=== PATIENT | male | born 1955 | race Caucasian/White ===

== ENCOUNTER 2023-08-20 17:43 | Emergency (ER) | payer MEDICARE, SELFPAY ==
[2023-08-20 17:50] VITALS: BP 121/70; PULSE 105; RESP 18; TEMP 36.6; O2SAT 98
--- NOTE | 2023-08-20 17:57 | CTR_ITS ---
PROCEDURE INFORMATION: Exam: CT Head Without Contrast Exam date and time: 08/20/2023 6:07 PM Age: 68 years old Clinical indication: Weakness, extremity; Bilateral; Additional info: Weakness, ataxia TECHNIQUE: Imaging protocol: Computed tomography of the head without contrast. Radiation optimization: All CT scans at this facility use at least one of these dose optimization techniques: automated exposure control; mA and/or kV adjustment per patient size (includes targeted exams where dose is matched to clinical indication); or iterative reconstruction. COMPARISON: CT head wo con* [id number] 08/22/2017 9:38 PM RADIATION DOSE METRICS: Total DLP (mGy-cm): 1108 FINDINGS: Brain: Sequela of moderate-severe chronic microvascular ischemic changes with periventricular and deep white matter hypoattenuation. Fair-white differentiation is otherwise maintained. No evidence of intra-axial or extra-axial hemorrhage. No mass effect or midline shift. Basilar cisterns are patent. Cerebral ventricles: No hydrocephalus. Paranasal sinuses: The visualized paranasal sinuses are well aerated. Mastoid air cells: The visualized mastoids and middle ears are clear. Bones: Unremarkable. No acute fracture. Soft tissues: Right forehead scalp contusion. CT/CT head wo con* [id number] IMPRESSION: 1. No acute intracranial abnormality. 2. Chronic microvascular ischemic changes. If there is clinical concern for acute ischemia beyond the window for neuro intervention, consider correlation with MRI.
[2023-08-20 18:32] VITALS: BP 156/67; PULSE 93; O2SAT 97
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
[2023-08-20 19:06] LABS: Basophils % 0.4 %; Eosinophils # 0.2 10^3/uL (0.0-0.8); Eosinophils % 1.8 %; Hematocrit 44.1 % (37-53); Lymphocytes # 1.8 10^3/uL (0.8-4.8); Lymphocytes % 17.5 %; Mean Corpuscular HGB Conc 33.1 g/dL (30-55); Mean Corpuscular Hemoglobin 30.5 pg (27-33); Mean Corpuscular Volume 92.3 fl (82-101); Monocytes # 0.6 10^3/uL (0.2-0.9); Monocytes % 6.3 %; Neutrophils # 7.35 10^3/uL (1.8-7.7); Neutrophils % 73.3 %; Nucleated Red Blood Cells % 0 %; Platelet Count 219 10^3/cmm (157-399); Red Blood Count 4.78 10^6/uL (3.85-5.65); Red Cell Distribution Width 12.8 % (12.1-15.1); White Blood Count 10.02 10^3/uL (3.29-11.43)
[2023-08-20 19:11] LABS: Add Urine Microscopic? YES; Bilirubin Urine Neg (Negative); Blood Urine 2+ (Negative); Glucose Urine UA Trace (Normal); Ketones Urine Negative (Negative); Leukocyte Esterase Urine Negative (Negative); Nitrate Urine Negative (Negative); Protein Urine Trace (Negative); Specific Gravity, Urine 1.025 (1.005-1.030); Urine Appearance Clear (CLEAR); Urine Color Yellow (Yellow); Urobilinogen Urine Norm (Negative); pH Urine 5 (5-7)
[2023-08-20 19:19] LABS: Add Urine Culture? No; Bacteria Urine TRACE /hpf; Mucus Urine 2+ /hpf; RBC Urine 0-4 /hpf (0-2); Squamous Epithelial Cell Urine 0-4 /hpf (0-5); WBC Urine 0-4 /hpf (0-5)
[2023-08-20 19:24] LABS: Alanine Aminotransferase 109 U/L (0-41); Albumin Level 3.5 g/dL (3.5-5.2); Alkaline Phosphatase 74 U/L (40-130); Anion Gap 13.9 (5-19); Aspartate Amino Transferase 148 U/L (0-40); Blood Urea Nitrogen 20 mg/dL (8-23); Calcium 8.7 mg/dL (8.5-10.5); Carbon Dioxide 27 mmol/L (22-29); Chloride 106 mmol/L (98-107); Globulin 2.9 g/dL (1.3-4.6); Glomerular Filtration Rate 59.9 mL/min (90-130); Glucose 235 mg/dL (65-115); Osmolality Calculated 306 mOsm/kg (285-295); Potassium 3.9 mmol/L (3.5-5.1); Sodium 143 mmol/L (136-145); Thyroid Stimulating Hormone 3.09 uIU/mL (0.27-4.20); Total Bilirubin 0.5 mg/dL (0.15-1.2); Total Protein 6.4 g/dL (6.6-8.7)
[2023-08-20 19:25] LABS: Creatine Phosphokinase 1824 U/L (39-308)
--- NOTE | 2023-08-20 19:36 | CTR_ITS ---
PROCEDURE INFORMATION: Exam: CT Abdomen And Pelvis With Contrast Exam date and time: 08/20/2023 7:55 PM Age: 68 years old Clinical indication: Abnormal findings; Abnormal lab test; Elevated liver enzymes and other: Ruchi ck; Additional info: Elevated lfts and ck, hematuria, weakness, frequent falls TECHNIQUE: Imaging protocol: Computed tomography of the abdomen and pelvis with contrast. Radiation optimization: All CT scans at this facility use at least one of these dose optimization techniques: automated exposure control; mA and/or kV adjustment per patient size (includes targeted exams where dose is matched to clinical indication); or iterative reconstruction. Contrast material: OMNI 350; Contrast volume: 80 ml; Contrast route: INTRAVENOUS (IV); COMPARISON: CT chest abdpel w/*[id number] 08/22/2017 10:50 PM RADIATION DOSE METRICS: Total DLP (mGy-cm): 507 FINDINGS: Lungs: Emphysematous changes with multiple blebs along the left mediastinal border. Diaphragm: No evidence of diaphragmatic defect. Liver: No focal hepatic lesion. Gallbladder and bile ducts: Unremarkable. No intra-hepatic or extra-hepatic biliary dilatation. Pancreas: Unremarkable. Spleen: Unremarkable. Adrenal glands: Unremarkable. Kidneys and ureters: No renal parenchymal abnormality. No hydronephrosis or ureteral stone. Stomach and bowel: Colonic diverticulosis without evidence of acute diverticulitis. There is a single mildly inflamed sigmoid diverticulum, possibly reflecting subacute or chronic ongoing diverticulitis (image 26 of series 6). No bowel obstruction. Appendix: Normal appendix. Intraperitoneal space: No evidence of free air or fluid collection. 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 No aneurysmal dilatation. The celiac trunk is grossly patent. 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 No evidence of IVC thrombus. The portal vein, SMV and splenic veins are grossly patent. Lymph nodes: No adenopathy. Urinary bladder: Grossly unremarkable. Reproductive: Enlarged prostate measuring 4.7 cm. Consider correlation with serum laboratory findings and outpatient urologic evaluation. Bones/joints: No evidence of acute fracture or aggressive osseous lesion. Moderate multilevel spondylosis of the lumbar spine with facet arthrosis and osteophytosis. 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 Moderate-severe L3-L4 central stenosis. Soft tissues: No evidence of fluid collection or hematoma in the superficial soft tissues. CT/CT abdomen pelvis w con* [id number] IMPRESSION: 1. No hydronephrosis or ureteral stone. 2. 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 There is risk for subsequent development of acute bowel ischemia if/when the SMA completely occludes. Vascular evaluation is recommended. The findings were verbally communicated by telephone with Dr. Daniels at 8:20 PM CDT on 08/20/2023.
[2023-08-20] MEDS: sodium chloride 0.9% 1,000 ML 999 ML IV (19:52)
[2023-08-20] MEDS: iohexol 350 mg/mL 500 mL Btl (per mL) IV (20:01)
[2023-08-20 20:48] VITALS: BP 132/71; PULSE 71; RESP 16; O2SAT 93
[2023-08-20 21:24] VITALS: BP 151/91; PULSE 80; RESP 16; O2SAT 95
--- NOTE | 2023-08-20 21:32 | PC.NURSE ---
bilat dorsalis pedis pulses able to be doppled easily
[2023-08-20 21:35] LABS: Lactic Sepsis W/Reflex 2.8 mmol/L (0.5-2.2)
[2023-08-20 22:51] LABS: Reflex Lactate Order REFLEX LACTIC ORDERD
[2023-08-20 23:09] VITALS: BP 151/84; PULSE 78; RESP 16; O2SAT 96
[2023-08-20 23:58] LABS: Lactic Acid level (Lactate) 0.9 mmol/L (0.5-2.2)
[2023-08-21 00:18] VITALS: BP 151/84; PULSE 78; RESP 16; TEMP 36.6; O2SAT 96
== END 2023-08-21 00:19 | disposition short-term general hospital (02) ==
PROVIDERS: Family Medicine; Emergency Provider Emergency Medicine; PCP Nurse Practitioner Family
DX: R53.1 Weakness (principal); K55.069 Acute infarction of intestine, part and extent unspecified; R79.89 Other specified abnormal findings of blood chemistry
CPT/HCPCS: 36415; 70450; 74177; 80053; 81001; 82550; 83605; 83735; 84443; 85025; 96360; 96361; 99285; J7030; Q9967

== ENCOUNTER 2024-04-10 09:40 | Observation (INO) | payer MEDICARE, SELFPAY ==
[2024-04-10 09:56] VITALS: BP 137/93; PULSE 94; RESP 20; TEMP 37.1; O2SAT 92; BMI 20.9
--- NOTE | 2024-04-10 10:11 | XRR_ITS ---
PROCEDURE INFORMATION: Exam: XR Chest Exam date and time: 04/10/2024 10:14 AM Age: 69 years old Clinical indication: Other: Weakness TECHNIQUE: Imaging protocol: Radiologic exam of the chest. Views: 1 view. COMPARISON: 1. CT chest abdpel w/*[id number] 08/22/2017 10:50 PM 2. CR XR chest 1V [id number] 08/22/2017 10:17 PM FINDINGS: Lungs: Mild bilateral lower lung linear atelectasis versus scarring. No consolidation. Pleural spaces: Unremarkable. No pleural effusion. No pneumothorax. Heart/Mediastinum: Unremarkable. No cardiomegaly. Bones/joints: Degenerative changes along the spine and shoulders. Chronic posttraumatic deformity at the left distal clavicle. XR/XR chest 1V portable [id number] IMPRESSION: No acute findings.
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
--- NOTE | 2024-04-10 10:19 | ED_ITS ---
HPI - Weakness 2 General: Chief complaint: Weakness Stated complaint: no pain, can't walk Time Seen by Provider: 04/10/24 09:49 Source: patient Mode of arrival: ambulatory Limitations: no limitations History of Present Illness: 69-year-old male states that he is had p rogressive weakness been going on for months for almost a year actually. He states that he has bilateral lower extremity weakness he was seen here back in August for the same states that she is gradually worsens. States this morning is having a difficult time walking with his walker and felt even weaker than normal he denies any bowel or bladder incontinence had some slight slurred speech but he states that his baseline no new focal deficits. Associated symptoms: Denies chest pain, chills, fever(s), headache(s), nausea or vomiting Review of Systems 2 Const: Denies: fever(s), chills, body aches or change in appetite ENMT: Denies: throat pain or dental pain Card: Denies: chest pain Resp: Denies: dyspnea GI: Denies: abdominal pain, nausea, vomiting or diarrhea Musc: Reports: muscle weakness; Denies: neck pain or back pain Skin/Breast: Denies: rash Neuro: Denies: headache(s) Physical Exam 2 Const: COMMON NORMALS: no acute distress, patient oriented x3 and healthy appearing HENMT: COMMON NORMALS: normocephalic and atraumatic HEAD & SCALP: n ormocephalic and atraumatic Eye: COMMON NORMALS: Equal, round and reactive pupils present and EOMs intact bilaterally PUPIL: Yes Equal, round and reactive pupils present Neck/C-Spine: COMMON NORMALS: full ROM and supple Chest: COMMONS NORMALS: normal inspection of the chest and normal palpation of entire chest wall Resp: COMMON NORMALS: normal respiratory effort, No retractions, No use of accessory muscles and clear to auscultation bilaterally AUSCULTATION: clear to auscultation bilaterally Cardio: COMMON NORMALS: regular rate, regular rhythm and No murmurs present (Cardio) RATE: regular rate RHYTHM: regular rhythm GI: COMMON NORMALS: Normal to inspection, nondistended, normoactive bowel sounds present, Soft to palpation, non-tender and no masses PALPATION: Yes Soft to palpation Extremity: COMMON NORMALS: normal to inspection and full ROM Neuro: COMMON NORMALS: patient oriented x3, moves all extremities and no focal motor deficits Psych: COMMON NORMALS: mental status grossly normal, Normal thought process present and cooperative THOUGHT PROCESS: Normal thought process present Skin: COMMON NORMALS: no rashes or lesions noted and no wounds GENERAL SKIN EXAM: no rashes or lesions noted Course 2 Vital Signs: Vital signs: Vital Signs Temperature 98.8 F 04/10/24 09:56 Pulse Rate 82 04/10/24 10:46 Respiratory Rate 20 H 04/10/24 09:56 Blood Pressure 137/93 04/10/24 10:46 Pulse Oximetry 95 04/10/24 10:46 Oxygen Delivery Me thod Room Air 04/10/24 09:56 MDM - Weakness Medical Decision Making Patient presents here with generalized weakness has been going on for months it is worsening he had some slurred speech here as well he states it has been going on for months as well head CT showed no acute abnormality he is not able to ambulate here at this time so will admit for his weakness as he is not able to ambulate or care for himself. Medical Records I reviewed the patient's medical records. Lab Data I reviewed the patient's lab results. 04/10/24 10:42 04/10/24 10:42 Radiology Impressions Chest X-Ray 04/10/24 10:11 IMPRESSION: No acute findings. Head CT 04/10/24 10:11 IMPRESSION: No acute intracranial findings. Laboratory Results WBC 10.07 10^3/uL (3.29-11.43) 04/10/24 10:42 RBC 5.61 10^6/uL (3.85-5.65) 04/10/24 10:42 Hgb 16.10 g/dL (11.27-16.99) 04/10/24 10:42 Hct 50.3 % (37-53) 04/10/24 10:42 MCV 89.7 fl (82-101) 04/10/24 10:42 MCH 28.7 pg (27-33) 04/10/24 10:42 MCHC 32.0 g/dL (30-55) 04/10/24 10:42 RDW 13.5 % (12.1-15.1) 04/10/24 10:42 Plt Count 156 10^3/cmm (157-399) L 04/10/24 10:42 MPV 10.6 fL (7.4-10.4) H 04/10/24 10:42 Neut % (Auto) 80.6 % 04/10/24 10:42 Lymph % (Auto) 9.9 % 04/10/24 10:42 [place] % (Auto) 8.1 % 04/10/24 10:42 Eos % (Auto) 0.6 % 04/10/24 10:42 Baso % (Auto) 0.4 % 04/10/24 10:42 Neut # (Auto) 8.11 10^3/uL (1.8-7.7) H 04/10/24 10:42 Lymph # (Auto) 1.0 10^3/uL (0.8-4.8) 04/10/24 10:42 [place] # (Auto) 0.8 10^3/uL (0.2-0.9) 04/10/24 10:42 Eos # (Auto) 0.1 10^3/uL (0.0-0.8) 04/10/24 10:42 Baso # (Auto) 0.0 10^3/uL (0.0-0.1) 04/10/24 10:42 Nucleated RBC % (auto) 0 % 04/10/24 10:42 Nucleated RBCs # 0.0 /100WBC 04/10/24 10:42 PT 13.50 SECONDS (12.1-14.9) 04/10/24 10:42 INR 1.00 (0.8-1.2) 04/10/24 10:42 Sodium 142 mmol/L (136-145) 04/10/24 10:42 Potassium 4.5 mmol/L (3.5-5.1) 04/10/24 10:42 Chloride 103 mmol/L (98-107) 04/10/24 10:42 Carbon Dioxide 26 mmol/L (22-29) 04/10/24 10:42 Anion Gap 17.5 (5-19) 04/10/24 10:42 BUN 15 mg/dL (8-23) 04/10/24 10:42 Creatinine 1.2 mg/dL (0.7-1.2) 04/10/24 10:42 GFR Calculation Not Reportable 04/10/24 10:42 Glucose 74 mg/dL (65-115) 04/10/24 10:42 POC Glucose 77 mg/dL (70-110) 04/10/24 10:38 Calculated Osmolality 293 mOsm/kg (285-295) 04/10/24 10:42 Calcium 9.5 mg/dL (8.5-10.5) 04/10/24 10:42 Total Bilirubin 0.4 mg/dL (0.15-1.2) 04/10/24 10:42 AST 22 U/L (0-40) 04/10/24 10:42 ALT 17 U/L (0-41) 04/10/24 10:42 Alkaline Phosphatase 96 U/L (40-130) 04/10/24 10:42 Total Protein 7.2 g/dL (6.6-8.7) 04/10/24 10:42 Albumin 4.2 g/dL (3.5-5.2) 04/10/24 10:42 Globulin 3.0 g/dL (1.3-4.6) 04/10/24 10:42 Urine Color Yellow (Yellow) 04/10/24 10:58 Urine Appearance Clear (CLEAR) 04/10/24 10:58 Urine pH 6.0 (5-7) 04/10/24 10:58 Ur Specific [place] 1.020 (1.005-1.030) 04/10/24 10:58 Urine Protein Negative (Negative) 04/10/24 10:58 Urine Glucose (UA) Negative (Normal) 04/10/24 10:58 Urine Ketones Negative (Negative) 04/10/24 10:58 Urine Blood Negative (Negative) 04/10/24 10:58 Urine Nitrate Negative (Negative) 04/10/24 10:58 Urine Bilirubin Negative (Negative) 04/10/24 10:58 Urine Urobilinogen 1.0 mg/dL (Negative) 04/10/24 10:58 Ur Leukocyte Esterase Negative (Negative) 04/10/24 10:58 Urine RBC 0-2 /hpf (0-2) 04/10/24 10:58 Urine WBC 0-5 /hpf (0-5) 04/10/24 10:58 Ur Squamous Epith Cells 0-5 /hpf (0-5) 04/10/24 10:58 Amorphous Sediment Not Reportable 04/10/24 10:58 Urine Bacteria None seen /hpf (NONE) 04/10/24 10:58 Hyaline Casts 0.40 /lpf 04/10/24 10:58 All radiology interpretation(s) finalized by discharge EKG Data EKG 1: I personally reviewed and interpreted this EKG as follows: EKG interpretation date: 04/10/24 EKG interpretation time: 10:40 Interpretation: nsr hr [address] elevation qrs [id number] Discharge Plan Discharge Patient Disposition: Admitted As Inpatient Clinical Impression: Generalized weakness Condition: Stable Prescriptions: No Action sertraline 100 mg Tablet 100 mg PO DAILY aripiprazole 5 mg Tablet 5 mg PO DAILY Referrals: Lisseth Pink FNP [Primary Care Provider] - Coding Level of Care Code ED Body Shop Manager for Chg Fwd Related Data Home Medications Medication Instructions Recorded Confirmed aripiprazole 5 mg tablet 5 mg PO DAILY 04/10/24 04/10/24 sertraline 100 mg tablet 100 mg PO DAILY 04/10/24 04/10/24 Allergies Allergy/AdvReac Type Severity Reaction Status Date / Time No Known Allergies Allergy Verified 04/10/24 10:12
--- NOTE | 2024-04-10 10:40 | ECG_ITS ---
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 Measurements Intervals [place] Rate: 82 P: 61 ND: 178 QRS: 35 QRSD: 94 T: 60 QT: 381 QTc: 446 Interpretive Statements SINUS RHYTHM Compared to ECG 08/24/2017 11:18:36 No significant changes Electronically Signed On 04-11-2024 20:08:19 MOLD UNLOADER by Reginaldo Solis M.D. [email or web address]
[2024-04-10 10:45] LABS: Glucose Point of Care 77 mg/dL (70-110)
[2024-04-10 10:46] VITALS: BP 137/93; PULSE 82; O2SAT 95
[2024-04-10 11:00] LABS: Basophils % 0.4 %; Eosinophils # 0.1 10^3/uL (0.0-0.8); Eosinophils % 0.6 %; Hematocrit 50.3 % (37-53); Lymphocytes % 9.9 %; Mean Corpuscular Hemoglobin 28.7 pg (27-33); Mean Corpuscular Volume 89.7 fl (82-101); Mean Platelet Volume 10.6 fL (7.4-10.4); Monocytes # 0.8 10^3/uL (0.2-0.9); Monocytes % 8.1 %; Neutrophils # 8.11 10^3/uL (1.8-7.7); Neutrophils % 80.6 %; Nucleated Red Blood Cells % 0 %; Platelet Count 156 10^3/cmm (157-399); Red Blood Count 5.61 10^6/uL (3.85-5.65); Red Cell Distribution Width 13.5 % (12.1-15.1); White Blood Count 10.07 10^3/uL (3.29-11.43)
[2024-04-10 11:10] LABS: Bilirubin Urine Negative (Negative); Blood Urine Negative (Negative); Glucose Urine UA Negative (Normal); Ketones Urine Negative (Negative); Leukocyte Esterase Urine Negative (Negative); Nitrate Urine Negative (Negative); Protein Urine Negative (Negative); Urine Appearance Clear (CLEAR); Urine Color Yellow (Yellow)
[2024-04-10 11:12] LABS: Add Urine Microscopic? YES; Bacteria Urine None Seen /hpf; RBC Urine 0-2 /hpf (0-2); Squamous Epithelial Cell Urine 0-5 /hpf (0-5); WBC Urine 0-5 /hpf (0-5)
[2024-04-10 11:16] LABS: Alanine Aminotransferase 17 U/L (0-41); Albumin Level 4.2 g/dL (3.5-5.2); Alkaline Phosphatase 96 U/L (40-130); Anion Gap 17.5 (5-19); Aspartate Amino Transferase 22 U/L (0-40); Blood Urea Nitrogen 15 mg/dL (8-23); Calcium 9.5 mg/dL (8.5-10.5); Carbon Dioxide 26 mmol/L (22-29); Chloride 103 mmol/L (98-107); Creatinine Clr Calc Pharmacy 59.6425; Glucose 74 mg/dL (65-115); Osmolality Calculated 293 mOsm/kg (285-295); Potassium 4.5 mmol/L (3.5-5.1); Sodium 142 mmol/L (136-145); Total Bilirubin 0.4 mg/dL (0.15-1.2); Total Protein 7.2 g/dL (6.6-8.7)
--- NOTE | 2024-04-10 11:38 | PC.NURSE ---
attempted to assist pt with ambulation using walker, pt was able to stand up by himself and take one step. pt states unable to take second step, states physically cannot make myself . ED physician notified.
[2024-04-10 13:15] VITALS: BP 124/88; PULSE 77; RESP 17; O2SAT 95
[2024-04-10 15:02] VITALS: BP 117/76; PULSE 74; O2SAT 93
--- NOTE | 2024-04-10 16:34 | PM.HP ---
Providers/Chief Complaint Admitting Physician: Clarissa Bearden MD Primary Care Provider: SUSAN Olvera Chief Complaint: no pain, can't walk History of Present Illness Nirav Rosenberg is a 69 year old male With a history of traumatic brain injury, recently spent some months in a rehab facility for PT, discharged 2 months ago, he is currently living with his sister who I am unable to reach at the number provided [phone] Patient is presenting to the hospital with increasing lower extremity weakness, and recurrent falls at home. He attempted to ambulate with his walker today as he usually does however fell 3 times. He does have some bruising present over his right knee. He is able to move all extremities while laying in bed, however states he feels very weak whenever he attempts to get out of bed. He denies any known history of hypertension diabetes mellitus. He keeps repeating that he used to be on a medication that really helped with his nerves but cannot tell me the exact name. He denies any current pain. Review of Systems General: Reports: 10 or more systems reviewed and unremarkable except in HPI and below Const: Denies: fever(s), chills or body aches Eyes: Denies: change in vision, blurry vision or photophobia ENMT: Reports: hoarseness; Denies: throat pain, enlarged tonsils, odynophagia or nasal congestion Card: Denies: chest pain, palpitations, irregular heart rhythm, edema, swelling of feet/ankles, lightheadedness, pre-syncope, dyspnea on exertion or orthopnea Resp: Denies: dyspnea, productive cough, non-productive cough, wheezing, stridor, pain on inspiration, change in phlegm color, hemoptysis or chest congestion GI: Denies: abdominal pain, nausea, vomiting, hematemesis, coffee ground emesis, dysphagia, heartburn, diarrhea, constipation, GI cramping, change in stool character, hematochezia or melena : Denies: flank pain, dysuria, urinary frequency, urinary urgency, urinary hesitancy or hematuria Musc: Denies: neck pain, back pain, extremity pain, joint swelling, joint warmth or deformity Neuro: Denies: headache(s), numbness in extremities, weakness in extremities, sensory changes, difficulty walking, frequent falls, dizziness, vertigo, behavioral changes, Slurred speech present or seizure-like activity Psych: Denies: anxiety, depression, suicidal ideation or homicidal ideation Endo: Denies: polyuria, polydipsia, tired all the time, cold intolerance or hot flashes Paramjit/Lymph: Denies: easy bruising or easy bleeding Medications/Allergies Home Medications Medication Instructions Recorded Confirmed Last Taken Type aripiprazole 5 mg tablet 5 mg PO DAILY 04/10/24 04/10/24 Unknown History sertraline 100 mg tablet 100 mg PO DAILY 04/10/24 04/10/24 Unknown History Allergies Allergy/AdvReac Type Severity Reaction Status Date / Time No Known Allergies Allergy Verified 04/10/24 10:12 Vitals/I&O/Wt Last Vital Signs Temp 98.8 F 04/10/24 09:56 Pulse 74 04/10/24 15:02 Resp 17 04/10/24 13:15 BP 117/76 04/10/24 15:02 Pulse Ox 93 04/10/24 15:02 O2 Del Method Room Air 04/10/24 15:01 Weight last 48 hrs Weight 70.307 kg Physical Exam Narrative: General: No acute distress, speaks slowly, which she states is normal for him 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 HEENT: PERRLA, pupils bilaterally equal and reactive, pallors not present Chest: Normal vesicular breath sounds, no added sounds, equal good air entry bilaterally CVS: S1-S2 regular, no murmurs, no tachycardia, no gallops, no rubs Abdomen: Soft, nontender, no organomegaly, bowel sounds present Neuro: No focal deficits, he is able to move extremities while laying in bed. States that his weakness still he agrees any attempts to get out. Extremities: mild bruising over his right knee. Data 04/11/24 04:20 04/11/24 04:20 A&P Assessment and plan (1) Generalized weakness: Patient presenting today with increasing generalized weakness. States he has been falling more often than usual. Complains of some discomfort over his back and neuropathic pain of his legs Will obtain CT of the lumbar spine to assess for any spinal root compression which may require urgent intervention. Check CK, TSH, HbA1c to evaluate for other organic causes of generalized weakness. PT OT assessment Check orthostatics. Check COVID and flu PCR. 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 Patient states he did not end up having any kind of interventions at that time. He was discharged to rehab, where he was discharged approximately 2 months ago. Plan DVT prophylaxis SCDs Full code Attestations Medical Necessity Statement*: Less than 2 midnight stay is currently anticipated Coding Level of Care Code Acute Code for Chg Fwd Diagnoses Generalized weakness R53.1 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
--- NOTE | 2024-04-10 16:42 | CTR_ITS ---
PROCEDURE INFORMATION: Exam: CT Abdomen And Pelvis With Contrast Exam date and time: 04/10/2024 6:06 PM Age: 69 years old Clinical indication: Other: Sma stenosis/thrombosis; Patient HX: Sma stenosis with thrombosis; Additional info: F/up sma thrombosis, h/o high-grade stenosis of the proximal sma secondary to TECHNIQUE: Imaging protocol: Computed tomography of the abdomen and pelvis with contrast. Radiation optimization: All CT scans at this facility use at least one of these dose optimization techniques: automated exposure control; mA and/or kV adjustment per patient size (includes targeted exams where dose is matched to clinical indication); or iterative reconstruction. Contrast material: OMNI 350; Contrast volume: 100 ml; Contrast route: INTRAVENOUS (IV); COMPARISON: CT abdomen pelvis w con* [id number] 08/20/2023 7:55 PM RADIATION DOSE METRICS: Total DLP (mGy-cm): 516.16 FINDINGS: Lungs: Minimal dependent atelectasis is seen in the lung bases. Lung bases otherwise appear clear. Emphysematous changes in the lung bases with bullae along the border of the heart and lingula without significant change. Granulomatous calcification in the inferior aspect of the right middle lobe. Liver: Normal appearance of the liver. Gallbladder and biliary ducts: Normal appearance of the gallbladder. No radiopaque cholelithiasis. Pancreas: Normal appearance of the pancreas. No ductal dilation. Spleen: Normal appearance of the spleen. Adrenal glands: Normal appearance of both adrenal glands. Kidneys and ureters: Normal appearance of both kidneys. No evidence of nephrolithiasis or hydronephrosis. No renal mass or cyst is seen. Normal appearance of both ureters without hydroureter or ureteral stone. Stomach and bowel: Normal appearance of the stomach. Normal appearance of the small bowel without luminal dilation suggested. There is moderate diverticular disease of the colon. No evidence of diverticulitis. Minimal fluid throughout the large bowel without evidence of obstruction. Appendix: No evidence of appendicitis. Intraperitoneal space: Unremarkable. No free air. No significant fluid collection. Vasculature: There is chronic occlusion of the lower abdominal aorta at the level of the superior mesenteric artery and renal arteries as seen on prior. There is high-grade stenosis of the proximal SMA without significant change from prior comparison. There is high-grade stenosis at the proximal renal arteries bilaterally without significant change from prior. There is reconstitution in the external iliac arteries bilaterally. The origin of the inferior mesenteric artery is occluded with distal reconstitution as on prior. Lymph nodes: Unremarkable. No enlarged lymph nodes. Urinary bladder: Normal appearance of the urinary bladder. No intravesicular stone. Reproductive: Mild prostate enlargement measuring approximately 0.8 cm. Bones/joints: Mild to moderate scattered degenerative changes of the visualized spine. No aggressive osseous lesion or fracture is seen. Soft tissues: Bilateral fatty inguinal hernias. CT/CT abdomen pelvis w con* [id number] IMPRESSION: 1. 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 The high-grade proximal stenosis of the superior mesenteric artery and bilateral renal arteries appears grossly unchanged. 2. Minimal fluid within the large bowel without evidence of obstruction. Correlate clinically for diarrheal disease. Distal colonic diverticular disease without evidence of diverticulitis. 3.Other incidental and/or chronic findings as detailed above.
--- NOTE | 2024-04-10 16:42 | CTR_ITS ---
PROCEDURE INFORMATION: Exam: CT Lumbar Spine Without Contrast Exam date and time: 04/10/2024 6:06 PM Age: 69 years old Clinical indication: Patient HX: Recurrent falls with bilateral lower ext weakness. ; Additional info: Recurrent falls, le weakness, assess for nerve compression, le weakness TECHNIQUE: Imaging protocol: Computed tomography of the lumbar spine without contrast. Radiation optimization: All CT scans at this facility use at least one of these dose optimization techniques: automated exposure control; mA and/or kV adjustment per patient size (includes targeted exams where dose is matched to clinical indication); or iterative reconstruction. COMPARISON: CT lumbar spine wo con* [id number] 08/22/2017 10:46 PM RADIATION DOSE METRICS: Total DLP (mGy-cm): 516.16 FINDINGS: Bones/joints: Mild moderate scattered lumbar spondylosis with endplate osteophytes throughout. Moderate disc space narrowing at L5-S1. Normal lumbar alignment without listhesis. No pars defect is seen. Lumbar vertebral bodies maintain normal height without compression deformity. There is no evidence of increased density within the spinal canal to suggest hemorrhage. No CT apparent significant posterior disc herniation or spinal canal stenosis although this is not well evaluated by CT. There is question of neural foraminal narrowing on the right at L4-L5 and L5-S1 although not well confirmed on CT. Consider MRI if clinically warranted. Vasculature: Please see dedicated CT of the abdomen and pelvis from same time for abdominal and aortic findings. Soft tissues: The visualized superficial soft tissues have a normal appearance. CT/CT lumbar spine recon [id number] IMPRESSION: 1. No evidence of a lumbar fracture or malalignment. [id number] scattered spondylosis. No CT apparent central canal stenosis or significant disc herniation although this is not well evaluated by CT. There is question of right-sided neural foraminal narrowing at L4 and L5. Recommend MRI for further evaluation if clinical symptoms warrant. 2. Please see dedicated CT of the abdomen and pelvis from same time for evaluation of the aortic findings.
[2024-04-10 16:50] VITALS: BP 129/82; PULSE 71; RESP 15; TEMP 36.7; O2SAT 93
[2024-04-10 17:15] LABS: Troponin T (5th) Once 15 ng/L (0-15)
[2024-04-10 17:25] LABS: Creatine Phosphokinase 63 U/L (39-308); Magnesium 2.1 mg/dL (1.7-2.3); Thyroid Stimulating Hormone 2.63 uIU/mL (0.27-4.20)
[2024-04-10] MEDS: iohexol 350 mg/mL 500 mL Btl (per mL) IV (18:07)
[2024-04-10 19:33] LABS: Estmated Average Glucose 117; Hemoglobin A1C 5.7 % (4.0-6.0)
[2024-04-10 20:00] VITALS: BP 110/75; PULSE 75; RESP 17; TEMP 36.6; O2SAT 90
[2024-04-11] VITALS (7 sets, daily range): BP systolic 95–147; BP diastolic 61–90; PULSE 64–93; RESP 16–19; TEMP 36.3–37.2; O2SAT 90–93
[2024-04-11 05:42] LABS: Basophils # 0.1 10^3/uL (0.0-0.1); Basophils % 0.6 %; Eosinophils # 0.2 10^3/uL (0.0-0.8); Eosinophils % 2.8 %; Hematocrit 45.9 % (37-53); Lymphocytes # 2.1 10^3/uL (0.8-4.8); Lymphocytes % 24.7 %; Mean Corpuscular HGB Conc 33.1 g/dL (30-55); Mean Corpuscular Hemoglobin 29.6 pg (27-33); Mean Corpuscular Volume 89.5 fl (82-101); Mean Platelet Volume 11.3 fL (7.4-10.4); Monocytes # 0.6 10^3/uL (0.2-0.9); Monocytes % 7.6 %; Neutrophils # 5.33 10^3/uL (1.8-7.7); Neutrophils % 64.1 %; Nucleated Red Blood Cells % 0 %; Platelet Count 145 10^3/cmm (157-399); Red Blood Count 5.13 10^6/uL (3.85-5.65); Red Cell Distribution Width 13.6 % (12.1-15.1); White Blood Count 8.31 10^3/uL (3.29-11.43)
[2024-04-11 06:06] LABS: Alanine Aminotransferase 15 U/L (0-41); Albumin Level 3.8 g/dL (3.5-5.2); Alkaline Phosphatase 88 U/L (40-130); Anion Gap 15.9 (5-19); Aspartate Amino Transferase 21 U/L (0-40); Blood Urea Nitrogen 15 mg/dL (8-23); Calcium 9.1 mg/dL (8.5-10.5); Carbon Dioxide 24 mmol/L (22-29); Chloride 104 mmol/L (98-107); Creatinine Clr Calc Pharmacy 66.8349; Globulin 2.7 g/dL (1.3-4.6); Glucose 84 mg/dL (65-115); Osmolality Calculated 290 mOsm/kg (285-295); Potassium 3.9 mmol/L (3.5-5.1); Sodium 140 mmol/L (136-145); Total Bilirubin 0.6 mg/dL (0.15-1.2); Total Protein 6.5 g/dL (6.6-8.7)
[2024-04-11] MEDS: pantoprazole DR 40 mg Tablet PO (08:35)
--- NOTE | 2024-04-11 15:10 | USR_ITS ---
PROCEDURE INFORMATION: Exam: US Duplex Lower Extremity Veins, Bilateral Exam date and time: 04/11/2024 5:47 PM Age: 69 years old Clinical indication: Screening exam; Assess for dvt TECHNIQUE: Imaging protocol: Real-time duplex ultrasound of the bilateral extremities with 2-D quevedo scale, color Doppler flow and spectral waveform analysis including responses to compression and other maneuvers (when performed) with image documentation. Complete exam focused on the lower extremity veins. COMPARISON: CT abdomen pelvis w con* [id number] 04/10/2024 6:06 PM FINDINGS: Right deep veins: Unremarkable. The common femoral, femoral, proximal profunda femoral and popliteal veins are patent without thrombus. Normal Doppler waveforms. Normal compressibility and/or augmentation response. Left deep veins: Unremarkable. The common femoral, femoral, proximal profunda femoral and popliteal veins are patent without thrombus. Normal Doppler waveforms. Normal compressibility and/or augmentation response. Superficial veins: Greater saphenous veins at the saphenofemoral junctions are patent bilaterally without thrombus. Soft tissues: Unremarkable. US/CV venous duplex [facility] [id number] IMPRESSION: No evidence of deep vein thrombosis.
--- NOTE | 2024-04-11 15:36 | P.PN_ITS ---
Subjective 2 Subjective: Additional history was available from patient's daughter Alena Rosenberg today. She states that prior to August 2023, patient used to live with her however since being discharged from rehab 2 months ago he came to live with his sister. He has been residing with his sister who I am currently unable to reach at the provided number. Alena reports that patient has a history of suicide attempt in the past and he has spent some time at a psych inpatient facility in the past. No recent suicidal ideation. Patient currently denies any suicidal thoughts to me. He only request today is that will resume his pregabalin that he thinks helped with his peripheral neuropathy in the past. Medications: Reviewed: Yes Vitals/I&O/Wt Last Vital Signs Temp 98.1 F 04/11/24 12:17 Pulse 76 04/11/24 12:17 Resp 17 04/11/24 12:17 BP 109/71 04/11/24 12:17 Pulse Ox 93 04/11/24 12:17 O2 Del Method Room Air 04/11/24 12:17 04/11/24 04/11/24 04/11/24 06:59 14:59 22:59 Intake Total 960 / 960 Output Total 600 / 1150 1050 / 1050 Balance -600 / -1030 -90 / -90 Weight last 48 hrs Weight 75.387 kg Weight 70.307 kg Physical Exam 2 Narrative: General: No acute distress, speaks slowly, which she states is normal for him since his TBI in 2015. HEENT: PERRLA, pupils bilaterally equal and reactive, pallors not present Chest: Normal vesicular breath sounds, no added sounds, equal good air entry bilaterally CVS: S1-S2 regular, no murmurs, no tachycardia, no gallops, no rubs Abdomen: Soft, nontender, no organomegaly, bowel sounds present Neuro: No focal deficits, he is able to move extremities while laying in bed. States that his weakness still he agrees any attempts to get out. Extremities: mild bruising over his right knee. Data 04/11/24 04:20 04/11/24 04:20 A&P Assessment and plan (1) Generalized weakness: Patient presenting today with increasing generalized weakness. States he has been falling more often than usual. Complains of some discomfort over his back and neuropathic pain of his legs Will obtain CT of the lumbar spine to assess for any spinal root compression which may require urgent intervention. Check CK, TSH, HbA1c to evaluate for other organic causes of generalized weakness. PT OT assessment Check orthostatics. Check COVID and flu PCR. 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 Patient states he did not end up having any kind of interventions at that time. He was discharged to rehab, where he was discharged approximately 2 months ago. Plan DVT prophylaxis SCDs Full code April 11, 2024. Lumbar spine CT was negative for any lumbar fracture or malalignment. There was mild to moderate scattered spondylosis. No apparent central canal stenosis or significant disc herniation. Possible right-sided neuroforaminal narrowing at L4 and L5. Likely referred for outpatient evaluation. 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 High-grade proximal stenosis of the superior mesenteric artery appearing to be unchanged compared to August 2023. No signs of ischemic bowel. Minimal fluid within the large bowel without evidence of obstruction. No reported diarrhea. No signs of diverticulitis.CT head without acute intracranial findings chest x-ray without acute findings. Right lower extremity appears to be slightly more swollen compared to the left today. Will obtain lower extremity Doppler to assess for possible DVT. Patient requests resuming pregabalin for neuropathic pain. Awaiting PT OT assessment which is not available over the weekend for appropriate discharge planning. CK, TSH, Hba1c all WNL Attestations 2 Medical Necessity Statement*: Awaiting PT assessment Coding Level of Care Code Acute Code for Chg Fwd Straight Forward/Low MDM includes number and complexity of problems actively addressed during encounter, amount and/or complexity of data reviewed/ordered and described risk of complication, morbidity or mortality of management as documented Diagnoses Generalized weakness R53.1 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
[2024-04-11 19:01] LABS: Covid PCR NEGATIVE (Negative); Influenza A NEGATIVE (Negative); Influenza B NEGATIVE (Negative); Respiratory Syncytial Virus Ce NEGATIVE (Negative)
[2024-04-11] MEDS: pregabalin 25 mg Capsule PO (19:15)
[2024-04-12] VITALS (7 sets, daily range): BP systolic 94–122; BP diastolic 53–79; PULSE 63–95; RESP 16–18; TEMP 36.4–37.9; O2SAT 90–92
[2024-04-12] MEDS: ARIPiprazole 10 mg Tablet 5 MG PO (09:30)
[2024-04-12] MEDS: pregabalin 25 mg Capsule PO ×2 (09:30→17:51)
[2024-04-12] MEDS: sertraline 100 mg Tablet PO (09:30)
[2024-04-12] MEDS: pantoprazole DR 40 mg Tablet PO (09:31)
--- NOTE | 2024-04-12 10:34 | PC.CHAP ---
Pastoral Care Encounter/Spiritual Assessment Type of Contact [] Declined complementary health therapists visit [] Patient/Family/Request visit [] Outpatient visit [] Follow-up visit [] Physician referral [] Code/Alert [x] Routine visit [] Staff referral [] Actively dying [] Patient sleeping [] Family support [] [] Out of room [] Palliative care [] [] Receiving care in room [] Pre-surgical visit [] Trauma [] Long length of stay [] ICU visit [] Other: Relational/Emotional Strength [] Patient feels connected with others/family/visitors/staff [] Distress [] Loneliness/isolation [] Abandonment Spirituality of Patient [x] Person of Kathy [] Attends Jew of their Kathy [x] Believes in Prayer [] Reads Bible or Jehovah'S Witness materials [] There are Spiritual issues to be addressed Front Attendant Interventions [x] Prayer [x] Active listening [] Non-anxious presence [] Spiritual/emotional support [] Crisis/trauma care [] Spiritual counseling [] Bereavement support [] Provided bereavement packet [] Provided Bible/devotional materials [] Provided toy/stuffed animal, coloring book to patient or family member [] Provided Communion [] Anointing/[place] [] Salvation [x] Completed spiritual assessment [] Other: Impact on Illness or Injury [] Angry [] Fearful [] Anxious [] Often cries [] Exhaustion [] Unable to work [] Unable to attend sikh [] Unable to walk/stand [] Unable to read [] Unable to drive [] Unable to eat/drink [] Unable to sleep [] Unable to be with family [] Patient intubated [] Other: Summary Time spent with patient 5 min
--- NOTE | 2024-04-12 10:55 | MR_ITS ---
WS: [id number] MRI LUMBAR SPINE NONCONTRAST HISTORY: foraminal narrowing on CT COMPARISON: CT 04/10/2024 TECHNIQUE: Sagittal and axial multisequence imaging is submitted. Curvature and scoliosis thoracic and lumbar spines. Straightening of the normal lumbar lordosis. Mild anterior wedging of T7. Disc spaces are narrowed and desiccated. Large anterior bridging osteophytes from L3-L5. No marrow ed sree or fracture. Conus terminates normally at L1-2 disc level. L1-L2: Annular disc bulging with osteophytic ridging. Shallow RIGHT paracentral disc protrusion. Mild central with RIGHT subarticular recess encroachment upon the traversing RIGHT L2 nerve root. Mild bi lateral foraminal stenosis. L2-L3: Diffuse annular disc bulging with mild osteophytic ridging, ligamentum flavum and facet arthri tis. Very mild central, bilateral subarticular recess and foraminal stenosis. Slightly greater stenos is RIGHT foramen. L3-L4: Diffuse annular disc bulging with osteophytic ridging, marked ligamentum flavum and facet arth ritis. Very mild subarticular recess encroachment and foraminal narrowing. L4-L5: Slight retrolisthesis of L4. Annular disc bulging with osteophytic ridging. Severe facet joint arthritis, RIGHT greater than LEFT. Fluid in the LEFT facet joint. RIGHT foraminal disc protrusion e ffacing fat and extending laterally. Moderate to severe RIGHT foraminal stenosis due to a combination of disc, osteophyte and facet disease. Mild LEFT foraminal stenosis. L5-S1: Osteophytic ridging with annular disc bulging. LEFT paracentral disc protrusion. Disc protrusi on contacts the S1 nerve roots, LEFT greater than RIGHT. Mild foraminal narrowing. Mild bilateral renal atrophy. MR/MR lumbar spine wo con* [id number] IMPRESSION: 1. No acute lumbar spine fracture. No marrow edema. 2. L4-5: Moderate to severe RIGHT foraminal stenosis due to combination of dis c disease with protrusion, osteophyte and facet disease. Mild LEFT foraminal st enosis. 3. L3-4: Mild bilateral subarticular recess encroachment and mild foraminal na rrowing. 4. L2-3: Mild central with bilateral subarticular recess and foraminal stenosi s, RIGHT greater than LEFT. 5. L1-2: Shallow RIGHT paracentral disc protrusion. Mild central with bilatera l subarticular recess encroachment upon the traversing RIGHT L2 nerve root. Mil d bilateral foraminal stenosis. 6. L5-S1: LEFT paracentral disc protrusion. Disc protrusion and bulging with m ild contact on the S1 nerve roots, LEFT greater than RIGHT. Mild foraminal narr owing.
--- NOTE | 2024-04-12 16:40 | P.PN_ITS ---
Subjective 2 Subjective: seen today laying in bed appearing comfortable awaiting MRI today Vitals/I&O/Wt Last Vital Signs Temp 97.6 F 04/12/24 15:43 Pulse 63 04/12/24 15:43 Resp 16 04/12/24 15:43 BP 122/79 04/12/24 15:43 Pulse Ox 92 04/12/24 15:43 O2 Del Method Room Air 04/12/24 15:43 04/12/24 04/12/24 04/12/24 06:59 14:59 22:59 Intake Total 350 / 3610 480 / 480 Output Total 200 / 2200 400 / 400 200 / 600 Balance 150 / 1410 80 / 80 -200 / -120 Weight last 48 hrs Weight 77.746 kg Weight 75.387 kg Physical Exam 2 Narrative: General: No acute distress, speaks slowly, which she states is normal for him 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 HEENT: PERRLA, pupils bilaterally equal and reactive, pallors not present Chest: Normal vesicular breath sounds, no added sounds, equal good air entry bilaterally CVS: S1-S2 regular, no murmurs, no tachycardia, no gallops, no rubs Abdomen: Soft, nontender, no organomegaly, bowel sounds present Neuro: No focal deficits, he is able to move extremities while laying in bed. Extremities: mild bruising over his right knee. Data 04/11/24 04:20 04/11/24 04:20 A&P Assessment and plan (1) Generalized weakness: Patient presenting today with increasing generalized weakness. States he has been falling more often than usual. Complains of some discomfort over his back and neuropathic pain of his legs Will obtain CT of the lumbar spine to assess for any spinal root compression which may require urgent intervention. Check CK, TSH, HbA1c to evaluate for other organic causes of generalized weakness. PT OT assessment Check orthostatics. Check COVID and flu PCR. 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 Patient states he did not end up having any kind of interventions at that time. He was discharged to rehab, where he was discharged approximately 2 months ago. Plan DVT prophylaxis SCDs Full code April 11, 2024. Lumbar spine CT was negative for any lumbar fracture or malalignment. There was mild to moderate scattered spondylosis. No apparent central canal stenosis or significant disc herniation. Possible right-sided neuroforaminal narrowing at L4 and L5. Likely referred for outpatient evaluation. 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 High-grade proximal stenosis of the superior mesenteric artery appearing to be unchanged compared to August 2023. No signs of ischemic bowel. Minimal fluid within the large bowel without evidence of obstruction. No reported diarrhea. No signs of diverticulitis.CT head without acute intracranial findings chest x-ray without acute findings. Right lower extremity appears to be slightly more swollen compared to the left today. Will obtain lower extremity Doppler to assess for possible DVT. Patient requests resuming pregabalin for neuropathic pain. Awaiting PT OT assessment which is not available over the weekend for appropriate discharge planning. 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
[2024-04-13 04:00] VITALS: BP 123/64; PULSE 58; RESP 17; TEMP 36.7; O2SAT 97
[2024-04-13 05:56] LABS: Basophils % 0.4 %; Eosinophils # 0.3 10^3/uL (0.0-0.8); Eosinophils % 2.7 %; Hematocrit 48.8 % (37-53); Lymphocytes # 2.1 10^3/uL (0.8-4.8); Lymphocytes % 19.7 %; Mean Corpuscular HGB Conc 32.2 g/dL (30-55); Mean Corpuscular Hemoglobin 29.5 pg (27-33); Mean Corpuscular Volume 91.6 fl (82-101); Mean Platelet Volume 10.2 fL (7.4-10.4); Monocytes # 0.8 10^3/uL (0.2-0.9); Monocytes % 7.3 %; Neutrophils % 69.4 %; Nucleated Red Blood Cells % 0 %; Platelet Count 143 10^3/cmm (157-399); Red Blood Count 5.33 10^6/uL (3.85-5.65); Red Cell Distribution Width 13.5 % (12.1-15.1); White Blood Count 10.51 10^3/uL (3.29-11.43)
[2024-04-13 06:18] LABS: Alanine Aminotransferase 15 U/L (0-41); Albumin Level 3.9 g/dL (3.5-5.2); Alkaline Phosphatase 89 U/L (40-130); Aspartate Amino Transferase 21 U/L (0-40); Blood Urea Nitrogen 24 mg/dL (8-23); Calcium 9.2 mg/dL (8.5-10.5); Carbon Dioxide 25 mmol/L (22-29); Chloride 103 mmol/L (98-107); Creatinine Clr Calc Pharmacy 62.0332; Globulin 2.5 g/dL (1.3-4.6); Glucose 89 mg/dL (65-115); Osmolality Calculated 296 mOsm/kg (285-295); Phosphorus 2.9 mg/dL (2.5-4.5); Sodium 141 mmol/L (136-145); Total Bilirubin 0.5 mg/dL (0.15-1.2); Total Protein 6.4 g/dL (6.6-8.7)
[2024-04-13 06:22] LABS: Anion Gap 17.7 (5-19); Potassium 4.7 mmol/L (3.5-5.1)
[2024-04-13 08:00] VITALS: BP 118/72; PULSE 68; RESP 15; TEMP 36.8; O2SAT 90
[2024-04-13] MEDS: sertraline 100 mg Tablet PO (08:43)
[2024-04-13] MEDS: pregabalin 25 mg Capsule PO ×2 (08:43→17:25)
[2024-04-13] MEDS: ARIPiprazole 10 mg Tablet 5 MG PO (08:43)
[2024-04-13] MEDS: pantoprazole DR 40 mg Tablet PO (08:43)
--- NOTE | 2024-04-13 11:32 | P.DS_ITS ---
Discharge Providers Date of Admission: 04/10/24 12:40 Date of Discharge: April 13, 2024 Attending Provider at Admission: Clarissa Bearden MD Attending Provider at Discharge: Nat Torres MD Primary Care Provider: SUSAN Olvera Diagnoses at Discharge Discharge Diagnosis (1) Generalized weakness: Status: Acute (2) Occlusion of superior mesenteric artery: Status: Acute Reason for Visit Reason for Visit: no pain, can't walk Discharge Data Studies Completed and Pending Completed Studies During Hospitalization Category Date Time Status CT abdomen pelvis w con* [id number] Routine Cat Scan 04/10/24 16:[address] head wo con* [id number] Stat Cat Scan 04/10/24 10:11 Completed XR chest 1V portable [id number] Stat Exams 04/10/24 10:11 Completed MR lumbar spine wo con* [id number] Routine MRI 04/12/24 10:55 [place] [id number] Routine Ultrasound 04/11/24 15:10 Completed Radiology Impressions Chest X-Ray 04/10/24 10:11 IMPRESSION: No acute findings. Head CT 04/10/24 10:11 IMPRESSION: No acute intracranial findings. Abdomen/Pelvis CT 04/10/24 16:42 IMPRESSION: 1. 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 The high-grade proximal stenosis of the superior mesenteric artery and bilateral renal arteries appears grossly unchanged. 2. Minimal fluid within the large bowel without evidence of obstruction. Correlate clinically for diarrheal disease. Distal colonic diverticular disease without evidence of diverticulitis. 3.Other incidental and/or chronic findings as detailed above. Lumbar Spine CT 04/10/24 16:42 IMPRESSION: 1. No evidence of a lumbar fracture or malalignment. [id number] scattered spondylosis. No CT apparent central canal stenosis or significant disc herniation although this is not well evaluated by CT. There is question of right-sided neural foraminal narrowing at L4 and L5. Recommend MRI for further evaluation if clinical symptoms warrant. 2. Please see dedicated CT of the abdomen and pelvis from same time for evaluation of the aortic findings. Venous Duplex 04/11/24 15:10 IMPRESSION: No evidence of deep vein thrombosis. Lumbar Spine MRI 04/12/24 10:55 IMPRESSION: 1. No acute lumbar spine fracture. No marrow edema. 2. L4-5: Moderate to severe RIGHT foraminal stenosis due to combination of disc disease with protrusion, osteophyte and facet disease. Mild LEFT foraminal stenosis. 3. L3-4: Mild bilateral subarticular recess encroachment and mild foraminal narrowing. 4. L2-3: Mild central with bilateral subarticular recess and foraminal stenosis, RIGHT greater than LEFT. 5. L1-2: Shallow RIGHT paracentral disc protrusion. Mild central with bilateral subarticular recess encroachment upon the traversing RIGHT L2 nerve root. Mild bilateral foraminal stenosis. 6. L5-S1: LEFT paracentral disc protrusion. Disc protrusion and bulging with mild contact on the S1 nerve roots, LEFT greater than RIGHT. Mild foraminal narrowing. Laboratory Results WBC 10.51 10^3/uL (3.29-11.43) 04/13/24 05:43 RBC 5.33 10^6/uL (3.85-5.65) 04/13/24 05:43 Hgb 15.70 g/dL (11.27-16.99) 04/13/24 05:43 Hct 48.8 % (37-53) 04/13/24 05:43 MCV 91.6 fl (82-101) 04/13/24 05:43 MCH 29.5 pg (27-33) 04/13/24 05:43 MCHC 32.2 g/dL (30-55) 04/13/24 05:43 RDW 13.5 % (12.1-15.1) 04/13/24 05:43 Plt Count 143 10^3/cmm (157-399) L 04/13/24 05:43 MPV 10.2 fL (7.4-10.4) 04/13/24 05:43 Neut % (Auto) 69.4 % 04/13/24 05:43 Lymph % (Auto) 19.7 % 04/13/24 05:43 [place] % (Auto) 7.3 % 04/13/24 05:43 Eos % (Auto) 2.7 % 04/13/24 05:43 Baso % (Auto) 0.4 % 04/13/24 05:43 Neut # (Auto) 7.30 10^3/uL (1.8-7.7) 04/13/24 05:43 Lymph # (Auto) 2.1 10^3/uL (0.8-4.8) 04/13/24 05:43 [place] # (Auto) 0.8 10^3/uL (0.2-0.9) 04/13/24 05:43 Eos # (Auto) 0.3 10^3/uL (0.0-0.8) 04/13/24 05:43 Baso # (Auto) 0.0 10^3/uL (0.0-0.1) 04/13/24 05:43 Nucleated RBC % (auto) 0 % 04/13/24 05:43 Nucleated RBCs # 0.0 /100WBC 04/13/24 05:43 PT 13.50 SECONDS (12.1-14.9) 04/10/24 10:42 INR 1.00 (0.8-1.2) 04/10/24 10:42 Sodium 141 mmol/L (136-145) 04/13/24 05:43 Potassium 4.7 mmol/L (3.5-5.1) 04/13/24 05:43 Chloride 103 mmol/L (98-107) 04/13/24 05:43 Carbon Dioxide 25 mmol/L (22-29) 04/13/24 05:43 Anion Gap 17.7 (5-19) 04/13/24 05:43 BUN 24 mg/dL (8-23) H 04/13/24 05:43 Creatinine 1.2 mg/dL (0.7-1.2) 04/13/24 05:43 GFR Calculation Not Reportable 04/13/24 05:43 Glucose 89 mg/dL (65-115) 04/13/24 05:43 POC Glucose 77 mg/dL (70-110) 04/10/24 10:38 Estimat Average Glucose 117 04/10/24 10:42 Hemoglobin A1c 5.7 % (4.0-6.0) 04/10/24 10:42 Calculated Osmolality 296 mOsm/kg (285-295) H 04/13/24 05:43 Calcium 9.2 mg/dL (8.5-10.5) 04/13/24 05:43 Phosphorus 2.9 mg/dL (2.5-4.5) 04/13/24 05:43 Magnesium 2.0 mg/dL (1.7-2.3) 04/13/24 05:43 Total Bilirubin 0.5 mg/dL (0.15-1.2) 04/13/24 05:43 AST 21 U/L (0-40) 04/13/24 05:43 ALT 15 U/L (0-41) 04/13/24 05:43 Alkaline Phosphatase 89 U/L (40-130) 04/13/24 05:43 Creatine Kinase 63 U/L (39-308) 04/10/24 10:42 Troponin T 5th Gen ng/L 15 ng/L (0-15) 04/10/24 10:42 Total Protein 6.4 g/dL (6.6-8.7) L 04/13/24 05:43 Albumin 3.9 g/dL (3.5-5.2) 04/13/24 05:43 Globulin 2.5 g/dL (1.3-4.6) 04/13/24 05:43 TSH 2.63 uIU/mL (0.27-4.20) 04/10/24 10:42 Urine Color Yellow (Yellow) 04/10/24 10:58 Urine Appearance Clear (CLEAR) 04/10/24 10:58 Urine pH 6.0 (5-7) 04/10/24 10:58 Ur Specific [place] 1.020 (1.005-1.030) 04/10/24 10:58 Urine Protein Negative (Negative) 04/10/24 10:58 Urine Glucose (UA) Negative (Normal) 04/10/24 10:58 Urine Ketones Negative (Negative) 04/10/24 10:58 Urine Blood Negative (Negative) 04/10/24 10:58 Urine Nitrate Negative (Negative) 04/10/24 10:58 Urine Bilirubin Negative (Negative) 04/10/24 10:58 Urine Urobilinogen 1.0 mg/dL (Negative) 04/10/24 10:58 Ur Leukocyte Esterase Negative (Negative) 04/10/24 10:58 Urine RBC 0-2 /hpf (0-2) 04/10/24 10:58 Urine WBC 0-5 /hpf (0-5) 04/10/24 10:58 Ur Squamous Epith Cells 0-5 /hpf (0-5) 04/10/24 10:58 Amorphous Sediment Not Reportable 04/10/24 10:58 Urine Bacteria None seen /hpf (NONE) 04/10/24 10:58 Hyaline Casts 0.40 /lpf 04/10/24 10:58 Coronavirus (PCR) Negative (Negative) 04/11/24 17:44 Influenza A (PCR) Negative (Negative) 04/11/24 17:44 Influenza Type B (PCR) Negative (Negative) 04/11/24 17:44 RSV (PCR) Negative (Negative) 04/11/24 17:44 Vitals Last Vital Signs Temp 98.3 F 04/13/24 08:00 Pulse 68 04/13/24 08:00 Resp 15 04/13/24 08:00 BP 118/72 04/13/24 08:00 Pulse Ox 90 04/13/24 08:00 O2 Del Method Nasal Cannula 04/13/24 08:00 Discharge Plan Discharge Patient Disposition: Home Condition: Stable Prescriptions: New pregabalin 25 mg Capsule 25 mg PO BID Qty: 60 0RF dexamethasone 6 mg tablet 6 mg PO DAILY 5 Days Qty: 5 0RF Continued sertraline 100 mg Tablet 100 mg PO DAILY aripiprazole 5 mg Tablet 5 mg PO DAILY Discharge Orders: Discharge Order (Routine); Ordered 04/13/24 Ordered By: Nat Torres Referrals: Greg Webb DO [Physician] - 4-7 days Lisseth Pink FNP [Primary Care Provider] - 4-7 days Discharge Diet: Regular Discharge Activity: Use walker/crutches as instructed and As per PT/OT instructions Patient Instructions: Opioid Safety Coding Level of Care Code Acute Code for Chg Fwd Diagnoses Generalized weakness R53.1 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
--- NOTE | 2024-04-13 11:57 | P.PN_ITS ---
Vitals/I&O/Wt Last Vital Signs Temp 98.3 F 04/13/24 08:00 Pulse 68 04/13/24 08:00 Resp 15 04/13/24 08:00 BP 118/72 04/13/24 08:00 Pulse Ox 90 04/13/24 08:00 O2 Del Method Nasal Cannula 04/13/24 08:00 04/12/24 04/13/24 04/13/24 22:59 06:59 14:59 Intake Total 480 / 960 120 / 1080 300 / 300 Output Total 675 / 1075 500 / 1575 700 / 700 Balance -195 / -115 -380 / -495 -400 / -400 Weight last 48 hrs Weight 77.791 kg Weight 77.746 kg Physical Exam 2 Narrative: General: No acute distress, speaks slowly, which she states is normal for him 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 HEENT: PERRLA, pupils bilaterally equal and reactive, pallors not present Chest: Normal vesicular breath sounds, no added sounds, equal good air entry bilaterally CVS: S1-S2 regular, no murmurs, no tachycardia, no gallops, no rubs Abdomen: Soft, nontender, no organomegaly, bowel sounds present Neuro: No focal deficits, he is able to move extremities while laying in bed. Extremities: mild bruising over his right knee. Data 04/13/24 05:43 04/13/24 05:43 A&P Assessment and plan (1) Generalized weakness: Patient presenting today with increasing generalized weakness. States he has been falling more often than usual. Complains of some discomfort over his back and neuropathic pain of his legs Will obtain CT of the lumbar spine to assess for any spinal root compression which may require urgent intervention. Check CK, TSH, HbA1c to evaluate for other organic causes of generalized weakness. PT OT assessment Check orthostatics. Check COVID and flu PCR. 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 Patient states he did not end up having any kind of interventions at that time. He was discharged to rehab, where he was discharged approximately 2 months ago. Plan DVT prophylaxis SCDs Full code April 11, 2024. Lumbar spine CT was negative for any lumbar fracture or malalignment. There was mild to moderate scattered spondylosis. No apparent central canal stenosis or significant disc herniation. Possible right-sided neuroforaminal narrowing at L4 and L5. Likely referred for outpatient evaluation. 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 High-grade proximal stenosis of the superior mesenteric artery appearing to be unchanged compared to August 2023. No signs of ischemic bowel. Minimal fluid within the large bowel without evidence of obstruction. No reported diarrhea. No signs of diverticulitis.CT head without acute intracranial findings chest x-ray without acute findings. Right lower extremity appears to be slightly more swollen compared to the left today. Will obtain lower extremity Doppler to assess for possible DVT. Patient requests resuming pregabalin for neuropathic pain. Awaiting PT OT assessment which is not available over the weekend for appropriate discharge planning. CK, TSH, Hba1c all WNL 04/12/2024 - Lumbar spine CT reviewed - Check MRI lumbar spine today - PT/OT assesment - Further mgmt decisions to be made after reviewing above results - Dopplers neg for DVT 04/13/2024 -Lumbar spine CT reviewed, MRI lumbar spine reviewed. 1. No acute lumbar spine fracture. No marrow edema. 2. L4-5: Moderate to severe RIGHT foraminal stenosis due to combination of disc disease with protrusion, osteophyte and facet disease. Mild LEFT foraminal stenosis. 3. L3-4: Mild bilateral subarticular recess encroachment and mild foraminal narrowing. 4. L2-3: Mild central with bilateral subarticular recess and foraminal stenosis, RIGHT greater than LEFT. 5. L1-2: Shallow RIGHT paracentral disc protrusion. Mild central with bilateral subarticular recess encroachment upon the traversing RIGHT L2 nerve root. Mild bilateral foraminal stenosis. 6. L5-S1: LEFT paracentral disc protrusion. Disc protrusion and bulging with mild contact on the S1 nerve roots, LEFT greater than RIGHT. Mild foraminal narrowing. ? Patient was seen by physical therapy SNF versus home was recommended. However patient sister at home cannot provide care as she will be physically out of town in the near future. At this point we will be looking for placement at a long term facility. ? Start dexamethasone 6 mg daily. ? Follow-up with Dr. Webb as an outpatient for evaluation of paracentral disc protrusion with mild contact and S1 nerve roots. ? Initially plan to discharge patient home however after discussion with patient's sister case management will be looking at long term facility referrals. Attestations 2 Medical Necessity Statement*: Awaiting placement to long term facility. 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
[2024-04-13 12:00] VITALS: BP 123/74; PULSE 71; RESP 15; TEMP 36.6; O2SAT 96
[2024-04-13 16:00] VITALS: BP 111/70; PULSE 62; RESP 15; TEMP 36.6; O2SAT 92
--- NOTE | 2024-04-13 18:41 | PC.NURSE ---
Patient sister name is Nancy and she is the one who needs to be the bridge repair crew person. Her phone number is
[2024-04-13 20:00] VITALS: BP 109/56; PULSE 61; RESP 16; TEMP 36.4; O2SAT 90
[2024-04-14] VITALS: BP 124/79; PULSE 60; RESP 15; TEMP 36.6; O2SAT 92
[2024-04-14 04:00] VITALS: BP 106/63; PULSE 56; RESP 16; TEMP 36.4; O2SAT 90
[2024-04-14 08:00] VITALS: BP 115/70; PULSE 60; RESP 15; TEMP 36; O2SAT 90
[2024-04-14] MEDS: pantoprazole DR 40 mg Tablet PO (09:25)
[2024-04-14] MEDS: ARIPiprazole 10 mg Tablet 5 MG PO (09:26)
[2024-04-14] MEDS: sertraline 100 mg Tablet PO (09:26)
[2024-04-14] MEDS: pregabalin 25 mg Capsule PO ×2 (09:27→17:30)
--- NOTE | 2024-04-14 09:43 | PM.PN ---
Subjective Subjective: seen today laying in bed appearing comfortable Awaiting placement in long term. 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 HEENT: PERRLA, pupils bilaterally equal and reactive, pallors not present Chest: Normal vesicular breath sounds, no added sounds, equal good air entry bilaterally CVS: S1-S2 regular, no murmurs, no tachycardia, no gallops, no rubs Abdomen: Soft, nontender, no organomegaly, bowel sounds present Neuro: No focal deficits, he is able to move extremities while laying in bed. Extremities: mild bruising over his right knee. Data 04/13/24 05:43 04/13/24 05:43 A&P Assessment and plan (1) Generalized weakness: Patient presenting today with increasing generalized weakness. States he has been falling more often than usual. Complains of some discomfort over his back and neuropathic pain of his legs Will obtain CT of the lumbar spine to assess for any spinal root compression which may require urgent intervention. Check CK, TSH, HbA1c to evaluate for other organic causes of generalized weakness. PT OT assessment Check orthostatics. Check COVID and flu PCR. 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 Patient states he did not end up having any kind of interventions at that time. He was discharged to rehab, where he was discharged approximately 2 months ago. Plan DVT prophylaxis SCDs Full code April 11, 2024. Lumbar spine CT was negative for any lumbar fracture or malalignment. There was mild to moderate scattered spondylosis. No apparent central canal stenosis or significant disc herniation. Possible right-sided neuroforaminal narrowing at L4 and L5. Likely referred for outpatient evaluation. 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 High-grade proximal stenosis of the superior mesenteric artery appearing to be unchanged compared to August 2023. No signs of ischemic bowel. Minimal fluid within the large bowel without evidence of obstruction. No reported diarrhea. No signs of diverticulitis.CT head without acute intracranial findings chest x-ray without acute findings. Right lower extremity appears to be slightly more swollen compared to the left today. Will obtain lower extremity Doppler to assess for possible DVT. Patient requests resuming pregabalin for neuropathic pain. Awaiting PT OT assessment which is not available over the weekend for appropriate discharge planning. CK, TSH, Hba1c all WNL 04/12/2024 - Lumbar spine CT reviewed - Check MRI lumbar spine today - PT/OT assesment - Further mgmt decisions to be made after reviewing above results - Dopplers neg for DVT 04/13/2024 -Lumbar spine CT reviewed, MRI lumbar spine reviewed. 1. No acute lumbar spine fracture. No marrow edema. 2. L4-5: Moderate to severe RIGHT foraminal stenosis due to combination of disc disease with protrusion, osteophyte and facet disease. Mild LEFT foraminal stenosis. 3. L3-4: Mild bilateral subarticular recess encroachment and mild foraminal narrowing. 4. L2-3: Mild central with bilateral subarticular recess and foraminal stenosis, RIGHT greater than LEFT. 5. L1-2: Shallow RIGHT paracentral disc protrusion. Mild central with bilateral subarticular recess encroachment upon the traversing RIGHT L2 nerve root. Mild bilateral foraminal stenosis. 6. L5-S1: LEFT paracentral disc protrusion. Disc protrusion and bulging with mild contact on the S1 nerve roots, LEFT greater than RIGHT. Mild foraminal narrowing. ? Patient was seen by physical therapy SNF versus home was recommended. However patient sister at home cannot provide care as she will be physically out of town in the near future. At this point we will be looking for placement at a retirement facility. ? Start dexamethasone 6 mg daily. ? Follow-up with Dr. Webb as an outpatient for evaluation of paracentral disc protrusion with mild contact and S1 nerve roots. ? Initially plan to discharge patient home however after discussion with patient's sister case management will be looking at retirement facility referrals. 04/14/2024 -Awaiting placement in long term. ? Follow-up with Dr. Webb at discharge. 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
[2024-04-14 12:00] VITALS: BP 126/68; PULSE 60; RESP 17; TEMP 36.6; O2SAT 94
[2024-04-14] MEDS: dexamethasone 10 mg/mL INJ 6 MG PO (13:30)
[2024-04-14 16:00] VITALS: BP 116/70; PULSE 52; RESP 17; TEMP 36.5; O2SAT 91
[2024-04-14 20:00] VITALS: BP 103/66; PULSE 76; RESP 18; TEMP 36.9; O2SAT 92
[2024-04-15] VITALS: BP 104/65; PULSE 59; RESP 15; TEMP 36.4; O2SAT 92
[2024-04-15 04:00] VITALS: BP 118/76; PULSE 58; RESP 16; TEMP 36.6; O2SAT 94
[2024-04-15 08:11] VITALS: BP 123/77; PULSE 57; RESP 16; TEMP 36.3; O2SAT 94
[2024-04-15] MEDS: ARIPiprazole 10 mg Tablet 5 MG PO (08:11)
[2024-04-15] MEDS: sertraline 100 mg Tablet PO (08:11)
[2024-04-15] MEDS: pantoprazole DR 40 mg Tablet PO (08:11)
[2024-04-15] MEDS: pregabalin 25 mg Capsule PO ×2 (08:12→17:00)
[2024-04-15 11:35] VITALS: BP 102/62; PULSE 66; RESP 16; TEMP 36.4; O2SAT 95
[2024-04-15] MEDS: dexamethasone 10 mg/mL INJ 6 MG PO (12:17)
--- NOTE | 2024-04-15 14:20 | PM.PN ---
Subjective Subjective: seen today laying in bed appearing comfortable Awaiting placement in longterm. 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 HEENT: PERRLA, pupils bilaterally equal and reactive, pallors not present Chest: Normal vesicular breath sounds, no added sounds, equal good air entry bilaterally CVS: S1-S2 regular, no murmurs, no tachycardia, no gallops, no rubs Abdomen: Soft, nontender, no organomegaly, bowel sounds present Neuro: No focal deficits, he is able to move extremities while laying in bed. Extremities: mild bruising over his right knee. Data 04/13/24 05:43 04/13/24 05:43 A&P Assessment and plan (1) Generalized weakness: Patient presenting today with increasing generalized weakness. States he has been falling more often than usual. Complains of some discomfort over his back and neuropathic pain of his legs Will obtain CT of the lumbar spine to assess for any spinal root compression which may require urgent intervention. Check CK, TSH, HbA1c to evaluate for other organic causes of generalized weakness. PT OT assessment Check orthostatics. Check COVID and flu PCR. 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 Patient states he did not end up having any kind of interventions at that time. He was discharged to rehab, where he was discharged approximately 2 months ago. Plan DVT prophylaxis SCDs Full code April 11, 2024. Lumbar spine CT was negative for any lumbar fracture or malalignment. There was mild to moderate scattered spondylosis. No apparent central canal stenosis or significant disc herniation. Possible right-sided neuroforaminal narrowing at L4 and L5. Likely referred for outpatient evaluation. 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 High-grade proximal stenosis of the superior mesenteric artery appearing to be unchanged compared to August 2023. No signs of ischemic bowel. Minimal fluid within the large bowel without evidence of obstruction. No reported diarrhea. No signs of diverticulitis.CT head without acute intracranial findings chest x-ray without acute findings. Right lower extremity appears to be slightly more swollen compared to the left today. Will obtain lower extremity Doppler to assess for possible DVT. Patient requests resuming pregabalin for neuropathic pain. Awaiting PT OT assessment which is not available over the weekend for appropriate discharge planning. CK, TSH, Hba1c all WNL 04/12/2024 - Lumbar spine CT reviewed - Check MRI lumbar spine today - PT/OT assesment - Further mgmt decisions to be made after reviewing above results - Dopplers neg for DVT 04/13/2024 -Lumbar spine CT reviewed, MRI lumbar spine reviewed. 1. No acute lumbar spine fracture. No marrow edema. 2. L4-5: Moderate to severe RIGHT foraminal stenosis due to combination of disc disease with protrusion, osteophyte and facet disease. Mild LEFT foraminal stenosis. 3. L3-4: Mild bilateral subarticular recess encroachment and mild foraminal narrowing. 4. L2-3: Mild central with bilateral subarticular recess and foraminal stenosis, RIGHT greater than LEFT. 5. L1-2: Shallow RIGHT paracentral disc protrusion. Mild central with bilateral subarticular recess encroachment upon the traversing RIGHT L2 nerve root. Mild bilateral foraminal stenosis. 6. L5-S1: LEFT paracentral disc protrusion. Disc protrusion and bulging with mild contact on the S1 nerve roots, LEFT greater than RIGHT. Mild foraminal narrowing. ? Patient was seen by physical therapy SNF versus home was recommended. However patient sister at home cannot provide care as she will be physically out of town in the near future. At this point we will be looking for placement at a detention facility. ? Start dexamethasone 6 mg daily. ? Follow-up with Dr. Webb as an outpatient for evaluation of paracentral disc protrusion with mild contact and S1 nerve roots. ? Initially plan to discharge patient home however after discussion with patient's sister case management will be looking at detention facility referrals. 04/15/2024 -Awaiting placement in longterm. ? Follow-up with Dr. Webb at discharge. 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
[2024-04-15 15:51] VITALS: BP 97/62; PULSE 65; RESP 18; TEMP 36.3; O2SAT 91
--- NOTE | 2024-04-15 18:20 | XRR_ITS ---
PROCEDURE INFORMATION: Exam: XR Chest Exam date and time: 04/15/2024 10:16 PM Age: 69 years old Clinical indication: Cough; Additional info: New cough TECHNIQUE: Imaging protocol: Radiologic exam of the chest. Views: 1 view. COMPARISON: CR (CHEST, ) 04/10/2024 10:14 AM FINDINGS: Lungs: Right infrahilar infiltrates. No lobar consolidation. Pleural spaces: Unremarkable. No pleural effusion. No pneumothorax. Heart/Mediastinum: Unremarkable. No cardiomegaly. Bones/joints: Unremarkable. XR/XR chest 1V portable [id number] IMPRESSION: As above.
[2024-04-15 19:18] LABS: Covid PCR NEGATIVE (Negative); Influenza A NEGATIVE (Negative); Influenza B NEGATIVE (Negative); Respiratory Syncytial Virus Ce NEGATIVE (Negative)
[2024-04-15 20:00] VITALS: BP 113/74; PULSE 65; RESP 15; TEMP 36.7; O2SAT 94
[2024-04-16] VITALS: BP 100/61; PULSE 57; RESP 16; TEMP 36.7; O2SAT 95
[2024-04-16 04:00] VITALS: BP 100/51; PULSE 59; RESP 15; TEMP 36.6; O2SAT 95
[2024-04-16 08:11] VITALS: BP 130/77; PULSE 63; RESP 16; TEMP 36.7; O2SAT 96
[2024-04-16] MEDS: ARIPiprazole 10 mg Tablet 5 MG PO (08:11)
[2024-04-16] MEDS: sertraline 100 mg Tablet PO (08:11)
[2024-04-16] MEDS: pantoprazole DR 40 mg Tablet PO (08:11)
[2024-04-16 11:48] VITALS: BP 144/74; PULSE 60; RESP 17; TEMP 36.8; O2SAT 94
--- NOTE | 2024-04-16 13:51 | PM.DCS ---
Discharge Providers Date of Admission: 04/10/24 12:40 Date of Discharge: April 16, 2024 Attending Provider at Admission: Clarissa Bearden MD Attending Provider at Discharge: Nat Torres MD Primary Care Provider: SUSAN Olvera Diagnoses at Discharge Discharge Diagnosis (1) Generalized weakness: Status: Resolved (2) Occlusion of superior mesenteric artery: Status: Acute Reason for Visit Reason for Visit: no pain, can't walk Hospital Course Hospital Course Patient presented to the hospital for generalized weakness and CT lumbar spine was obtained which was negative for lumbar fracture or misalignment. MRI lumbar spine was also ordered which did not show acute lumbar spine fracture. It did show a left paracentral disc protrusion. Patient was placed on steroids and discharged to nursing facility with outpatient follow-up with orthopedics.At time of discharge he was able to ambulate with physical therapy. Physical Exam Narrative: General: No acute distress, speaks slowly, which she states is normal for him 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 HEENT: PERRLA, pupils bilaterally equal and reactive, pallors not present Chest: Normal vesicular breath sounds, no added sounds, equal good air entry bilaterally CVS: S1-S2 regular, no murmurs, no tachycardia, no gallops, no rubs Abdomen: Soft, nontender, no organomegaly, bowel sounds present Neuro: No focal deficits, he is able to move extremities while laying in bed. Extremities: mild bruising over his right knee. Discharge Data Studies Completed and Pending Completed Studies During Hospitalization Category Date Time Status CT abdomen pelvis w con* [id number] Routine Cat Scan 04/10/24 16:[address] head wo con* [id number] Stat Cat Scan 04/10/24 10:11 Completed XR chest 1V portable [id number] Routine Exams 04/15/24 18:20 Completed XR chest 1V portable [id number] Stat Exams 04/10/24 10:11 Completed MR lumbar spine wo con* [id number] Routine MRI 04/12/24 10:55 [place] [id number] Routine Ultrasound 04/11/24 15:10 Completed Radiology Impressions Head CT 04/10/24 10:11 IMPRESSION: No acute intracranial findings. Abdomen/Pelvis CT 04/10/24 16:42 IMPRESSION: 1. 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 The high-grade proximal stenosis of the superior mesenteric artery and bilateral renal arteries appears grossly unchanged. 2. Minimal fluid within the large bowel without evidence of obstruction. Correlate clinically for diarrheal disease. Distal colonic diverticular disease without evidence of diverticulitis. 3.Other incidental and/or chronic findings as detailed above. Lumbar Spine CT 04/10/24 16:42 IMPRESSION: 1. No evidence of a lumbar fracture or malalignment. [id number] scattered spondylosis. No CT apparent central canal stenosis or significant disc herniation although this is not well evaluated by CT. There is question of right-sided neural foraminal narrowing at L4 and L5. Recommend MRI for further evaluation if clinical symptoms warrant. 2. Please see dedicated CT of the abdomen and pelvis from same time for evaluation of the aortic findings. Venous Duplex 04/11/24 15:10 IMPRESSION: No evidence of deep vein thrombosis. Lumbar Spine MRI 04/12/24 10:55 IMPRESSION: 1. No acute lumbar spine fracture. No marrow edema. 2. L4-5: Moderate to severe RIGHT foraminal stenosis due to combination of disc disease with protrusion, osteophyte and facet disease. Mild LEFT foraminal stenosis. 3. L3-4: Mild bilateral subarticular recess encroachment and mild foraminal narrowing. 4. L2-3: Mild central with bilateral subarticular recess and foraminal stenosis, RIGHT greater than LEFT. 5. L1-2: Shallow RIGHT paracentral disc protrusion. Mild central with bilateral subarticular recess encroachment upon the traversing RIGHT L2 nerve root. Mild bilateral foraminal stenosis. 6. L5-S1: LEFT paracentral disc protrusion. Disc protrusion and bulging with mild contact on the S1 nerve roots, LEFT greater than RIGHT. Mild foraminal narrowing. Chest X-Ray 04/15/24 18:20 IMPRESSION: As above. Laboratory Results WBC 10.51 10^3/uL (3.29-11.43) 04/13/24 05:43 RBC 5.33 10^6/uL (3.85-5.65) 04/13/24 05:43 Hgb 15.70 g/dL (11.27-16.99) 04/13/24 05:43 Hct 48.8 % (37-53) 04/13/24 05:43 MCV 91.6 fl (82-101) 04/13/24 05:43 MCH 29.5 pg (27-33) 04/13/24 05:43 MCHC 32.2 g/dL (30-55) 04/13/24 05:43 RDW 13.5 % (12.1-15.1) 04/13/24 05:43 Plt Count 143 10^3/cmm (157-399) L 04/13/24 05:43 MPV 10.2 fL (7.4-10.4) 04/13/24 05:43 Neut % (Auto) 69.4 % 04/13/24 05:43 Lymph % (Auto) 19.7 % 04/13/24 05:43 [place] % (Auto) 7.3 % 04/13/24 05:43 Eos % (Auto) 2.7 % 04/13/24 05:43 Baso % (Auto) 0.4 % 04/13/24 05:43 Neut # (Auto) 7.30 10^3/uL (1.8-7.7) 04/13/24 05:43 Lymph # (Auto) 2.1 10^3/uL (0.8-4.8) 04/13/24 05:43 [place] # (Auto) 0.8 10^3/uL (0.2-0.9) 04/13/24 05:43 Eos # (Auto) 0.3 10^3/uL (0.0-0.8) 04/13/24 05:43 Baso # (Auto) 0.0 10^3/uL (0.0-0.1) 04/13/24 05:43 Nucleated RBC % (auto) 0 % 04/13/24 05:43 Nucleated RBCs # 0.0 /100WBC 04/13/24 05:43 PT 13.50 SECONDS (12.1-14.9) 04/10/24 10:42 INR 1.00 (0.8-1.2) 04/10/24 10:42 Sodium 141 mmol/L (136-145) 04/13/24 05:43 Potassium 4.7 mmol/L (3.5-5.1) 04/13/24 05:43 Chloride 103 mmol/L (98-107) 04/13/24 05:43 Carbon Dioxide 25 mmol/L (22-29) 04/13/24 05:43 Anion Gap 17.7 (5-19) 04/13/24 05:43 BUN 24 mg/dL (8-23) H 04/13/24 05:43 Creatinine 1.2 mg/dL (0.7-1.2) 04/13/24 05:43 GFR Calculation Not Reportable 04/13/24 05:43 Glucose 89 mg/dL (65-115) 04/13/24 05:43 POC Glucose 77 mg/dL (70-110) 04/10/24 10:38 Estimat Average Glucose 117 04/10/24 10:42 Hemoglobin A1c 5.7 % (4.0-6.0) 04/10/24 10:42 Calculated Osmolality 296 mOsm/kg (285-295) H 04/13/24 05:43 Calcium 9.2 mg/dL (8.5-10.5) 04/13/24 05:43 Phosphorus 2.9 mg/dL (2.5-4.5) 04/13/24 05:43 Magnesium 2.0 mg/dL (1.7-2.3) 04/13/24 05:43 Total Bilirubin 0.5 mg/dL (0.15-1.2) 04/13/24 05:43 AST 21 U/L (0-40) 04/13/24 05:43 ALT 15 U/L (0-41) 04/13/24 05:43 Alkaline Phosphatase 89 U/L (40-130) 04/13/24 05:43 Creatine Kinase 63 U/L (39-308) 04/10/24 10:42 Troponin T 5th Gen ng/L 15 ng/L (0-15) 04/10/24 10:42 Total Protein 6.4 g/dL (6.6-8.7) L 04/13/24 05:43 Albumin 3.9 g/dL (3.5-5.2) 04/13/24 05:43 Globulin 2.5 g/dL (1.3-4.6) 04/13/24 05:43 TSH 2.63 uIU/mL (0.27-4.20) 04/10/24 10:42 Urine Color Yellow (Yellow) 04/10/24 10:58 Urine Appearance Clear (CLEAR) 04/10/24 10:58 Urine pH 6.0 (5-7) 04/10/24 10:58 Ur Specific [place] 1.020 (1.005-1.030) 04/10/24 10:58 Urine Protein Negative (Negative) 04/10/24 10:58 Urine Glucose (UA) Negative (Normal) 04/10/24 10:58 Urine Ketones Negative (Negative) 04/10/24 10:58 Urine Blood Negative (Negative) 04/10/24 10:58 Urine Nitrate Negative (Negative) 04/10/24 10:58 Urine Bilirubin Negative (Negative) 04/10/24 10:58 Urine Urobilinogen 1.0 mg/dL (Negative) 04/10/24 10:58 Ur Leukocyte Esterase Negative (Negative) 04/10/24 10:58 Urine RBC 0-2 /hpf (0-2) 04/10/24 10:58 Urine WBC 0-5 /hpf (0-5) 04/10/24 10:58 Ur Squamous Epith Cells 0-5 /hpf (0-5) 04/10/24 10:58 Amorphous Sediment Not Reportable 04/10/24 10:58 Urine Bacteria None seen /hpf (NONE) 04/10/24 10:58 Hyaline Casts 0.40 /lpf 04/10/24 10:58 Coronavirus (PCR) Negative (Negative) 04/15/24 18:27 Influenza A (PCR) Negative (Negative) 04/15/24 18:27 Influenza Type B (PCR) Negative (Negative) 04/15/24 18:27 RSV (PCR) Negative (Negative) 04/15/24 18:27 Vitals Last Vital Signs Temp 98.3 F 04/16/24 11:48 Pulse 60 04/16/24 11:48 Resp 17 04/16/24 11:48 BP 144/74 04/16/24 11:48 Pulse Ox 94 04/16/24 11:48 O2 Del Method Room Air 04/16/24 11:48 Discharge Plan Discharge Patient Disposition: Xfer SNF Condition: Stable Prescriptions: New pregabalin 25 mg capsule 25 mg PO DAILY Qty: 30 0RF Continued sertraline 100 mg Tablet 100 mg PO DAILY aripiprazole 5 mg Tablet 5 mg PO DAILY Discharge Orders: Discharge Order (Routine); Ordered 04/16/24 Ordered By: Nat Torres [facility]errals: [facility] [Outside] Greg Webb DO [Physician] - 04/20/24 10:45 am () Lisseth Pink FNP [Primary Care Provider] - 04/19/24 10:00 am Discharge Diet: Regular Discharge Activity: Use walker/crutches as instructed and As per PT/OT instructions Patient Instructions: Dexamethasone (By mouth), Pregabalin (By mouth), Opioid Safety Discharge Attestations Time Spent in Discharge Care*: less than 30 min Quality Metrics Clinical Quality Measures [ No reported AMI, CVA or VTE this stay] Coding Level of Care Code Acute Code for Chg Fwd Diagnoses Generalized weakness R53.1 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
[2024-04-16] MEDS: dexamethasone 10 mg/mL INJ 6 MG PO (14:06)
--- NOTE | 2024-04-16 14:13 | PC.NURSE ---
This nurse attempted to call report 4 times to [facility] and no one will answer. Message left.
[2024-04-16 14:15] VITALS: BP 144/74; PULSE 60; RESP 17; TEMP 36.8; O2SAT 94
--- NOTE | 2024-04-16 14:51 | PC.NURSE ---
[facility] called back, this nurse gave report
== END 2024-04-16 14:17 | disposition skilled nursing facility (03) ==
LOC: ER 13:02 → MEDSURG 13:24
PROVIDERS: Admitting Provider Student in an Organized Health Care Education/Training Program; Emergency Provider Emergency Medicine; PCP Nurse Practitioner Family; Visit Provider Internal Medicine
DX: K55.069 Acute infarction of intestine, part and extent unspecified (principal); R53.1 Weakness; Z75.1 Person awaiting admission to adequate facility elsewhere; Z91.81 History of falling; Z86.73 Personal history of transient ischemic attack (TIA), and cerebral infarction without residual deficits
CPT/HCPCS: 36415; 36416; 70450; 71045; 72148; 74177; 80053; 81001; 82550; 82962; 83036; 83735; 84100; 84443; 84484; 85025; 85610; 87637; 92523; 92610; 93005; 93970; 97116; 97161; 99231; 99285; G0378; J1100

== ENCOUNTER → 2024-05-18 14:24 | Outpatient (BNVA) | payer MEDICARE, SELFPAY | PROVIDERS: PCP Nurse Practitioner Family; Referring Provider Internal Medicine; Visit Provider Orthopaedic Surgery | DX: M54.50 Low back pain, unspecified (principal); R53.1 Weakness; M54.9 Dorsalgia, unspecified | CPT/HCPCS: 72110; 99204 ==

== ENCOUNTER → 2024-06-22 10:51 | Outpatient (BNVA) | payer MEDICARE, SELFPAY | PROVIDERS: PCP Nurse Practitioner Family; Referring Provider Nurse Practitioner Family; Visit Provider Psychiatry & Neurology Neurology | DX: R29.6 Repeated falls (principal); K55.069 Acute infarction of intestine, part and extent unspecified; R27.0 Ataxia, unspecified; M48.00 Spinal stenosis, site unspecified; E55.9 Vitamin D deficiency, unspecified; E53.8 Deficiency of other specified B group vitamins; R55 Syncope and collapse; S06.9XAA Unspecified intracranial injury with loss of consciousness status unknown, initial encounter; R29.818 Other symptoms and signs involving the nervous system; G25.9 Extrapyramidal and movement disorder, unspecified; M54.2 Cervicalgia; X58.XXXA Exposure to other specified factors, initial encounter | CPT/HCPCS: 99203 ==

== ENCOUNTER 2024-06-30 09:42 | Outpatient (CLI) | payer MEDICARE, MEDICAID, SELFPAY ==
--- NOTE | 2024-06-30 10:15 | MR_ITS ---
WS: [id number] MRI HEAD WITH CONTRAST TECHNIQUE: Sagittal T1, T2 axial, T2 axial FLAIR, axial susceptibility weighted imaging, axial diffusion weighted images, and coronal T2 images were obtained. Pre and post-T1 axial and post T1 coronal images. ADC and FSPGR images. CLINICAL INFORMATION: R53.1 - Weakness COMPARISON: CT 04/10/2024 FINDINGS: No evidence of restricted diffusion to suggest acute ischemia. Moderate small vessel changes. Advanced parenchymal volume loss worse in the parasagittal frontal parietal lobes at the vertex. Chronic hemosiderin in the parasagittal frontal and parietal lobes at the vertex compatible with prior TBI/trauma. Mild vessel changes in the gloria. Wallerian degeneration LEFT midbrain. Small vessel changes in the gloria. Moderate symmetric atrophy temporal lobes and hippocampal formations. No abnormal gadolinium enhancement. Normal dural venous sinuses. MR/MR head wo/w con [id number] IMPRESSION: 1. No evidence of restricted diffusion to suggest acute ischemia. 2. Moderate small vessel changes with advanced parenchymal volume loss. Small vessel changes in the gloria. 3. Chronic hemosiderin in the bilateral frontal parietal lobes at the vertex. A few punctate foci of hemosiderin in the LEFT lateral frontal lobe. Recommend correlation with prior trauma. This is compatible with prior trauma/TBI 4. Moderate symmetric atrophy temporal lobes hippocampal formations. 5. Cerebral supratentorial parenchymal volume loss worse in the parasagittal f rontal lobes presumably due to prior TBI with underlying encephalomalacia and g liosis. Wallerian degeneration LEFT midbrain. Moderate to advanced atrophy invo lving the vermis and cerebellum
--- NOTE | 2024-06-30 11:00 | MR_ITS ---
WS: [id number] MR CERVICAL SPINE WO/W DATE OF EXAMINATION: COMPARISON: None. HISTORY: M48.00 - Spinal stenosis, site unspecified TECHNIQUE: Sagittal T1, T2 and T2 inversion recovery; axial T2, T2 gradient and fiesta. Post gadolinium imaging with fat saturation technique. FINDINGS:Straightening of the normal cervical lordosis. No high grade central canal narrowing. Cord signal is normal. C2-3: Moderate facet arthropathy. Mild RIGHT foraminal narrowing. C3-4: Disc osteophyte complex with mild central canal stenosis. Moderate bilateral bony foraminal narrowing. Moderate facet arthropathy. C4-5: Disc osteophyte complex with endplate ridging. Mild bilateral bony foraminal narrowing. Moderate facet arthropathy. C5-6: LEFT paracentral disc osteophyte protrusion. Slight indentation of the cervical cord. Mild central canal stenosis. Severe bilateral bony foraminal narrowing LEFT greater than RIGHT. Moderate facet arthropathy and uncovertebral joint hypertrophy C6-7: Disc osteophyte complex with severe LEFT foraminal narrowing. Mild RIGHT foraminal narrowing. Moderate facet arthropathy uncovertebral joint hypertrophy C7-T1: Mild LEFT greater than RIGHT bony foraminal narrowing. Spinal canal is patent. MR/MR cervical spine wo/w [id number] IMPRESSION: 1. Straightening of the normal cervical lordosis. No high-grade central canal narrowing. Cord signal is normal. 2. No abnormal gadolinium enhanced . no significant cord atrophy. 3. Mild central canal stenosis with LEFT paracentral disc osteophyte protrusio n C5-C6. 4. Multilevel moderate to severe bony foraminal narrowing worse at bilateral C 3-4, bilateral C5-6, and LEFT C6-7.
[2024-06-30] MEDS: gadobenate dimeglumine 20 mL vial 16 ML IV (11:49)
== END 2024-06-30 09:43 | disposition home or self-care (01) ==
PROVIDERS: PCP Nurse Practitioner Family; Visit Provider Psychiatry & Neurology Neurology
DX: M48.02 Spinal stenosis, cervical region (principal); M48.03 Spinal stenosis, cervicothoracic region; R53.1 Weakness; R29.6 Repeated falls; K55.069 Acute infarction of intestine, part and extent unspecified; S09.90XA Unspecified injury of head, initial encounter; X58.XXXA Exposure to other specified factors, initial encounter; R27.0 Ataxia, unspecified; R93.0 Abnormal findings on diagnostic imaging of skull and head, not elsewhere classified; G31.89 Other specified degenerative diseases of nervous system; G58.9 Mononeuropathy, unspecified; M47.892 Other spondylosis, cervical region; M25.78 Osteophyte, vertebrae; M50.223 Other cervical disc displacement at C6-C7 level; R93.7 Abnormal findings on diagnostic imaging of other parts of musculoskeletal system
CPT/HCPCS: 70553; 72156

== ENCOUNTER 2024-07-07 08:11 | Outpatient (CLI) | payer MEDICARE, MEDICAID, SELFPAY ==
--- NOTE | 2024-07-07 09:15 | MR_ITS ---
WS: [id number] MRA CAROTID ARTERIES HISTORY: R53.1 - Weakness COMPARISON: None available. TECHNIQUE: MRA is performed with intravenous gadolinium. MIP and source images are reviewed. Right: Common carotid artery is normal caliber. Focal narrowing in the proximal RIGHT ICA with stenosis estimated at 50%. External carotid artery is patent. Left: Normal common carotid artery arises from the arch. High-grade stenosis at the proximal LEFT ICA greater than 50%. Stenosis estimated between 50 and 69%. No complete occlusion. ECA is patent. Subclavian Arteries: Artifact of the proximal subclavian arteries. No stenosis identified. Vertebral Arteries: Dominant RIGHT vertebral artery. Small caliber LEFT vertebral artery but it does appear to be patent. MR/MR angio neck w con* [id number] IMPRESSION: 1. Proximal LEFT ICA stenosis estimated between 50 and 69%. Recommend follow-u p CT angiogram carotid arteries. 2. Proximal RIGHT ICA stenosis estimated at 50%. 3. Diffuse small caliber LEFT vertebral artery but it does appear to be patent . 4. Dominant RIGHT vertebral artery.
--- NOTE | 2024-07-07 10:00 | MR_ITS ---
WS: [id number] MRA ANGIOGRAPHY [place] OF [place] HISTORY: R53.1 - Weakness COMPARISON: None available. TECHNIQUE: 3-D MR angiography is performed of the [place] of [place]. All images are reviewed including source images. Distal vertebral and basilar arteries are intact with no significant stenosis or plaque. Posterior cerebral arteries are normal course and caliber. Posterior communicating arteries are both patent. Intracranial portion of the internal carotid arteries are normal course. Smaller caliber RIGHT intracranial carotid artery but it is patent. No significant atherosclerosis, stenosis or aneurysm identified. Middle and anterior cerebral arteries are both patent with no significant disease. Very small caliber, hypoplastic RIGHT A1 segment but it is patent. Small previously described susceptibility artifacts LEFT frontal temporal lobes. Mild ventriculomegaly. MR/MR angio head wo con [id number] IMPRESSION: 1. No intracranial artery aneurysm. 2. Hypoplastic RIGHT A1 segment but it is patent. 3. Mild narrowing of the RIGHT intracranial carotid artery but it is patent. N o high-grade stenosis.
[2024-07-07] MEDS: gadobenate dimeglumine 20 mL vial IV (10:56)
== END 2024-07-07 08:12 | disposition home or self-care (01) ==
LOC: RAD 08:11
PROVIDERS: PCP Nurse Practitioner Family; Visit Provider Psychiatry & Neurology Neurology
DX: R53.1 Weakness (principal); R29.6 Repeated falls; K55.069 Acute infarction of intestine, part and extent unspecified; R55 Syncope and collapse; I65.23 Occlusion and stenosis of bilateral carotid arteries; R93.0 Abnormal findings on diagnostic imaging of skull and head, not elsewhere classified
CPT/HCPCS: 70544; 70548

== ENCOUNTER → 2024-08-24 12:47 | Outpatient (BNVA) | payer MEDICARE, MEDICAID, SELFPAY | PROVIDERS: PCP Nurse Practitioner Family; Referring Provider Psychiatry & Neurology Neurology; Visit Provider Psychiatry & Neurology Neurology | DX: R56.9 Unspecified convulsions (principal) | CPT/HCPCS: 95813 ==

== ENCOUNTER 2024-09-20 14:15 | Outpatient (CLI) | payer MEDICARE, MEDICAID, SELFPAY | END 2024-09-20 14:16 | disposition home or self-care (01) | LOC: LAB 09-21 08:02 | PROVIDERS: PCP Nurse Practitioner Family; Visit Provider Internal Medicine Cardiovascular Disease | DX: I38 Endocarditis, valve unspecified (principal); I74.09 Other arterial embolism and thrombosis of abdominal aorta; G25.9 Extrapyramidal and movement disorder, unspecified; K55.069 Acute infarction of intestine, part and extent unspecified; I65.23 Occlusion and stenosis of bilateral carotid arteries; R03.0 Elevated blood-pressure reading, without diagnosis of hypertension; Z09 Encounter for follow-up examination after completed treatment for conditions other than malignant neoplasm; Z87.820 Personal history of traumatic brain injury; Z87.891 Personal history of nicotine dependence; E78.5 Hyperlipidemia, unspecified; I65.29 Occlusion and stenosis of unspecified carotid artery; Q25.1 Coarctation of aorta | CPT/HCPCS: 36415; 80061; 80076; 99205 ==

== ENCOUNTER 2024-10-05 08:54 | Outpatient (CLI) | payer MEDICARE, MEDICAID, SELFPAY ==
--- NOTE | 2024-10-05 | ECG_ITS ---
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 Interpretive Statements LEXISCAN SESTAMIBI STRESS TEST Procedure: At the baseline, the blood pressure was 162/64 mmHg with a heart rate of 54 bpm. The electrocardiogram showed sinus bradycardia, normal axis with normal ST and T's. The Lexiscan was infused over a period of 20 seconds. A total of 0.4 mg of Lexiscan was infused. The stress phase was continued for a total of 5 minutes. Heart rate was at the end of stress phase was 89 bpm and a blood pressure of 118/69 mmHg. The EKG at the peak infusion revealed normal sinus rhythm with no significant ST-T wave changes. Sestamibi was injected 20 seconds after the Lexiscan infusion. Blood pressure at the end of recovery phase was 106 /62 mmHg with a heart rate of 89 bpm. Conclusion: 1. Normal EKG response to Lexiscan infusion 2. No Lexiscan induced chest pain or cardiac arrhythmia. 3. Normal blood pressure and heart rate response. 4. Sestamibi/sestamibi perfusion scan pending; see separate report. Electronically Signed On 10-23-2024 13:39:15 CDT by Reginaldo Solis M.D. [email or web address]
[2024-10-05 08:57] VITALS: BMI 22.8
--- NOTE | 2024-10-05 08:58 | NMCV_ITS ---
NM caridad perf SPECT r/s* [id number] Nirav Rosenberg Age: 69 Gender: M : 1955 Exam Date: 10/05/2024 09:43 Ordering Phys: Gonzalez Beth MD ([email or web address]) Technologist: CHINO Key Exam Location: [facility] Indications: cp STRESS TEST [facility] IMAGE PROTOCOL Rest/Stress 1 Lexiscan Day Radiopharmaceutical Dose (mCi) Administration Site Administered by Rest: Tc-99m 10.7 IV CHINO Key Sestamibi Stress:Tc-99m 32.5 IV CHINO Yo Sestamibi Rest: 05-Oct-2024 60 Discovery 630 Stress: 05-Oct-2024 30 Discovery 630 0.4mg Lexiscan. Images obtained in supine and prone position. SPECT RESULTS Technical Quality: Good Raw Data Analysis: Normal Image Corrections: No attenuation or motion correction applied Summed Stress Score: 4 Summed Rest Score: 5 Summed Difference Score: 1 PERFUSION FINDINGS Moderate-sized area of mostly fixed reduced radiotracer uptake in inferior and inferolateral rivas that resolves on prone imaging. This is secondary to attenuation artifact. No significant ischemia seen FUNCTIONAL RESULTS (calculated via Gated SPECT) Stress Image LV EF (%): 79 Stress EDV (mL):70 TID: 0.81 Stress ESV (mL):15 FUNCTIONAL FINDINGS: There is normal left ventricular systolic function. IMPRESSIONS 1. Moderate sized area of attenuation artifact seen in inferior and inferolateral rivas. No significant ischemia. 2. LV systolic function is normal. Reginaldo Solis MD (Electronically Signed) Final Date: 09 October 2024 11:59 S
[2024-10-05] MEDS: regadenoson 0.4 Mg/5 ml Syringe IVP (10:14)
[2024-10-05 10:27] VITALS: BP 108/79; PULSE 74
== END 2024-10-05 08:55 | disposition home or self-care (01) ==
LOC: CDL 08:56
PROVIDERS: PCP Nurse Practitioner Family; Visit Provider Internal Medicine Cardiovascular Disease
DX: R07.9 Chest pain, unspecified (principal); R93.1 Abnormal findings on diagnostic imaging of heart and coronary circulation
CPT/HCPCS: 36415; 78452; 93017; 96374; A9500; J2785

== ENCOUNTER 2024-10-28 14:07 | Outpatient (CLI) | payer MEDICARE, MEDICAID, SELFPAY ==
--- NOTE | 2024-10-28 14:15 | USCV_ITS ---
Nirav Rosenberg Age: 69 Gender: M : 1955 Exam Date: 10/28/2024 14:27 Ordering Phys: Gonzalez Beth MD ([email or web address]) Technologist: [place] [facility] [place]: abdominal ao occlusion cva BP: 125 / 70 HR: Rhythm: Sinus Technical Quality: Adequate MEASUREMENTS (Male / Female) Normal Values 2D ECHO LV Diastolic Diameter PLAX 3.3 cm 4.2 - 5.9 / 3.9 - 5.3 cm IVS Diastolic Thickness 1.2 cm 0.6 - 1.0 / 0.6 - 0.9 cm IVS Systolic Thickness 1.5 cm LVPW Diastolic Thickness 1.4 cm 0.6 - 1.0 / 0.6 - 0.9 cm LVPW Systolic Thickness 1.8 cm LVOT Diameter 2.7 cm LV Ejection Fraction 2D Teich 65.9 % LV Ejection Fraction MOD 4C 59.4 % LV Ejection Fraction MOD 2C 62.3 % LV Ejection Fraction 2C AL 62.6 % LA Diameter 4.4 cm RA Systolic Volume 4C AL 35.2 ml RA Systolic Volume 4C MOD 34.0 ml Aorta at Sinotubular Diameter 3.6 cm IVC Diameter 1.2 cm M-MODE LA Ao Ratio MM 1.1 AV Cusp Separation MM 2.8 cm DOPPLER MV Area PHT 2.8 cm squared Mitral E to A Ratio 0.9 FINDINGS Left Ventricle Normal left ventricular size and systolic function, EF 62%. No regional wall motion abnormalities. Right Ventricle The right ventricle is normal in size and function. Right Atrium The right atrium is normal in size. Left Atrium The left atrium is normal in size. Mitral Valve No gross abnormalities noted Aortic Valve No gross abnormalities noted Tricuspid Valve No gross abnormalities noted Pulmonic Valve No gross abnormalities noted Pericardium Normal pericardium without effusion. Aorta Normal aortic annulus size. IVC Normal inferior vena cava. CONCLUSIONS Normal left ventricular size and systolic function, EF 62%. No regional wall motion abnormalities. Normal cardiac chamber sizes. No gross morphologic abnormalities of the valves No significant pericardial effusion Compared to the previous study from 08/23/2017, there may not be significant change Dr Gonzalez Beth MD FAC (Electronically Signed) Final Date: 31 October 2024 19:53 S
== END 2024-10-28 14:08 | disposition home or self-care (01) ==
LOC: RAD 14:07
PROVIDERS: PCP Nurse Practitioner Family; Visit Provider Internal Medicine Cardiovascular Disease
DX: I38 Endocarditis, valve unspecified (principal)
CPT/HCPCS: 93306

== ENCOUNTER 2024-11-02 13:01 | Outpatient (CLI) | payer MEDICARE, MEDICAID, SELFPAY ==
[2024-11-02 14:11] LABS: Magnesium 2.1 mg/dL (1.7-2.3); Thyroid Stimulating Hormone 2.94 uIU/mL (0.27-4.20); Vitamin B12 718 pg/mL (232-1245)
[2024-11-02 14:42] LABS: Free T4 Free Thyroxine 0.93 ng/dL (0.82-1.77)
[2024-11-02 15:26] LABS: HIV 1 & 2 Antigen Non-Reactive (Non-Reactiv)
[2024-11-02 15:27] LABS: Hepatitis B Surface Antigen Non-Reactive (Nonreactive)
== END 2024-11-02 13:02 | disposition home or self-care (01) ==
PROVIDERS: PCP Nurse Practitioner Family; Visit Provider Psychiatry & Neurology Neurology
DX: R53.1 Weakness (principal); R29.6 Repeated falls; K55.069 Acute infarction of intestine, part and extent unspecified; E53.8 Deficiency of other specified B group vitamins; E55.9 Vitamin D deficiency, unspecified; S06.9XAA Unspecified intracranial injury with loss of consciousness status unknown, initial encounter; R41.3 Other amnesia; R55 Syncope and collapse; R41.89 Other symptoms and signs involving cognitive functions and awareness; R29.818 Other symptoms and signs involving the nervous system; G25.9 Extrapyramidal and movement disorder, unspecified; G20.C Parkinsonism, unspecified; X58.XXXA Exposure to other specified factors, initial encounter
CPT/HCPCS: 36415; 82085; 82306; 82550; 82607; 82746; 83735; 83921; 84439; 84443; 84481; 86803; 87340; 87806; 99212

== ENCOUNTER → 2024-12-02 09:18 | Outpatient (BNVA) | payer MEDICARE, MEDICAID, SELFPAY | PROVIDERS: PCP Nurse Practitioner Family; Referring Provider Nurse Practitioner Family; Visit Provider Nurse Practitioner | DX: R41.3 Other amnesia (principal); R41.89 Other symptoms and signs involving cognitive functions and awareness; E55.9 Vitamin D deficiency, unspecified; R48.2 Apraxia | CPT/HCPCS: 82306; 99213 ==

== ENCOUNTER 2024-12-17 14:25 | Outpatient (CLI) | payer MEDICARE, MEDICAID, SELFPAY ==
--- NOTE | 2024-12-17 14:30 | CT_ITS ---
WS: [id number] CT HEAD TECHNIQUE: Noncontrast CT of the head obtained from the skullbase to the vertex. CLINICAL INFORMATION: R41.3 - Other amnesia COMPARISON: CT 2023 and MRI 2024 DLP: 1082.[address] scans at [facility] use at least one of these dose optimization techniques: automated exposure control; mA and/or kV adjustment per patient size (includes targeted exams where dose is matched to clinical indication); or iterative reconstruction. FINDINGS: No evidence of intracranial hemorrhage or mass effect. Ventricular system and basal cisterns are patent. Moderate small vessel changes with advanced parenchymal volume loss. No extra-axial fluid collections. No evidence of mass or mass effect. Wallerian degeneration LEFT midbrain. Moderate atrophy of the corpus callosum. 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 Paranasal sinuses and mastoid air cells are well aerated. .Normal visualized soft tissues. CT/CT head wo con* [id number] IMPRESSION: 1. No evidence of intracranial hemorrhage or mass effect. 2. Moderate small vessel changes with advanced parenchymal volume loss. 3. Vascular calcification. 4. No significant interval changes.
== END 2024-12-17 14:26 | disposition home or self-care (01) ==
LOC: RAD 14:26
PROVIDERS: PCP Nurse Practitioner Family; Visit Provider Nurse Practitioner
DX: G31.9 Degenerative disease of nervous system, unspecified (principal); I67.82 Cerebral ischemia; G31.89 Other specified degenerative diseases of nervous system; G93.89 Other specified disorders of brain
CPT/HCPCS: 70450

== ENCOUNTER 2025-03-20 07:05 | Emergency (ER) | payer MEDICARE, MEDICAID, SELFPAY ==
[2025-03-20 07:06] VITALS: BP 122/71; PULSE 103; RESP 14; TEMP 37.3; O2SAT 91; BMI 23.3
--- OUTSIDE RECORDS SUMMARY | 2025-03-20 07:08 | XMS_ITS | Encounter Summary ---
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 Name Role Phone Unavailable Primary Care Provider Unavailabl e Encounter Details Date Type Department Care Team (Late st Contact Info) Description 12/20/2005 Inpatient Historical HIS IN BED Junior Poe MD NO ADDRESS ON FILE Cortex Contus-Coma (CMS/HCC) (Primary Dx) Social History Tobacco Use Types Packs/Day Years Used Date Smoking Tobacco: Never Assessed Sex and Gender Information Value Date Recorded Sex Assigned at Not on file Legal Sex Male 4:48 AM [employer] Gender Identity Not on file Sexual Orientation Not on file documented as of this encounter Plan of Treatment Not on file documented as of this encounter Procedures Procedure Name Priority Date/Time Associated Diagnosis Comments POC GLUCOSE Routine 01/10/2006 5:55 PM CDT POC GLUCOSE Routine 01/10/2006 11:38 AM CDT POC GLUCOSE Routine 01/10/2006 8:17 AM CDT POC GLUCOSE Routine 01/09/2006 9:28 PM CDT POC GLUCOSE Routine 01/09/2006 5:22 PM CDT POC GLUCOSE Routine 01/09/2006 11:11 AM CDT CBC WITH DIFFERENTIAL Routine 01/09/2006 5:40 AM CDT BASIC METABOLIC PANEL Routine 01/09/2006 5:40 AM CDT POC GLUCOSE Routine 01/09/2006 5:35 AM CDT POC GLUCOSE Routine 01/08/2006 7:59 PM CDT POC GLUCOSE Routine 01/08/2006 5:41 PM CDT POC GLUCOSE Routine 01/08/2006 11:03 AM CDT POC GLUCOSE Routine 01/08/2006 5:32 AM CDT POC GLUCOSE Routine 01/07/2006 8:15 PM CDT POC GLUCOSE Routine 01/07/2006 4:08 PM CDT POC GLUCOSE Routine 01/07/2006 10:43 AM CDT POC BLOOD GAS, LYTES AND H+H Routine 01/07/2006 4:49 AM CDT POC GLUCOSE Routine 01/07/2006 4:41 AM CDT POC GLUCOSE Routine 01/06/2006 8:51 PM CDT POC GLUCOSE Routine 01/06/2006 4:05 PM CDT POC GLUCOSE Routine 01/06/2006 11:23 AM CDT POC BLOOD GAS, LYTES AND H+H Routine 01/06/2006 5:10 AM CDT POC GLUCOSE Routine 01/06/2006 5:08 AM CDT CBC WITH DIFFERENTIAL Routine 01/06/2006 4:00 AM CDT BASIC METABOLIC PANEL Routine 01/06/2006 4:00 AM CDT POC GLUCOSE Routine 01/05/2006 8:20 PM CDT POC BLOOD GAS, LYTES AND H+H Routine 01/05/2006 8:11 PM CDT POC GLUCOSE Routine 01/05/2006 5:46 PM CDT POC GLUCOSE Routine 01/05/2006 12:04 PM CDT POC BLOOD GAS, LYTES AND H+H Routine 01/05/2006 6:20 AM CDT POC GLUCOSE Routine 01/05/2006 5:30 AM CDT CBC WITH DIFFERENTIAL Routine 01/05/2006 5:18 AM CDT POC GLUCOSE Routine 01/04/2006 8:54 PM CDT POC GLUCOSE Routine 01/04/2006 4:19 PM CDT POC GLUCOSE Routine 01/04/2006 11:59 AM CDT POC GLUCOSE Routine 01/04/2006 5:00 AM CDT CBC WITH DIFFERENTIAL Routine 01/04/2006 4:21 AM CDT BASIC METABOLIC PANEL Routine 01/04/2006 4:21 AM CDT POC GLUCOSE Routine 01/03/2006 9:27 PM CDT POC GLUCOSE Routine 01/03/2006 5:12 PM CDT POC GLUCOSE Routine 01/03/2006 11:37 AM CDT POC BLOOD GAS, LYTES AND H+H Routine 01/03/2006 5:47 AM CDT POC GLUCOSE Routine 01/03/2006 5:33 AM CDT CBC WITH DIFFERENTIAL Routine 01/03/2006 4:14 AM CDT PHOSPHORUS Routine 01/03/2006 4:14 AM CDT MAGNESIUM LEVEL Routine 01/03/2006 4:14 AM CDT COMPREHENSIVE METABOLIC PANEL Routine 01/03/2006 4:14 AM CDT VANCOMYCIN LEVEL PEAK Routine 01/03/2006 2:09 AM CDT VANCOMYCIN LEVEL TROUGH Routine 01/02/2006 11:14 PM CDT POC GLUCOSE Routine 01/02/2006 8:27 PM CDT POC GLUCOSE Routine 01/02/2006 4:38 PM CDT POC GLUCOSE Routine 01/02/2006 11:46 AM CDT POC GLUCOSE Routine 01/02/2006 5:40 AM CDT CBC WITH DIFFERENTIAL Routine 01/02/2006 4:23 AM CDT BASIC METABOLIC PANEL Routine 01/02/2006 4:23 AM CDT POC GLUCOSE Routine 01/01/2006 9:24 PM CDT POC GLUCOSE Routine 01/01/2006 4:53 PM CDT VANCOMYCIN LEVEL PEAK Routine 01/01/2006 2:38 PM CDT VANCOMYCIN LEVEL TROUGH Routine 01/01/2006 11:51 AM CDT POC GLUCOSE Routine 01/01/2006 11:37 AM CDT POC GLUCOSE Routine 01/01/2006 5:41 AM CDT POC BLOOD GAS AND GLUCOSE Routine 01/01/2006 4:59 AM CDT CBC WITH DIFFERENTIAL Routine 01/01/2006 4:44 AM CDT BASIC METABOLIC PANEL Routine 01/01/2006 4:44 AM CDT POC BLOOD GAS AND GLUCOSE Routine 01/01/2006 2:51 AM CDT POC GLUCOSE Routine 12/31/2005 8:33 PM CDT POC GLUCOSE Routine 12/31/2005 4:56 PM CDT POC BLOOD GAS, LYTES AND H+H Routine 12/31/2005 4:54 PM CDT POC GLUCOSE Routine 12/31/2005 11:58 AM CDT POC GLUCOSE Routine 12/31/2005 5:28 AM CDT POC BLOOD GAS AND GLUCOSE Routine 12/31/2005 5:20 AM CDT PHOSPHORUS Routine 12/31/2005 4:38 AM CDT MAGNESIUM LEVEL Routine 12/31/2005 4:38 AM CDT BASIC METABOLIC PANEL Routine 12/31/2005 4:38 AM CDT CBC WITH DIFFERENTIAL Routine 12/31/2005 4:37 AM CDT POC GLUCOSE Routine 12/30/2005 8:15 PM CDT POC GLUCOSE Routine 12/30/2005 4:38 PM CDT C. DIFFICILE DETECTION Routine 6 3:31 PM CDT POC GLUCOSE Routine 12/30/2005 12:24 PM CDT POC GLUCOSE Routine 12/30/2005 4:38 AM CDT POC BLOOD GAS, LYTES AND H+H Routine 12/30/2005 4:32 AM CDT DIFFERENTIAL, MANUAL Routine 12/30/2005 4:13 AM CDT CBC WITH DIFFERENTIAL Routine 12/30/2005 4:13 AM CDT PHOSPHORUS Routine 12/30/2005 4:13 AM CDT MAGNESIUM LEVEL Routine 12/30/2005 4:13 AM CDT BASIC METABOLIC PANEL Routine 12/30/2005 4:13 AM CDT POC GLUCOSE Routine 12/29/2005 9:24 PM CDT POC GLUCOSE Routine 12/29/2005 5:34 PM CDT POC GLUCOSE Routine 12/29/2005 11:43 AM CDT POC BLOOD GAS, LYTES AND H+H Routine 12/29/2005 5:32 AM CDT POC GLUCOSE Routine 12/29/2005 5:27 AM CDT POC GLUCOSE Routine 12/28/2005 9:42 PM CDT POC GLUCOSE Routine 12/28/2005 4:40 PM CDT POC GLUCOSE Routine 12/28/2005 11:36 AM CDT POC BLOOD GAS, LYTES AND H+H Routine 12/28/2005 5:23 AM CDT POC GLUCOSE Routine 12/28/2005 5:20 AM CDT CBC WITH DIFFERENTIAL Routine 12/28/2005 4:36 AM CDT COMPREHENSIVE METABOLIC PANEL Routine 12/28/2005 4:36 AM CDT POC GLUCOSE Routine 12/27/2005 8:46 PM CDT POC GLUCOSE Routine 12/27/2005 4:40 PM CDT POC GLUCOSE Routine 12/27/2005 11:25 AM CDT POC BLOOD GAS, LYTES AND H+H Routine 12/27/2005 5:39 AM CDT CBC WITH DIFFERENTIAL Routine 12/27/2005 4:41 AM CDT COMPREHENSIVE METABOLIC PANEL Routine 12/27/2005 4:41 AM CDT POC GLUCOSE Routine 12/27/2005 4:35 AM CDT POC GLUCOSE Routine 12/26/2005 9:44 PM CDT POC GLUCOSE Routine 12/26/2005 5:37 PM CDT DIFFERENTIAL, MANUAL Routine 12/26/2005 3:27 PM CDT CBC WITH DIFFERENTIAL Routine 12/26/2005 3:27 PM CDT POC GLUCOSE Routine 12/26/2005 12:32 PM CDT DIFFERENTIAL, MANUAL Routine 12/26/2005 7:46 AM CDT CBC WITH DIFFERENTIAL Routine 12/26/2005 7:46 AM CDT POC BLOOD GAS, LYTES AND H+H Routine 12/26/2005 5:55 AM CDT POC GLUCOSE Routine 12/26/2005 5:15 AM CDT PHOSPHORUS Routine 12/26/2005 4:04 AM CDT MAGNESIUM LEVEL Routine 12/26/2005 4:04 AM CDT BASIC METABOLIC PANEL Routine 12/26/2005 4:04 AM CDT HEMOGLOBIN AND HEMATOCRIT Routine 12/26/2005 12:06 AM CDT POC GLUCOSE Routine 12/25/2005 9:23 PM CDT POC GLUCOSE Routine 12/25/2005 6:07 PM CDT POC GLUCOSE Routine 12/25/2005 11:49 AM CDT POC BLOOD GAS, LYTES AND H+H Routine 12/25/2005 10:05 AM CDT POC BLOOD GAS, LYTES AND H+H Routine 12/25/2005 5:17 AM CDT POC GLUCOSE Routine 12/25/2005 5:14 AM CDT CBC WITH DIFFERENTIAL Routine 12/25/2005 4:02 AM CDT PHOSPHORUS Routine 12/25/2005 4:02 AM CDT BASIC METABOLIC PANEL Routine 12/25/2005 4:02 AM CDT POC GLUCOSE Routine 12/24/2005 11:04 PM CDT POC GLUCOSE Routine 12/24/2005 5:50 PM CDT POC GLUCOSE Routine 12/24/2005 12:50 PM CDT POC BLOOD GAS, LYTES AND H+H Routine 12/24/2005 5:35 AM CDT CBC WITH DIFFERENTIAL Routine 12/24/2005 4:35 AM CDT PHOSPHORUS Routine 12/24/2005 4:35 AM CDT MAGNESIUM LEVEL Routine 12/24/2005 4:35 AM CDT BASIC METABOLIC PANEL Routine 12/24/2005 4:35 AM CDT POC BLOOD GAS, LYTES AND H+H Routine 12/23/2005 11:26 PM CDT POC BLOOD GAS, LYTES AND H+H Routine 12/23/2005 5:56 AM CDT DIFFERENTIAL, MANUAL Routine 12/23/2005 4:40 AM CDT CBC WITH DIFFERENTIAL Routine 12/23/2005 4:40 AM CDT BASIC METABOLIC PANEL Routine 12/23/2005 4:40 AM CDT HEMOGLOBIN AND HEMATOCRIT Routine 12/22/2005 7:05 PM CDT POC BLOOD GAS, LYTES AND H+H Routine 12/22/2005 6:57 PM CDT CBC WITH DIFFERENTIAL Routine 12/22/2005 12:00 PM CDT POC BLOOD GAS, LYTES AND H+H Routine 12/22/2005 5:04 AM CDT CBC WITH DIFFERENTIAL Routine 12/22/2005 4:25 AM CDT PHOSPHORUS Routine 12/22/2005 4:25 AM CDT MAGNESIUM LEVEL Routine 12/22/2005 4:25 AM CDT BASIC METABOLIC PANEL Routine 12/22/2005 4:25 AM CDT CBC WITH DIFFERENTIAL Routine 12/21/2005 10:57 PM CDT POC BLOOD GAS, LYTES AND H+H Routine 12/21/2005 5:51 PM CDT CBC WITH DIFFERENTIAL Routine 12/21/2005 5:45 PM CDT HEMOGLOBIN AND HEMATOCRIT Routine 12/21/2005 11:25 AM CDT POC BLOOD GAS, LYTES AND H+H Routine 12/21/2005 5:08 AM CDT PT AND APTT Routine 12/21/2005 4:11 AM CDT CBC WITH DIFFERENTIAL Routine 12/21/2005 4:11 AM CDT BASIC METABOLIC PANEL Routine 12/21/2005 4:11 AM CDT HEMOGLOBIN AND HEMATOCRIT Routine 12/20/2005 11:03 PM CDT DRUG SCREEN, URINE Routine 12/20/2005 9: 41 PM CDT POC BLOOD GAS, LYTES AND H+H Routine 12/20/2005 5:33 PM CDT CBC WITH DIFFERENTIAL Routine 12/20/2005 5:32 PM CDT PROTIME-INR Routine 12/20/2005 5:32 PM CDT ETHANOL LEVEL Routine 12/20/2005 5:32 PM CDT BASIC METABOLIC PANEL Routine 12/20/2005 5:32 PM CDT documented in this encounter Results * (ABNORMAL) POC GLUCOSE (01/10/2006 5:55 PM CDT) GLUCOSE POC 135(H) 60 - 100 mg/dL INTERFACE SYSTEM COMMENT POC Follow Protocol INTERFACE SYSTEM 01/10/2006 5:55 PM CDT us Junior Poe MD POINT OF CARE TESTING Final Result Performing Organization Address [facility] de Phone Number INTERFACE SYSTEM Refer to clinic/hospital department * POC GLUCOSE (01/10/2006 11:38 AM CDT) GLUCOSE POC 100 60 - 100 mg/dL INTERFACE SYSTEM 01/10/2006 11:3 8 AM CDT us Junior Poe MD POINT OF CARE TESTING Final Result Performing Organization Address City/[facility]/ZIP Co de Phone Number INTERFACE SYSTEM Refer to clinic/hospital department * (ABNORMAL) POC GLUCOSE (01/10/2006 8:17 AM CDT) GLUCOSE POC 130(H) 60 - 100 mg/dL INTERFACE SYSTEM 01/10/2006 8:17 AM CDT Result Maikol Poe MD POINT OF CARE TESTING Final Result Performing Organization Address [facility] Co de Phone Number INTERFACE SYSTEM Refer to clinic/hospital department * (ABNORMAL) POC GLUCOSE (01/09/2006 9:28 PM CDT) GLUCOSE POC 126(H) 60 - 100 mg/dL INTERFACE SYSTEM 01/09/2006 9:28 PM CDT Result Maikol Poe MD POINT OF CARE TESTING Final Result Performing Organization Address [facility] Phone Number INTERFACE SYSTEM Refer to clinic/hospital department * (ABNORMAL) POC GLUCOSE (01/09/2006 5:22 PM CDT) GLUCOSE POC 154(H) 60 - 100 mg/dL INTERFACE SYSTEM 01/09/2006 5:22 PM CDT Result Maikol Poe MD POINT OF CARE TESTING Final Result Performing Organization Address [facility] Phone Number INTERFACE SYSTEM Refer to clinic/hospital department * (ABNORMAL) POC GLUCOSE (01/09/2006 11:11 AM CDT) GLUCOSE POC 138(H) 60 - 100 mg/dL INTERFACE SYSTEM 01/09/2006 11:1 1 AM CDT Result Maikol Poe MD POINT OF CARE TESTING Final Result Performing Organization Address [facility] Co de Phone Number INTERFACE SYSTEM Refer to clinic/hospital department * (ABNORMAL) BASIC METABOLIC PANEL (01/09/2006 5:40 AM CDT) GLUCOSE 109 70 - 110 mg/dL INTERFACE SYSTEM BUN 15 9 - 20 mg/dL INTERFACE SYSTEM CREATININE 0.6(L) 0.7 - 1.5 mg/dL INTERFACE SYSTEM SODIUM 137 136 - 145 mEq/L INTERFACE SYSTEM POTASSIUM 4.4 3.5 - 5.0 mEq/L INTERFACE SYSTEM CHLORIDE 99 95 - 110 mEq/L INTERFACE SYSTEM CO2 25 22 - 32 mmol/l INTERFACE SYSTEM ANION GAP 17 9 - 20 mEq/L INTERFACE SYSTEM OSMOLALITY, CALCULATED 284 275 - 295 mOsm/Kg INTERFACE SYSTEM CALCIUM 9.3 8.4 - 10.5 mg/dL INTERFACE SYSTEM 01/09/2006 5:40 AM CDT us Junior Poe MD CHEMISTRY ORDERABLES Final Result INTERFACE SYSTEM Refer to clinic/hospital department * (ABNORMAL) CBC WITH DIFFERENTIAL (01/09/2006 5:40 AM CDT) WBC 10.4 4.8 - 10.8 K/ul INTERFACE SYSTEM RBC 4.20(L) 4.60 - 6.20 Mil/ul INTERFACE SYSTEM HEMOGLOBIN 12.7(L) 14.0 - 18.0 g/dL INTERFACE SYSTEM HEMATOCRIT 38.0(L) 41.0 - 53.0 % INTERFACE SYSTEM MCV 90.5 84.0 - 103.0 Fl INTERFACE SYSTEM MCH 30.2 27.0 - 34.0 pg INTERFACE SYSTEM MCHC 33.4 30.0 - 35.0 g/dL INTERFACE SYSTEM RDW 13.4 11.0 - 14.5 % INTERFACE SYSTEM PLATELETS 430 140 - 440 K/ul INTERFACE SYSTEM MPV 10.3 8.9 - 12.8 Fl INTERFACE SYSTEM NEUTROPHILS 65.7 42.2 - 75.2 % INTERFACE SYSTEM LYMPHOCYTES 19.3(L) 24.0 - 44.0 % INTERFACE SYSTEM MONOCYTES 10.0 2.0 - 10.0 % INTERFACE SYSTEM EOSINOPHILS 4.1 0.0 - 7.0 % INTERFACE SYSTEM BASOPHILS 0.9 0.0 - 1.0 % INTERFACE SYSTEM NEUTROPHIL ABSOLUTE 6.9 2.0 - 8.0 K/uL INTERFACE SYSTEM LYMPHOCYTE ABSOLUTE 2.0 1.2 - 4.0 K/ul INTERFACE SYSTEM MONOCYTE ABSOLUTE 1.0(H) 0.1 - 0.6 K/ul INTERFACE SYSTEM EOSINOPHIL ABSOLUTE 0.4 0.0 - 0.7 K/ul INTERFACE SYSTEM BASOPHILS ABSOLUTE 0.1 0.0 - 0.2 K/ul INTERFACE SYSTEM 01/09/2006 5:40 AM CDT Junior Poe MD HEMATOLOGY ORDERABLES Final Result Performing Organization Address [facility] Phone Number INTERFACE SYSTEM Refer to clinic/hospital department * POC GLUCOSE (01/09/2006 5:35 AM CDT) GLUCOSE POC 98 60 - 100 mg/dL INTERFACE SYSTEM 01/09/2006 5:35 AM CDT Chadd Yanes Jr., MD POINT OF CARE TESTING F inal Result Performing Organization Address [facility] Phone Number INTERFACE SYSTEM Refer to clinic/hospital department * (ABNORMAL) POC GLUCOSE (01/08/2006 7:59 PM CDT) GLUCOSE POC 131(H) 60 - 100 mg/dL INTERFACE SYSTEM 01/08/2006 7:59 PM CDT Chadd Yanes Jr., MD POINT OF CARE TESTING F inal Result Performing Organization Address [facility] Phone Number INTERFACE SYSTEM Refer to clinic/hospital department * (ABNORMAL) POC GLUCOSE (01/08/2006 5:41 PM CDT) GLUCOSE POC 136(H) 60 - 100 mg/dL INTERFACE SYSTEM 01/08/2006 5:41 PM CDT Chadd Yanes Jr., MD POINT OF CARE TESTING F inal Result Performing Organization Address [facility] Phone Number INTERFACE SYSTEM Refer to clinic/hospital department * (ABNORMAL) POC GLUCOSE (01/08/2006 11:03 AM CDT) GLUCOSE POC 145(H) 60 - 100 mg/dL INTERFACE SYSTEM 01/08/2006 11:0 3 AM CDT us Chadd Yanes Jr., MD POINT OF CARE TESTING F inal Result Performing Organization Address [facility] de Phone Number INTERFACE SYSTEM Refer to clinic/hospital department * (ABNORMAL) POC GLUCOSE (01/08/2006 5:32 AM CDT) GLUCOSE POC 131(H) 60 - 100 mg/dL INTERFACE SYSTEM 01/08/2006 5:32 AM CDT Chadd Yanes Jr., MD POINT OF CARE TESTING F inal Result Performing Organization Address [facility] Phone Number INTERFACE SYSTEM Refer to clinic/hospital department * (ABNORMAL) POC GLUCOSE (01/07/2006 8:15 PM CDT) GLUCOSE POC 138(H) 60 - 100 mg/dL INTERFACE SYSTEM 01/07/2006 8:15 PM CDT Chadd Yanes Jr., MD POINT OF CARE TESTING F inal Result Performing Organization Address [facility] Phone Number INTERFACE SYSTEM Refer to clinic/hospital department * (ABNORMAL) POC GLUCOSE (01/07/2006 4:08 PM CDT) GLUCOSE POC 145(H) 60 - 100 mg/dL INTERFACE SYSTEM 01/07/2006 4:08 PM CDT Chadd Yanes Jr., MD POINT OF CARE TESTING F inal Result Performing Organization Address [facility] Phone Number INTERFACE SYSTEM Refer to clinic/hospital department * (ABNORMAL) POC GLUCOSE (01/07/2006 10:43 AM CDT) GLUCOSE POC 102(H) 60 - 100 mg/dL INTERFACE SYSTEM 01/07/2006 10:4 3 AM CDT us Chadd Yanes Jr., MD POINT OF CARE TESTING F inal Result Performing Organization Address [facility] de Phone Number INTERFACE SYSTEM Refer to clinic/hospital department * (ABNORMAL) POC ISTAT EG 7+ (01/07/2006 4:49 AM CDT) SPECIMEN TYPE Arterial INTERF MORGAN SYSTEM Comment: PEEP: 05 Pressure Support: 04 Pulse OX: 97 Hemoglobin calculated from Hematocrit result FIO2 40 INTERFACE SYSTEM PH 7.50(H) 7.35 - 7.45 Unit INTERFACE SYSTEM PH TEMP CORRECT 7.50(H) 7.35 - 7.45 Unit INTERFACE SYSTEM PCO2 POC 35 35 - 45 mmHg INTERFACE SYSTEM PCO2 TEMP CORRECT 35 35 - 45 mmHg INTERFACE SYSTEM PO2 61(L) 80 - 105 mmHg INTERFACE SYSTEM PO2 TEMP CORRECT 61(L) 80 - 105 mmHg INTERFACE SYSTEM HCO3 (CALC) POC 27.3(H) 22.0 - 26.0 mmol/l INTERFACE SYSTEM BASE EXCESS 4(H) -2 - 3 mmol/l INTERFACE SYSTEM HEMOGLOBIN POC 12.9 3 g/dL 13.5 - 18.0 g/dL INTERFACE SYSTEM HEMATOCRIT ABG 38 38 - 51 % INTER FACE SYSTEM O2 SATURATION 93(L) 95 - 98 % INTERF MORGAN SYSTEM TCO2 (CALC) POC 28(H) 23 - 27 mmol/l INTERFACE SYSTEM SODIUM 137(L) 138 - 146 mEq/L INTERFACE SYSTEM POTASSIUM 4.1 3.5 - 4.9 mEq/L INTERFACE SYSTEM CALCIUM IONIZED 1.21 1.12 - 1.32 mmol/l INTERFACE SYSTEM 01/07/2006 4:49 AM CDT Junior Poe MD POINT OF CARE TESTING COM F inal Result INTERFACE SYSTEM Refer to clinic/hospital department * (ABNORMAL) POC GLUCOSE (01/07/2006 4:41 AM CDT) GLUCOSE POC 152(H) 60 - 100 mg/dL INTERFACE SYSTEM 01/07/2006 4:41 AM CDT us Chadd Yanes Jr., MD POINT OF CARE TESTING F inal Result INTERFACE SYSTEM Refer to clinic/hospital department * (ABNORMAL) POC GLUCOSE (01/06/2006 8:51 PM CDT) GLUCOSE POC 130(H) 60 - 100 mg/dL INTERFACE SYSTEM 01/06/2006 8:51 PM CDT us Chadd Yanes Jr., MD POINT OF CARE TESTING F inal Result Performing Organization Address [facility] Phone Number INTERFACE SYSTEM Refer to clinic/hospital department * (ABNORMAL) POC GLUCOSE (01/06/2006 4:05 PM CDT) GLUCOSE POC 152(H) 60 - 100 mg/dL INTERFACE SYSTEM 01/06/2006 4:05 PM CDT us Chadd Yanes Jr., MD POINT OF CARE TESTING F inal Result Performing Organization Address [facility] Phone Number INTERFACE SYSTEM Refer to clinic/hospital department * (ABNORMAL) POC GLUCOSE (01/06/2006 11:23 AM CDT) GLUCOSE POC 134(H) 60 - 100 mg/dL INTERFACE SYSTEM 01/06/2006 11:2 3 AM CDT us Chadd Yanes Jr., MD POINT OF CARE TESTING F inal Result Performing Organization Address [facility] Phone Number INTERFACE SYSTEM Refer to clinic/hospital department * (ABNORMAL) POC ISTAT EG 7+ (01/06/2006 5:10 AM CDT) SPECIMEN TYPE Arterial INTERF MORGAN SYSTEM Comment: PEEP: 05 Pressure Support: 04 Pulse OX: 97 Hemoglobin calculated from Hematocrit result FIO2 50 INTERFACE SYSTEM TEMPERATURE 100.1 DegC INTERFAC E SYSTEM PH 7.53(H) 7.35 - 7.45 Unit INTERFACE SYSTEM PH TEMP CORRECT 7.51(H) 7.35 - 7.45 Unit INTERFACE SYSTEM PCO2 POC 35 35 - 45 mmHg INTERFACE SYSTEM PCO2 TEMP CORRECT 37 35 - 45 mmHg INTERFACE SYSTEM PO2 67(L) 80 - 105 mmHg INTERFACE SYSTEM PO2 TEMP CORRECT 71(L) 80 - 105 mmHg INTERFACE SYSTEM HCO3 (CALC) POC 29.1(H) 22.0 - 26.0 mmol/l INTERFACE SYSTEM BASE EXCESS 6(H) -2 - 3 mmol/l INTERFACE SYSTEM HEMOGLOBIN POC 12.6 3 g/dL 13.5 - 18.0 g/dL INTERFACE SYSTEM HEMATOCRIT ABG 37(L) 38 - 51 % INTER FACE SYSTEM O2 SATURATION 95 95 - 98 % INTERF MORGAN SYSTEM TCO2 (CALC) POC 30(H) 23 - 27 mmol/l INTERFACE SYSTEM SODIUM 136(L) 138 - 146 mEq/L INTERFACE SYSTEM POTASSIUM 3.8 3.5 - 4.9 mEq/L INTERFACE SYSTEM CALCIUM IONIZED 1.17 1.12 - 1.32 mmol/l INTERFACE SYSTEM 01/06/2006 5:10 AM CDT Junior Poe MD POINT OF CARE TESTING COM F inal Result Performing Organization Address [facility] Co de Phone Number INTERFACE SYSTEM Refer to clinic/hospital department * (ABNORMAL) POC GLUCOSE (01/06/2006 5:08 AM CDT) GLUCOSE POC 176(H) 60 - 100 mg/dL INTERFACE SYSTEM 01/06/2006 5:08 AM CDT Junior Poe MD POINT OF CARE TESTING Final Result Performing Organization Address [facility] Co de Phone Number INTERFACE SYSTEM Refer to clinic/hospital department * (ABNORMAL) BASIC METABOLIC PANEL (01/06/2006 4:00 AM CDT) GLUCOSE 141(H) 70 - 110 mg/dL INTERFACE SYSTEM BUN 16 9 - 20 mg/dL INTERFACE SYSTEM CREATININE 0.6(L) 0.7 - 1.5 mg/dL INTERFACE SYSTEM SODIUM 136 136 - 145 mEq/L INTERFACE SYSTEM POTASSIUM 4.0 3.5 - 5.0 mEq/L INTERFACE SYSTEM CHLORIDE 101 95 - 110 mEq/L INTERFACE SYSTEM CO2 23 22 - 32 mmol/l INTERFACE SYSTEM ANION GAP 16 9 - 20 mEq/L INTERFACE SYSTEM OSMOLALITY, CALCULATED 284 275 - 295 mOsm/Kg INTERFACE SYSTEM CALCIUM 8.9 8.4 - 10.5 mg/dL INTERFACE SYSTEM 01/06/2006 4:00 AM CDT us Junior Poe MD CHEMISTRY ORDERABLES Final Result INTERFACE SYSTEM Refer to clinic/hospital department * (ABNORMAL) CBC WITH DIFFERENTIAL (01/06/2006 4:00 AM CDT) WBC 15.7(H) 4.8 - 10.8 K/ul INTERFACE SYSTEM RBC 3.95(L) 4.60 - 6.20 Mil/ul INTERFACE SYSTEM HEMOGLOBIN 12.0(L) 14.0 - 18.0 g/dL INTERFACE SYSTEM HEMATOCRIT 36.3(L) 41.0 - 53.0 % INTERFACE SYSTEM MCV 91.9 84.0 - 103.0 Fl INTERFACE SYSTEM MCH 30.4 27.0 - 34.0 pg INTERFACE SYSTEM MCHC 33.1 30.0 - 35.0 g/dL INTERFACE SYSTEM RDW 13.5 11.0 - 14.5 % INTERFACE SYSTEM PLATELETS 518(H) 140 - 440 K/ul INTERFACE SYSTEM MPV 10.1 8.9 - 12.8 Fl INTERFACE SYSTEM NEUTROPHILS 80.2(H) 42.2 - 75.2 % INTERFACE SYSTEM LYMPHOCYTES 10.1(L) 24.0 - 44.0 % INTERFACE SYSTEM MONOCYTES 7.9 2.0 - 10.0 % INTERFA CE SYSTEM EOSINOPHILS 1.5 0.0 - 7.0 % INTERF MORGAN SYSTEM BASOPHILS 0.3 0.0 - 1.0 % INTERFAC E SYSTEM NEUTROPHIL ABSOLUTE 12.6(H) 2.0 - 8.0 K/uL INTERFACE SYSTEM LYMPHOCYTE ABSOLUTE 1.6 1.2 - 4.0 K/ul INTERFACE SYSTEM MONOCYTE ABSOLUTE 1.2(H) 0.1 - 0.6 K/ul INTERFACE SYSTEM EOSINOPHIL ABSOLUTE 0.2 0.0 - 0.7 K/ul INTERFACE SYSTEM BASOPHILS ABSOLUTE 0.1 0.0 - 0.2 K/ul INTERFACE SYSTEM PERIPHERAL BLOOD SMEAR REVIEW Automated Diff Automated Diff INTERFACE SYSTEM 01/06/2006 4:00 AM CDT us Junior Poe MD HEMATOLOGY ORDERABLES Final Result INTERFACE SYSTEM Refer to clinic/hospital department * (ABNORMAL) POC GLUCOSE (01/05/2006 8:20 PM CDT) GLUCOSE POC 152(H) 60 - 100 mg/dL INTERFACE SYSTEM 01/05/2006 8:20 PM CDT Junior Poe MD POINT OF CARE TESTING Final Result Performing Organization Address [facility] Co de Phone Number INTERFACE SYSTEM Refer to clinic/hospital department * (ABNORMAL) POC ISTAT EG 7+ (01/05/2006 8:11 PM CDT) SPECIMEN TYPE Arterial INTERF MORGAN SYSTEM Comment: PEEP: 05 Pressure Support: 04 Pulse OX: 99 Hemoglobin calculated from Hematocrit result FIO2 70 INTERFACE SYSTEM TEMPERATURE 99.9 DegC INTERFAC E SYSTEM PH 7.47(H) 7.35 - 7.45 Unit INTERFACE SYSTEM PH TEMP CORRECT 7.46(H) 7.35 - 7.45 Unit INTERFACE SYSTEM PCO2 POC 38 35 - 45 mmHg INTERFACE SYSTEM PCO2 TEMP CORRECT 39 35 - 45 mmHg INTERFACE SYSTEM PO2 77(L) 80 - 105 mmHg INTERFACE SYSTEM PO2 TEMP CORRECT 81 80 - 105 mmHg INTERFACE SYSTEM HCO3 (CALC) POC 27.5(H) 22.0 - 26.0 mmol/l INTERFACE SYSTEM BASE EXCESS 4(H) -2 - 3 mmol/l INTERFACE SYSTEM HEMOGLOBIN POC 12.9 3 g/dL 13.5 - 18.0 g/dL INTERFACE SYSTEM HEMATOCRIT ABG 38 38 - 51 % INTER FACE SYSTEM O2 SATURATION 96 95 - 98 % INTERF [place]ORGAN SYSTEM TCO2 (CALC) POC 29(H) 23 - 27 mmol/l INTERFACE SYSTEM SODIUM 136(L) 138 - 146 mEq/L INTERFACE SYSTEM POTASSIUM 4.1 3.5 - 4.9 mEq/L INTERFACE SYSTEM CALCIUM IONIZED 1.16 1.12 - 1.32 mmol/l INTERFACE SYSTEM 01/05/2006 8:11 PM CDT us Junior Poe MD POINT OF CARE TESTING COM F inal Result Performing Organization Address City/[facility]/ZIP Co de Phone Number INTERFACE SYSTEM Refer to clinic/hospital department * (ABNORMAL) POC GLUCOSE (01/05/2006 5:46 PM CDT) GLUCOSE POC 117(H) 60 - 100 mg/dL INTERFACE SYSTEM 01/05/2006 5:46 PM CDT us Junior Poe MD POINT OF CARE TESTING Final Result INTERFACE SYSTEM Refer to clinic/hospital department * (ABNORMAL) POC GLUCOSE (01/05/2006 12:04 PM CDT) GLUCOSE POC 124(H) 60 - 100 mg/dL INTERFACE SYSTEM 01/05/2006 12:0 4 PM CDT us Junior Poe MD POINT OF CARE TESTING Final Result Performing Organization Address [facility] [place] Co de Phone Number INTERFACE SYSTEM Refer to clinic/hospital department * (ABNORMAL) POC ISTAT EG 7+ (01/05/2006 6:20 AM CDT) SPECIMEN TYPE Arterial INTERF [facility]ORGAN SYSTEM Comment: PEEP: 05 Pressure Support: 04 Pulse OX: 98 Hemoglobin calculated from Hematocrit result FIO2 45 INTERFACE SYSTEM PH 7.47(H) 7.35 - 7.45 Unit INTERFACE SYSTEM PH TEMP CORRECT 7.47(H) 7.35 - 7.45 Unit INTERFACE SYSTEM PCO2 POC 40 35 - 45 mmHg INTERFACE SYSTEM PCO2 TEMP CORRECT 40 35 - 45 mmHg INTERFACE SYSTEM PO2 72(L) 80 - 105 mmHg INTERFACE SYSTEM PO2 TEMP CORRECT 72(L) 80 - 105 mmHg INTERFACE SYSTEM HCO3 (CALC) POC 29.1(H) 22.0 - 26.0 mmol/l INTERFACE SYSTEM BASE EXCESS 5(H) -2 - 3 mmol/l INTERFACE SYSTEM HEMOGLOBIN POC 11.2 3 g/dL 13.5 - 18.0 g/dL INTERFACE SYSTEM HEMATOCRIT ABG 33(L) 38 - 51 % INTER FACE SYSTEM O2 SATURATION 95 95 - 98 % INTERF MORGAN SYSTEM TCO2 (CALC) POC 30(H) 23 - 27 mmol/l INTERFACE SYSTEM SODIUM 136(L) 138 - 146 mEq/L INTERFACE SYSTEM POTASSIUM 3.6 3.5 - 4.9 mEq/L INTERFACE SYSTEM CALCIUM IONIZED 1.19 1.12 - 1.32 mmol/l INTERFACE SYSTEM 01/05/2006 6:20 AM CDT us Junior Poe MD POINT OF CARE TESTING COM F inal Result Performing Organization Address City/[facility] de Phone Number INTERFACE SYSTEM Refer to clinic/hospital department * (ABNORMAL) POC GLUCOSE (01/05/2006 5:30 AM CDT) GLUCOSE POC 149(H) 60 - 100 mg/dL INTERFACE SYSTEM 01/05/2006 5:30 AM CDT Junior Poe MD POINT OF CARE TESTING Final Result Performing Organization Address [facility] Phone Number INTERFACE SYSTEM Refer to clinic/hospital department * (ABNORMAL) CBC WITH DIFFERENTIAL (01/05/2006 5:18 AM CDT) WBC 16.5(H) 4.8 - 10.8 K/ul INTERFACE SYSTEM RBC 3.73(L) 4.60 - 6.20 Mil/ul INTERFACE SYSTEM HEMOGLOBIN 11.2(L) 14.0 - 18.0 g/dL INTERFACE SYSTEM HEMATOCRIT 34.7(L) 41.0 - 53.0 % INTERFACE SYSTEM MCV 93.0 84.0 - 103.0 Fl INTERFACE SYSTEM MCH 30.0 27.0 - 34.0 pg INTERFACE SYSTEM MCHC 32.3 30.0 - 35.0 g/dL INTERFACE SYSTEM RDW 13.8 11.0 - 14.5 % INTERFACE SYSTEM PLATELETS 523(H) 140 - 440 K/ul INTERFACE SYSTEM MPV 10.2 8.9 - 12.8 Fl INTERFACE SYSTEM NEUTROPHILS 76.1(H) 42.2 - 75.2 % INTERFACE SYSTEM LYMPHOCYTES 12.5(L) 24.0 - 44.0 % INTERFACE SYSTEM MONOCYTES 9.7 2.0 - 10.0 % INTERFA CE SYSTEM EOSINOPHILS 1.2 0.0 - 7.0 % INTERF MORGAN SYSTEM BASOPHILS 0.5 0.0 - 1.0 % INTERFAC E SYSTEM NEUTROPHIL ABSOLUTE 12.6(H) 2.0 - 8.0 K/uL INTERFACE SYSTEM LYMPHOCYTE ABSOLUTE 2.1 1.2 - 4.0 K/ul INTERFACE SYSTEM MONOCYTE ABSOLUTE 1.6(H) 0.1 - 0.6 K/ul INTERFACE SYSTEM EOSINOPHIL ABSOLUTE 0.2 0.0 - 0.7 K/ul INTERFACE SYSTEM BASOPHILS ABSOLUTE 0.1 0.0 - 0.2 K/ul INTERFACE SYSTEM PERIPHERAL BLOOD SMEAR REVIEW Automated Diff Automated Diff INTERFACE SYSTEM 01/05/2006 5:18 AM CDT Result Maikol Poe MD HEMATOLOGY ORDERABLES Final Result Performing Organization Address [facility] Phone Number INTERFACE SYSTEM Refer to clinic/hospital department * (ABNORMAL) POC GLUCOSE (01/04/2006 8:54 PM CDT) GLUCOSE POC 149(H) 60 - 100 mg/dL INTERFACE SYSTEM 01/04/2006 8:54 PM CDT Result Maikol Poe MD POINT OF CARE TESTING Final Result Performing Organization Address [facility] Phone Number INTERFACE SYSTEM Refer to clinic/hospital department * (ABNORMAL) POC GLUCOSE (01/04/2006 4:19 PM CDT) GLUCOSE POC 137(H) 60 - 100 mg/dL INTERFACE SYSTEM 01/04/2006 4:19 PM CDT Result Maikol Poe MD POINT OF CARE TESTING Final Result Performing Organization Address [facility] Phone Number INTERFACE SYSTEM Refer to clinic/hospital department * (ABNORMAL) POC GLUCOSE (01/04/2006 11:59 AM CDT) GLUCOSE POC 178(H) 60 - 100 mg/dL INTERFACE SYSTEM 01/04/2006 11:5 9 AM CDT Result Maikol Poe MD POINT OF CARE TESTING Final Result Performing Organization Address [facility] Phone Number INTERFACE SYSTEM Refer to clinic/hospital department * POC GLUCOSE (01/04/2006 5:00 AM CDT) Pathologist [facility] GLUCOSE POC 96 60 - 100 mg/dL INTERFACE SYSTEM 01/04/2006 5:00 AM CDT us Junior Poe MD POINT OF CARE TESTING Final Result Performing Organization Address [facility] Phone Number INTERFACE SYSTEM Refer to clinic/hospital department * (ABNORMAL) BASIC METABOLIC PANEL (01/04/2006 4:21 AM CDT) Pathologist [facility] GLUCOSE 128(H) 70 - 110 mg/dL INTERFACE SYSTEM BUN 14 9 - 20 mg/dL INTERFACE SYSTEM CREATININE 0.7 0.7 - 1.5 mg/dL INTERFACE SYSTEM SODIUM 137 136 - 145 mEq/L INTERFACE SYSTEM POTASSIUM 3.8 3.5 - 5.0 mEq/L INTERFACE SYSTEM CHLORIDE 101 95 - 110 mEq/L INTERFACE SYSTEM CO2 29 22 - 32 mmol/l INTERFACE SYSTEM ANION GAP 11 9 - 20 mEq/L INTERFACE SYSTEM OSMOLALITY, CALCULATED 284 275 - 295 mOsm/Kg INTERFACE SYSTEM CALCIUM 8.9 8.4 - 10.5 mg/dL INTERFACE SYSTEM 01/04/2006 4:21 AM CDT us Junior Poe MD CHEMISTRY ORDERABLES Final Result Performing Organization Address [facility] Phone Number INTERFACE SYSTEM Refer to clinic/hospital department * (ABNORMAL) CBC WITH DIFFERENTIAL (01/04/2006 4:21 AM CDT) Pathologist [facility] WBC 17.4(H) 4.8 - 10.8 K/ul INTERFACE SYSTEM RBC 3.77(L) 4.60 - 6.20 Mil/ul INTERFACE SYSTEM HEMOGLOBIN 11.2(L) 14.0 - 18.0 g/dL INTERFACE SYSTEM HEMATOCRIT 35.0(L) 41.0 - 53.0 % INTERFACE SYSTEM MCV 92.8 84.0 - 103.0 Fl INTERFACE SYSTEM MCH 29.7 27.0 - 34.0 pg INTERFACE SYSTEM MCHC 32.0 30.0 - 35.0 g/dL INTERFACE SYSTEM RDW 13.6 11.0 - 14.5 % INTERFACE SYSTEM PLATELETS 545(H) 140 - 440 K/ul INTERFACE SYSTEM MPV 10.3 8.9 - 12.8 Fl INTERFACE SYSTEM NEUTROPHILS 83.3(H) 42.2 - 75.2 % INTERFACE SYSTEM LYMPHOCYTES 9.8(L) 24.0 - 44.0 % INTERFACE SYSTEM MONOCYTES 6.0 2.0 - 10.0 % INTERFA CE SYSTEM EOSINOPHILS 0.7 0.0 - 7.0 % INTERF MORGAN SYSTEM BASOPHILS 0.2 0.0 - 1.0 % INTERFAC E SYSTEM NEUTROPHIL ABSOLUTE 14.5(H) 2.0 - 8.0 K/uL INTERFACE SYSTEM LYMPHOCYTE ABSOLUTE 1.7 1.2 - 4.0 K/ul INTERFACE SYSTEM MONOCYTE ABSOLUTE 1.1(H) 0.1 - 0.6 K/ul INTERFACE SYSTEM EOSINOPHIL ABSOLUTE 0.1 0.0 - 0.7 K/ul INTERFACE SYSTEM BASOPHILS ABSOLUTE 0.0 0.0 - 0.2 K/ul INTERFACE SYSTEM PERIPHERAL BLOOD SMEAR REVIEW Automated Diff Automated Diff INTERFACE SYSTEM 01/04/2006 4:21 AM CDT us Junior Poe MD HEMATOLOGY ORDERABLES Final Result Performing Organization Address [facility] de Phone Number INTERFACE SYSTEM Refer to clinic/hospital department * (ABNORMAL) POC GLUCOSE (01/03/2006 9:27 PM CDT) GLUCOSE POC 148(H) 60 - 100 mg/dL INTERFACE SYSTEM 01/03/2006 9:27 PM CDT us Junior Poe MD POINT OF CARE TESTING Final Result Performing Organization Address [facility] de Phone Number INTERFACE SYSTEM Refer to clinic/hospital department * (ABNORMAL) POC GLUCOSE (01/03/2006 5:12 PM CDT) GLUCOSE POC 124(H) 60 - 100 mg/dL INTERFACE SYSTEM 01/03/2006 5:12 PM CDT Result Maikol Poe MD POINT OF CARE TESTING Final Result Performing Organization Address [facility] de Phone Number INTERFACE SYSTEM Refer to clinic/hospital department * (ABNORMAL) POC GLUCOSE (01/03/2006 11:37 AM CDT) GLUCOSE POC 103(H) 60 - 100 mg/dL INTERFACE SYSTEM 01/03/2006 11:3 7 AM CDT us Junior Poe MD POINT OF CARE TESTING Final Result INTERFACE SYSTEM Refer to clinic/hospital department * (ABNORMAL) POC ISTAT EG 7+ (01/03/2006 5:47 AM CDT) SPECIMEN TYPE Arterial INTERF MORGAN SYSTEM Comment: PEEP: 08 Pressure Support: 08 Pulse OX: 100 Hemoglobin calculated from Hematocrit result FIO2 50 INTERFACE SYSTEM PH 7.48(H) 7.35 - 7.45 Unit INTERFACE SYSTEM PH TEMP CORRECT 7.48(H) 7.35 - 7.45 Unit INTERFACE SYSTEM PCO2 POC 37 35 - 45 mmHg INTERFACE SYSTEM PCO2 TEMP CORRECT 37 35 - 45 mmHg INTERFACE SYSTEM PO2 87 80 - 105 mmHg INTERFACE SYSTEM PO2 TEMP CORRECT 87 80 - 105 mmHg INTERFACE SYSTEM HCO3 (CALC) POC 26.9(H) 22.0 - 26.0 mmol/l INTERFACE SYSTEM BASE EXCESS 3 -2 - 3 mmol/l INTERFACE SYSTEM HEMOGLOBIN POC 10.2 3 g/dL 13.5 - 18.0 g/dL INTERFACE SYSTEM HEMATOCRIT ABG 30(L) 38 - 51 % INTER FACE SYSTEM O2 SATURATION 97 95 - 98 % INTERF MORGAN SYSTEM TCO2 (CALC) POC 28(H) 23 - 27 mmol/l INTERFACE SYSTEM SODIUM 136(L) 138 - 146 mEq/L INTERFACE SYSTEM POTASSIUM 3.9 3.5 - 4.9 mEq/L INTERFACE SYSTEM CALCIUM IONIZED 1.15 1.12 - 1.32 mmol/l INTERFACE SYSTEM 01/03/2006 5:47 AM CDT us Junior Poe MD POINT OF CARE TESTING COM F inal Result INTERFACE SYSTEM Refer to clinic/hospital department * (ABNORMAL) POC GLUCOSE (01/03/2006 5:33 AM CDT) GLUCOSE POC 125(H) 60 - 100 mg/dL INTERFACE SYSTEM 01/03/2006 5:33 AM CDT us Junior Poe MD POINT OF CARE TESTING Final Result Performing Organization Address [facility] Phone Number INTERFACE SYSTEM Refer to clinic/hospital department * PHOSPHORUS (01/03/2006 4:14 AM CDT) Pathologist [facility] PHOSPHORUS 3.0 2.5 - 4.6 mg/dL INTERFACE SYSTEM 01/03/2006 4:14 AM CDT us Junior Poe MD CHEMISTRY ORDERABLES Final Result Performing Organization Address [facility] Phone Number INTERFACE SYSTEM Refer to clinic/hospital department * MAGNESIUM LEVEL (01/03/2006 4:14 AM CDT) Pathologist [facility] MAGNESIUM 2.3 1.7 - 2.4 mg/dL INTERFACE SYSTEM Comment: As of 05 the [facility] has changed testing methods. The new reference range is 1.7-2.4 The old referance range was 1.6-2.3 01/03/2006 4:14 AM CDT us Junior Poe MD CHEMISTRY ORDERABLES Final Result Performing Organization Address [facility] Phone Number INTERFACE SYSTEM Refer to clinic/hospital department * (ABNORMAL) COMPREHENSIVE METABOLIC PANEL (01/03/2006 4:14 AM CDT) GLUCOSE 118(H) 70 - 110 mg/dL INTERFACE SYSTEM BUN 18 9 - 20 mg/dL INTERFACE SYSTEM CREATININE 0.6(L) 0.7 - 1.5 mg/dL INTERFACE SYSTEM SODIUM 137 136 - 145 mEq/L INTERFACE SYSTEM POTASSIUM 4.0 3.5 - 5.0 mEq/L INTERFACE SYSTEM CHLORIDE 104 95 - 110 mEq/L INTERFACE SYSTEM CO2 26 22 - 32 mmol/l INTERFACE SYSTEM ANION GAP 11 9 - 20 mEq/L INTERFACE SYSTEM OSMOLALITY, CALCULATED 285 275 - 295 mOsm/Kg INTERFACE SYSTEM CALCIUM 8.6 8.4 - 10.5 mg/dL INTERFACE SYSTEM TOTAL PROTEIN 6.8 6.3 - 8.2 g/dL INTERFACE SYSTEM ALBUMIN 3.3(L) 3.5 - 5.0 g/dL INTERFACE SYSTEM GLOBULIN (CALC) 3.5 2.4 - 3.9 g/dL INTERFACE SYSTEM ALBUMIN/GLOBULIN RATIO 0.9(L) 1.0 - 2.3 INTERFACE SYSTEM ALKALINE PHOSPHATASE 195(H) 25 - 100 U/L INTERFACE SYSTEM Comment: As of 05 the [facility] has changed testing methods. The new reference range is 25-100 The old referance range was 38-126 AST 115(H) 8 - 33 U/L INTERFACE SYSTEM Comment: As of 05 the [facility] has changed testing methods. The new reference range is 8-33 The old referance range was Males 17-59 Females 14-36 ALT 101(H) 4 - 36 IU/L INTERFACE SYSTEM Comment: As of [address] [facility] has changed testing methods. The new reference range is 4-36 The old referance range was Males 21-72 Females 9-52 BILIRUBIN TOTAL 0.9 0.3 - 1.2 mg/dL INTERFACE SYSTEM Comment: As of [address] [facility] has changed testing methods. The new reference range is 0.3-1.2 The old referance range was 0.2-1.4 01/03/2006 4:14 AM CDT Junior Poe MD CHEMISTRY ORDERABLES Final Result INTERFACE SYSTEM Refer to clinic/hospital department * (ABNORMAL) CBC WITH DIFFERENTIAL (01/03/2006 4:14 AM CDT) WBC 13.8(H) 4.8 - 10.8 K/ul INTERFACE SYSTEM RBC 3.37(L) 4.60 - 6.20 Mil/ul INTERFACE SYSTEM HEMOGLOBIN 10.1(L) 14.0 - 18.0 g/dL INTERFACE SYSTEM HEMATOCRIT 31.6(L) 41.0 - 53.0 % INTERFACE SYSTEM MCV 93.8 84.0 - 103.0 Fl INTERFACE SYSTEM MCH 30.0 27.0 - 34.0 pg INTERFACE SYSTEM MCHC 32.0 30.0 - 35.0 g/dL INTERFACE SYSTEM RDW 14.2 11.0 - 14.5 % INTERFACE SYSTEM PLATELETS 487(H) 140 - 440 K/ul INTERFACE SYSTEM MPV 10.4 8.9 - 12.8 Fl INTERFACE SYSTEM NEUTROPHILS 77.2(H) 42.2 - 75.2 % INTERFACE SYSTEM LYMPHOCYTES 11.9(L) 24.0 - 44.0 % INTERFACE SYSTEM MONOCYTES 9.4 2.0 - 10.0 % INTERFA CE SYSTEM EOSINOPHILS 1.2 0.0 - 7.0 % INTERF MORGAN SYSTEM BASOPHILS 0.3 0.0 - 1.0 % INTERFAC E SYSTEM NEUTROPHIL ABSOLUTE 10.7(H) 2.0 - 8.0 K/uL INTERFACE SYSTEM LYMPHOCYTE ABSOLUTE 1.6 1.2 - 4.0 K/ul INTERFACE SYSTEM MONOCYTE ABSOLUTE 1.3(H) 0.1 - 0.6 K/ul INTERFACE SYSTEM EOSINOPHIL ABSOLUTE 0.2 0.0 - 0.7 K/ul INTERFACE SYSTEM BASOPHILS ABSOLUTE 0.0 0.0 - 0.2 K/ul INTERFACE SYSTEM PERIPHERAL BLOOD SMEAR REVIEW Automated Diff Automated Diff INTERFACE SYSTEM 01/03/2006 4:14 AM CDT Junior Poe MD HEMATOLOGY ORDERABLES Final Result Performing Organization Address [facility] de Phone Number INTERFACE SYSTEM Refer to clinic/hospital department * VANCOMYCIN LEVEL PEAK (01/03/2006 2:09 AM CDT) VANCOMYCIN, PEAK 27.8 25.0 - 40.0 mcg/mL INTERFACE SYSTEM 01/03/2006 2:09 AM CDT Junior Poe MD CHEMISTRY ORDERABLES Final Result Performing Organization Address [facility] Phone Number INTERFACE SYSTEM Refer to clinic/hospital department * VANCOMYCIN LEVEL TROUGH (01/02/2006 11:14 PM CDT) VANCOMYCIN, TROUGH 9.2 5.0 - 15.0 mcg/mL INTERFACE SYSTEM 01/02/2006 11:1 4 PM CDT Result Maikol Poe MD CHEMISTRY ORDERABLES Final Result Performing Organization Address [facility] Phone Number INTERFACE SYSTEM Refer to clinic/hospital department * (ABNORMAL) POC GLUCOSE (01/02/2006 8:27 PM CDT) GLUCOSE POC 141(H) 60 - 100 mg/dL INTERFACE SYSTEM 01/02/2006 8:27 PM CDT Result Maikol Poe MD POINT OF CARE TESTING Final Result Performing Organization Address [facility] Phone Number INTERFACE SYSTEM Refer to clinic/hospital department * (ABNORMAL) POC GLUCOSE (01/02/2006 4:38 PM CDT) GLUCOSE POC 126(H) 60 - 100 mg/dL INTERFACE SYSTEM 01/02/2006 4:38 PM CDT Result Maikol Poe MD POINT OF CARE TESTING Final Result Performing Organization Address [facility] Phone Number INTERFACE SYSTEM Refer to clinic/hospital department * (ABNORMAL) POC GLUCOSE (01/02/2006 11:46 AM CDT) GLUCOSE POC 134(H) 60 - 100 mg/dL INTERFACE SYSTEM 01/02/2006 11:4 6 AM CDT us Junior Poe MD POINT OF CARE TESTING Final Result Performing Organization Address [facility] Phone Number INTERFACE SYSTEM Refer to clinic/hospital department * (ABNORMAL) POC GLUCOSE (01/02/2006 5:40 AM CDT) GLUCOSE POC 149(H) 60 - 100 mg/dL INTERFACE SYSTEM 01/02/2006 5:40 AM CDT Result Maikol Poe MD POINT OF CARE TESTING Final Result INTERFACE SYSTEM Refer to clinic/hospital department * (ABNORMAL) CBC WITH DIFFERENTIAL (01/02/2006 4:23 AM CDT) Pathologist [facility] WBC 19.4(H) 4.8 - 10.8 K/ul INTERFACE SYSTEM RBC 3.61(L) 4.60 - 6.20 Mil/ul INTERFACE SYSTEM HEMOGLOBIN 11.2(L) 14.0 - 18.0 g/dL INTERFACE SYSTEM HEMATOCRIT 33.6(L) 41.0 - 53.0 % INTERFACE SYSTEM MCV 93.1 84.0 - 103.0 Fl INTERFACE SYSTEM MCH 31.0 27.0 - 34.0 pg INTERFACE SYSTEM MCHC 33.3 30.0 - 35.0 g/dL INTERFACE SYSTEM RDW 14.3 11.0 - 14.5 % INTERFACE SYSTEM PLATELETS 464(H) 140 - 440 K/ul INTERFACE SYSTEM MPV 10.6 8.9 - 12.8 Fl INTERFACE SYSTEM NEUTROPHILS 78.7(H) 42.2 - 75.2 % INTERFACE SYSTEM LYMPHOCYTES 9.7(L) 24.0 - 44.0 % INTERFACE SYSTEM MONOCYTES 10.5(H) 2.0 - 10.0 % INTERFA CE SYSTEM EOSINOPHILS 0.7 0.0 - 7.0 % INTERF MORGAN SYSTEM BASOPHILS 0.4 0.0 - 1.0 % INTERFAC E SYSTEM NEUTROPHIL ABSOLUTE 15.3(H) 2.0 - 8.0 K/uL INTERFACE SYSTEM LYMPHOCYTE ABSOLUTE 1.9 1.2 - 4.0 K/ul INTERFACE SYSTEM MONOCYTE ABSOLUTE 2.0(H) 0.1 - 0.6 K/ul INTERFACE SYSTEM EOSINOPHIL ABSOLUTE 0.1 0.0 - 0.7 K/ul INTERFACE SYSTEM BASOPHILS ABSOLUTE 0.1 0.0 - 0.2 K/ul INTERFACE SYSTEM PERIPHERAL BLOOD SMEAR REVIEW Automated Diff Automated Diff INTERFACE SYSTEM 01/02/2006 4:23 AM CDT us Junior Poe MD HEMATOLOGY ORDERABLES Final Result INTERFACE SYSTEM Refer to clinic/hospital department * (ABNORMAL) BASIC METABOLIC PANEL (01/02/2006 4:23 AM CDT) GLUCOSE 133(H) 70 - 110 mg/dL INTERFACE SYSTEM BUN 22(H) 9 - 20 mg/dL INTERFACE SYSTEM CREATININE 0.6(L) 0.7 - 1.5 mg/dL INTERFACE SYSTEM SODIUM 143 136 - 145 mEq/L INTERFACE SYSTEM POTASSIUM 4.3 3.5 - 5.0 mEq/L INTERFACE SYSTEM CHLORIDE 107 95 - 110 mEq/L INTERFACE SYSTEM CO2 26 22 - 32 mmol/l INTERFACE SYSTEM ANION GAP 14 9 - 20 mEq/L INTERFACE SYSTEM OSMOLALITY, CALCULATED 299(H) 275 - 295 mOsm/Kg INTERFACE SYSTEM CALCIUM 9.0 8.4 - 10.5 mg/dL INTERFACE SYSTEM 01/02/2006 4:23 AM CDT us Junior Poe MD CHEMISTRY ORDERABLES Final Result Performing Organization Address [facility] Phone Number INTERFACE SYSTEM Refer to clinic/hospital department * (ABNORMAL) POC GLUCOSE (01/01/2006 9:24 PM CDT) GLUCOSE POC 154(H) 60 - 100 mg/dL INTERFACE SYSTEM 01/01/2006 9:24 PM CDT us Junior Poe MD POINT OF CARE TESTING Final Result Performing Organization Address [facility] Phone Number INTERFACE SYSTEM Refer to clinic/hospital department * (ABNORMAL) POC GLUCOSE (01/01/2006 4:53 PM CDT) GLUCOSE POC 145(H) 60 - 100 mg/dL INTERFACE SYSTEM 01/01/2006 4:53 PM CDT us Junior Poe MD POINT OF CARE TESTING Final Result Performing Organization Address [facility] Phone Number INTERFACE SYSTEM Refer to clinic/hospital department * VANCOMYCIN LEVEL PEAK (01/01/2006 2:38 PM CDT) VANCOMYCIN, PEAK 26.8 25.0 - 40.0 mcg/mL INTERFACE SYSTEM 01/01/2006 2:38 PM CDT Rico Curiel DO CHEMISTRY ORDERABLES Final Res ult Performing Organization Address [facility] Phone Number INTERFACE SYSTEM Refer to clinic/hospital department * VANCOMYCIN LEVEL TROUGH (01/01/2006 11:51 AM CDT) VANCOMYCIN, TROUGH 10.1 5.0 - 15.0 mcg/mL INTERFACE SYSTEM 01/01/2006 11:5 1 AM CDT Rico Curiel DO CHEMISTRY ORDERABLES Final Res ult Performing Organization Address [facility] Phone Number INTERFACE SYSTEM Refer to clinic/hospital department * (ABNORMAL) POC GLUCOSE (01/01/2006 11:37 AM CDT) GLUCOSE POC 140(H) 60 - 100 mg/dL INTERFACE SYSTEM 01/01/2006 11:3 7 AM CDT Junior Poe MD POINT OF CARE TESTING Final Result Performing Organization Address [facility] Phone Number INTERFACE SYSTEM Refer to clinic/hospital department * (ABNORMAL) POC GLUCOSE (01/01/2006 5:41 AM CDT) GLUCOSE POC 159(H) 60 - 100 mg/dL INTERFACE SYSTEM COMMENT POC Follow Protocol INTERFACE SYSTEM 01/01/2006 5:41 AM CDT Junior Poe MD POINT OF CARE TESTING Final Result Performing Organization Address [facility] Phone Number INTERFACE SYSTEM Refer to clinic/hospital department * (ABNORMAL) POC ISTAT 8 (01/01/2006 4:59 AM CDT) SPECIMEN TYPE Arterial INTERF MORGAN SYSTEM Comment: PEEP: 05 Pressure Support: 05 Pulse OX: 99 Hemoglobin calculated from Hematocrit result FIO2 60 INTERFACE SYSTEM PH 7.45 7.35 - 7.45 Unit INTERFACE SYSTEM PH TEMP CORRECT 7.45 7.35 - 7.45 Unit INTERFACE SYSTEM PCO2 POC 32(L) 35 - 45 mmHg INTERFACE SYSTEM PCO2 TEMP CORRECT 32(L) 35 - 45 mmHg INTERFACE SYSTEM PO2 82 80 - 105 mmHg INTERFACE SYSTEM PO2 TEMP CORRECT 82 80 - 105 mmHg INTERFACE SYSTEM HCO3 (CALC) POC 22.0 22.0 - 26.0 mmol/l INTERFACE SYSTEM BASE EXCESS -2 -2 - 3 mmol/l INTERFACE SYSTEM HEMOGLOBIN POC 11.9 3 g/dL 13.5 - 18.0 g/dL INTERFACE SYSTEM HEMATOCRIT ABG 35(L) 38 - 51 % INTER FACE SYSTEM O2 SATURATION 97 95 - 98 % INTERF MORGAN SYSTEM TCO2 (CALC) POC 23 23 - 27 mmol/l INTERFACE SYSTEM SODIUM 136(L) 138 - 146 mEq/L INTERFACE SYSTEM POTASSIUM 4.3 3.5 - 4.9 mEq/L INTERFACE SYSTEM CALCIUM IONIZED 1.23 1.12 - 1.32 mmol/l INTERFACE SYSTEM GLUCOSE 168(H) 70 - 105 mg/dL INTERFACE SYSTEM 01/01/2006 4:59 AM CDT Junior Poe MD ABG ORDERABLES Final Resul t Performing Organization Address [facility] de Phone Number INTERFACE SYSTEM Refer to clinic/hospital department * (ABNORMAL) BASIC METABOLIC PANEL (01/01/2006 4:44 AM CDT) GLUCOSE 138(H) 70 - 110 mg/dL INTERFACE SYSTEM BUN 26(H) 9 - 20 mg/dL INTERFACE SYSTEM CREATININE 0.8 0.7 - 1.5 mg/dL INTERFACE SYSTEM SODIUM 136 136 - 145 mEq/L INTERFACE SYSTEM POTASSIUM 4.3 3.5 - 5.0 mEq/L INTERFACE SYSTEM CHLORIDE 105 95 - 110 mEq/L INTERFACE SYSTEM CO2 24 22 - 32 mmol/l INTERFACE SYSTEM ANION GAP 11 9 - 20 mEq/L INTERFACE SYSTEM OSMOLALITY, CALCULATED 288 275 - 295 mOsm/Kg INTERFACE SYSTEM CALCIUM 9.1 8.4 - 10.5 mg/dL INTERFACE SYSTEM 01/01/2006 4:44 AM CDT Junior Poe MD CHEMISTRY ORDERABLES Final Result Performing Organization Address [facility] Co de Phone Number INTERFACE SYSTEM Refer to clinic/hospital department * (ABNORMAL) CBC WITH DIFFERENTIAL (01/01/2006 4:44 AM CDT) WBC 19.9(H) 4.8 - 10.8 K/ul INTERFACE SYSTEM RBC 3.84(L) 4.60 - 6.20 Mil/ul INTERFACE SYSTEM HEMOGLOBIN 12.5(L) 14.0 - 18.0 g/dL INTERFACE SYSTEM HEMATOCRIT 37.2(L) 41.0 - 53.0 % INTERFACE SYSTEM MCV 96.9 84.0 - 103.0 Fl INTERFACE SYSTEM MCH 32.6 27.0 - 34.0 pg INTERFACE SYSTEM MCHC 33.6 30.0 - 35.0 g/dL INTERFACE SYSTEM RDW 14.7(H) 11.0 - 14.5 % INTERFACE SYSTEM PLATELETS 381 140 - 440 K/ul INTERFACE SYSTEM MPV 11.2 8.9 - 12.8 Fl INTERFACE SYSTEM NEUTROPHILS 82.7(H) 42.2 - 75.2 % INTERFACE SYSTEM LYMPHOCYTES 7.4(L) 24.0 - 44.0 % INTERFACE SYSTEM MONOCYTES 8.9 2.0 - 10.0 % INTERFA CE SYSTEM EOSINOPHILS 0.6 0.0 - 7.0 % INTERF MORGAN SYSTEM BASOPHILS 0.4 0.0 - 1.0 % INTERFAC E SYSTEM NEUTROPHIL ABSOLUTE 16.5(H) 2.0 - 8.0 K/uL INTERFACE SYSTEM LYMPHOCYTE ABSOLUTE 1.5 1.2 - 4.0 K/ul INTERFACE SYSTEM MONOCYTE ABSOLUTE 1.8(H) 0.1 - 0.6 K/ul INTERFACE SYSTEM EOSINOPHIL ABSOLUTE 0.1 0.0 - 0.7 K/ul INTERFACE SYSTEM BASOPHILS ABSOLUTE 0.1 0.0 - 0.2 K/ul INTERFACE SYSTEM PERIPHERAL BLOOD SMEAR REVIEW Smear Reviewed Automated Diff INTERFACE SYSTEM 01/01/2006 4:44 AM CDT us Junior Poe MD HEMATOLOGY ORDERABLES Final Result INTERFACE SYSTEM Refer to clinic/hospital department * (ABNORMAL) POC ISTAT 8 (01/01/2006 2:51 AM CDT) SPECIMEN TYPE Arterial INTERF MORGAN SYSTEM Comment: Pulse OX: 96 Hemoglobin calculated from Hematocrit result FIO2 40 INTERFACE SYSTEM PH 7.45 7.35 - 7.45 Unit INTERFACE SYSTEM PH TEMP CORRECT 7.45 7.35 - 7.45 Unit INTERFACE SYSTEM PCO2 POC 32(L) 35 - 45 mmHg INTERFACE SYSTEM PCO2 TEMP CORRECT 32(L) 35 - 45 mmHg INTERFACE SYSTEM PO2 59(L) 80 - 105 mmHg INTERFACE SYSTEM PO2 TEMP CORRECT 59(L) 80 - 105 mmHg INTERFACE SYSTEM HCO3 (CALC) POC 21.9(L) 22.0 - 26.0 mmol/l INTERFACE SYSTEM BASE EXCESS -2 -2 - 3 mmol/l INTERFACE SYSTEM HEMOGLOBIN POC 11.9 3 g/dL 13.5 - 18.0 g/dL INTERFACE SYSTEM HEMATOCRIT ABG 35(L) 38 - 51 % INTER FACE SYSTEM O2 SATURATION 92(L) 95 - 98 % INTERF MORGAN SYSTEM TCO2 (CALC) POC 23 23 - 27 mmol/l INTERFACE SYSTEM SODIUM 136(L) 138 - 146 mEq/L INTERFACE SYSTEM POTASSIUM 4.3 3.5 - 4.9 mEq/L INTERFACE SYSTEM CALCIUM IONIZED 1.25 1.12 - 1.32 mmol/l INTERFACE SYSTEM GLUCOSE 155(H) 70 - 105 mg/dL INTERFACE SYSTEM 01/01/2006 2:51 AM CDT Junior Poe MD ABG ORDERABLES Final Resul t Performing Organization Address City/[facility] de Phone Number INTERFACE SYSTEM Refer to clinic/hospital department * (ABNORMAL) POC GLUCOSE (12/31/2005 8:33 PM CDT) GLUCOSE POC 124(H) 60 - 100 mg/dL INTERFACE SYSTEM COMMENT POC Follow Protocol INTERFACE SYSTEM 12/31/2005 8:33 PM CDT us Junior Poe MD POINT OF CARE TESTING Final Result INTERFACE SYSTEM Refer to clinic/hospital department * (ABNORMAL) POC GLUCOSE (12/31/2005 4:56 PM CDT) GLUCOSE POC 145(H) 60 - 100 mg/dL INTERFACE SYSTEM 12/31/2005 4:56 PM CDT us Junior Poe MD POINT OF CARE TESTING Final Result INTERFACE SYSTEM Refer to clinic/hospital department * (ABNORMAL) POC ISTAT EG 7+ (12/31/2005 4:54 PM CDT) SPECIMEN TYPE Arterial INTERF MORGAN SYSTEM Comment: PEEP: 05 Pulse OX: 97 Hemoglobin calculated from Hematocrit result FIO2 40 INTERFACE SYSTEM PH 7.43 7.35 - 7.45 Unit INTERFACE SYSTEM PH TEMP CORRECT 7.43 7.35 - 7.45 Unit INTERFACE SYSTEM PCO2 POC 30(L) 35 - 45 mmHg INTERFACE SYSTEM PCO2 TEMP CORRECT 30(L) 35 - 45 mmHg INTERFACE SYSTEM PO2 75(L) 80 - 105 mmHg INTERFACE SYSTEM PO2 TEMP CORRECT 75(L) 80 - 105 mmHg INTERFACE SYSTEM HCO3 (CALC) POC 19.8(L) 22.0 - 26.0 mmol/l INTERFACE SYSTEM BASE EXCESS -5(L) -2 - 3 mmol/l INTERFACE SYSTEM HEMOGLOBIN POC 11.6 3 g/dL 13.5 - 18.0 g/dL INTERFACE SYSTEM HEMATOCRIT ABG 34(L) 38 - 51 % INTER FACE SYSTEM O2 SATURATION 96 95 - 98 % INTERF MORGAN SYSTEM TCO2 (CALC) POC 21(L) 23 - 27 mmol/l INTERFACE SYSTEM SODIUM 135(L) 138 - 146 mEq/L INTERFACE SYSTEM POTASSIUM 4.0 3.5 - 4.9 mEq/L INTERFACE SYSTEM CALCIUM IONIZED 1.25 1.12 - 1.32 mmol/l INTERFACE SYSTEM 12/31/2005 4:54 PM CDT Junior Poe MD POINT OF CARE TESTING COM F inal Result INTERFACE SYSTEM Refer to clinic/hospital department * (ABNORMAL) POC GLUCOSE (12/31/2005 11:58 AM CDT) GLUCOSE POC 162(H) 60 - 100 mg/dL INTERFACE SYSTEM 12/31/2005 11:5 8 AM CDT us Junior Poe MD POINT OF CARE TESTING Final Result Performing Organization Address City/State/[facility] Phone Number INTERFACE SYSTEM Refer to clinic/hospital department * (ABNORMAL) POC GLUCOSE (12/31/2005 5:28 AM CDT) GLUCOSE POC 149(H) 60 - 100 mg/dL INTERFACE SYSTEM 12/31/2005 5:28 AM CDT Junior Poe MD POINT OF CARE TESTING Final Result Performing Organization Address [facility] Phone Number INTERFACE SYSTEM Refer to clinic/hospital department * (ABNORMAL) POC ISTAT 8 (12/31/2005 5:20 AM CDT) SPECIMEN TYPE Arterial INTERF MORGAN SYSTEM Comment: Tidal volume: 700 PEEP: 06 Rate: 12 Pulse OX: 95 Hemoglobin calculated from Hematocrit result FIO2 35 INTERFACE SYSTEM PH 7.44 7.35 - 7.45 Unit INTERFACE SYSTEM PH TEMP CORRECT 7.44 7.35 - 7.45 Unit INTERFACE SYSTEM PCO2 POC 27(L) 35 - 45 mmHg INTERFACE SYSTEM PCO2 TEMP CORRECT 27(L) 35 - 45 mmHg INTERFACE SYSTEM PO2 56(L) 80 - 105 mmHg INTERFACE SYSTEM PO2 TEMP CORRECT 56(L) 80 - 105 mmHg INTERFACE SYSTEM HCO3 (CALC) POC 18.0(L) 22.0 - 26.0 mmol/l INTERFACE SYSTEM BASE EXCESS -6(L) -2 - 3 mmol/l INTERFACE SYSTEM HEMOGLOBIN POC 11.9 3 g/dL 13.5 - 18.0 g/dL INTERFACE SYSTEM HEMATOCRIT ABG 35(L) 38 - 51 % INTER FACE SYSTEM O2 SATURATION 91(L) 95 - 98 % INTERF MORGAN SYSTEM TCO2 (CALC) POC 19(L) 23 - 27 mmol/l INTERFACE SYSTEM SODIUM 134(L) 138 - 146 mEq/L INTERFACE SYSTEM POTASSIUM 4.1 3.5 - 4.9 mEq/L INTERFACE SYSTEM CALCIUM IONIZED 1.24 1.12 - 1.32 mmol/l INTERFACE SYSTEM GLUCOSE 155(H) 70 - 105 mg/dL INTERFACE SYSTEM 12/31/2005 5:20 AM CDT Junior Poe MD ABG ORDERABLES Final Resul t Performing Organization Address [facility] Phone Number INTERFACE SYSTEM Refer to clinic/hospital department * PHOSPHORUS (12/31/2005 4:38 AM CDT) PHOSPHORUS 2.9 2.5 - 4.6 mg/dL INTERFACE SYSTEM 12/31/2005 4:38 AM CDT Junior Poe MD CHEMISTRY ORDERABLES Final Result Performing Organization Address [facility] de Phone Number INTERFACE SYSTEM Refer to clinic/hospital department * MAGNESIUM LEVEL (12/31/2005 4:38 AM CDT) MAGNESIUM 2.4 1.7 - 2.4 mg/dL INTERFACE SYSTEM Comment: As of 05 the [facility] has changed testing methods. The new reference range is 1.7-2.4 The old referance range was 1.6-2.3 12/31/2005 4:38 AM CDT Junior Poe MD CHEMISTRY ORDERABLES Final Result Performing Organization Address [facility] Phone Number INTERFACE SYSTEM Refer to clinic/hospital department * (ABNORMAL) BASIC METABOLIC PANEL (12/31/2005 4:38 AM CDT) GLUCOSE 125(H) 70 - 110 mg/dL INTERFACE SYSTEM BUN 27(H) 9 - 20 mg/dL INTERFACE SYSTEM CREATININE 0.7 0.7 - 1.5 mg/dL INTERFACE SYSTEM SODIUM 137 136 - 145 mEq/L INTERFACE SYSTEM POTASSIUM 4.6 3.5 - 5.0 mEq/L INTERFACE SYSTEM CHLORIDE 106 95 - 110 mEq/L INTERFACE SYSTEM CO2 21(L) 22 - 32 mmol/l INTERFACE SYSTEM ANION GAP 15 9 - 20 mEq/L INTERFACE SYSTEM OSMOLALITY, CALCULATED 290 275 - 295 mOsm/Kg INTERFACE SYSTEM CALCIUM 9.0 8.4 - 10.5 mg/dL INTERFACE SYSTEM 12/31/2005 4:38 AM CDT us Junior Poe MD CHEMISTRY ORDERABLES Final Result Performing Organization Address [facility] Co de Phone Number INTERFACE SYSTEM Refer to clinic/hospital department * (ABNORMAL) CBC WITH DIFFERENTIAL (12/31/2005 4:37 AM CDT) WBC 25.5(H) 4.8 - 10.8 K/ul INTERFACE SYSTEM RBC 3.39(L) 4.60 - 6.20 Mil/ul INTERFACE SYSTEM HEMOGLOBIN 11.8(L) 14.0 - 18.0 g/dL INTERFACE SYSTEM HEMATOCRIT 32.6(L) 41.0 - 53.0 % INTERFACE SYSTEM MCV 96.2 84.0 - 103.0 Fl INTERFACE SYSTEM MCH 34.8(H) 27.0 - 34.0 pg INTERFACE SYSTEM MCHC 36.2(H) 30.0 - 35.0 g/dL INTERFACE SYSTEM RDW 15.3(H) 11.0 - 14.5 % INTERFACE SYSTEM PLATELETS 373 140 - 440 K/ul INTERFACE SYSTEM MPV 10.4 8.9 - 12.8 Fl INTERFACE SYSTEM PERIPHERAL BLOOD SMEAR REVIEW Smear Reviewed Automated Diff INTERFACE SYSTEM NEUTROPHILS 86.4(H) 42.2 - 75.2 % INTERFACE SYSTEM LYMPHOCYTES 5.6(L) 24.0 - 44.0 % INTERFACE SYSTEM MONOCYTES 7.0 2.0 - 10.0 % INTERFA CE SYSTEM EOSINOPHILS 0.7 0.0 - 7.0 % INTERF MORGAN SYSTEM BASOPHILS 0.3 0.0 - 1.0 % INTERFAC E SYSTEM NEUTROPHIL ABSOLUTE 22.0(H) 2.0 - 8.0 K/uL INTERFACE SYSTEM LYMPHOCYTE ABSOLUTE 1.4 1.2 - 4.0 K/ul INTERFACE SYSTEM MONOCYTE ABSOLUTE 1.8(H) 0.1 - 0.6 K/ul INTERFACE SYSTEM EOSINOPHIL ABSOLUTE 0.2 0.0 - 0.7 K/ul INTERFACE SYSTEM BASOPHILS ABSOLUTE 0.1 0.0 - 0.2 K/ul INTERFACE SYSTEM 12/31/2005 4:37 AM CDT us Junior Poe MD HEMATOLOGY ORDERABLES Final Result Performing Organization Address City/[facility] Co de Phone Number INTERFACE SYSTEM Refer to clinic/hospital department * (ABNORMAL) POC GLUCOSE (12/30/2005 8:15 PM CDT) GLUCOSE POC 140(H) 60 - 100 mg/dL INTERFACE SYSTEM COMMENT POC Follow Protocol INTERFACE SYSTEM 12/30/2005 8:15 PM CDT us Junior Peo MD POINT OF CARE TESTING Final Result Performing Organization Address City/[facility] Co de Phone Number INTERFACE SYSTEM Refer to clinic/hospital department * (ABNORMAL) POC GLUCOSE (12/30/2005 4:38 PM CDT) GLUCOSE POC 137(H) 60 - 100 mg/dL INTERFACE SYSTEM 12/30/2005 4:38 PM CDT us Junior Poe MD POINT OF CARE TESTING Final Result Performing Organization Address [facility] Co de Phone Number INTERFACE SYSTEM Refer to clinic/hospital department * CLOSTRIDIUM DIFFICILE TOXIN (12/30/2005 3:31 PM CDT) C DIFFICILE TOXIN Negative Negative INTERFACE SYSTEM 12/30/2005 3:31 PM CDT us Junior Poe MD MICROBIOLOGY - GENERAL [facility] Final Result Performing Organization Address [facility] Phone Number INTERFACE SYSTEM Refer to clinic/hospital department * (ABNORMAL) POC GLUCOSE (12/30/2005 12:24 PM CDT) GLUCOSE POC 143(H) 60 - 100 mg/dL INTERFACE SYSTEM 12/30/2005 12:2 4 PM CDT us Junior Poe MD POINT OF CARE TESTING Final Result Performing Organization Address City/[facility] Co de Phone Number INTERFACE SYSTEM Refer to clinic/hospital department * (ABNORMAL) POC GLUCOSE (12/30/2005 4:38 AM CDT) GLUCOSE POC 143(H) 60 - 100 mg/dL INTERFACE SYSTEM 12/30/2005 4:38 AM CDT Junior Poe MD POINT OF CARE TESTING Final Result INTERFACE SYSTEM Refer to clinic/hospital department * (ABNORMAL) POC ISTAT EG 7+ (12/30/2005 4:32 AM CDT) SPECIMEN TYPE Arterial INTERF MORGAN SYSTEM Comment: PEEP: 06 Pressure Support: 05 Pulse OX: 98 Hemoglobin calculated from Hematocrit result FIO2 40 INTERFACE SYSTEM PH 7.37 7.35 - 7.45 Unit INTERFACE SYSTEM PH TEMP CORRECT 7.37 7.35 - 7.45 Unit INTERFACE SYSTEM PCO2 POC 32(L) 35 - 45 mmHg INTERFACE SYSTEM PCO2 TEMP CORRECT 32(L) 35 - 45 mmHg INTERFACE SYSTEM PO2 77(L) 80 - 105 mmHg INTERFACE SYSTEM PO2 TEMP CORRECT 77(L) 80 - 105 mmHg INTERFACE SYSTEM HCO3 (CALC) POC 18.4(L) 22.0 - 26.0 mmol/l INTERFACE SYSTEM BASE EXCESS -7(L) -2 - 3 mmol/l INTERFACE SYSTEM HEMOGLOBIN POC 11.2 3 g/dL 13.5 - 18.0 g/dL INTERFACE SYSTEM HEMATOCRIT ABG 33(L) 38 - 51 % INTER FACE SYSTEM O2 SATURATION 95 95 - 98 % INTERF MORGAN SYSTEM TCO2 (CALC) POC 19(L) 23 - 27 mmol/l INTERFACE SYSTEM SODIUM 138 138 - 146 mEq/L INTERFACE SYSTEM POTASSIUM 4.4 3.5 - 4.9 mEq/L INTERFACE SYSTEM CALCIUM IONIZED 1.29 1.12 - 1.32 mmol/l INTERFACE SYSTEM 12/30/2005 4:32 AM CDT Junior Poe MD POINT OF CARE TESTING COM F inal Result INTERFACE SYSTEM Refer to clinic/hospital department * (ABNORMAL) DIFFERENTIAL, MANUAL (12/30/2005 4:13 AM CDT) NEUTROPHILS, SEG 87(H) 36 - 66 % INT ERFACE SYSTEM LYMPHOCYTES 7(L) 24 - 44 % INTERFAC E SYSTEM MONOCYTE 6 4 - 10 % INTERFACE SYSTEM PLATELET EST. Normal Normal INTERF MORGAN SYSTEM RBC MORPHOLOGY Abnormal(A ) Normal INTERFACE SYSTEM ANISOCYTOSIS 1+(A) None Seen INTERFA CE SYSTEM POIKILOCYTES 1+(A) None Seen INTERFA CE SYSTEM POLYCHROMASIA Present(A) None Seen INTER FACE SYSTEM 12/30/2005 4:13 AM CDT us Junior Poe MD HEMATOLOGY ORDERABLES COM F inal Result Performing Organization Address [facility] Phone Number INTERFACE SYSTEM Refer to clinic/hospital department * PHOSPHORUS (12/30/2005 4:13 AM CDT) PHOSPHORUS 3.9 2.5 - 4.6 mg/dL INTERFACE SYSTEM 12/30/2005 4:13 AM CDT us Junior Poe MD CHEMISTRY ORDERABLES Final Result Performing Organization Address [facility] Phone Number INTERFACE SYSTEM Refer to clinic/hospital department * MAGNESIUM LEVEL (12/30/2005 4:13 AM CDT) MAGNESIUM 1.8 1.7 - 2.4 mg/dL INTERFACE SYSTEM Comment: As of 05 the [facility] has changed testing methods. The new reference range is 1.7-2.4 The old referance range was 1.6-2.3 12/30/2005 4:13 AM CDT us Junior Poe MD CHEMISTRY ORDERABLES Final Result Performing Organization Address [facility] Phone Number INTERFACE SYSTEM Refer to clinic/hospital department * (ABNORMAL) BASIC METABOLIC PANEL (12/30/2005 4:13 AM CDT) GLUCOSE 131(H) 70 - 110 mg/dL INTERFACE SYSTEM BUN 20 9 - 20 mg/dL INTERFACE SYSTEM CREATININE 0.7 0.7 - 1.5 mg/dL INTERFACE SYSTEM SODIUM 134(L) 136 - 145 mEq/L INTERFACE SYSTEM POTASSIUM 4.2 3.5 - 5.0 mEq/L INTERFACE SYSTEM CHLORIDE 109 95 - 110 mEq/L INTERFACE SYSTEM CO2 21(L) 22 - 32 mmol/l INTERFACE SYSTEM ANION GAP 8(L) 9 - 20 mEq/L INTERFACE SYSTEM OSMOLALITY, CALCULATED 281 275 - 295 mOsm/Kg INTERFACE SYSTEM CALCIUM 9.4 8.4 - 10.5 mg/dL INTERFACE SYSTEM 12/30/2005 4:13 AM CDT us Junior Poe MD CHEMISTRY ORDERABLES Final Result Performing Organization Address City/[facility] Phone Number INTERFACE SYSTEM Refer to clinic/hospital department * (ABNORMAL) CBC WITH DIFFERENTIAL (12/30/2005 4:13 AM CDT) WBC 30.7(H) 4.8 - 10.8 K/ul INTERFACE SYSTEM RBC 3.14(L) 4.60 - 6.20 Mil/ul INTERFACE SYSTEM HEMOGLOBIN 10.6(L) 14.0 - 18.0 g/dL INTERFACE SYSTEM HEMATOCRIT 30.1(L) 41.0 - 53.0 % INTERFACE SYSTEM MCV 95.9 84.0 - 103.0 Fl INTERFACE SYSTEM MCH 33.8 27.0 - 34.0 pg INTERFACE SYSTEM MCHC 35.2(H) 30.0 - 35.0 g/dL INTERFACE SYSTEM RDW 15.6(H) 11.0 - 14.5 % INTERFACE SYSTEM PLATELETS 314 140 - 440 K/ul INTERFACE SYSTEM MPV 10.9 8.9 - 12.8 Fl INTERFACE SYSTEM 12/30/2005 4:13 AM CDT us Junior Poe MD HEMATOLOGY ORDERABLES Final Result Performing Organization Address City/[facility] Phone Number INTERFACE SYSTEM Refer to clinic/hospital department * (ABNORMAL) POC GLUCOSE (12/29/2005 9:24 PM CDT) GLUCOSE POC 143(H) 60 - 100 mg/dL INTERFACE SYSTEM 12/29/2005 9:24 PM CDT us Junior Poe MD POINT OF CARE TESTING Final Result Performing Organization Address City/[facility] Phone Number INTERFACE SYSTEM Refer to clinic/hospital department * (ABNORMAL) POC GLUCOSE (12/29/2005 5:34 PM CDT) GLUCOSE POC 141(H) 60 - 100 mg/dL INTERFACE SYSTEM 12/29/2005 5:34 PM CDT Junior Poe MD POINT OF CARE TESTING Final Result INTERFACE SYSTEM Refer to clinic/hospital department * (ABNORMAL) POC GLUCOSE (12/29/2005 11:43 AM CDT) GLUCOSE POC 153(H) 60 - 100 mg/dL INTERFACE SYSTEM 12/29/2005 11:4 3 AM CDT Junior Poe MD POINT OF CARE TESTING Final Result Performing Organization Address City/[facility] Co de Phone Number INTERFACE SYSTEM Refer to clinic/hospital department * (ABNORMAL) POC ISTAT EG 7+ (12/29/2005 5:32 AM CDT) SPECIMEN TYPE Arterial INTERF MORGAN SYSTEM Comment: PEEP: 06 Pressure Support: 05 Pulse OX: 96 Hemoglobin calculated from Hematocrit result FIO2 40 INTERFACE SYSTEM PH 7.53(H) 7.35 - 7.45 Unit INTERFACE SYSTEM PH TEMP CORRECT 7.53(H) 7.35 - 7.45 Unit INTERFACE SYSTEM PCO2 POC 33(L) 35 - 45 mmHg INTERFACE SYSTEM PCO2 TEMP CORRECT 33(L) 35 - 45 mmHg INTERFACE SYSTEM PO2 67(L) 80 - 105 mmHg INTERFACE SYSTEM PO2 TEMP CORRECT 67(L) 80 - 105 mmHg INTERFACE SYSTEM HCO3 (CALC) POC 27.6(H) 22.0 - 26.0 mmol/l INTERFACE SYSTEM BASE EXCESS 5(H) -2 - 3 mmol/l INTERFACE SYSTEM HEMOGLOBIN POC 9.5 3 g/dL 13.5 - 18.0 g/dL INTERFACE SYSTEM HEMATOCRIT ABG 28(L) 38 - 51 % INTER FACE SYSTEM O2 SATURATION 95 95 - 98 % INTERF MORGAN SYSTEM TCO2 (CALC) POC 29(H) 23 - 27 mmol/l INTERFACE SYSTEM SODIUM 140 138 - 146 mEq/L INTERFACE SYSTEM POTASSIUM 3.3(L) 3.5 - 4.9 mEq/L INTERFACE SYSTEM CALCIUM IONIZED 1.22 1.12 - 1.32 mmol/l INTERFACE SYSTEM 12/29/2005 5:32 AM CDT Result Maikol Poe MD POINT OF CARE TESTING COM F inal Result Performing Organization Address [facility] Phone Number INTERFACE SYSTEM Refer to clinic/hospital department * (ABNORMAL) POC GLUCOSE (12/29/2005 5:27 AM CDT) GLUCOSE POC 146(H) 60 - 100 mg/dL INTERFACE SYSTEM 12/29/2005 5:27 AM CDT Result Maikol Poe MD POINT OF CARE TESTING Final Result Performing Organization Address [facility] Phone Number INTERFACE SYSTEM Refer to clinic/hospital department * (ABNORMAL) POC GLUCOSE (12/28/2005 9:42 PM CDT) GLUCOSE POC 168(H) 60 - 100 mg/dL INTERFACE SYSTEM 12/28/2005 9:42 PM CDT Result Maikol Poe MD POINT OF CARE TESTING Final Result Performing Organization Address [facility] Phone Number INTERFACE SYSTEM Refer to clinic/hospital department * (ABNORMAL) POC GLUCOSE (12/28/2005 4:40 PM CDT) GLUCOSE POC 155(H) 60 - 100 mg/dL INTERFACE SYSTEM 12/28/2005 4:40 PM CDT Result Maikol Poe MD POINT OF CARE TESTING Final Result Performing Organization Address [facility] Phone Number INTERFACE SYSTEM Refer to clinic/hospital department * (ABNORMAL) POC GLUCOSE (12/28/2005 11:36 AM CDT) GLUCOSE POC 151(H) 60 - 100 mg/dL INTERFACE SYSTEM 12/28/2005 11:3 6 AM CDT Junior Poe MD POINT OF CARE TESTING Final Result INTERFACE SYSTEM Refer to clinic/hospital department * (ABNORMAL) POC ISTAT EG 7+ (12/28/2005 5:23 AM CDT) SPECIMEN TYPE Arterial INTERF MORGAN SYSTEM Comment: PEEP: 06 Pressure Support: 05 Pulse OX: 100 Hemoglobin calculated from Hematocrit result FIO2 40 INTERFACE SYSTEM PH 7.57(H) 7.35 - 7.45 Unit INTERFACE SYSTEM PH TEMP CORRECT 7.57(H) 7.35 - 7.45 Unit INTERFACE SYSTEM PCO2 POC 30(L) 35 - 45 mmHg INTERFACE SYSTEM PCO2 TEMP CORRECT 30(L) 35 - 45 mmHg INTERFACE SYSTEM PO2 73(L) 80 - 105 mmHg INTERFACE SYSTEM PO2 TEMP CORRECT 73(L) 80 - 105 mmHg INTERFACE SYSTEM HCO3 (CALC) POC 27.1(H) 22.0 - 26.0 mmol/l INTERFACE SYSTEM BASE EXCESS 5(H) -2 - 3 mmol/l INTERFACE SYSTEM HEMOGLOBIN POC 9.2 3 g/dL 13.5 - 18.0 g/dL INTERFACE SYSTEM HEMATOCRIT ABG 27(L) 38 - 51 % INTER FACE SYSTEM O2 SATURATION 97 95 - 98 % INTERF MORGAN SYSTEM TCO2 (CALC) POC 28(H) 23 - 27 mmol/l INTERFACE SYSTEM SODIUM 140 138 - 146 mEq/L INTERFACE SYSTEM POTASSIUM 3.3(L) 3.5 - 4.9 mEq/L INTERFACE SYSTEM CALCIUM IONIZED 1.25 1.12 - 1.32 mmol/l INTERFACE SYSTEM 12/28/2005 5:23 AM CDT Junior Poe MD POINT OF CARE TESTING COM F inal Result INTERFACE SYSTEM Refer to clinic/hospital department * (ABNORMAL) POC GLUCOSE (12/28/2005 5:20 AM CDT) GLUCOSE POC 158(H) 60 - 100 mg/dL INTERFACE SYSTEM COMMENT POC Follow Protocol INTERFACE SYSTEM 12/28/2005 5:20 AM CDT us Junior Poe MD POINT OF CARE TESTING Final Result INTERFACE SYSTEM Refer to clinic/hospital department * (ABNORMAL) COMPREHENSIVE METABOLIC PANEL (12/28/2005 4:36 AM CDT) GLUCOSE 149(H) 70 - 110 mg/dL INTERFACE SYSTEM BUN 14 9 - 20 mg/dL INTERFACE SYSTEM CREATININE 0.7 0.7 - 1.5 mg/dL INTERFACE SYSTEM SODIUM 145 136 - 145 mEq/L INTERFACE SYSTEM POTASSIUM 3.5 3.5 - 5.0 mEq/L INTERFACE SYSTEM CHLORIDE 107 95 - 110 mEq/L INTERFACE SYSTEM CO2 26 22 - 32 mmol/l INTERFACE SYSTEM ANION GAP 16 9 - 20 mEq/L INTERFACE SYSTEM OSMOLALITY, CALCULATED 299(H) 275 - 295 mOsm/Kg INTERFACE SYSTEM CALCIUM 9.4 8.4 - 10.5 mg/dL INTERFACE SYSTEM TOTAL PROTEIN 6.1(L) 6.3 - 8.2 g/dL INTERFACE SYSTEM ALBUMIN 3.3(L) 3.5 - 5.0 g/dL INTERFACE SYSTEM GLOBULIN (CALC) 2.8 2.4 - 3.9 g/dL INTERFACE SYSTEM ALBUMIN/GLOBULIN RATIO 1.2 1.0 - 2.3 INTERFACE SYSTEM ALKALINE PHOSPHATASE 130(H) 25 - 100 U/L INTERFACE SYSTEM Comment: As of 05 the [facility] has changed testing methods. The new reference range is 25-100 The old referance range was 38-126 AST 93(H) 8 - 33 U/L INTERFACE SYSTEM Comment: As of 05 the [facility] has changed testing methods. The new reference range is 8-33 The old referance range was Males 17-59 Females 14-36 ALT 69(H) 4 - 36 IU/L INTERFACE SYSTEM Comment: As of 05 the [facility] has changed testing methods. The new reference range is 4-36 The old referance range was Males 21-72 Females 9-52 BILIRUBIN TOTAL 1.2 0.3 - 1.2 mg/dL INTERFACE SYSTEM Comment: As of 05 the [facility] has changed testing methods. The new reference range is 0.3-1.2 The old referance range was 0.2-1.4 12/28/2005 4:36 AM CDT us Junior Poe MD CHEMISTRY ORDERABLES Final Result INTERFACE SYSTEM Refer to clinic/hospital department * (ABNORMAL) CBC WITH DIFFERENTIAL (12/28/2005 4:36 AM CDT) WBC 13.7(H) 4.8 - 10.8 K/ul INTERFACE SYSTEM RBC 3.14(L) 4.60 - 6.20 Mil/ul INTERFACE SYSTEM HEMOGLOBIN 9.7(L) 14.0 - 18.0 g/dL INTERFACE SYSTEM HEMATOCRIT 29.0(L) 41.0 - 53.0 % INTERFACE SYSTEM MCV 92.4 84.0 - 103.0 Fl INTERFACE SYSTEM MCH 30.9 27.0 - 34.0 pg INTERFACE SYSTEM MCHC 33.4 30.0 - 35.0 g/dL INTERFACE SYSTEM RDW 15.5(H) 11.0 - 14.5 % INTERFACE SYSTEM PLATELETS 184 140 - 440 K/ul INTERFACE SYSTEM MPV 10.3 8.9 - 12.8 Fl INTERFACE SYSTEM NEUTROPHILS 81.0(H) 42.2 - 75.2 % INTERFACE SYSTEM LYMPHOCYTES 8.7(L) 24.0 - 44.0 % INTERFACE SYSTEM MONOCYTES 9.7 2.0 - 10.0 % INTERFA CE SYSTEM EOSINOPHILS 0.3 0.0 - 7.0 % INTERF MORGAN SYSTEM BASOPHILS 0.3 0.0 - 1.0 % INTERFAC E SYSTEM NEUTROPHIL ABSOLUTE 11.1(H) 2.0 - 8.0 K/uL INTERFACE SYSTEM LYMPHOCYTE ABSOLUTE 1.2 1.2 - 4.0 K/ul INTERFACE SYSTEM MONOCYTE ABSOLUTE 1.3(H) 0.1 - 0.6 K/ul INTERFACE SYSTEM EOSINOPHIL ABSOLUTE 0.0 0.0 - 0.7 K/ul INTERFACE SYSTEM BASOPHILS ABSOLUTE 0.0 0.0 - 0.2 K/ul INTERFACE SYSTEM PERIPHERAL BLOOD SMEAR REVIEW Smear Reviewed Automated Diff INTERFACE SYSTEM Comment: 1+ aniso 1+ poik Few large platelets 1+ polychromasia 12/28/2005 4:36 AM CDT Junior Poe MD HEMATOLOGY ORDERABLES Final Result Performing Organization Address City/[facility] de Phone Number INTERFACE SYSTEM Refer to clinic/hospital department * (ABNORMAL) POC GLUCOSE (12/27/2005 8:46 PM CDT) GLUCOSE POC 165(H) 60 - 100 mg/dL INTERFACE SYSTEM COMMENT POC Follow Protocol INTERFACE SYSTEM 12/27/2005 8:46 PM CDT Junior Poe MD POINT OF CARE TESTING Final Result Performing Organization Address [facility] de Phone Number INTERFACE SYSTEM Refer to clinic/hospital department * (ABNORMAL) POC GLUCOSE (12/27/2005 4:40 PM CDT) GLUCOSE POC 160(H) 60 - 100 mg/dL INTERFACE SYSTEM 12/27/2005 4:40 PM CDT Junior oPe MD POINT OF CARE TESTING Final Result Performing Organization Address [facility] Phone Number INTERFACE SYSTEM Refer to clinic/hospital department * (ABNORMAL) POC GLUCOSE (12/27/2005 11:25 AM CDT) GLUCOSE POC 148(H) 60 - 100 mg/dL INTERFACE SYSTEM 12/27/2005 11:2 5 AM CDT Junior Poe MD POINT OF CARE TESTING Final Result Performing Organization Address [facility] de Phone Number INTERFACE SYSTEM Refer to clinic/hospital department * (ABNORMAL) POC ISTAT EG 7+ (12/27/2005 5:39 AM CDT) SPECIMEN TYPE Arterial INTERF MORGAN SYSTEM Comment: PEEP: 06 Pressure Support: 05 Pulse OX: 100 Hemoglobin calculated from Hematocrit result FIO2 50 INTERFACE SYSTEM PH 7.52(H) 7.35 - 7.45 Unit INTERFACE SYSTEM PH TEMP CORRECT 7.52(H) 7.35 - 7.45 Unit INTERFACE SYSTEM PCO2 POC 30(L) 35 - 45 mmHg INTERFACE SYSTEM PCO2 TEMP CORRECT 30(L) 35 - 45 mmHg INTERFACE SYSTEM PO2 86 80 - 105 mmHg INTERFACE SYSTEM PO2 TEMP CORRECT 86 80 - 105 mmHg INTERFACE SYSTEM HCO3 (CALC) POC 24.3 22.0 - 26.0 mmol/l INTERFACE SYSTEM BASE EXCESS 1 -2 - 3 mmol/l INTERFACE SYSTEM HEMOGLOBIN POC 7.8 3 g/dL 13.5 - 18.0 g/dL INTERFACE SYSTEM HEMATOCRIT ABG 23(L) 38 - 51 % INTER FACE SYSTEM O2 SATURATION 98 95 - 98 % INTERF MORGAN SYSTEM TCO2 (CALC) POC 25 23 - 27 mmol/l INTERFACE SYSTEM SODIUM 136(L) 138 - 146 mEq/L INTERFACE SYSTEM POTASSIUM 3.5 3.5 - 4.9 mEq/L INTERFACE SYSTEM CALCIUM IONIZED 1.23 1.12 - 1.32 mmol/l INTERFACE SYSTEM 12/27/2005 5:39 AM CDT us Junior Poe MD POINT OF CARE TESTING COM F inal Result INTERFACE SYSTEM Refer to clinic/hospital department * (ABNORMAL) COMPREHENSIVE METABOLIC PANEL (12/27/2005 4:41 AM CDT) GLUCOSE 152(H) 70 - 110 mg/dL INTERFACE SYSTEM BUN 16 9 - 20 mg/dL INTERFACE SYSTEM CREATININE 0.7 0.7 - 1.5 mg/dL INTERFACE SYSTEM SODIUM 140 136 - 145 mEq/L INTERFACE SYSTEM POTASSIUM 3.6 3.5 - 5.0 mEq/L INTERFACE SYSTEM CHLORIDE 105 95 - 110 mEq/L INTERFACE SYSTEM CO2 25 22 - 32 mmol/l INTERFACE SYSTEM ANION GAP 14 9 - 20 mEq/L INTERFACE SYSTEM OSMOLALITY, CALCULATED 291 275 - 295 mOsm/Kg INTERFACE SYSTEM CALCIUM 8.6 8.4 - 10.5 mg/dL INTERFACE SYSTEM TOTAL PROTEIN 5.6(L) 6.3 - 8.2 g/dL INTERFACE SYSTEM ALBUMIN 3.1(L) 3.5 - 5.0 g/dL INTERFACE SYSTEM GLOBULIN (CALC) 2.5 2.4 - 3.9 g/dL INTERFACE SYSTEM ALBUMIN/GLOBULIN RATIO 1.2 1.0 - 2.3 INTERFACE SYSTEM ALKALINE PHOSPHATASE 103(H) 25 - 100 U/L INTERFACE SYSTEM Comment: As of 05 the [facility] has changed testing methods. The new reference range is 25-100 The old referance range was 38-126 AST 69(H) 8 - 33 U/L INTERFACE SYSTEM Comment: As of 05 the [facility] has changed testing methods. The new reference range is 8-33 The old referance range was Males 17-59 Females 14-36 ALT 44(H) 4 - 36 IU/L INTERFACE SYSTEM Comment: As of [address] [facility] has changed testing methods. The new reference range is 4-36 The old referance range was Males 21-72 Females 9-52 BILIRUBIN TOTAL 1.2 0.3 - 1.2 mg/dL INTERFACE SYSTEM Comment: As of [address] [facility] has changed testing methods. The new reference range is 0.3-1.2 The old referance range was 0.2-1.4 12/27/2005 4:41 AM CDT Junior Poe MD CHEMISTRY ORDERABLES Final Result INTERFACE SYSTEM Refer to clinic/hospital department * (ABNORMAL) CBC WITH DIFFERENTIAL (12/27/2005 4:41 AM CDT) WBC 13.5(H) 4.8 - 10.8 K/ul INTERFACE SYSTEM RBC 3.02(L) 4.60 - 6.20 Mil/ul INTERFACE SYSTEM HEMOGLOBIN 9.2(L) 14.0 - 18.0 g/dL INTERFACE SYSTEM HEMATOCRIT 27.4(L) 41.0 - 53.0 % INTERFACE SYSTEM MCV 90.7 84.0 - 103.0 Fl INTERFACE SYSTEM MCH 30.5 27.0 - 34.0 pg INTERFACE SYSTEM MCHC 33.6 30.0 - 35.0 g/dL INTERFACE SYSTEM RDW 15.2(H) 11.0 - 14.5 % INTERFACE SYSTEM PLATELETS 148 140 - 440 K/ul INTERFACE SYSTEM MPV 10.4 8.9 - 12.8 Fl INTERFACE SYSTEM NEUTROPHILS 78.0(H) 42.2 - 75.2 % INTERFACE SYSTEM LYMPHOCYTES 9.7(L) 24.0 - 44.0 % INTERFACE SYSTEM MONOCYTES 11.9(H) 2.0 - 10.0 % INTERFA CE SYSTEM EOSINOPHILS 0.2 0.0 - 7.0 % INTERF MORGAN SYSTEM BASOPHILS 0.2 0.0 - 1.0 % INTERFAC E SYSTEM NEUTROPHIL ABSOLUTE 10.5(H) 2.0 - 8.0 K/uL INTERFACE SYSTEM LYMPHOCYTE ABSOLUTE 1.3 1.2 - 4.0 K/ul INTERFACE SYSTEM MONOCYTE ABSOLUTE 1.6(H) 0.1 - 0.6 K/ul INTERFACE SYSTEM EOSINOPHIL ABSOLUTE 0.0 0.0 - 0.7 K/ul INTERFACE SYSTEM BASOPHILS ABSOLUTE 0.0 0.0 - 0.2 K/ul INTERFACE SYSTEM PERIPHERAL BLOOD SMEAR REVIEW Smear Reviewed Automated Diff INTERFACE SYSTEM 12/27/2005 4:41 AM CDT us Junior Poe MD HEMATOLOGY ORDERABLES Final Result Performing Organization Address City/[facility] [place] Co de Phone Number INTERFACE SYSTEM Refer to clinic/hospital department * (ABNORMAL) POC GLUCOSE (12/27/2005 4:35 AM CDT) GLUCOSE POC 165(H) 60 - 100 mg/dL INTERFACE SYSTEM 12/27/2005 4:35 AM CDT us Junior Poe MD POINT OF CARE TESTING Final Result Performing Organization Address City/[facility] [place] Co de Phone Number INTERFACE SYSTEM Refer to clinic/hospital department * (ABNORMAL) POC GLUCOSE (12/26/2005 9:44 PM CDT) GLUCOSE POC 148(H) 60 - 100 mg/dL INTERFACE SYSTEM COMMENT POC Follow Protocol INTERFACE SYSTEM 12/26/2005 9:44 PM CDT Result Maikol Poe MD POINT OF CARE TESTING Final Result Performing Organization Address City/State/[facility] [place] Co de Phone Number INTERFACE SYSTEM Refer to clinic/hospital department * (ABNORMAL) POC GLUCOSE (12/26/2005 5:37 PM CDT) GLUCOSE POC 144(H) 60 - 100 mg/dL INTERFACE SYSTEM 12/26/2005 5:37 PM CDT Junior Poe MD POINT OF CARE TESTING Final Result Performing Organization Address [facility] Phone Number INTERFACE SYSTEM Refer to clinic/hospital department * (ABNORMAL) DIFFERENTIAL, MANUAL (12/26/2005 3:27 PM CDT) NEUTROPHILS, SEG 70(H) 36 - 66 % INT ERFACE SYSTEM BANDS 8(H) 0 - 6 % INTERFACE SYSTEM LYMPHOCYTES 8(L) 24 - 44 % INTERFAC E SYSTEM MONOCYTE 13(H) 4 - 10 % INTERFACE SYSTEM METAMYELOCYTE 1 0 - 1 % INTERF MORGAN SYSTEM PLATELET EST. Decreased (A) Normal INTERFACE SYSTEM RBC MORPHOLOGY Abnormal( A) Normal INTERFACE SYSTEM ANISOCYTOSIS 1+(A) None Seen INTERFA CE SYSTEM POIKILOCYTES 1+(A) None Seen INTERFA CE SYSTEM POLYCHROMASIA 1+(A) None Seen INTERF MORGAN SYSTEM TOXIC GRANULATION Present(A ) None Seen INTERFACE SYSTEM DOHLE BODIES Present(A ) None Seen INTERFACE SYSTEM 12/26/2005 3:27 PM CDT Junior Poe MD HEMATOLOGY ORDERABLES COM F inal Result Performing Organization Address [facility] Phone Number INTERFACE SYSTEM Refer to clinic/hospital department * (ABNORMAL) CBC WITH DIFFERENTIAL (12/26/2005 3:27 PM CDT) WBC 12.6(H) 4.8 - 10.8 K/ul INTERFACE SYSTEM RBC 2.92(L) 4.60 - 6.20 Mil/ul INTERFACE SYSTEM HEMOGLOBIN 9.0(L) 14.0 - 18.0 g/dL INTERFACE SYSTEM HEMATOCRIT 26.4(L) 41.0 - 53.0 % INTERFACE SYSTEM MCV 90.4 84.0 - 103.0 Fl INTERFACE SYSTEM MCH 30.8 27.0 - 34.0 pg INTERFACE SYSTEM MCHC 34.1 30.0 - 35.0 g/dL INTERFACE SYSTEM RDW 14.8(H) 11.0 - 14.5 % INTERFACE SYSTEM PLATELETS 135(L) 140 - 440 K/ul INTERFACE SYSTEM MPV 10.3 8.9 - 12.8 Fl INTERFACE SYSTEM NEUTROPHILS 75.5(H) 42.2 - 75.2 % INTERFACE SYSTEM LYMPHOCYTES 8.9(L) 24.0 - 44.0 % INTERFACE SYSTEM MONOCYTES 15.3(H) 2.0 - 10.0 % INTERFACE SYSTEM EOSINOPHILS 0.1 0.0 - 7.0 % INTERFACE SYSTEM BASOPHILS 0.2 0.0 - 1.0 % INTERFACE SYSTEM NEUTROPHIL ABSOLUTE 9.5(H) 2.0 - 8.0 K/uL INTERFACE SYSTEM LYMPHOCYTE ABSOLUTE 1.1(L) 1.2 - 4.0 K/ul INTERFACE SYSTEM MONOCYTE ABSOLUTE 1.9(H) 0.1 - 0.6 K/ul INTERFACE SYSTEM EOSINOPHIL ABSOLUTE 0.0 0.0 - 0.7 K/ul INTERFACE SYSTEM BASOPHILS ABSOLUTE 0.0 0.0 - 0.2 K/ul INTERFACE SYSTEM 12/26/2005 3:27 PM CDT Junior Poe MD HEMATOLOGY ORDERABLES Final Result Performing Organization Address City/[facility] de Phone Number INTERFACE SYSTEM Refer to clinic/hospital department * (ABNORMAL) POC GLUCOSE (12/26/2005 12:32 PM CDT) Pathologist [facility] GLUCOSE POC 141(H) 60 - 100 mg/dL INTERFACE SYSTEM 12/26/2005 12:3 2 PM CDT us Junior Poe MD POINT OF CARE TESTING Final Result Performing Organization Address [facility] de Phone Number INTERFACE SYSTEM Refer to clinic/hospital department * (ABNORMAL) DIFFERENTIAL, MANUAL (12/26/2005 7:46 AM CDT) NEUTROPHILS, SEG 56 36 - 66 % INT ERFACE SYSTEM BANDS 26(H) 0 - 6 % INTERFACE SYSTEM LYMPHOCYTES 5(L) 24 - 44 % INTERFAC E SYSTEM MONOCYTE 11(H) 4 - 10 % INTERFACE SYSTEM METAMYELOCYTE 2(H) 0 - 1 % INTERF MORGAN SYSTEM PLATELET EST. Decreased (A) Normal INTERFACE SYSTEM RBC MORPHOLOGY Abnormal( A) Normal INTERFACE SYSTEM POIKILOCYTES 1+(A) None Seen INTERFA CE SYSTEM POLYCHROMASIA 1+(A) None Seen INTERF MORGAN SYSTEM TOXIC GRANULATION Present(A ) None Seen INTERFACE SYSTEM 12/26/2005 7:46 AM CDT Junior Poe MD HEMATOLOGY ORDERABLES COM F inal Result Performing Organization Address [facility] Phone Number INTERFACE SYSTEM Refer to clinic/hospital department * (ABNORMAL) CBC WITH DIFFERENTIAL (12/26/2005 7:46 AM CDT) WBC 15.1(H) 4.8 - 10.8 K/ul INTERFACE SYSTEM Comment: WBC Corrected for Nucleated RBC'S RBC 3.05(L) 4.60 - 6.20 Mil/ul INTERFACE SYSTEM HEMOGLOBIN 9.4(L) 14.0 - 18.0 g/dL INTERFACE SYSTEM HEMATOCRIT 28.1(L) 41.0 - 53.0 % INTERFACE SYSTEM MCV 92.1 84.0 - 103.0 Fl INTERFACE SYSTEM MCH 30.8 27.0 - 34.0 pg INTERFACE SYSTEM MCHC 33.5 30.0 - 35.0 g/dL INTERFACE SYSTEM RDW 14.2 11.0 - 14.5 % INTERFACE SYSTEM PLATELETS 137(L) 140 - 440 K/ul INTERFACE SYSTEM MPV 11.2 8.9 - 12.8 Fl INTERFACE SYSTEM NRBC 1 <=1 INTERFACE SYSTEM 12/26/2005 7:46 AM CDT Junior Poe MD HEMATOLOGY ORDERABLES Edite d Performing Organization Address [facility] Phone Number INTERFACE SYSTEM Refer to clinic/hospital department * (ABNORMAL) POC ISTAT EG 7+ (12/26/2005 5:55 AM CDT) SPECIMEN TYPE Arterial INTERF MORGAN SYSTEM Comment: PEEP: 06 Pulse OX: 92 Hemoglobin calculated from Hematocrit result FIO2 40 INTERFACE SYSTEM PH 7.52(H) 7.35 - 7.45 Unit INTERFACE SYSTEM PH TEMP CORRECT 7.52(H) 7.35 - 7.45 Unit INTERFACE SYSTEM PCO2 POC 31(L) 35 - 45 mmHg INTERFACE SYSTEM PCO2 TEMP CORRECT 31(L) 35 - 45 mmHg INTERFACE SYSTEM PO2 57(L) 80 - 105 mmHg INTERFACE SYSTEM PO2 TEMP CORRECT 57(L) 80 - 105 mmHg INTERFACE SYSTEM HCO3 (CALC) POC 25.6 22.0 - 26.0 mmol/l INTERFACE SYSTEM BASE EXCESS 3 -2 - 3 mmol/l INTERFACE SYSTEM HEMOGLOBIN POC 7.1 3 g/dL 13.5 - 18.0 g/dL INTERFACE SYSTEM HEMATOCRIT ABG 21(L) 38 - 51 % INTER FACE SYSTEM O2 SATURATION 92(L) 95 - 98 % INTERF MORGAN SYSTEM TCO2 (CALC) POC 26 23 - 27 mmol/l INTERFACE SYSTEM SODIUM 137(L) 138 - 146 mEq/L INTERFACE SYSTEM POTASSIUM 4.2 3.5 - 4.9 mEq/L INTERFACE SYSTEM CALCIUM IONIZED 1.15 1.12 - 1.32 mmol/l INTERFACE SYSTEM 12/26/2005 5:55 AM CDT us Junior Poe MD POINT OF CARE TESTING COM F inal Result Performing Organization Address City/[facility] de Phone Number INTERFACE SYSTEM Refer to clinic/hospital department * (ABNORMAL) POC GLUCOSE (12/26/2005 5:15 AM CDT) GLUCOSE POC 140(H) 60 - 100 mg/dL INTERFACE SYSTEM 12/26/2005 5:15 AM CDT us Junior Poe MD POINT OF CARE TESTING Final Result Performing Organization Address City/[facility] de Phone Number INTERFACE SYSTEM Refer to clinic/hospital department * PHOSPHORUS (12/26/2005 4:04 AM CDT) PHOSPHORUS 2.8 2.5 - 4.6 mg/dL INTERFACE SYSTEM 12/26/2005 4:04 AM CDT us Junior Poe MD CHEMISTRY ORDERABLES Final Result Performing Organization Address [facility] de Phone Number INTERFACE SYSTEM Refer to clinic/hospital department * MAGNESIUM LEVEL (12/26/2005 4:04 AM CDT) MAGNESIUM 1.9 1.7 - 2.4 mg/dL INTERFACE SYSTEM Comment: As of 05 the [facility] has changed testing methods. The new reference range is 1.7-2.4 The old referance range was 1.6-2.3 12/26/2005 4:04 AM CDT us Junior Poe MD CHEMISTRY ORDERABLES Final Result Performing Organization Address [facility] Phone Number INTERFACE SYSTEM Refer to clinic/hospital department * (ABNORMAL) BASIC METABOLIC PANEL (12/26/2005 4:04 AM CDT) GLUCOSE 115(H) 70 - 110 mg/dL INTERFACE SYSTEM BUN 25(H) 9 - 20 mg/dL INTERFACE SYSTEM CREATININE 0.8 0.7 - 1.5 mg/dL INTERFACE SYSTEM SODIUM 138 136 - 145 mEq/L INTERFACE SYSTEM POTASSIUM 4.4 3.5 - 5.0 mEq/L INTERFACE SYSTEM CHLORIDE 105 95 - 110 mEq/L INTERFACE SYSTEM CO2 25 22 - 32 mmol/l INTERFACE SYSTEM ANION GAP 12 9 - 20 mEq/L INTERFACE SYSTEM OSMOLALITY, CALCULATED 290 275 - 295 mOsm/Kg INTERFACE SYSTEM CALCIUM 8.2(L) 8.4 - 10.5 mg/dL INTERFACE SYSTEM 12/26/2005 4:04 AM CDT us Junior Poe MD CHEMISTRY ORDERABLES Final Result Performing Organization Address [facility] Phone Number INTERFACE SYSTEM Refer to clinic/hospital department * (ABNORMAL) HEMOGLOBIN AND HEMATOCRIT (12/26/2005 12:06 AM CDT) HEMOGLOBIN 5.4(L) 14.0 - 18.0 g/dL INTERFACE SYSTEM Comment:RESULTS CALLED TO RY AN 12/26/2005 00:21 HEMATOCRIT 15.8(L) 41.0 - 53.0 % INTERFACE SYSTEM 12/26/2005 12:0 6 AM CDT Result Maikol Poe MD HEMATOLOGY ORDERABLES Final Result Performing Organization Address [facility] Phone Number INTERFACE SYSTEM Refer to clinic/hospital department * (ABNORMAL) POC GLUCOSE (12/25/2005 9:23 PM CDT) GLUCOSE POC 152(H) 60 - 100 mg/dL INTERFACE SYSTEM 12/25/2005 9:23 PM CDT us Junior Poe MD POINT OF CARE TESTING Final Result Performing Organization Address [facility] Phone Number INTERFACE SYSTEM Refer to clinic/hospital department * (ABNORMAL) POC GLUCOSE (12/25/2005 6:07 PM CDT) GLUCOSE POC 119(H) 60 - 100 mg/dL INTERFACE SYSTEM 12/25/2005 6:07 PM CDT us Junior Poe MD POINT OF CARE TESTING Final Result Performing Organization Address [facility] Phone Number INTERFACE SYSTEM Refer to clinic/hospital department * (ABNORMAL) POC GLUCOSE (12/25/2005 11:49 AM CDT) GLUCOSE POC 214(H) 60 - 100 mg/dL INTERFACE SYSTEM 12/25/2005 11:4 9 AM CDT us Junior Poe MD POINT OF CARE TESTING Final Result Performing Organization Address [facility] Phone Number INTERFACE SYSTEM Refer to clinic/hospital department * (ABNORMAL) POC ISTAT EG 7+ (12/25/2005 10:05 AM CDT) SPECIMEN TYPE Arterial INTERF MORGAN SYSTEM Comment: PEEP: 06 Hemoglobin calculated from Hematocrit result FIO2 40 INTERFACE SYSTEM TEMPERATURE 101.4 DegC INTERFAC E SYSTEM PH 7.43 7.35 - 7.45 Unit INTERFACE SYSTEM PH TEMP CORRECT 7.41 7.35 - 7.45 Unit INTERFACE SYSTEM PCO2 POC 30(L) 35 - 45 mmHg INTERFACE SYSTEM PCO2 TEMP CORRECT 32(L) 35 - 45 mmHg INTERFACE SYSTEM PO2 67(L) 80 - 105 mmHg INTERFACE SYSTEM PO2 TEMP CORRECT 74(L) 80 - 105 mmHg INTERFACE SYSTEM HCO3 (CALC) POC 19.8(L) 22.0 - 26.0 mmol/l INTERFACE SYSTEM BASE EXCESS -5(L) -2 - 3 mmol/l INTERFACE SYSTEM HEMOGLOBIN POC 6.5 3 g/dL 13.5 - 18.0 g/dL INTERFACE SYSTEM HEMATOCRIT ABG 19(L) 38 - 51 % INTER FACE SYSTEM O2 SATURATION 94(L) 95 - 98 % INTERF MORGAN SYSTEM TCO2 (CALC) POC 21(L) 23 - 27 mmol/l INTERFACE SYSTEM SODIUM 130(L) 138 - 146 mEq/L INTERFACE SYSTEM POTASSIUM 4.6 3.5 - 4.9 mEq/L INTERFACE SYSTEM CALCIUM IONIZED 1.22 1.12 - 1.32 mmol/l INTERFACE SYSTEM 12/25/2005 10:0 5 AM CDT us Junior Poe MD POINT OF CARE TESTING COM F inal Result INTERFACE SYSTEM Refer to clinic/hospital department * (ABNORMAL) POC ISTAT EG 7+ (12/25/2005 5:17 AM CDT) SPECIMEN TYPE Arterial INTERF MORGAN SYSTEM Comment: PEEP: 06 Pulse OX: 97 Hemoglobin calculated from Hematocrit result FIO2 30 INTERFACE SYSTEM PH 7.51(H) 7.35 - 7.45 Unit INTERFACE SYSTEM PH TEMP CORRECT 7.51(H) 7.35 - 7.45 Unit INTERFACE SYSTEM PCO2 POC 33(L) 35 - 45 mmHg INTERFACE SYSTEM PCO2 TEMP CORRECT 33(L) 35 - 45 mmHg INTERFACE SYSTEM PO2 62(L) 80 - 105 mmHg INTERFACE SYSTEM PO2 TEMP CORRECT 62(L) 80 - 105 mmHg INTERFACE SYSTEM HCO3 (CALC) POC 26.7(H) 22.0 - 26.0 mmol/l INTERFACE SYSTEM BASE EXCESS 4(H) -2 - 3 mmol/l INTERFACE SYSTEM HEMOGLOBIN POC 8.5 3 g/dL 13.5 - 18.0 g/dL INTERFACE SYSTEM HEMATOCRIT ABG 25(L) 38 - 51 % INTER FACE SYSTEM O2 SATURATION 94(L) 95 - 98 % INTERF MORGAN SYSTEM TCO2 (CALC) POC 28(H) 23 - 27 mmol/l INTERFACE SYSTEM SODIUM 134(L) 138 - 146 mEq/L INTERFACE SYSTEM POTASSIUM 3.9 3.5 - 4.9 mEq/L INTERFACE SYSTEM CALCIUM IONIZED 1.23 1.12 - 1.32 mmol/l INTERFACE SYSTEM 12/25/2005 5:17 AM CDT us Junior Poe MD POINT OF CARE TESTING COM F inal Result Performing Organization Address [facility] Phone Number INTERFACE SYSTEM Refer to clinic/hospital department * (ABNORMAL) POC GLUCOSE (12/25/2005 5:14 AM CDT) GLUCOSE POC 174(H) 60 - 100 mg/dL INTERFACE SYSTEM 12/25/2005 5:14 AM CDT Junior Poe MD POINT OF CARE TESTING Final Result Performing Organization Address [facility] Phone Number INTERFACE SYSTEM Refer to clinic/hospital department * PHOSPHORUS (12/25/2005 4:02 AM CDT) PHOSPHORUS 3.0 2.5 - 4.6 mg/dL INTERFACE SYSTEM 12/25/2005 4:02 AM CDT us Junior Poe MD CHEMISTRY ORDERABLES Final Result Performing Organization Address [facility] Phone Number INTERFACE SYSTEM Refer to clinic/hospital department * (ABNORMAL) BASIC METABOLIC PANEL (12/25/2005 4:02 AM CDT) GLUCOSE 130(H) 70 - 110 mg/dL INTERFACE SYSTEM BUN 12 9 - 20 mg/dL INTERFACE SYSTEM CREATININE 0.7 0.7 - 1.5 mg/dL INTERFACE SYSTEM SODIUM 138 136 - 145 mEq/L INTERFACE SYSTEM POTASSIUM 3.9 3.5 - 5.0 mEq/L INTERFACE SYSTEM CHLORIDE 105 95 - 110 mEq/L INTERFACE SYSTEM CO2 26 22 - 32 mmol/l INTERFACE SYSTEM ANION GAP 11 9 - 20 mEq/L INTERFACE SYSTEM OSMOLALITY, CALCULATED 285 275 - 295 mOsm/Kg INTERFACE SYSTEM CALCIUM 9.0 8.4 - 10.5 mg/dL INTERFACE SYSTEM 12/25/2005 4:02 AM CDT us Junior Poe MD CHEMISTRY ORDERABLES Final Result INTERFACE SYSTEM Refer to clinic/hospital department * (ABNORMAL) CBC WITH DIFFERENTIAL (12/25/2005 4:02 AM CDT) WBC 10.1 4.8 - 10.8 K/ul INTERFACE SYSTEM RBC 3.11(L) 4.60 - 6.20 Mil/ul INTERFACE SYSTEM HEMOGLOBIN 9.9(L) 14.0 - 18.0 g/dL INTERFACE SYSTEM HEMATOCRIT 30.0(L) 41.0 - 53.0 % INTERFACE SYSTEM MCV 96.5 84.0 - 103.0 Fl INTERFACE SYSTEM MCH 31.8 27.0 - 34.0 pg INTERFACE SYSTEM MCHC 33.0 30.0 - 35.0 g/dL INTERFACE SYSTEM RDW 13.5 11.0 - 14.5 % INTERFACE SYSTEM PLATELETS 79(L) 140 - 440 K/ul INTERFACE SYSTEM MPV 11.0 8.9 - 12.8 Fl INTERFACE SYSTEM NEUTROPHILS 78.1(H) 42.2 - 75.2 % INTERFACE SYSTEM LYMPHOCYTES 10.3(L) 24.0 - 44.0 % INTERFACE SYSTEM MONOCYTES 11.0(H) 2.0 - 10.0 % INTERFA CE SYSTEM EOSINOPHILS 0.5 0.0 - 7.0 % INTERF MORGAN SYSTEM BASOPHILS 0.1 0.0 - 1.0 % INTERFAC E SYSTEM NEUTROPHIL ABSOLUTE 7.9 2.0 - 8.0 K/uL INTERFACE SYSTEM LYMPHOCYTE ABSOLUTE 1.0(L) 1.2 - 4.0 K/ul INTERFACE SYSTEM MONOCYTE ABSOLUTE 1.1(H) 0.1 - 0.6 K/ul INTERFACE SYSTEM EOSINOPHIL ABSOLUTE 0.1 0.0 - 0.7 K/ul INTERFACE SYSTEM BASOPHILS ABSOLUTE 0.0 0.0 - 0.2 K/ul INTERFACE SYSTEM PERIPHERAL BLOOD SMEAR REVIEW Automated Diff Automated Diff INTERFACE SYSTEM 12/25/2005 4:02 AM CDT us Junior Poe MD HEMATOLOGY ORDERABLES Final Result INTERFACE SYSTEM Refer to clinic/hospital department * (ABNORMAL) POC GLUCOSE (12/24/2005 11:04 PM CDT) GLUCOSE POC 112(H) 60 - 100 mg/dL INTERFACE SYSTEM 12/24/2005 11:0 4 PM CDT us Junior Poe MD POINT OF CARE TESTING Final Result Performing Organization Address [facility] Phone Number INTERFACE SYSTEM Refer to clinic/hospital department * (ABNORMAL) POC GLUCOSE (12/24/2005 5:50 PM CDT) GLUCOSE POC 161(H) 60 - 100 mg/dL INTERFACE SYSTEM 12/24/2005 5:50 PM CDT us Junior Poe MD POINT OF CARE TESTING Final Result Performing Organization Address [facility] Phone Number INTERFACE SYSTEM Refer to clinic/hospital department * (ABNORMAL) POC GLUCOSE (12/24/2005 12:50 PM CDT) GLUCOSE POC 139(H) 60 - 100 mg/dL INTERFACE SYSTEM 12/24/2005 12:5 0 PM CDT us Junior Poe MD POINT OF CARE TESTING Final Result Performing Organization Address [facility] Phone Number INTERFACE SYSTEM Refer to clinic/hospital department * (ABNORMAL) POC ISTAT EG 7+ (12/24/2005 5:35 AM CDT) SPECIMEN TYPE Arterial INTERF MORGAN SYSTEM Comment: PEEP: 06 Pulse OX: 100 Hemoglobin calculated from Hematocrit result FIO2 30 INTERFACE SYSTEM PH 7.49(H) 7.35 - 7.45 Unit INTERFACE SYSTEM PH TEMP CORRECT 7.49(H) 7.35 - 7.45 Unit INTERFACE SYSTEM PCO2 POC 35 35 - 45 mmHg INTERFACE SYSTEM PCO2 TEMP CORRECT 35 35 - 45 mmHg INTERFACE SYSTEM PO2 70(L) 80 - 105 mmHg INTERFACE SYSTEM PO2 TEMP CORRECT 70(L) 80 - 105 mmHg INTERFACE SYSTEM HCO3 (CALC) POC 26.9(H) 22.0 - 26.0 mmol/l INTERFACE SYSTEM BASE EXCESS 4(H) -2 - 3 mmol/l INTERFACE SYSTEM HEMOGLOBIN POC 7.5 3 g/dL 13.5 - 18.0 g/dL INTERFACE SYSTEM HEMATOCRIT ABG 22(L) 38 - 51 % INTER FACE SYSTEM O2 SATURATION 95 95 - 98 % INTERF MORGAN SYSTEM TCO2 (CALC) POC 28(H) 23 - 27 mmol/l INTERFACE SYSTEM SODIUM 140 138 - 146 mEq/L INTERFACE SYSTEM POTASSIUM 3.4(L) 3.5 - 4.9 mEq/L INTERFACE SYSTEM CALCIUM IONIZED 1.23 1.12 - 1.32 mmol/l INTERFACE SYSTEM 12/24/2005 5:35 AM CDT us Junior Poe MD POINT OF CARE TESTING COM F inal Result INTERFACE SYSTEM Refer to clinic/hospital department * (ABNORMAL) CBC WITH DIFFERENTIAL (12/24/2005 4:35 AM CDT) WBC 8.4 4.8 - 10.8 K/ul INTERFACE SYSTEM RBC 2.74(L) 4.60 - 6.20 Mil/ul INTERFACE SYSTEM HEMOGLOBIN 8.8(L) 14.0 - 18.0 g/dL INTERFACE SYSTEM HEMATOCRIT 26.4(L) 41.0 - 53.0 % INTERFACE SYSTEM MCV 96.4 84.0 - 103.0 Fl INTERFACE SYSTEM MCH 32.1 27.0 - 34.0 pg INTERFACE SYSTEM MCHC 33.3 30.0 - 35.0 g/dL INTERFACE SYSTEM RDW 13.7 11.0 - 14.5 % INTERFACE SYSTEM PLATELETS 70(L) 140 - 440 K/ul INTERFACE SYSTEM MPV 11.5 8.9 - 12.8 Fl INTERFACE SYSTEM NEUTROPHILS 82.4(H) 42.2 - 75.2 % INTERFACE SYSTEM LYMPHOCYTES 9.5(L) 24.0 - 44.0 % INTERFACE SYSTEM MONOCYTES 7.4 2.0 - 10.0 % INTERFA CE SYSTEM EOSINOPHILS 0.6 0.0 - 7.0 % INTERF MORGAN SYSTEM BASOPHILS 0.1 0.0 - 1.0 % INTERFAC E SYSTEM NEUTROPHIL ABSOLUTE 6.9 2.0 - 8.0 K/uL INTERFACE SYSTEM LYMPHOCYTE ABSOLUTE 0.8(L) 1.2 - 4.0 K/ul INTERFACE SYSTEM MONOCYTE ABSOLUTE 0.6 0.1 - 0.6 K/ul INTERFACE SYSTEM EOSINOPHIL ABSOLUTE 0.1 0.0 - 0.7 K/ul INTERFACE SYSTEM BASOPHILS ABSOLUTE 0.0 0.0 - 0.2 K/ul INTERFACE SYSTEM PERIPHERAL BLOOD SMEAR REVIEW Automated Diff Automated Diff INTERFACE SYSTEM 12/24/2005 4:35 AM CDT Junior Poe MD HEMATOLOGY ORDERABLES Final Result Performing Organization Address [facility] Phone Number INTERFACE SYSTEM Refer to clinic/hospital department * (ABNORMAL) PHOSPHORUS (12/24/2005 4:35 AM CDT) PHOSPHORUS 1.3(L) 2.5 - 4.6 mg/dL INTERFACE SYSTEM 12/24/2005 4:35 AM CDT Junior Poe MD CHEMISTRY ORDERABLES Final Result Performing Organization Address [facility] Phone Number INTERFACE SYSTEM Refer to clinic/hospital department * MAGNESIUM LEVEL (12/24/2005 4:35 AM CDT) MAGNESIUM 1.9 1.7 - 2.4 mg/dL INTERFACE SYSTEM Comment: As of 05 the [facility] has changed testing methods. The new reference range is 1.7-2.4 The old referance range was 1.6-2.3 12/24/2005 4:35 AM CDT Junior Poe MD CHEMISTRY ORDERABLES Final Result Performing Organization Address [facility] Phone Number INTERFACE SYSTEM Refer to clinic/hospital department * (ABNORMAL) BASIC METABOLIC PANEL (12/24/2005 4:35 AM CDT) GLUCOSE 171(H) 70 - 110 mg/dL INTERFACE SYSTEM BUN 11 9 - 20 mg/dL INTERFACE SYSTEM CREATININE 0.7 0.7 - 1.5 mg/dL INTERFACE SYSTEM SODIUM 143 136 - 145 mEq/L INTERFACE SYSTEM POTASSIUM 3.4(L) 3.5 - 5.0 mEq/L INTERFACE SYSTEM CHLORIDE 110 95 - 110 mEq/L INTERFACE SYSTEM CO2 27 22 - 32 mmol/l INTERFACE SYSTEM ANION GAP 9 9 - 20 mEq/L INTERFACE SYSTEM OSMOLALITY, CALCULATED 296(H) 275 - 295 mOsm/Kg INTERFACE SYSTEM CALCIUM 9.1 8.4 - 10.5 mg/dL INTERFACE SYSTEM 12/24/2005 4:35 AM CDT Junior Poe MD CHEMISTRY ORDERABLES Final Result Performing Organization Address City/State/[facility] [place] Co de Phone Number INTERFACE SYSTEM Refer to clinic/hospital department * (ABNORMAL) POC ISTAT EG 7+ (12/23/2005 11:26 PM CDT) SPECIMEN TYPE Arterial INTERF MORGAN SYSTEM Comment: PEEP: 06 Pulse OX: 100 Hemoglobin calculated from Hematocrit result FIO2 3 INTERFACE SYSTEM TEMPERATURE 99.4 DegC INTERFAC E SYSTEM PH 7.45 7.35 - 7.45 Unit INTERFACE SYSTEM PH TEMP CORRECT 7.44 7.35 - 7.45 Unit INTERFACE SYSTEM PCO2 POC 38 35 - 45 mmHg INTERFACE SYSTEM PCO2 TEMP CORRECT 38 35 - 45 mmHg INTERFACE SYSTEM PO2 70(L) 80 - 105 mmHg INTERFACE SYSTEM PO2 TEMP CORRECT 72(L) 80 - 105 mmHg INTERFACE SYSTEM HCO3 (CALC) POC 25.9 22.0 - 26.0 mmol/l INTERFACE SYSTEM BASE EXCESS 2 -2 - 3 mmol/l INTERFACE SYSTEM HEMOGLOBIN POC 7.5 3 g/dL 13.5 - 18.0 g/dL INTERFACE SYSTEM HEMATOCRIT ABG 22(L) 38 - 51 % INTER FACE SYSTEM O2 SATURATION 95 95 - 98 % INTERF MORGAN SYSTEM TCO2 (CALC) POC 27 23 - 27 mmol/l INTERFACE SYSTEM SODIUM 140 138 - 146 mEq/L INTERFACE SYSTEM POTASSIUM 3.4(L) 3.5 - 4.9 mEq/L INTERFACE SYSTEM CALCIUM IONIZED 1.27 1.12 - 1.32 mmol/l INTERFACE SYSTEM 12/23/2005 11:2 6 PM CDT us Junior Poe MD POINT OF CARE TESTING COM F inal Result Performing Organization Address City/State/[facility] de Phone Number INTERFACE SYSTEM Refer to clinic/hospital department * (ABNORMAL) POC ISTAT EG 7+ (12/23/2005 5:56 AM CDT) SPECIMEN TYPE Arterial INTERF MORGAN SYSTEM Comment: PEEP: 08 Pulse OX: 100 Hemoglobin calculated from Hematocrit result FIO2 60 INTERFACE SYSTEM PH 7.53(H) 7.35 - 7.45 Unit INTERFACE SYSTEM PH TEMP CORRECT 7.53(H) 7.35 - 7.45 Unit INTERFACE SYSTEM PCO2 POC 31(L) 35 - 45 mmHg INTERFACE SYSTEM PCO2 TEMP CORRECT 31(L) 35 - 45 mmHg INTERFACE SYSTEM PO2 110(H) 80 - 105 mmHg INTERFACE SYSTEM PO2 TEMP CORRECT 110(H) 80 - 105 mmHg INTERFACE SYSTEM HCO3 (CALC) POC 26.1(H) 22.0 - 26.0 mmol/l INTERFACE SYSTEM BASE EXCESS 3 -2 - 3 mmol/l INTERFACE SYSTEM HEMOGLOBIN POC 8.5 3 g/dL 13.5 - 18.0 g/dL INTERFACE SYSTEM HEMATOCRIT ABG 25(L) 38 - 51 % INTER FACE SYSTEM O2 SATURATION 99(H) 95 - 98 % INTERF MORGAN SYSTEM TCO2 (CALC) POC 27 23 - 27 mmol/l INTERFACE SYSTEM SODIUM 141 138 - 146 mEq/L INTERFACE SYSTEM POTASSIUM 3.8 3.5 - 4.9 mEq/L INTERFACE SYSTEM CALCIUM IONIZED 1.30 1.12 - 1.32 mmol/l INTERFACE SYSTEM 12/23/2005 5:56 AM CDT Junior Poe MD POINT OF CARE TESTING COM F inal Result Performing Organization Address City/[facility] Co de Phone Number INTERFACE SYSTEM Refer to clinic/hospital department * (ABNORMAL) DIFFERENTIAL, MANUAL (12/23/2005 4:40 AM CDT) NEUTROPHILS, SEG 64 36 - 66 % INTERFACE SYSTEM BANDS 27(H) 0 - 6 % INTERFACE SYSTEM LYMPHOCYTES 5(L) 24 - 44 % INTERFAC E SYSTEM MONOCYTE 3(L) 4 - 10 % INTERFACE SYSTEM EOSINOPHILS 1 0 - 3 % INTERFAC E SYSTEM PLATELET EST. Decreased( A) Normal INTERFACE SYSTEM RBC MORPHOLOGY Normal Normal INTER FACE SYSTEM 12/23/2005 4:40 AM CDT Junior Poe MD HEMATOLOGY ORDERABLES COM F inal Result Performing Organization Address City/[facility] [place] Co de Phone Number INTERFACE SYSTEM Refer to clinic/hospital department * (ABNORMAL) BASIC METABOLIC PANEL (12/23/2005 4:40 AM CDT) GLUCOSE 145(H) 70 - 110 mg/dL INTERFACE SYSTEM BUN 10 9 - 20 mg/dL INTERFACE SYSTEM CREATININE 0.7 0.7 - 1.5 mg/dL INTERFACE SYSTEM SODIUM 144 136 - 145 mEq/L INTERFACE SYSTEM POTASSIUM 3.6 3.5 - 5.0 mEq/L INTERFACE SYSTEM CHLORIDE 110 95 - 110 mEq/L INTERFACE SYSTEM CO2 27 22 - 32 mmol/l INTERFACE SYSTEM ANION GAP 11 9 - 20 mEq/L INTERFACE SYSTEM OSMOLALITY, CALCULATED 296(H) 275 - 295 mOsm/Kg INTERFACE SYSTEM CALCIUM 8.9 8.4 - 10.5 mg/dL INTERFACE SYSTEM 12/23/2005 4:40 AM CDT Junior Poe MD CHEMISTRY ORDERABLES Final Result Performing Organization Address [facility] de Phone Number INTERFACE SYSTEM Refer to clinic/hospital department * (ABNORMAL) CBC WITH DIFFERENTIAL (12/23/2005 4:40 AM CDT) WBC 7.2 4.8 - 10.8 K/ul INTERFACE SYSTEM RBC 2.66(L) 4.60 - 6.20 Mil/ul INTERFACE SYSTEM HEMOGLOBIN 8.6(L) 14.0 - 18.0 g/dL INTERFACE SYSTEM HEMATOCRIT 25.7(L) 41.0 - 53.0 % INTERFACE SYSTEM MCV 96.6 84.0 - 103.0 Fl INTERFACE SYSTEM MCH 32.3 27.0 - 34.0 pg INTERFACE SYSTEM MCHC 33.5 30.0 - 35.0 g/dL INTERFACE SYSTEM RDW 13.6 11.0 - 14.5 % INTERFACE SYSTEM PLATELETS 65(L) 140 - 440 K/ul INTERFACE SYSTEM MPV 10.9 8.9 - 12.8 Fl INTERFACE SYSTEM 12/23/2005 4:40 AM CDT us Junior Poe MD HEMATOLOGY ORDERABLES Final Result INTERFACE SYSTEM Refer to clinic/hospital department * (ABNORMAL) HEMOGLOBIN AND HEMATOCRIT (12/22/2005 7:05 PM CDT) HEMOGLOBIN 8.8(L) 14.0 - 18.0 g/dL INTERFACE SYSTEM HEMATOCRIT 26.4(L) 41.0 - 53.0 % INTERFACE SYSTEM 12/22/2005 7:05 PM CDT Junior Poe MD HEMATOLOGY ORDERABLES Final Result Performing Organization Address City/[facility] [place] Co de Phone Number INTERFACE SYSTEM Refer to clinic/hospital department * (ABNORMAL) POC ISTAT EG 7+ (12/22/2005 6:57 PM CDT) SPECIMEN TYPE Arterial INTERF MORGAN SYSTEM Comment: PEEP: 05 Pulse OX: 95 Hemoglobin calculated from Hematocrit result FIO2 40 INTERFACE SYSTEM TEMPERATURE 101.9 DegC INTERFAC E SYSTEM PH 7.47(H) 7.35 - 7.45 Unit INTERFACE SYSTEM PH TEMP CORRECT 7.44 7.35 - 7.45 Unit INTERFACE SYSTEM PCO2 POC 34(L) 35 - 45 mmHg INTERFACE SYSTEM PCO2 TEMP CORRECT 36 35 - 45 mmHg INTERFACE SYSTEM PO2 52(L) 80 - 105 mmHg INTERFACE SYSTEM PO2 TEMP CORRECT 59(L) 80 - 105 mmHg INTERFACE SYSTEM HCO3 (CALC) POC 24.1 22.0 - 26.0 mmol/l INTERFACE SYSTEM BASE EXCESS 0 -2 - 3 mmol/l INTERFACE SYSTEM HEMOGLOBIN POC 7.8 3 g/dL 13.5 - 18.0 g/dL INTERFACE SYSTEM HEMATOCRIT ABG 23(L) 38 - 51 % INTER FACE SYSTEM O2 SATURATION 89(L) 95 - 98 % INTERF MORGAN SYSTEM TCO2 (CALC) POC 25 23 - 27 mmol/l INTERFACE SYSTEM SODIUM 139 138 - 146 mEq/L INTERFACE SYSTEM POTASSIUM 3.7 3.5 - 4.9 mEq/L INTERFACE SYSTEM CALCIUM IONIZED 1.25 1.12 - 1.32 mmol/l INTERFACE SYSTEM 12/22/2005 6:57 PM CDT Junior Poe MD POINT OF CARE TESTING COM F inal Result INTERFACE SYSTEM Refer to clinic/hospital department * (ABNORMAL) CBC WITH DIFFERENTIAL (12/22/2005 12:00 PM CDT) WBC 8.2 4.8 - 10.8 K/ul INTERFACE SYSTEM RBC 2.97(L) 4.60 - 6.20 Mil/ul INTERFACE SYSTEM HEMOGLOBIN 9.5(L) 14.0 - 18.0 g/dL INTERFACE SYSTEM HEMATOCRIT 28.3(L) 41.0 - 53.0 % INTERFACE SYSTEM MCV 95.3 84.0 - 103.0 Fl INTERFACE SYSTEM MCH 32.0 27.0 - 34.0 pg INTERFACE SYSTEM MCHC 33.6 30.0 - 35.0 g/dL INTERFACE SYSTEM RDW 13.7 11.0 - 14.5 % INTERFACE SYSTEM PLATELETS 55(L) 140 - 440 K/ul INTERFACE SYSTEM MPV 10.5 8.9 - 12.8 Fl INTERFACE SYSTEM NEUTROPHILS 80.3(H) 42.2 - 75.2 % INTERFACE SYSTEM LYMPHOCYTES 14.8(L) 24.0 - 44.0 % INTERFACE SYSTEM MONOCYTES 4.7 2.0 - 10.0 % INTERFA CE SYSTEM EOSINOPHILS 0.1 0.0 - 7.0 % INTERF MORGAN SYSTEM BASOPHILS 0.1 0.0 - 1.0 % INTERFAC E SYSTEM NEUTROPHIL ABSOLUTE 6.6 2.0 - 8.0 K/uL INTERFACE SYSTEM LYMPHOCYTE ABSOLUTE 1.2 1.2 - 4.0 K/ul INTERFACE SYSTEM MONOCYTE ABSOLUTE 0.4 0.1 - 0.6 K/ul INTERFACE SYSTEM EOSINOPHIL ABSOLUTE 0.0 0.0 - 0.7 K/ul INTERFACE SYSTEM BASOPHILS ABSOLUTE 0.0 0.0 - 0.2 K/ul INTERFACE SYSTEM PERIPHERAL BLOOD SMEAR REVIEW Automated Diff Automated Diff INTERFACE SYSTEM 12/22/2005 12:0 0 PM CDT Junior Poe MD HEMATOLOGY ORDERABLES Final Result INTERFACE SYSTEM Refer to clinic/hospital department * (ABNORMAL) POC ISTAT EG 7+ (12/22/2005 5:04 AM CDT) SPECIMEN TYPE Arterial INTERF MORGAN SYSTEM Comment: PEEP: 05 Pulse OX: 96 Hemoglobin calculated from Hematocrit result FIO2 40 INTERFACE SYSTEM TEMPERATURE 100.0 DegC INTERFAC E SYSTEM PH 7.45 7.35 - 7.45 Unit INTERFACE SYSTEM PH TEMP CORRECT 7.44 7.35 - 7.45 Unit INTERFACE SYSTEM PCO2 POC 38 35 - 45 mmHg INTERFACE SYSTEM PCO2 TEMP CORRECT 39 35 - 45 mmHg INTERFACE SYSTEM PO2 62(L) 80 - 105 mmHg INTERFACE SYSTEM PO2 TEMP CORRECT 65(L) 80 - 105 mmHg INTERFACE SYSTEM HCO3 (CALC) POC 26.5(H) 22.0 - 26.0 mmol/l INTERFACE SYSTEM BASE EXCESS 3 -2 - 3 mmol/l INTERFACE SYSTEM HEMOGLOBIN POC 8.8 3 g/dL 13.5 - 18.0 g/dL INTERFACE SYSTEM HEMATOCRIT ABG 26(L) 38 - 51 % INTER FACE SYSTEM O2 SATURATION 92(L) 95 - 98 % INTERF MORGAN SYSTEM TCO2 (CALC) POC 28(H) 23 - 27 mmol/l INTERFACE SYSTEM SODIUM 140 138 - 146 mEq/L INTERFACE SYSTEM POTASSIUM 3.8 3.5 - 4.9 mEq/L INTERFACE SYSTEM CALCIUM IONIZED 1.16 1.12 - 1.32 mmol/l INTERFACE SYSTEM 12/22/2005 5:04 AM CDT us Junior Poe MD POINT OF CARE TESTING COM F inal Result Performing Organization Address City/[facility] de Phone Number INTERFACE SYSTEM Refer to clinic/hospital department * (ABNORMAL) PHOSPHORUS (12/22/2005 4:25 AM CDT) PHOSPHORUS 1.3(L) 2.5 - 4.6 mg/dL INTERFACE SYSTEM 12/22/2005 4:25 AM CDT us Junior Poe MD CHEMISTRY ORDERABLES Final Result Performing Organization Address City/[facility] [place] Co de Phone Number INTERFACE SYSTEM Refer to clinic/hospital department * MAGNESIUM LEVEL (12/22/2005 4:25 AM CDT) MAGNESIUM 1.9 1.7 - 2.4 mg/dL INTERFACE SYSTEM Comment: As of 05 the [facility] has changed testing methods. The new reference range is 1.7-2.4 The old referance range was 1.6-2.3 12/22/2005 4:25 AM CDT Junior Poe MD CHEMISTRY ORDERABLES Final Result Performing Organization Address [facility] Phone Number INTERFACE SYSTEM Refer to clinic/hospital department * (ABNORMAL) BASIC METABOLIC PANEL (12/22/2005 4:25 AM CDT) GLUCOSE 164(H) 70 - 110 mg/dL INTERFACE SYSTEM BUN 15 9 - 20 mg/dL INTERFACE SYSTEM CREATININE 0.9 0.7 - 1.5 mg/dL INTERFACE SYSTEM SODIUM 140 136 - 145 mEq/L INTERFACE SYSTEM POTASSIUM 3.8 3.5 - 5.0 mEq/L INTERFACE SYSTEM CHLORIDE 109 95 - 110 mEq/L INTERFACE SYSTEM CO2 26 22 - 32 mmol/l INTERFACE SYSTEM ANION GAP 9 9 - 20 mEq/L INTERFACE SYSTEM OSMOLALITY, CALCULATED 292 275 - 295 mOsm/Kg INTERFACE SYSTEM CALCIUM 8.4 8.4 - 10.5 mg/dL INTERFACE SYSTEM 12/22/2005 4:25 AM CDT Junior Poe MD CHEMISTRY ORDERABLES Final Result Performing Organization Address [facility] Phone Number INTERFACE SYSTEM Refer to clinic/hospital department * (ABNORMAL) CBC WITH DIFFERENTIAL (12/22/2005 4:25 AM CDT) WBC 8.6 4.8 - 10.8 K/ul INTERFACE SYSTEM RBC 2.87(L) 4.60 - 6.20 Mil/ul INTERFACE SYSTEM HEMOGLOBIN 9.4(L) 14.0 - 18.0 g/dL INTERFACE SYSTEM HEMATOCRIT 28.1(L) 41.0 - 53.0 % INTERFACE SYSTEM MCV 97.9 84.0 - 103.0 Fl INTERFACE SYSTEM MCH 32.8 27.0 - 34.0 pg INTERFACE SYSTEM MCHC 33.5 30.0 - 35.0 g/dL INTERFACE SYSTEM RDW 13.7 11.0 - 14.5 % INTERFACE SYSTEM PLATELETS 59(L) 140 - 440 K/ul INTERFACE SYSTEM MPV 10.9 8.9 - 12.8 Fl INTERFACE SYSTEM NEUTROPHILS 83.5(H) 42.2 - 75.2 % INTERFACE SYSTEM LYMPHOCYTES 12.3(L) 24.0 - 44.0 % INTERFACE SYSTEM MONOCYTES 4.1 2.0 - 10.0 % INTERFA CE SYSTEM BASOPHILS 0.1 0.0 - 1.0 % INTERFAC E SYSTEM NEUTROPHIL ABSOLUTE 7.2 2.0 - 8.0 K/uL INTERFACE SYSTEM LYMPHOCYTE ABSOLUTE 1.1(L) 1.2 - 4.0 K/ul INTERFACE SYSTEM MONOCYTE ABSOLUTE 0.4 0.1 - 0.6 K/ul INTERFACE SYSTEM BASOPHILS ABSOLUTE 0.0 0.0 - 0.2 K/ul INTERFACE SYSTEM PERIPHERAL BLOOD SMEAR REVIEW Smear Reviewed Automated Diff INTERFACE SYSTEM 12/22/2005 4:25 AM CDT us Junior Poe MD HEMATOLOGY ORDERABLES Final Result INTERFACE SYSTEM Refer to clinic/hospital department * (ABNORMAL) CBC WITH DIFFERENTIAL (12/21/2005 10:57 PM CDT) WBC 9.2 4.8 - 10.8 K/ul INTERFACE SYSTEM RBC 2.91(L) 4.60 - 6.20 Mil/ul INTERFACE SYSTEM HEMOGLOBIN 9.6(L) 14.0 - 18.0 g/dL INTERFACE SYSTEM HEMATOCRIT 27.7(L) 41.0 - 53.0 % INTERFACE SYSTEM MCV 95.2 84.0 - 103.0 Fl INTERFACE SYSTEM MCH 33.0 27.0 - 34.0 pg INTERFACE SYSTEM MCHC 34.7 30.0 - 35.0 g/dL INTERFACE SYSTEM RDW 13.9 11.0 - 14.5 % INTERFACE SYSTEM PLATELETS 68(L) 140 - 440 K/ul INTERFACE SYSTEM MPV 10.9 8.9 - 12.8 Fl INTERFACE SYSTEM NEUTROPHILS 80.0(H) 42.2 - 75.2 % INTERFACE SYSTEM LYMPHOCYTES 13.3(L) 24.0 - 44.0 % INTERFACE SYSTEM MONOCYTES 6.6 2.0 - 10.0 % INTERFA CE SYSTEM BASOPHILS 0.1 0.0 - 1.0 % INTERFAC E SYSTEM NEUTROPHIL ABSOLUTE 7.4 2.0 - 8.0 K/uL INTERFACE SYSTEM LYMPHOCYTE ABSOLUTE 1.2 1.2 - 4.0 K/ul INTERFACE SYSTEM MONOCYTE ABSOLUTE 0.6 0.1 - 0.6 K/ul INTERFACE SYSTEM BASOPHILS ABSOLUTE 0.0 0.0 - 0.2 K/ul INTERFACE SYSTEM PERIPHERAL BLOOD SMEAR REVIEW Smear Reviewed Automated Diff INTERFACE SYSTEM 12/21/2005 10:5 7 PM CDT us Junior Poe MD HEMATOLOGY ORDERABLES Final Result INTERFACE SYSTEM Refer to clinic/hospital department * (ABNORMAL) POC ISTAT EG 7+ (12/21/2005 5:51 PM CDT) SPECIMEN TYPE Arterial INTERF MORGAN SYSTEM Comment: PEEP: 05 Pressure Support: 06 Pulse OX: 96 Hemoglobin calculated from Hematocrit result FIO2 30 INTERFACE SYSTEM TEMPERATURE 101.7 DegC INTERFAC E SYSTEM PH 7.48(H) 7.35 - 7.45 Unit INTERFACE SYSTEM PH TEMP CORRECT 7.46(H) 7.35 - 7.45 Unit INTERFACE SYSTEM PCO2 POC 35 35 - 45 mmHg INTERFACE SYSTEM PCO2 TEMP CORRECT 38 35 - 45 mmHg INTERFACE SYSTEM PO2 77(L) 80 - 105 mmHg INTERFACE SYSTEM PO2 TEMP CORRECT 86 80 - 105 mmHg INTERFACE SYSTEM HCO3 (CALC) POC 26.4(H) 22.0 - 26.0 mmol/l INTERFACE SYSTEM BASE EXCESS 3 -2 - 3 mmol/l INTERFACE SYSTEM HEMOGLOBIN POC 9.5 3 g/dL 13.5 - 18.0 g/dL INTERFACE SYSTEM HEMATOCRIT ABG 28(L) 38 - 51 % INTER FACE SYSTEM O2 SATURATION 96 95 - 98 % INTERF MORGAN SYSTEM TCO2 (CALC) POC 27 23 - 27 mmol/l INTERFACE SYSTEM SODIUM 139 138 - 146 mEq/L INTERFACE SYSTEM POTASSIUM 3.6 3.5 - 4.9 mEq/L INTERFACE SYSTEM CALCIUM IONIZED 1.16 1.12 - 1.32 mmol/l INTERFACE SYSTEM 12/21/2005 5:51 PM CDT Junior Poe MD POINT OF CARE TESTING COM F inal Result INTERFACE SYSTEM Refer to clinic/hospital department * (ABNORMAL) CBC WITH DIFFERENTIAL (12/21/2005 5:45 PM CDT) WBC 10.7 4.8 - 10.8 K/ul INTERFACE SYSTEM RBC 3.09(L) 4.60 - 6.20 Mil/ul INTERFACE SYSTEM HEMOGLOBIN 10.1(L) 14.0 - 18.0 g/dL INTERFACE SYSTEM HEMATOCRIT 30.0(L) 41.0 - 53.0 % INTERFACE SYSTEM MCV 97.1 84.0 - 103.0 Fl INTERFACE SYSTEM MCH 32.7 27.0 - 34.0 pg INTERFACE SYSTEM MCHC 33.7 30.0 - 35.0 g/dL INTERFACE SYSTEM RDW 13.7 11.0 - 14.5 % INTERFACE SYSTEM PLATELETS 72(L) 140 - 440 K/ul INTERFACE SYSTEM MPV 11.3 8.9 - 12.8 Fl INTERFACE SYSTEM NEUTROPHILS 82.4(H) 42.2 - 75.2 % INTERFACE SYSTEM LYMPHOCYTES 8.2(L) 24.0 - 44.0 % INTERFACE SYSTEM MONOCYTES 9.2 2.0 - 10.0 % INTERFA CE SYSTEM EOSINOPHILS 0.1 0.0 - 7.0 % INTERF MORGAN SYSTEM BASOPHILS 0.1 0.0 - 1.0 % INTERFAC E SYSTEM NEUTROPHIL ABSOLUTE 8.9(H) 2.0 - 8.0 K/uL INTERFACE SYSTEM LYMPHOCYTE ABSOLUTE 0.9(L) 1.2 - 4.0 K/ul INTERFACE SYSTEM MONOCYTE ABSOLUTE 1.0(H) 0.1 - 0.6 K/ul INTERFACE SYSTEM EOSINOPHIL ABSOLUTE 0.0 0.0 - 0.7 K/ul INTERFACE SYSTEM BASOPHILS ABSOLUTE 0.0 0.0 - 0.2 K/ul INTERFACE SYSTEM HEM COMMENT Automated Diff Automated Diff INTERFACE SYSTEM 12/21/2005 5:45 PM CDT us Junior Poe MD HEMATOLOGY ORDERABLES Final Result INTERFACE SYSTEM Refer to clinic/hospital department * (ABNORMAL) HEMOGLOBIN AND HEMATOCRIT (12/21/2005 11:25 AM CDT) HEMOGLOBIN 10.8(L) 14.0 - 18.0 g/dL INTERFACE SYSTEM HEMATOCRIT 32.4(L) 41.0 - 53.0 % INTERFACE SYSTEM 12/21/2005 11:2 5 AM CDT us Junior Poe MD HEMATOLOGY ORDERABLES Final Result Performing Organization Address [facility] de Phone Number INTERFACE SYSTEM Refer to clinic/hospital department * (ABNORMAL) POC ISTAT EG 7+ (12/21/2005 5:08 AM CDT) SPECIMEN TYPE Arterial INTERF MORGAN SYSTEM Comment: Tidal volume: 700 PEEP: 08 Rate: 11 Pulse OX: 100 Hemoglobin calculated from Hematocrit result FIO2 35 INTERFACE SYSTEM PH 7.35 7.35 - 7.45 Unit INTERFACE SYSTEM PH TEMP CORRECT 7.35 7.35 - 7.45 Unit INTERFACE SYSTEM PCO2 POC 40 35 - 45 mmHg INTERFACE SYSTEM PCO2 TEMP CORRECT 40 35 - 45 mmHg INTERFACE SYSTEM PO2 106(H) 80 - 105 mmHg INTERFACE SYSTEM PO2 TEMP CORRECT 106(H) 80 - 105 mmHg INTERFACE SYSTEM HCO3 (CALC) POC 22.0 22.0 - 26.0 mmol/l INTERFACE SYSTEM BASE EXCESS -4(L) -2 - 3 mmol/l INTERFACE SYSTEM HEMOGLOBIN POC 11.9 3 g/dL 13.5 - 18.0 g/dL INTERFACE SYSTEM HEMATOCRIT ABG 35(L) 38 - 51 % INTER FACE SYSTEM O2 SATURATION 98 95 - 98 % INTERF MORGAN SYSTEM TCO2 (CALC) POC 23 23 - 27 mmol/l INTERFACE SYSTEM SODIUM 140 138 - 146 mEq/L INTERFACE SYSTEM POTASSIUM 4.7 3.5 - 4.9 mEq/L INTERFACE SYSTEM CALCIUM IONIZED 1.15 1.12 - 1.32 mmol/l INTERFACE SYSTEM 12/21/2005 5:08 AM CDT Junior Poe MD POINT OF CARE TESTING COM F inal Result Performing Organization Address [facility] [place] Co de Phone Number INTERFACE SYSTEM Refer to clinic/hospital department * (ABNORMAL) BASIC METABOLIC PANEL (12/21/2005 4:11 AM CDT) GLUCOSE 142(H) 70 - 110 mg/dL INTERFACE SYSTEM BUN 17 9 - 20 mg/dL INTERFACE SYSTEM CREATININE 0.9 0.7 - 1.5 mg/dL INTERFACE SYSTEM SODIUM 140 136 - 145 mEq/L INTERFACE SYSTEM POTASSIUM 5.1(H) 3.5 - 5.0 mEq/L INTERFACE SYSTEM CHLORIDE 108 95 - 110 mEq/L INTERFACE SYSTEM CO2 23 22 - 32 mmol/l INTERFACE SYSTEM ANION GAP 14 9 - 20 mEq/L INTERFACE SYSTEM OSMOLALITY, CALCULATED 294 275 - 295 mOsm/Kg INTERFACE SYSTEM CALCIUM 8.5 8.4 - 10.5 mg/dL INTERFACE SYSTEM 12/21/2005 4:11 AM CDT us Junior Poe MD CHEMISTRY ORDERABLES Final Result INTERFACE SYSTEM Refer to clinic/hospital department * (ABNORMAL) PT AND APTT (12/21/2005 4:11 AM CDT) PROTIME 15.0(H) 12.6 - 14.9 Secs INTERFACE SYSTEM Comment: As of 05 note change in normal range. INR 1.1 INTERFACE SYSTEM Comment: Expected Values for INR: DVT/PE Goal INR 2.5; range 2.0 - 3.0 Valve Replacement Tissue Goal INR 2.5; range 2.0 - 3.0 Mechanical Goal INR 3.0; range 2.5 - 3.5 POST-TX Goal INR 2.5; range 2.0 - 3.0 or Goal 3.0; range 2.5 - 3.5 Atrial Fibrillation Goal INR 2.5; range 2.0 - 3.0 Ischemic Stroke Goal INR 2.5; range 2.0 - 3.0 For additional information see Guidelines for Anticoagulation available from the pharmacy [facility] PTT 25.9 21.5 - 34.4 Secs INTERFACE SYSTEM Comment: Therapeutic Range: Hi-level PE/DVT heparin protocol 90.1 -110 sec Lo-level PE/DVT heparin protocol 75.1 - 95 sec Cardiac Heparin Protocol 85.1 - 100 sec Neuro Heparin Protocol 70.1 - 85 sec As of 05/08/05 note change in APTT Normal Range. 12/21/2005 4:11 AM CDT us Junior Poe MD HEMATOLOGY ORDERABLES Final Result INTERFACE SYSTEM Refer to clinic/hospital department * (ABNORMAL) CBC WITH DIFFERENTIAL (12/21/2005 4:11 AM CDT) WBC 16.1(H) 4.8 - 10.8 K/ul INTERFACE SYSTEM RBC 3.72(L) 4.60 - 6.20 Mil/ul INTERFACE SYSTEM HEMOGLOBIN 12.1(L) 14.0 - 18.0 g/dL INTERFACE SYSTEM HEMATOCRIT 37.4(L) 41.0 - 53.0 % INTERFACE SYSTEM MCV 100.5 84.0 - 103.0 Fl INTERFACE SYSTEM MCH 32.5 27.0 - 34.0 pg INTERFACE SYSTEM MCHC 32.4 30.0 - 35.0 g/dL INTERFACE SYSTEM RDW 14.4 11.0 - 14.5 % INTERFACE SYSTEM PLATELETS 158 140 - 440 K/ul INTERFACE SYSTEM MPV 12.0 8.9 - 12.8 Fl INTERFACE SYSTEM NEUTROPHILS 75.7(H) 42.2 - 75.2 % INTERFACE SYSTEM LYMPHOCYTES 12.6(L) 24.0 - 44.0 % INTERFACE SYSTEM MONOCYTES 11.5(H) 2.0 - 10.0 % INTERFA CE SYSTEM EOSINOPHILS 0.1 0.0 - 7.0 % INTERF MORGAN SYSTEM BASOPHILS 0.1 0.0 - 1.0 % INTERFAC E SYSTEM NEUTROPHIL ABSOLUTE 12.2(H) 2.0 - 8.0 K/uL INTERFACE SYSTEM LYMPHOCYTE ABSOLUTE 2.0 1.2 - 4.0 K/ul INTERFACE SYSTEM MONOCYTE ABSOLUTE 1.9(H) 0.1 - 0.6 K/ul INTERFACE SYSTEM EOSINOPHIL ABSOLUTE 0.0 0.0 - 0.7 K/ul INTERFACE SYSTEM BASOPHILS ABSOLUTE 0.0 0.0 - 0.2 K/ul INTERFACE SYSTEM PERIPHERAL BLOOD SMEAR REVIEW Automated Diff Automated Diff INTERFACE SYSTEM 12/21/2005 4:11 AM CDT Junior Poe MD HEMATOLOGY ORDERABLES Final Result INTERFACE SYSTEM Refer to clinic/hospital department * (ABNORMAL) HEMOGLOBIN AND HEMATOCRIT (12/20/2005 11:03 PM CDT) HEMOGLOBIN 13.6(L) 14.0 - 18.0 g/dL INTERFACE SYSTEM HEMATOCRIT 40.2(L) 41.0 - 53.0 % INTERFACE SYSTEM 12/20/2005 11:0 3 PM CDT us Junior Poe MD HEMATOLOGY ORDERABLES Final Result Performing Organization Address [facility] de Phone Number INTERFACE SYSTEM Refer to clinic/hospital department * (ABNORMAL) DRUG SCREEN, URINE (12/20/2005 9:41 PM CDT) OPIATE QUAL, URINE Drug Positive(A) Drug Negative INTERFACE SYSTEM AMPHETAMINE QUAL, URINE Drug Negative Drug Negative INTERFACE SYSTEM BARBITURATE QUAL, URINE Drug Negative Drug Negative INTERFACE SYSTEM COCAINE QUAL URINE Drug Negative Drug Negative INTERFACE SYSTEM PCP QUAL, URINE Drug Negative Drug Negative INTERFACE SYSTEM CANNABINOIDS QUAL, URINE Drug Negative Drug Negative INTERFACE SYSTEM BENZODIAZEPINE QUAL, URINE Drug Positive(A) Drug Negative INTERFACE SYSTEM 12/20/2005 9:41 PM CDT us Donovan Copeland MD URINE ORDERABLES Final Re sult Performing Organization Address [facility] Phone Number INTERFACE SYSTEM Refer to clinic/hospital department * (ABNORMAL) POC ISTAT EG 7+ (12/20/2005 5:33 PM CDT) SPECIMEN TYPE Arterial INTERF MORGAN SYSTEM Comment: Tidal volume: 600 PEEP: 08 Rate: 10 Pulse OX: 100 Hemoglobin calculated from Hematocrit result FIO2 50 INTERFACE SYSTEM PH 7.33(L) 7.35 - 7.45 Unit INTERFACE SYSTEM PH TEMP CORRECT 7.33(L) 7.35 - 7.45 Unit INTERFACE SYSTEM PCO2 POC 42 35 - 45 mmHg INTERFACE SYSTEM PCO2 TEMP CORRECT 42 35 - 45 mmHg INTERFACE SYSTEM PO2 191(H) 80 - 105 mmHg INTERFACE SYSTEM PO2 TEMP CORRECT 191(H) 80 - 105 mmHg INTERFACE SYSTEM HCO3 (CALC) POC 22.4 22.0 - 26.0 mmol/l INTERFACE SYSTEM BASE EXCESS -3(L) -2 - 3 mmol/l INTERFACE SYSTEM HEMOGLOBIN POC 14.6 3 g/dL 13.5 - 18.0 g/dL INTERFACE SYSTEM HEMATOCRIT ABG 43 38 - 51 % INTER FACE SYSTEM O2 SATURATION 100(H) 95 - 98 % INTERF MORGAN SYSTEM TCO2 (CALC) POC 24 23 - 27 mmol/l INTERFACE SYSTEM SODIUM 140 138 - 146 mEq/L INTERFACE SYSTEM POTASSIUM 4.0 3.5 - 4.9 mEq/L INTERFACE SYSTEM CALCIUM IONIZED 1.18 1.12 - 1.32 mmol/l INTERFACE SYSTEM 12/20/2005 5:33 PM CDT Donovan Copeland MD POINT OF CARE TESTING COM Final Result Performing Organization Address City/[facility] Co de Phone Number INTERFACE SYSTEM Refer to clinic/hospital department * PROTIME-INR (12/20/2005 5:32 PM CDT) Pathologist [facility] PROTIME 14.8 12.6 - 14.9 Secs INTERFACE SYSTEM Comment: As of 05 note change in normal range. INR 1.1 INTERFACE SYSTEM Comment: Expected Values for INR: DVT/PE Goal INR 2.5; range 2.0 - 3.0 Valve Replacement Tissue Goal INR 2.5; range 2.0 - 3.0 Mechanical Goal INR 3.0; range 2.5 - 3.5 POST-TX Goal INR 2.5; range 2.0 - 3.0 or Goal 3.0; range 2.5 - 3.5 Atrial Fibrillation Goal INR 2.5; range 2.0 - 3.0 Ischemic Stroke Goal INR 2.5; range 2.0 - 3.0 For additional information see Guidelines for Anticoagulation available from the pharmacy [facility]. 12/20/2005 5:32 PM CDT Donovan Copeland MD HEMATOLOGY ORDERABLES Fin al Result Performing Organization Address City/[facility] Co de Phone Number INTERFACE SYSTEM Refer to clinic/hospital department * (ABNORMAL) CBC WITH DIFFERENTIAL (12/20/2005 5:32 PM CDT) PERIPHERAL BLOOD SMEAR REVIEW Automated Diff Automated Diff INTERFACE SYSTEM WBC 17.8(H) 4.8 - 10.8 K/ul INTERFACE SYSTEM RBC 4.68 4.60 - 6.20 Mil/ul INTERFACE SYSTEM HEMOGLOBIN 15.3 14.0 - 18.0 g/dL INTERFACE SYSTEM HEMATOCRIT 43.3 41.0 - 53.0 % INTERFACE SYSTEM MCV 92.5 84.0 - 103.0 Fl INTERFACE SYSTEM MCH 32.7 27.0 - 34.0 pg INTERFACE SYSTEM MCHC 35.3(H) 30.0 - 35.0 g/dL INTERFACE SYSTEM RDW 14.0 11.0 - 14.5 % INTERFACE SYSTEM PLATELETS 158 140 - 440 K/ul INTERFACE SYSTEM MPV 11.0 8.9 - 12.8 Fl INTERFACE SYSTEM NEUTROPHILS 77.3(H) 42.2 - 75.2 % INTERFACE SYSTEM LYMPHOCYTES 14.4(L) 24.0 - 44.0 % INTERFACE SYSTEM MONOCYTES 7.0 2.0 - 10.0 % INTERFA CE SYSTEM EOSINOPHILS 1.0 0.0 - 7.0 % INTERF MORGAN SYSTEM BASOPHILS 0.3 0.0 - 1.0 % INTERFAC E SYSTEM NEUTROPHIL ABSOLUTE 13.7(H) 2.0 - 8.0 K/uL INTERFACE SYSTEM LYMPHOCYTE ABSOLUTE 2.6 1.2 - 4.0 K/ul INTERFACE SYSTEM MONOCYTE ABSOLUTE 1.3(H) 0.1 - 0.6 K/ul INTERFACE SYSTEM EOSINOPHIL ABSOLUTE 0.2 0.0 - 0.7 K/ul INTERFACE SYSTEM BASOPHILS ABSOLUTE 0.1 0.0 - 0.2 K/ul INTERFACE SYSTEM 12/20/2005 5:32 PM CDT Donovan Copeland MD HEMATOLOGY ORDERABLES Fin al Result Performing Organization Address City/[facility] Co de Phone Number INTERFACE SYSTEM Refer to clinic/hospital department * (ABNORMAL) ETHANOL LEVEL (12/20/2005 5:32 PM CDT) ETHANOL 210(H) <=10 mg/dL INTERFACE SYSTEM 12/20/2005 5:32 PM CDT Donovan Copeland MD CHEMISTRY ORDERABLES Kimberlyn l Result INTERFACE SYSTEM Refer to clinic/hospital department * (ABNORMAL) BASIC METABOLIC PANEL (12/20/2005 5:32 PM CDT) GLUCOSE 103 70 - 110 mg/dL INTERFACE SYSTEM BUN 14 9 - 20 mg/dL INTERFACE SYSTEM CREATININE 1.0 0.7 - 1.5 mg/dL INTERFACE SYSTEM SODIUM 146(H) 136 - 145 mEq/L INTERFACE SYSTEM POTASSIUM 4.0 3.5 - 5.0 mEq/L INTERFACE SYSTEM CHLORIDE 116(H) 95 - 110 mEq/L INTERFACE SYSTEM CO2 19(L) 22 - 32 mmol/l INTERFACE SYSTEM ANION GAP 15 9 - 20 mEq/L INTERFACE SYSTEM OSMOLALITY, CALCULATED 300(H) 275 - 295 mOsm/Kg INTERFACE SYSTEM CALCIUM 9.1 8.4 - 10.5 mg/dL INTERFACE SYSTEM 12/20/2005 5:32 PM CDT us Donovan Copeland MD CHEMISTRY ORDERABLES Kimberlyn quintana Result INTERFACE SYSTEM Refer to clinic/hospital department documented in this encounter Visit Diagnoses Diagnosis Cortex (cerebral) contusion without mention of open intracranial wound, loss of consciousness of unspecified duration (CMS/HCC)- Primary Cortex (cerebral) contusion without mention of open intracranial wound, loss of consciousness of unspecified duration documented in this encounter
--- OUTSIDE RECORDS SUMMARY | 2025-03-20 07:08 | XMS_ITS | Encounter Summary ---
Author Organization [email or web address] [facility] Address [address] [place] [address] Care Team Providers Care Electrical Tester Battery Name Role Phone Unavailable Primary Care Provider Unavailabl e Encounter Details Date Type Department Care Team (Late st Contact Info) Description 01/10/2006 Inpatient Historical HIS IN BED José Miguel Dickerson MD [address] [place] [address] Other Specified Rehabilitation Procedure (Primary Dx) Social History Tobacco Use Types Packs/Day Years Used Date Smoking Tobacco: Never Assessed Sex and Gender Information Value Date Recorded Sex Assigned at Not on file 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 Gender Identity Not on file Sexual Orientation Not on file documented as of this encounter Plan of Treatment Not on file documented as of this encounter Procedures Procedure Name Priority Date/Time Associated Diagnosis Comments VANCOMYCIN LEVEL PEAK Routine 01/13/2006 1:37 AM CDT VANCOMYCIN LEVEL TROUGH Routine 01/12/2006 10:50 PM CDT HEPATIC FUNCTION PANEL Routine 6 10:50 PM CDT BASIC METABOLIC PANEL Routine 01/12/2006 10:50 PM CDT HEPATIC FUNCTION PANEL Routine 6 11:51 PM CDT BASIC METABOLIC PANEL Routine 01/11/2006 11:51 PM CDT URINALYSIS MICROSCOPY ONLY Routine 01/11/2006 10:27 PM CDT URINALYSIS W/REFLEX MICROSCOPIC Routine 01/11/2006 10:27 PM CDT CBC WITH DIFFERENTIAL Routine 01/11/2006 7:12 AM CDT TSH Routine 01/11/2006 7:12 AM CDT VITAMIN B12 LEVEL Routine 01/11/2006 7:1 2 AM CDT COMPREHENSIVE METABOLIC PANEL Routine 01/11/2006 7:12 AM CDT XR SPEECH EVALUATION COMPLEX Routine 01/10/2006 8:30 PM CDT documented in this encounter Results * VANCOMYCIN LEVEL PEAK (01/13/2006 1:37 AM CDT) VANCOMYCIN, PEAK 39.9 25.0 - 40.0 mcg/mL INTERFACE SYSTEM 01/13/2006 1:37 AM CDT José Miguel Dickerson MD CHEMISTRY ORDERABLES Final Resu Performing Organization Address [facility] Phone Number INTERFACE SYSTEM Refer to clinic/hospital department * VANCOMYCIN LEVEL TROUGH (01/12/2006 10:50 PM CDT) Pathologist [facility] VANCOMYCIN, TROUGH 11.6 5.0 - 15.0 mcg/mL INTERFACE SYSTEM 01/12/2006 10:5 0 PM CDT José Miguel Dickerson MD CHEMISTRY ORDERABLES Final Resu Performing Organization Address [facility] Phone Number INTERFACE SYSTEM Refer to clinic/hospital department * (ABNORMAL) HEPATIC FUNCTION PANEL (01/12/2006 10:50 PM CDT) TOTAL PROTEIN 7.9 6.3 - 8.2 g/dL INTERFACE SYSTEM ALBUMIN 3.9 3.5 - 5.0 g/dL INTERFACE SYSTEM ALKALINE PHOSPHATASE 192(H) 25 - 100 U/L INTERFACE SYSTEM Comment: As of 05 the [facility] has changed testing methods. The new reference range is 25-100 The old referance range was 38-126 AST 47(H) 8 - 33 U/L INTERFACE SYSTEM Comment: As of 05 the [facility] has changed testing methods. The new reference range is 8-33 The old referance range was Males 17-59 Females 14-36 ALT 55(H) 4 - 36 IU/L INTERFACE SYSTEM Comment: As of 05 the [facility] has changed testing methods. The new reference range is 4-36 The old referance range was Males 21-72 Females 9-52 BILIRUBIN DIRECT 0.2 0.0 - 0.4 mg/dL INTERFACE SYSTEM BILIRUBIN TOTAL 0.6 0.3 - 1.2 mg/dL INTERFACE SYSTEM Comment: As of 05 the [facility] has changed testing methods. The new reference range is 0.3-1.2 The old referance range was 0.2-1.4 01/12/2006 10:5 0 PM CDT José Miguel Dickerson MD CHEMISTRY ORDERABLES Final Resu Performing Organization Address [facility] Phone Number INTERFACE SYSTEM Refer to clinic/hospital department * (ABNORMAL) BASIC METABOLIC PANEL (01/12/2006 10:50 PM CDT) GLUCOSE 102 70 - 110 mg/dL INTERFACE SYSTEM BUN 19 9 - 20 mg/dL INTERFACE SYSTEM CREATININE 0.6(L) 0.7 - 1.5 mg/dL INTERFACE SYSTEM SODIUM 134(L) 136 - 145 mEq/L INTERFACE SYSTEM POTASSIUM 4.3 3.5 - 5.0 mEq/L INTERFACE SYSTEM CHLORIDE 99 95 - 110 mEq/L INTERFACE SYSTEM CO2 26 22 - 32 mmol/l INTERFACE SYSTEM ANION GAP 13 9 - 20 mEq/L INTERFACE SYSTEM OSMOLALITY, CALCULATED 280 275 - 295 mOsm/Kg INTERFACE SYSTEM CALCIUM 9.2 8.4 - 10.5 mg/dL INTERFACE SYSTEM 01/12/2006 10:5 0 PM CDT José Miguel Dickerson MD CHEMISTRY ORDERABLES Final Resu lt Performing Organization Address [facility] Phone Number INTERFACE SYSTEM Refer to clinic/hospital department * (ABNORMAL) HEPATIC FUNCTION PANEL (01/11/2006 11:51 PM CDT) TOTAL PROTEIN 7.9 6.3 - 8.2 g/dL INTERFACE SYSTEM ALBUMIN 3.8 3.5 - 5.0 g/dL INTERFACE SYSTEM ALKALINE PHOSPHATASE 185(H) 25 - 100 U/L INTERFACE SYSTEM Comment: As of 05 the [facility] has changed testing methods. The new reference range is 25-100 The old referance range was 38-126 AST 49(H) 8 - 33 U/L INTERFACE SYSTEM Comment: As of 05 the [facility] has changed testing methods. The new reference range is 8-33 The old referance range was Males 17-59 Females 14-36 ALT 57(H) 4 - 36 IU/L INTERFACE SYSTEM Comment: As of 05 the [facility] has changed testing methods. The new reference range is 4-36 The old referance range was Males 21-72 Females 9-52 BILIRUBIN DIRECT 0.2 0.0 - 0.4 mg/dL INTERFACE SYSTEM BILIRUBIN TOTAL 0.7 0.3 - 1.2 mg/dL INTERFACE SYSTEM Comment: As of 05 the [facility] has changed testing methods. The new reference range is 0.3-1.2 The old referance range was 0.2-1.4 01/11/2006 11:5 1 PM CDT us José Miguel Dickerson MD CHEMISTRY ORDERABLES Final Resu lt INTERFACE SYSTEM Refer to clinic/hospital department * (ABNORMAL) BASIC METABOLIC PANEL (01/11/2006 11:51 PM CDT) GLUCOSE 114(H) 70 - 110 mg/dL INTERFACE SYSTEM BUN 17 9 - 20 mg/dL INTERFACE SYSTEM CREATININE 0.7 0.7 - 1.5 mg/dL INTERFACE SYSTEM SODIUM 135(L) 136 - 145 mEq/L INTERFACE SYSTEM POTASSIUM 4.3 3.5 - 5.0 mEq/L INTERFACE SYSTEM CHLORIDE 101 95 - 110 mEq/L INTERFACE SYSTEM CO2 30 22 - 32 mmol/l INTERFACE SYSTEM ANION GAP 8(L) 9 - 20 mEq/L INTERFACE SYSTEM OSMOLALITY, CALCULATED 282 275 - 295 mOsm/Kg INTERFACE SYSTEM CALCIUM 9.2 8.4 - 10.5 mg/dL INTERFACE SYSTEM 01/11/2006 11:5 1 PM CDT us José Miguel Dickerson MD CHEMISTRY ORDERABLES Final Resu lt Performing Organization Address [facility] Phone Number INTERFACE SYSTEM Refer to clinic/hospital department * (ABNORMAL) URINALYSIS MICROSCOPY ONLY (01/11/2006 10:27 PM CDT) WBC URINE 16-25(A) 0 - 2 INTERFACE SYSTEM RBC UA 0-2 0 - 2 INTERFACE SYSTEM HYALINE CAST None Seen 0 - 2 INTERFA CE SYSTEM BACTERIA UA Moderate(A ) None Seen INTERFACE SYSTEM 01/11/2006 10:2 7 PM CDT us José Miguel Dickerson MD URINE ORDERABLES Final Result Performing Organization Address [facility] Phone Number INTERFACE SYSTEM Refer to clinic/hospital department * (ABNORMAL) URINALYSIS (01/11/2006 10:27 PM CDT) COLOR UA Yellow Straw INTERFACE SYSTEM CLARITY UA SL CLOUDY Clear INTERFACE SYSTEM LEUKOCYTE ESTERASE UA Small(A) NEGATIVE INTERFACE SYSTEM NITRITE UA POSITIVE(A) NEGATIVE INTERFA CE SYSTEM PH UA 6.0 5.0 - 9.0 INTERFACE SYSTEM PROTEIN UA NEGATIVE NEGATIVE INTERFACE SYSTEM Comment: As of 04 positive protein results obtained on routine urinalysis will not be confirmed by sulfosalicylic acid (SSA) precipitation. Current methodology for protein detection is highly sensitive for detection of albumin; therefore, confirmation is not necessary. GLUCOSE UA NEGATIVE NEGATIVE INTERFACE SYSTEM KETONES UA NEGATIVE NEGATIVE INTERFACE SYSTEM UROBILINOGEN UA 0.2 0.2 INTE RFACE SYSTEM BILIRUBIN UA NEGATIVE NEGATIVE INTERFA CE SYSTEM BLOOD UA NEGATIVE NEGATIVE INTERFACE SYSTEM SPECIFIC GRAVITY UA 1.020 1.005 - 1.030 INTERFACE SYSTEM MICRO EXAM Yes(A) No INTERFACE SYSTEM 01/11/2006 10:2 7 PM CDT us José Miguel Dickerson MD URINE ORDERABLES Final Result INTERFACE SYSTEM Refer to clinic/hospital department * (ABNORMAL) CBC WITH DIFFERENTIAL (01/11/2006 7:12 AM CDT) WBC 9.4 4.8 - 10.8 K/ul INTERFACE SYSTEM RBC 4.77 4.60 - 6.20 Mil/ul INTERFACE SYSTEM HEMOGLOBIN 14.3 14.0 - 18.0 g/dL INTERFACE SYSTEM HEMATOCRIT 43.0 41.0 - 53.0 % INTERFACE SYSTEM MCV 90.1 84.0 - 103.0 Fl INTERFACE SYSTEM MCH 30.0 27.0 - 34.0 pg INTERFACE SYSTEM MCHC 33.3 30.0 - 35.0 g/dL INTERFACE SYSTEM RDW 13.5 11.0 - 14.5 % INTERFACE SYSTEM PLATELETS 330 140 - 440 K/ul INTERFACE SYSTEM MPV 10.4 8.9 - 12.8 Fl INTERFACE SYSTEM NEUTROPHILS 65.9 42.2 - 75.2 % INTERFACE SYSTEM LYMPHOCYTES 19.6(L) 24.0 - 44.0 % INTERFACE SYSTEM MONOCYTES 9.6 2.0 - 10.0 % INTERFACE SYSTEM EOSINOPHILS 3.9 0.0 - 7.0 % INTERFACE SYSTEM BASOPHILS 1.0 0.0 - 1.0 % INTERFACE SYSTEM NEUTROPHIL ABSOLUTE 6.2 2.0 - 8.0 K/uL INTERFACE SYSTEM LYMPHOCYTE ABSOLUTE 1.8 1.2 - 4.0 K/ul INTERFACE SYSTEM MONOCYTE ABSOLUTE 0.9(H) 0.1 - 0.6 K/ul INTERFACE SYSTEM EOSINOPHIL ABSOLUTE 0.4 0.0 - 0.7 K/ul INTERFACE SYSTEM BASOPHILS ABSOLUTE 0.1 0.0 - 0.2 K/ul INTERFACE SYSTEM 01/11/2006 7:12 AM CDT José Miguel Dickerson MD HEMATOLOGY ORDERABLES Final Res ult INTERFACE SYSTEM Refer to clinic/hospital department * (ABNORMAL) VITAMIN B12 (01/11/2006 7:12 AM CDT) VITAMIN B12 950(H) 211 - 911 pg/dL INTERFACE SYSTEM 01/11/2006 7:12 AM CDT us José Miguel Dickerson MD CHEMISTRY ORDERABLES Final Resu Performing Organization Address [facility] de Phone Number INTERFACE SYSTEM Refer to clinic/hospital department * TSH (01/11/2006 7:12 AM CDT) Pathologist [facility] TSH 2.073 0.350 - 5.500 uIU/ml INTERFACE SYSTEM Comment: As of 04 at 3:00 p.m. [facility] has changed the methodology for TSH, and with this change the reference range has changed from 0.49-4.67 to 0.35-5.5 uIU/ml. 01/11/2006 7:12 AM CDT José Miguel Dickerson MD CHEMISTRY ORDERABLES [facility] Performing Organization Address [facility] Phone Number INTERFACE SYSTEM Refer to clinic/hospital department * (ABNORMAL) COMPREHENSIVE METABOLIC PANEL (01/11/2006 7:12 AM CDT) Pathologist [facility] GLUCOSE 117(H) 70 - 110 mg/dL INTERFACE SYSTEM BUN 16 9 - 20 mg/dL INTERFACE SYSTEM CREATININE 0.6(L) 0.7 - 1.5 mg/dL INTERFACE SYSTEM SODIUM 135(L) 136 - 145 mEq/L INTERFACE SYSTEM POTASSIUM 4.1 3.5 - 5.0 mEq/L INTERFACE SYSTEM CHLORIDE 98 95 - 110 mEq/L INTERFACE SYSTEM CO2 28 22 - 32 mmol/l INTERFACE SYSTEM ANION GAP 13 9 - 20 mEq/L INTERFACE SYSTEM OSMOLALITY, CALCULATED 281 275 - 295 mOsm/Kg INTERFACE SYSTEM CALCIUM 9.2 8.4 - 10.5 mg/dL INTERFACE SYSTEM TOTAL PROTEIN 7.8 6.3 - 8.2 g/dL INTERFACE SYSTEM ALBUMIN 3.7 3.5 - 5.0 g/dL INTERFACE SYSTEM GLOBULIN (CALC) 4.1(H) 2.4 - 3.9 g/dL INTERFACE SYSTEM ALBUMIN/GLOBULIN RATIO 0.9(L) 1.0 - 2.3 INTERFACE SYSTEM ALKALINE PHOSPHATASE 188(H) 25 - 100 U/L INTERFACE SYSTEM Comment: As of 05 the [facility] has changed testing methods. The new reference range is 25-100 The old referance range was 38-126 AST 51(H) 8 - 33 U/L INTERFACE SYSTEM Comment: As of 05 the [facility] has changed testing methods. The new reference range is 8-33 The old referance range was Males 17-59 Females 14-36 ALT 62(H) 4 - 36 IU/L INTERFACE SYSTEM Comment: As of 05 the [facility] has changed testing methods. The new reference range is 4-36 The old referance range was Males 21-72 Females 9-52 BILIRUBIN TOTAL 0.6 0.3 - 1.2 mg/dL INTERFACE SYSTEM Comment: As of 05 the [facility] has changed testing methods. The new reference range is 0.3-1.2 The old referance range was 0.2-1.4 01/11/2006 7:12 AM CDT José Miguel Dickerson MD CHEMISTRY ORDERABLES Final Resu lt INTERFACE SYSTEM Refer to clinic/hospital department * XR SPEECH EVALUATION COMPLEX (01/10/2006 8:30 PM CDT) Anatomical Region Laterality Modality Other 01/10/2006 8:30 PM CDT Narrative 01/10/2006 8:30 PM CDT Video Swallow: Fluoroscopy was used for performance of video swallow study. For further details, please see speechpathology report. - Dictated By: Art Cristobal M.D. Electronically Signed By: Art Cristobal M.D. Date Signed: 01/15/06 Procedure Note 03/03/2009 Video Swallow: Fluoroscopy was used for performance of video swallow study. For furtherdetails, please see speechpathology report. - Dictated By: Art Cristobal M.D. Electronically Signed By: Art Cristobal M.D. Date Signed: 01/15/06 us Historical Provider DIAGNOSTIC IMAGING ORDERABLE S Final Result documented in this encounter Visit Diagnoses Diagnosis Other specified rehabilitation procedure(V57.89)- Primary Other specified rehabilitation procedure documented in this encounter
--- OUTSIDE RECORDS SUMMARY | 2025-03-20 07:08 | XMS_ITS | Clinical Summary ---
Author Organization [employer] Address [address] 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
--- OUTSIDE RECORDS SUMMARY | 2025-03-20 07:08 | XMS_ITS | Encounter Summary ---
Author Organization [facility] Address [address] [place] [address] Care Team Providers Care Psychiatric Security Nurse Name Role Phone Unavailable Primary Care Provider Unavailabl e Encounter Details Date Type Department Care Team (Late st Contact Info) Description 04/28/2007 Outpatient Historical [facility] [address], [address] [place] [address] Grant Mari MD NO ADDRESS ON FILE Social History Tobacco Use Types Packs/Day Years Used Date Smoking Tobacco: Never Assessed Sex and Gender Information Value Date Recorded Sex Assigned at Not on file 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
--- OUTSIDE RECORDS SUMMARY | 2025-03-20 07:08 | XMS_ITS | Clinical Summary ---
Author Organization [facility] Address [address] [place] [address] Phone Care Team Providers Care Developer Advocate Name Role Phone Unavailable Primary Care Provider Unavailabl e Medications atorvastatin (LIPITOR) 20 mg tablet Take 1 Tablet (20 mg) by mouth daily at bedtime. 30 Tablet 5 08/26/2023 Active aspirin (VALERIANO) 325 mg tablet Take 1 Tablet (325 mg) by mouth daily. 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 Gender Identity Not on file Sexual Orientation Not on file Last Filed Vital Signs Vital Sign Reading Time Taken Comments Blood Pressure 116/69 08/26/2023 7:14 AM CDT Pulse 77 08/26/2023 7:14 AM CDT Temperature 36.3 C (97.4 F) 08/26/2023 7:14 AM CDT Respiratory Rate 17 08/26/2023 7:14 AM CDT Oxygen Saturation 95% 08/26/2023 7:14 AM CDT Inhaled Oxygen Concentration - - Weight 71.3 kg (157 lb 3 oz) 08/26/2023 5:00 AM CDT Height 182.9 cm (6') 08/21/2023 2:51 AM CDT Body Mass Index 21.32 08/21/2023 2:51 AM CDT Plan of Treatment Health Maintenance Due Date Last Done Comments DTAP/TDAP/TD VACCINES (1 - Tdap) 1972 PNEUMOCOCCAL VACCINE 50+ YEARS (1 of 2 - PCV) 04/10/19 72 COLORECTAL SCREENING 1998 Colorectal Cancer Screening 1998 FIT-DNA Q 3 years 1998 FIT/FOBT Q 1 year 1998 Flex Sig/CT Colonography Q 5 years 1998 ZOSTER VACCINE (1 of 2) 2003 INFLUENZA VACCINE (#1) 2024 RSV VACCINE (60+ or ) (1 - 1-dose 75+ series) 2028 Insurance MEDICARE PART A AND B Advance Directives For more information, please contact: [phone] * Full Code (Latest Code Status on File) Date Activated Date Inactivated Comments 08/21/2023 4:41 AM 08/26/2023 4:42 PM
--- NOTE | 2025-03-20 07:09 | ED_ITS ---
HPI - Weakness 2 General: Chief complaint: Weakness Stated complaint: weakness Time Seen by Provider: 03/20/25 07:06 History of Present Illness: 69-year-old man with a history of TBI, h ypertension, hyperlipidemia, history of endocarditis, carotid artery stenosis, chronic generalized weakness, depression and polyneuropathy who presents to the emergency room by ambulance from [facility] ([facility]) with weakness and multiple falls. He says he just becomes weak and would collapse. He has not hit his head. He is not on any anticoagulation. He has no pain complaints. No focal motor deficits. No chest pain. No abdominal pain. No extremity injuries. Related Data Home Medications ?Medication ?Instructions ?Recorded ?Confirmed sertraline 100 mg tablet 100 mg PO DAILY 04/10/24 aripiprazole 5 mg tablet 5 mg PO DAILY 09/20/2412/02 Previous Rx's ?Medication ?Instructions ?Recorded pregabalin 25 mg capsule 25 mg PO DAILY #30 caps 07/06 losartan 25 mg tablet 25 mg PO DAILY 30 days #30 t abs 09/20/24 atorvastatin 40 mg tablet (Lipitor) 40 mg PO DAILY #90 tabs 09/29/24 carbidopa 25 mg-levodopa 100 mg 1 tab PO TID 90 days # 270 tabs 11/02/24 tablet (Sinemet) thiamine HCl (vitamin B1) 100 mg 100 mg PO BID 90 days #180 tabs 11/03/24 tablet ergocalciferol (vitamin D2) 1,250 50,000 unit PO .COMP DESIRE 3 months 11/08/24 mcg (50,000 unit) capsule #13 caps Allergies Allergy/AdvReac Type Severity Reaction Status Date / Time No Known Allergies Allergy Verified 03/20/25 07:15 Review of Systems 2 Narrative: Constitutional symptoms: Negative except as documented in HPI. Skin symptoms: Negative except as documented in HPI. Eye symptoms: Negative except as documented in HPI. ENMT symptoms: Negative except as documented in HPI. Respiratory symptoms: Negative except as documented in HPI. Cardiovascular symptoms: Negative except as documented in HPI. Gastrointestinal symptoms: Negative except as documented in HPI. Genitourinary symptoms: Negative except as documented in HPI. Musculoskeletal symptoms: Negative except as documented in HPI. Neurologic symptoms: Negative except as documented in HPI. Psychiatric symptoms: Negative except as documented in HPI. Endocrine symptoms: Negative except as documented in HPI. PFSH ED 2 PFS: Medical History (Updated 03/20/25 @ 08:55 by Rylee Swanson MD) Apraxia Social History Smoking and tobacco/nicotine status: former use of tobacco/nicotine Substance/Drug Use: never Physical Exam 2 Narrative: EXAM NARRATIVE: General: Alert, no acute distress. Skin: Warm, dry. Head: Normocephalic, atraumatic. Neck: Supple, trachea midline. Eye: Extraocular movements are intact. Ears, nose, mouth and throat: mucosa moist. Cardiovascular: Regular, Normal peripheral perfusion. Respiratory: Lungs are clear to auscultation, respirations are non-labored, breath sounds are equal, Symmetrical chest wall expansion. Gastrointestinal: Soft, Nontender, Non distended Musculoskeletal: Normal ROM, no deformity. Neurological: Alert and oriented, No focal neurological deficit observed. Psychiatric: Cooperative, appropriate mood & affect. Course 2 Vital Signs: Vital signs: Vital Signs Temperature 99.1 F 03/20/25 07:15 Pulse Rate 103 H 03/20/25 07:15 Respiratory Rate 14 03/20/25 07:15 Blood Pressure 122/71 03/20/25 07:15 Pulse Oximetry 91 03/20/25 07:15 Oxygen Delivery Me thod Room Air 03/20/25 07:06 MDM - Weakness Medical Decision Making Medical decision making Patient's reason for coming to the emergency room: Social determinants: I reviewed the patient's medical record. prison records reports 69-year-old man with a history of TBI, hypertension, hyperlipidemia, history of endocarditis, carotid artery stenosis, chronic generalized weakness, depression and polyneuropathy I reviewed the patient's current home meds prison medication list includes sertraline, carbidopa levodopa, thiamine, vitamin B12, atorvastatin, losartan, Tylenol and pregabalin Alternate historians: EMS Differential diagnosis for patient presenting with generalized weakness including but not limited to and based on the above HPI, review of systems and physical exam: Sepsis. Dehydration. Renal failure. Electrolyte abnormalities. Anemia. Congestive heart failure. Hypotension. Coronary syndrome. Hepatitis. Cirrhosis. Infections such as pneumonia, urinary tract infection, [place]ne illness, Cellulitis, Viral infections including influenza and Covid-19. Workup: labwork and lab/exam driven imaging ordered to evaluate, rule in and rule out above pathologies. EKG: Time 7:11 AM. Rate 100. Sinus tachycardia, No ST-T changes, no ectopy, normal NH & QRS intervals, This was reviewed and interpreted by myself the ER physician at 7:15 AM Chest x-ray: No acute process. No infiltrate. No pneumothorax. This was reviewed and interpreted by myself the emergency room physician. I also reviewed the radiology report. CT head: Advanced senescent changes. No acute intracranial process. No intracranial hemorrhage, no evidence of infarct. No evidence of acute fracture. This was reviewed and interpreted by myself the emergency room physician. I also reviewed the radiology report. Lab Review: Laboratory results were reviewed and interpreted by myself the emergency room physician. No leukocytosis. No anemia. No renal failure. Urinalysis is negative for infection. Assessment of risk: Level of risk: Hospitalization considerations: Reexamination: Patient remained stable. No increased work of breathing. No altered mental status. No focal motor deficits. Assessment and plan: Multiple falls Dehydration ? Normal saline bolus in the emergency room - Discharged home - Discussed plan with patient. Answered any questions. - Evaluation and treatment of this problem were appropriate in the emergency setting. Lab Data 03/20/25 08:07 03/20/25 08:07 Radiology Impressions Chest X-Ray 03/20/25 07:52 IMPRESSION: No acute disease. Head CT 03/20/25 07:52 IMPRESSION: 1. No acute findings. 2. Additional details as above. Laboratory Results WBC 7.16 10^3/uL (3.29-11.43) 03/20/25 08:07 RBC 5.37 10^6/uL (3.85-5.65) 03/20/25 08:07 Hgb 15.90 g/dL (11.27-16.99) 03/20/25 08:07 Hct 47.9 % (37-53) 03/20/25 08:07 MCV 89.2 fl (82-101) 03/20/25 08:07 MCH 29.6 pg (27-33) 03/20/25 08:07 MCHC 33.2 g/dL (30-55) 03/20/25 08:07 RDW 12.7 % (12.1-15.1) 03/20/25 08:07 Plt Count 140 10^3/cmm (157-399) L 03/20/25 08:07 MPV 10.4 fL (7.4-10.4) 03/20/25 08:07 Neut % (Auto) 78.4 % 03/20/25 08:07 Lymph % (Auto) 8.5 % 03/20/25 08:07 Faulk % (Auto) 11.3 % 03/20/25 08:07 Eos % (Auto) 0.8 % 03/20/25 08:07 Baso % (Auto) 0.4 % 03/20/25 08:07 Neut # (Auto) 5.61 10^3/uL (1.8-7.7) 03/20/25 08:07 Lymph # (Auto) 0.6 10^3/uL (0.8-4.8) L 03/20/25 08:07 Faulk # (Auto) 0.8 10^3/uL (0.2-0.9) 03/20/25 08:07 Eos # (Auto) 0.1 10^3/uL (0.0-0.8) 03/20/25 08:07 Baso # (Auto) 0.0 10^3/uL (0.0-0.1) 03/20/25 08:07 Nucleated RBC % (auto) 0 % 03/20/25 08:07 Nucleated RBCs # 0.0 /100WBC 03/20/25 08:07 Sodium 138 mmol/L (136-145) 03/20/25 08:07 Potassium 4.1 mmol/L (3.5-5.1) 03/20/25 08:07 Chloride 103 mmol/L (98-107) 03/20/25 08:07 Carbon Dioxide 24 mmol/L (22-29) 03/20/25 08:07 Anion Gap 15.1 (5-19) 03/20/25 08:07 BUN 20 mg/dL (8-23) 03/20/25 08:07 Creatinine 1.0 mg/dL (0.7-1.2) 03/20/25 08:07 GFR Calculation Not Reportable 03/20/25 08:07 Glucose 75 mg/dL (65-115) 03/20/25 08:07 Calculated Osmolality 287 mOsm/kg (285-295) 03/20/25 08:07 Lactic Acid 1.3 mmol/L (0.5-2.2) 03/20/25 08:07 Calcium 9.2 mg/dL (8.5-10.5) 03/20/25 08:07 Total Bilirubin 0.6 mg/dL (0.15-1.2) 03/20/25 08:07 AST 22 U/L (0-40) 03/20/25 08:07 ALT 26 U/L (0-41) 03/20/25 08:07 Alkaline Phosphatase 92 U/L (40-130) 03/20/25 08:07 C-Reactive Protein 11.7 mg/L (0.0-4.9) H 03/20/25 08:07 Total Protein 7.0 g/dL (6.6-8.7) 03/20/25 08:07 Albumin 4.0 g/dL (3.5-5.2) 03/20/25 08:07 Globulin 3.0 g/dL (1.3-4.6) 03/20/25 08:07 Procalcitonin 0.07 ng/mL (0-0.5) 03/20/25 08:07 Urine Color Yellow (Yellow) 03/20/25 07:35 Urine Appearance Clear (CLEAR) 03/20/25 07:35 Urine pH 5.5 (5-7) 03/20/25 07:35 Ur Specific [place] 1.019 (1.005-1.030) 03/20/25 07:35 Urine Protein Negative (Negative) 03/20/25 07:35 Urine Glucose (UA) Negative (Normal) 03/20/25 07:35 Urine Ketones Trace (Negative) 03/20/25 07:35 Urine Blood Negative (Negative) 03/20/25 07:35 Urine Nitrate Negative (Negative) 03/20/25 07:35 Urine Bilirubin Negative (Negative) 03/20/25 07:35 Urine Urobilinogen 1.0 mg/dL (Negative) 03/20/25 07:35 Ur Leukocyte Esterase Negative (Negative) 03/20/25 07:35 Amorphous Sediment Not Reportable 03/20/25 07:35 All radiology interpretation(s) finalized by discharge Discharge Plan Discharge Patient Disposition: Home Clinical Impression: Dehydration, Weakness, Multiple falls Condition: Stable Prescriptions: No Action carbidopa-levodopa [Sinemet] 25-100 mg tablet 1 tab PO TID 90 Days Qty: 270 0RF aripiprazole 5 mg tablet 5 mg PO DAILY losartan 25 mg tablet 25 mg PO DAILY 30 Days Qty: 30 5RF atorvastatin [Lipitor] 40 mg tablet 40 mg PO DAILY Qty: 90 3RF Rx Instructions: Repeat Lipid panel 2 months after starting this medication thiamine HCl (vitamin B1) 100 mg tablet 100 mg PO BID 90 Days Qty: 180 3RF ergocalciferol (vitamin D2) 1,250 mcg (50,000 unit) capsule 50,000 unit PO .COMPLEX 90 Days Qty: 13 3RF Rx Instructions: 50,000 units orally .weekly; sertraline 100 mg Tablet 100 mg PO DAILY pregabalin 25 mg capsule 25 mg PO DAILY Qty: 30 0RF Discharge Orders: Discharge ED (Routine); Ordered 03/20/25 Ordered By: Rylee Swanson Referrals: Lisseth Pink FNP [Primary Care Provider, Nurse Practitioner] Discharge Diet: Usual diet Discharge Activity: Increase activity as tolerated Patient Instructions: Fall Prevention for Older Adults (ED), Opioid Safety, Pain Management, Patient Portal & Reed Instructions Activity Restrictions/Additional Instructions: Thank you for choosing [facility] for your healthcare needs today. You have been screened and evaluated and felt safe for discharge. Health conditions do change or evolve sometimes and as such it is important that you follow up with your Primary Doctor to be re checked, 3-5 days is a general good time frame for follow up. You are always welcome to return to the ED for re assessment if your symptoms are worsening or you have new concerns Print Language: Ivorian Coding Level of Care Code ED Shake Out Worker for Mayi Stern
--- NOTE | 2025-03-20 07:11 | ECG_ITS ---
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 Measurements Intervals [place] Rate: 100 P: 52 DE: 172 QRS: 12 QRSD: 78 T: 55 QT: 350 QTc: 452 Interpretive Statements SINUS TACHYCARDIA ABNORMAL RHYTHM ECG INTERPRETATION BASED ON A DEFAULT AGE OF 40 YEARS Compared to ECG 04/10/2024 10:40:49 Normal Sinus Rhythm no longer present Electronically Signed On 03-23-2025 22:20:46 VISUAL TRAINING AIDE by Pradeep Conteh M.D. [email or web address]
[2025-03-20 07:15] VITALS: BP 122/71; PULSE 103; RESP 14; TEMP 37.3; O2SAT 91
--- NOTE | 2025-03-20 07:52 | CTR_ITS ---
PROCEDURE INFORMATION: Exam: CT Head Without Contrast Exam date and time: 03/20/2025 8:09 AM Age: 69 years old Clinical indication: Weakness, extremity TECHNIQUE: Imaging protocol: Computed tomography of the head without contrast. Radiation optimization: All CT scans at this facility use at least one of these dose optimization techniques: automated exposure control; mA and/or kV adjustment per patient size (includes targeted exams where dose is matched to clinical indication); or iterative reconstruction. COMPARISON: CT head wo con* [id number] 12/17/2024 2:37 PM RADIATION DOSE METRICS: Total DLP (mGy-cm): 1058.88 FINDINGS: Brain: Moderate to severe diffuse atrophy of the brain.There is ill-defined, fairly symmetric low-density within the cerebral deep white matter bilaterally which is likely the sequela of chronic ischemic change due to small vessel disease. No CT evidence of mass effect, intracranial hemorrhage, or acute infarct. Cerebral ventricles: Prominent ventricles due to the atrophy. Otherwise, unremarkable. Paranasal sinuses: Visualized sinuses are unremarkable. No fluid levels. Mastoid air cells: Visualized mastoid air cells are well aerated. Auditory system: Clear middle ear cavities bilaterally. Bones: Unremarkable. No acute fracture. Soft tissues: Otherwise, unremarkable. CT/CT head wo con* [id number] IMPRESSION: 1. No acute findings. 2. Additional details as above.
--- NOTE | 2025-03-20 07:52 | XRR_ITS ---
PROCEDURE INFORMATION: Exam: XR Chest Exam date and time: 03/20/2025 8:11 AM Age: 69 years old Clinical indication: Other: Weakness TECHNIQUE: Imaging protocol: Radiologic exam of the chest. Views: 1 view. COMPARISON: CR XR chest 1V portable [id number] 04/15/2024 10:16 PM FINDINGS: Lungs: Unchanged scarring in the lung bases. Otherwise, unremarkable. Pleural spaces: Unremarkable. No pleural effusion. No pneumothorax. Heart/Mediastinum: Unremarkable. No cardiomegaly. Diaphragm: Unchanged mild elevation of the right hemidiaphragm. Bones/joints: Unremarkable. XR/XR chest 1V portable [id number] IMPRESSION: No acute disease.
[2025-03-20 08:06] LABS: Glucose Urine UA Negative (Normal); Nitrate Urine Negative (Negative); Specific Gravity, Urine 1.019 (1.005-1.030)
[2025-03-20 08:15] LABS: Hematocrit 47.9 % (37-53); Hemoglobin 15.90 g/dL (11.27-16.99); Mean Corpuscular HGB Conc 33.2 g/dL (30-55); Mean Corpuscular Hemoglobin 29.6 pg (27-33); Mean Corpuscular Volume 89.2 fl (82-101); Nucleated Red Blood Cells % 0 %; Platelet Count 140 10^3/cmm (157-399); Red Blood Count 5.37 10^6/uL (3.85-5.65); White Blood Count 7.16 10^3/uL (3.29-11.43)
[2025-03-20 08:31] LABS: Alanine Aminotransferase 26 U/L (0-41); Albumin Level 4.0 g/dL (3.5-5.2); Alkaline Phosphatase 92 U/L (40-130); Anion Gap 15.1 (5-19); Aspartate Amino Transferase 22 U/L (0-40); Blood Urea Nitrogen 20 mg/dL (8-23); Calcium 9.2 mg/dL (8.5-10.5); Carbon Dioxide 24 mmol/L (22-29); Chloride 103 mmol/L (98-107); Globulin 3.0 g/dL (1.3-4.6); Glucose 75 mg/dL (65-115); Lactic Sepsis W/Reflex 1.3 mmol/L (0.5-2.2); Osmolality Calculated 287 mOsm/kg (285-295); Potassium 4.1 mmol/L (3.5-5.1); Sodium 138 mmol/L (136-145); Total Protein 7.0 g/dL (6.6-8.7)
[2025-03-20 08:38] LABS: Procalcitonin 0.07 ng/mL (0-0.5)
--- NOTE | 2025-03-20 09:18 | PC.NURSE ---
called report to Dawna at [facility] in [place]. she states that they do not have transport, but to call his daughter and she would probably come get him.
[2025-03-20 10:14] VITALS: BP 136/71; PULSE 91; O2SAT 94
[2025-03-21 05:12] LABS: Bacillus cereus group Not Detected (NOT DETECT); Bacillus subtillis group Not Detected (NOT DETECT); Corynebacterium Not Detected (NOT DETECT); Cutibacterium acnes (P.acnes) Not Detected (NOT DETECT); Enterococcus faecalis Not Detected (NOT DETECT); Enterococcus faecium Not Detected (NOT DETECT); Listeria Not Detected (NOT DETECT); Micrococcus Not Detected (NOT DETECT); Pan Candida Not Detected (NOT DETECT); Pan Gram-Negative Not Detected (NOT DETECT); Staphylococcus epidermidis Detected (NOT DETECT); Staphylococcus lugdunensis Not Detected (NOT DETECT); Staphylococcus species Detected (NOT DETECT); Streptococcus anginosus group Not Detected (NOT DETECT); Streptococcus pyogenes Not Detected (NOT DETECT); Streptococcus species Not Detected (NOT DETECT); mecA Not Detected (NOT DETECT); mecC Not Detected (NOT DETECT)
== END 2025-03-20 10:14 | disposition home or self-care (01) ==
PROVIDERS: Emergency Provider Emergency Medicine; PCP Nurse Practitioner Family
DX: E86.0 Dehydration (principal); R53.1 Weakness; R29.6 Repeated falls; Z87.891 Personal history of nicotine dependence
CPT/HCPCS: 36415; 70450; 71045; 80053; 81001; 83605; 84145; 85025; 86140; 87040; 87077; 87150; 87186; 87205; 93005; 99285; J7040

== ENCOUNTER 2025-03-31 08:42 | Inpatient (IN) | payer MEDICARE, MEDICAID, SELFPAY ==
[2025-03-31] VITALS (8 sets, daily range): BP systolic 87–138; BP diastolic 55–71; PULSE 64–85; RESP 14–20; TEMP 36.5–37.1; O2SAT 89–96; BMI 23.3
--- NOTE | 2025-03-31 08:44 | CT_ITS ---
WS: [id number] CTA HEAD AND NECK TECHNIQUE: Contrast enhanced CTA of the head and neck with coronal and sagittal reformatted images and maximum intensity projection (MIP) images. NASCET criteria utilized. CLINICAL INFORMATION: Acute CVA COMPARISON: MRA 07/07/2024 DLP: 497.[address] scans at [facility] use at least one of these dose optimization techniques: automated exposure control; mA and/or kV adjustment per patient size (includes targeted exams where dose is matched to clinical indication); or iterative reconstruction. FINDINGS: RIGHT: Approximately 50% RIGHT proximal ICA stenosis. RIGHT ICA is patent to the skull base. LEFT: 70 to 80% LEFT proximal ICA stenosis with eccentric atheromatous plaque. LEFT ICA is patent to the skull base. INTRACRANIAL CTA: RIGHT dominant vertebral artery. Smaller but patent LEFT vertebral artery. Basilar artery is patent. Normal vascularity to the TAXICAB DRIVER territory bilaterally. Both ICAs are patent at the skull base. Cavernous carotid calcification. Small RIGHT A1 segment. Normal vascularity to the MARIELLA and MCA territories bilaterally. Mild RIGHT supraclinoid ICA stenosis. Advanced chronic emphysematous changes in the lung apices. CT/CT angio headneck* [id number] IMPRESSION: 1. Approximately 70% LEFT proximal ICA stenosis appears progressed compared to previous with eccentric atheromatous plaque. LEFT ICA remains patent to the sk ull base. 2. Approximately 50% RIGHT proximal ICA stenosis. RIGHT ICA remains patent to the skull base. 3. No proximal flow-limiting intracranial stenosis. 4. RIGHT dominant vertebral artery. Smaller but patent LEFT vertebral artery. 5. Approximately 70% LEFT proximal subclavian stenosis just distal to the orig in extending over approximately 2.1 cm. Patient risk for subclavian steal. Dire ctional flow better evaluated with ultrasound 6. No other acute findings
--- NOTE | 2025-03-31 08:44 | CT_ITS ---
WS: [id number] CT HEAD TECHNIQUE: Noncontrast CT of the head obtained from the skullbase to the vertex. CLINICAL INFORMATION: Symptoms of acute stroke COMPARISON: 03/20/2025 DLP: [address] scans [address] [facility] use at least one of these dose optimization techniques: automated exposure control; mA and/or kV adjustment per patient size (includes targeted exams where dose is matched to clinical indication); or iterative reconstruction. FINDINGS: No evidence of intracranial hemorrhage or mass effect. Ventricular system and basal cisterns are patent. Moderate small vessel changes with moderate parenchymal volume loss. No extra-axial fluid collections. No evidence of mass or mass effect. Vascular calcification Paranasal sinuses and mastoid air cells are well aerated. .Normal visualized soft tissues. CT/CT head thrombolytic [id number] IMPRESSION: 1. No evidence of intracranial hemorrhage or mass effect. 2. Moderate small vessel changes with moderate parenchymal volume loss. 3. No acute intracranial findings. Notified Zay Ferro DO at 03/31/2025 8:59 AM.
--- NOTE | 2025-03-31 08:44 | ECG_ITS ---
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
[2025-03-31] MEDS: iohexol 350 mg/mL 500 mL Btl (per mL) IV (09:00)
--- OUTSIDE RECORDS SUMMARY | 2025-03-31 09:05 | XMS_ITS | Encounter Summary ---
Author Organization [employer] Address 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
--- OUTSIDE RECORDS SUMMARY | 2025-03-31 09:05 | XMS_ITS | Encounter Summary ---
Author Organization [employer] [facility] Address [address] [place] [address] Care Team Providers Care Dental Biller Name Role Phone Unavailable Primary Care Provider Unavailabl e Encounter Details Date Type Department Care Team (Late st Contact Info) Description 04/28/2007 Outpatient Historical [facility] Neurology [address], [address] [place] [address] Grant Mari MD NO ADDRESS ON FILE Social History Tobacco Use Types Packs/Day Years Used Date Smoking Tobacco: Never Assessed Sex and Gender Information Value Date Recorded Sex Assigned at Not on file 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
--- OUTSIDE RECORDS SUMMARY | 2025-03-31 09:06 | XMS_ITS | Clinical Summary ---
Author Organization [employer] Address [address] 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
--- OUTSIDE RECORDS SUMMARY | 2025-03-31 09:06 | XMS_ITS | Encounter Summary ---
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 Gender Identity Not on file Sexual Orientation [...] CARE TESTING Final Result Performing Organization Address [facility] de Phone Number INTERFACE SYSTEM Refer to clinic/hospital department * POC GLUCOSE (01/10/2006 11:38 AM CDT) GLUCOSE POC 100 60 - 100 mg/dL INTERFACE SYSTEM 01/10/2006 11:3 8 AM CDT us Junior Poe MD POINT OF CARE TESTING Final Result Performing Organization Address City/[facility]/ZIP Co de Phone Number INTERFACE SYSTEM Refer to clinic/hospital department * (ABNORMAL) POC GLUCOSE (01/10/2006 8:17 AM CDT) GLUCOSE POC 130(H) 60 - 100 mg/dL INTERFACE SYSTEM 01/10/2006 8:17 AM CDT Result Maikol Poe MD POINT OF CARE TESTING Final Result Performing Organization Address City/[facility] Co de Phone Number INTERFACE SYSTEM Refer to clinic/hospital department * (ABNORMAL) POC GLUCOSE (01/09/2006 9:28 PM CDT) GLUCOSE POC 126(H) 60 - 100 mg/dL INTERFACE SYSTEM 01/09/2006 9:28 PM CDT Result Maikol Poe MD POINT OF CARE TESTING Final Result Performing Organization Address [facility] Phone Number INTERFACE SYSTEM Refer to clinic/hospital department * (ABNORMAL) POC GLUCOSE (01/09/2006 5:22 PM CDT) GLUCOSE POC 154(H) 60 - 100 mg/dL INTERFACE SYSTEM 01/09/2006 5:22 PM CDT Result Maikol Poe MD POINT OF CARE TESTING Final Result Performing Organization Address [facility] Phone Number INTERFACE SYSTEM Refer to clinic/hospital department * (ABNORMAL) POC GLUCOSE (01/09/2006 11:11 AM CDT) GLUCOSE POC 138(H) 60 - 100 mg/dL INTERFACE SYSTEM 01/09/2006 11:1 1 AM CDT Result Maikol Poe MD POINT OF CARE TESTING Final Result Performing Organization Address City/[facility] Co de Phone Number INTERFACE SYSTEM Refer [...] HEMATOLOGY ORDERABLES Final Result Performing Organization Address [facility] Phone Number INTERFACE SYSTEM Refer to clinic/hospital department * POC GLUCOSE (01/09/2006 5:35 AM CDT) GLUCOSE POC 98 60 - 100 mg/dL INTERFACE SYSTEM 01/09/2006 5:35 AM CDT Chadd Yanes Jr., MD POINT OF CARE TESTING F inal Result Performing Organization Address [facility] Phone Number INTERFACE SYSTEM Refer to clinic/hospital department * (ABNORMAL) POC GLUCOSE (01/08/2006 7:59 PM CDT) GLUCOSE POC 131(H) 60 - 100 mg/dL INTERFACE SYSTEM 01/08/2006 7:59 PM CDT Chadd Yanes Jr., MD POINT OF CARE TESTING F inal Result Performing Organization Address [facility] Phone Number INTERFACE SYSTEM Refer to clinic/hospital department * (ABNORMAL) POC GLUCOSE (01/08/2006 5:41 PM CDT) GLUCOSE POC 136(H) 60 - 100 mg/dL INTERFACE SYSTEM 01/08/2006 5:41 PM CDT Chadd Yanes Jr., MD POINT OF CARE TESTING F inal Result Performing Organization Address [facility] Phone Number INTERFACE SYSTEM Refer to clinic/hospital department * (ABNORMAL) POC GLUCOSE (01/08/2006 11:03 AM CDT) GLUCOSE POC 145(H) 60 - 100 mg/dL INTERFACE SYSTEM 01/08/2006 11:0 3 AM CDT us Chadd Yanes Jr., MD POINT OF CARE TESTING F inal Result Performing Organization Address City/[facility] de Phone Number INTERFACE SYSTEM Refer to clinic/hospital department * (ABNORMAL) POC GLUCOSE (01/08/2006 5:32 AM CDT) GLUCOSE POC 131(H) 60 - 100 mg/dL INTERFACE SYSTEM 01/08/2006 5:32 AM CDT Chadd Yanes Jr., MD POINT OF CARE TESTING F inal Result Performing Organization Address [facility] Phone Number INTERFACE SYSTEM Refer to clinic/hospital department * (ABNORMAL) POC GLUCOSE (01/07/2006 8:15 PM CDT) GLUCOSE POC 138(H) 60 - 100 mg/dL INTERFACE SYSTEM 01/07/2006 8:15 PM CDT Chadd Yanes Jr., MD POINT OF CARE TESTING F inal Result Performing Organization Address [facility] Phone Number INTERFACE SYSTEM Refer to clinic/hospital department * (ABNORMAL) POC GLUCOSE (01/07/2006 4:08 PM CDT) GLUCOSE POC 145(H) 60 - 100 mg/dL INTERFACE SYSTEM 01/07/2006 4:08 PM CDT Chadd Yanes Jr., MD POINT OF CARE TESTING F inal Result Performing Organization Address [facility] Phone Number INTERFACE SYSTEM Refer to clinic/hospital department * (ABNORMAL) POC GLUCOSE (01/07/2006 10:43 AM CDT) GLUCOSE POC 102(H) 60 - 100 mg/dL INTERFACE SYSTEM 01/07/2006 10:4 3 AM CDT us Chadd Yanes Jr., MD POINT OF CARE TESTING F inal Result Performing Organization Address City/[facility] de Phone Number INTERFACE SYSTEM [...] TESTING F inal Result Performing Organization Address City/[facility] Phone Number INTERFACE SYSTEM Refer to clinic/hospital department * (ABNORMAL) POC GLUCOSE (01/06/2006 4:05 PM CDT) GLUCOSE POC 152(H) 60 - 100 mg/dL INTERFACE SYSTEM 01/06/2006 4:05 PM CDT us Chadd Yanes Jr., MD POINT OF CARE TESTING F inal Result Performing Organization Address [facility] Phone Number INTERFACE SYSTEM Refer to clinic/hospital department * (ABNORMAL) POC GLUCOSE (01/06/2006 11:23 AM CDT) GLUCOSE POC 134(H) 60 - 100 mg/dL INTERFACE SYSTEM 01/06/2006 11:2 3 AM CDT us Chadd Yanes Jr., MD POINT OF CARE TESTING F inal Result Performing Organization Address [facility] Phone Number INTERFACE SYSTEM Refer to clinic/hospital [...] COM F inal Result Performing Organization Address City/[facility] Co de Phone Number INTERFACE SYSTEM Refer to clinic/hospital department * (ABNORMAL) POC GLUCOSE (01/06/2006 5:08 AM CDT) GLUCOSE POC 176(H) 60 - 100 mg/dL INTERFACE SYSTEM 01/06/2006 5:08 AM CDT Junior Poe MD POINT OF CARE TESTING Final Result Performing Organization Address [facility] Co de Phone Number INTERFACE SYSTEM Refer [...] CARE TESTING Final Result Performing Organization Address City/[facility] Co de Phone Number INTERFACE SYSTEM Refer [...] INTERFACE SYSTEM 01/05/2006 8:11 PM CDT us Jnuior Poe MD POINT OF CARE TESTING COM F inal Result Performing Organization Address City/[facility]/ZIP Co de Phone Number INTERFACE SYSTEM Refer [...] CARE TESTING Final Result Performing Organization Address [facility] Co de Phone Number INTERFACE SYSTEM Refer [...] COM F inal Result Performing Organization Address City/[facility] de Phone Number INTERFACE SYSTEM Refer to clinic/hospital department * (ABNORMAL) POC GLUCOSE (01/05/2006 5:30 AM CDT) GLUCOSE POC 149(H) 60 - 100 mg/dL INTERFACE SYSTEM 01/05/2006 5:30 AM CDT Junior Poe MD POINT OF CARE TESTING Final Result Performing Organization Address [facility] Phone Number INTERFACE SYSTEM Refer to clinic/hospital [...] HEMATOLOGY ORDERABLES Final Result Performing Organization Address [facility] Phone Number INTERFACE SYSTEM Refer to clinic/hospital department * (ABNORMAL) POC GLUCOSE (01/04/2006 8:54 PM CDT) GLUCOSE POC 149(H) 60 - 100 mg/dL INTERFACE SYSTEM 01/04/2006 8:54 PM CDT Result Maikol Poe MD POINT OF CARE TESTING Final Result Performing Organization Address [facility] Phone Number INTERFACE SYSTEM Refer to clinic/hospital department * (ABNORMAL) POC GLUCOSE (01/04/2006 4:19 PM CDT) GLUCOSE POC 137(H) 60 - 100 mg/dL INTERFACE SYSTEM 01/04/2006 4:19 PM CDT Result Maikol Poe MD POINT OF CARE TESTING Final Result Performing Organization Address [facility] Phone Number INTERFACE SYSTEM Refer to clinic/hospital department * (ABNORMAL) POC GLUCOSE (01/04/2006 11:59 AM CDT) GLUCOSE POC 178(H) 60 - 100 mg/dL INTERFACE SYSTEM 01/04/2006 11:5 9 AM CDT Result Maikol Poe MD POINT OF CARE TESTING Final Result Performing Organization Address [facility] Phone Number INTERFACE SYSTEM Refer to clinic/hospital department * POC GLUCOSE (01/04/2006 5:00 AM CDT) Pathologist [facility] GLUCOSE POC 96 60 - 100 mg/dL INTERFACE SYSTEM 01/04/2006 5:00 AM CDT us Junior Poe MD POINT OF CARE TESTING Final Result Performing Organization Address [facility] Phone Number INTERFACE SYSTEM Refer to clinic/hospital department * (ABNORMAL) BASIC METABOLIC PANEL (01/04/2006 4:21 AM CDT) Pathologist [facility] GLUCOSE 128(H) 70 - 110 mg/dL INTERFACE [...] CHEMISTRY ORDERABLES Final Result Performing Organization Address [facility] Phone Number INTERFACE SYSTEM Refer to clinic/hospital department * (ABNORMAL) CBC WITH DIFFERENTIAL (01/04/2006 4:21 AM CDT) Pathologist [facility] WBC 17.4(H) 4.8 - 10.8 K/ul INTERFACE [...] HEMATOLOGY ORDERABLES Final Result Performing Organization Address [facility] de Phone Number INTERFACE SYSTEM Refer to clinic/hospital department * (ABNORMAL) POC GLUCOSE (01/03/2006 9:27 PM CDT) GLUCOSE POC 148(H) 60 - 100 mg/dL INTERFACE SYSTEM 01/03/2006 9:27 PM CDT us Junior Poe MD POINT OF CARE TESTING Final Result Performing Organization Address City/[facility] de Phone Number INTERFACE SYSTEM Refer to clinic/hospital department * (ABNORMAL) POC GLUCOSE (01/03/2006 5:12 PM CDT) GLUCOSE POC 124(H) 60 - 100 mg/dL INTERFACE SYSTEM 01/03/2006 5:12 PM CDT Result Maikol Poe MD POINT OF CARE TESTING Final Result Performing Organization Address City/[facility] de Phone Number INTERFACE SYSTEM [...] CARE TESTING Final Result Performing Organization Address [facility] Phone Number INTERFACE SYSTEM Refer to clinic/hospital department * PHOSPHORUS (01/03/2006 4:14 AM CDT) Pathologist [facility] PHOSPHORUS 3.0 2.5 - 4.6 mg/dL INTERFACE SYSTEM 01/03/2006 4:14 AM CDT us Junior Poe MD CHEMISTRY ORDERABLES Final Result Performing Organization Address [facility] Phone Number INTERFACE SYSTEM Refer to clinic/hospital department * MAGNESIUM LEVEL (01/03/2006 4:14 AM CDT) Pathologist [facility] MAGNESIUM 2.3 1.7 - 2.4 mg/dL INTERFACE SYSTEM Comment: As of 05 the [facility] has changed testing methods. The new reference range is 1.7-2.4 The old referance range was 1.6-2.3 01/03/2006 4:14 AM CDT us Junior Poe MD CHEMISTRY ORDERABLES Final Result Performing Organization Address [facility] Phone Number INTERFACE SYSTEM Refer to clinic/hospital [...] INTERFACE SYSTEM Comment: As of 05 the [facility] has changed testing methods. The new reference range is 25-100 The old referance range was 38-126 AST 115(H) 8 - 33 U/L INTERFACE SYSTEM Comment: As of 05 the [facility] has changed testing methods. The new reference range is 8-33 The old referance range was Males 17-59 Females 14-36 ALT 101(H) 4 - 36 IU/L INTERFACE SYSTEM Comment: As of 05 the [facility] has changed testing methods. The new reference range is 4-36 The old referance range was Males 21-72 Females 9-52 BILIRUBIN TOTAL 0.9 0.3 - 1.2 mg/dL INTERFACE SYSTEM Comment: As of 05 the [facility] has changed testing methods. The new [...] HEMATOLOGY ORDERABLES Final Result Performing Organization Address [facility] de Phone Number INTERFACE SYSTEM Refer to clinic/hospital department * VANCOMYCIN LEVEL PEAK (01/03/2006 2:09 AM CDT) VANCOMYCIN, PEAK 27.8 25.0 - 40.0 mcg/mL INTERFACE SYSTEM 01/03/2006 2:09 AM CDT Junior Poe MD CHEMISTRY ORDERABLES Final Result Performing Organization Address [facility] Co sd Phone Number INTERFACE SYSTEM Refer to clinic/hospital department * VANCOMYCIN LEVEL TROUGH (01/02/2006 11:14 PM CDT) VANCOMYCIN, TROUGH 9.2 5.0 - 15.0 mcg/mL INTERFACE SYSTEM 01/02/2006 11:1 4 PM CDT Result Maikol Poe MD CHEMISTRY ORDERABLES Final Result Performing Organization Address [facility] Phone Number INTERFACE SYSTEM Refer to clinic/hospital department * (ABNORMAL) POC GLUCOSE (01/02/2006 8:27 PM CDT) GLUCOSE POC 141(H) 60 - 100 mg/dL INTERFACE SYSTEM 01/02/2006 8:27 PM CDT Result Maikol Poe MD POINT OF CARE TESTING Final Result Performing Organization Address [facility] Phone Number INTERFACE SYSTEM Refer to clinic/hospital department * (ABNORMAL) POC GLUCOSE (01/02/2006 4:38 PM CDT) GLUCOSE POC 126(H) 60 - 100 mg/dL INTERFACE SYSTEM 01/02/2006 4:38 PM CDT Result Maikol Poe MD POINT OF CARE TESTING Final Result Performing Organization Address [facility] Phone Number INTERFACE SYSTEM Refer to clinic/hospital department * (ABNORMAL) POC GLUCOSE (01/02/2006 11:46 AM CDT) GLUCOSE POC 134(H) 60 - 100 mg/dL INTERFACE SYSTEM 01/02/2006 11:4 6 AM CDT us Junior Poe MD POINT OF CARE TESTING Final Result Performing Organization Address [facility] Phone Number INTERFACE SYSTEM Refer to clinic/hospital department * (ABNORMAL) POC GLUCOSE (01/02/2006 5:40 AM CDT) GLUCOSE POC 149(H) 60 - 100 mg/dL INTERFACE SYSTEM 01/02/2006 5:40 AM CDT Result Maikol Poe MD POINT OF CARE TESTING Final Result INTERFACE SYSTEM Refer to clinic/hospital department * (ABNORMAL) CBC WITH DIFFERENTIAL (01/02/2006 4:23 AM CDT) Pathologist [facility] WBC 19.4(H) 4.8 - 10.8 K/ul INTERFACE [...] CHEMISTRY ORDERABLES Final Result Performing Organization Address [facility] Phone Number INTERFACE SYSTEM Refer to clinic/hospital department * (ABNORMAL) POC GLUCOSE (01/01/2006 9:24 PM CDT) GLUCOSE POC 154(H) 60 - 100 mg/dL INTERFACE SYSTEM 01/01/2006 9:24 PM CDT us Junior Poe MD POINT OF CARE TESTING Final Result Performing Organization Address [facility] Phone Number INTERFACE SYSTEM Refer to clinic/hospital department * (ABNORMAL) POC GLUCOSE (01/01/2006 4:53 PM CDT) GLUCOSE POC 145(H) 60 - 100 mg/dL INTERFACE SYSTEM 01/01/2006 4:53 PM CDT us Junior Poe MD POINT OF CARE TESTING Final Result Performing Organization Address [facility] Phone Number INTERFACE SYSTEM Refer to clinic/hospital department * VANCOMYCIN LEVEL PEAK (01/01/2006 2:38 PM CDT) VANCOMYCIN, PEAK 26.8 25.0 - 40.0 mcg/mL INTERFACE SYSTEM 01/01/2006 2:38 PM CDT Rico Curiel DO CHEMISTRY ORDERABLES Final Res ult Performing Organization Address [facility] Phone Number INTERFACE SYSTEM Refer to clinic/hospital department * VANCOMYCIN LEVEL TROUGH (01/01/2006 11:51 AM CDT) VANCOMYCIN, TROUGH 10.1 5.0 - 15.0 mcg/mL INTERFACE SYSTEM 01/01/2006 11:5 1 AM CDT Rico Curiel DO CHEMISTRY ORDERABLES Final Res ult Performing Organization Address [facility] Phone Number INTERFACE SYSTEM Refer to clinic/hospital department * (ABNORMAL) POC GLUCOSE (01/01/2006 11:37 AM CDT) GLUCOSE POC 140(H) 60 - 100 mg/dL INTERFACE SYSTEM 01/01/2006 11:3 7 AM CDT Junior Poe MD POINT OF CARE TESTING Final Result Performing Organization Address [facility] Phone Number INTERFACE SYSTEM Refer to clinic/hospital department * (ABNORMAL) POC GLUCOSE (01/01/2006 5:41 AM CDT) GLUCOSE POC 159(H) 60 - 100 mg/dL INTERFACE SYSTEM COMMENT POC Follow Protocol INTERFACE SYSTEM 01/01/2006 5:41 AM CDT Junior Poe MD POINT OF CARE TESTING Final Result Performing Organization Address [facility] Phone Number INTERFACE SYSTEM Refer to clinic/hospital [...] ORDERABLES Final Resul t Performing Organization Address [facility] de Phone Number INTERFACE SYSTEM [...] CHEMISTRY ORDERABLES Final Result Performing Organization Address [facility] Co de Phone Number INTERFACE SYSTEM Refer [...] ORDERABLES Final Resul t Performing Organization Address City/[facility] de Phone Number INTERFACE SYSTEM [...] CARE TESTING Final Result Performing Organization Address City/State/[facility] Phone Number INTERFACE SYSTEM Refer to clinic/hospital department * (ABNORMAL) POC GLUCOSE (12/31/2005 5:28 AM CDT) GLUCOSE POC 149(H) 60 - 100 mg/dL INTERFACE SYSTEM 12/31/2005 5:28 AM CDT Junior Poe MD POINT OF CARE TESTING Final Result Performing Organization Address [facility] Phone Number INTERFACE SYSTEM Refer to clinic/hospital [...] ORDERABLES Final Resul t Performing Organization Address [facility] Phone Number INTERFACE SYSTEM Refer to clinic/hospital department * PHOSPHORUS (12/31/2005 4:38 AM CDT) PHOSPHORUS 2.9 2.5 - 4.6 mg/dL INTERFACE SYSTEM 12/31/2005 4:38 AM CDT Junior Poe MD CHEMISTRY ORDERABLES Final Result Performing Organization Address [facility] de Phone Number INTERFACE SYSTEM Refer to clinic/hospital department * MAGNESIUM LEVEL (12/31/2005 4:38 AM CDT) MAGNESIUM 2.4 1.7 - 2.4 mg/dL INTERFACE SYSTEM Comment: As of 05 the [facility] has changed testing methods. The new reference range is 1.7-2.4 The old referance range was 1.6-2.3 12/31/2005 4:38 AM CDT Junior Poe MD CHEMISTRY ORDERABLES Final Result Performing Organization Address [facility] Phone Number INTERFACE SYSTEM Refer [...] CHEMISTRY ORDERABLES Final Result Performing Organization Address [facility] Co de Phone Number INTERFACE SYSTEM Refer [...] HEMATOLOGY ORDERABLES Final Result Performing Organization Address City/[facility] Co de Phone Number INTERFACE SYSTEM Refer to clinic/hospital department * (ABNORMAL) POC GLUCOSE (12/30/2005 8:15 PM CDT) GLUCOSE POC 140(H) 60 - 100 mg/dL INTERFACE SYSTEM COMMENT POC Follow Protocol INTERFACE SYSTEM 12/30/2005 8:15 PM CDT us Junior Poe MD POINT OF CARE TESTING Final Result Performing Organization Address City/[facility] Co de Phone Number INTERFACE SYSTEM Refer to clinic/hospital department * (ABNORMAL) POC GLUCOSE (12/30/2005 4:38 PM CDT) GLUCOSE POC 137(H) 60 - 100 mg/dL INTERFACE SYSTEM 12/30/2005 4:38 PM CDT us Junior Poe MD POINT OF CARE TESTING Final Result Performing Organization Address [facility] Co de Phone Number INTERFACE SYSTEM Refer to clinic/hospital department * CLOSTRIDIUM DIFFICILE TOXIN (12/30/2005 3:31 PM CDT) C DIFFICILE TOXIN Negative Negative INTERFACE SYSTEM 12/30/2005 3:31 PM CDT us Junior Poe MD MICROBIOLOGY - [facility] Final Result Performing Organization Address [facility] Phone Number INTERFACE SYSTEM Refer to clinic/hospital department * (ABNORMAL) POC GLUCOSE (12/30/2005 12:24 PM CDT) GLUCOSE POC 143(H) 60 - 100 mg/dL INTERFACE SYSTEM 12/30/2005 12:2 4 PM CDT us Junior Poe MD POINT OF CARE TESTING Final Result Performing Organization Address City/[facility] Co de Phone Number INTERFACE SYSTEM Refer [...] COM F inal Result Performing Organization Address [facility] Phone Number INTERFACE SYSTEM Refer to clinic/hospital department * PHOSPHORUS (12/30/2005 4:13 AM CDT) PHOSPHORUS 3.9 2.5 - 4.6 mg/dL INTERFACE SYSTEM 12/30/2005 4:13 AM CDT us Junior Poe MD CHEMISTRY ORDERABLES Final Result Performing Organization Address [facility] Phone Number INTERFACE SYSTEM Refer to clinic/hospital department * MAGNESIUM LEVEL (12/30/2005 4:13 AM CDT) MAGNESIUM 1.8 1.7 - 2.4 mg/dL INTERFACE SYSTEM Comment: As of 05 the [facility] has changed testing methods. The new reference range is 1.7-2.4 The old referance range was 1.6-2.3 12/30/2005 4:13 AM CDT us Junior Poe MD CHEMISTRY ORDERABLES Final Result Performing Organization Address [facility] Phone Number INTERFACE SYSTEM Refer to clinic/hospital [...] CHEMISTRY ORDERABLES Final Result Performing Organization Address City/[facility] Phone Number INTERFACE SYSTEM Refer to clinic/hospital [...] HEMATOLOGY ORDERABLES Final Result Performing Organization Address City/[facility] Phone Number INTERFACE SYSTEM Refer to clinic/hospital department * (ABNORMAL) POC GLUCOSE (12/29/2005 9:24 PM CDT) GLUCOSE POC 143(H) 60 - 100 mg/dL INTERFACE SYSTEM 12/29/2005 9:24 PM CDT us Junior Poe MD POINT OF CARE TESTING Final Result Performing Organization Address City/[facility] Phone Number INTERFACE SYSTEM Refer to clinic/hospital [...] CARE TESTING Final Result Performing Organization Address City/[facility] Co de Phone Number INTERFACE SYSTEM Refer [...] COM F inal Result Performing Organization Address [facility] Phone Number INTERFACE SYSTEM Refer to clinic/hospital department * (ABNORMAL) POC GLUCOSE (12/29/2005 5:27 AM CDT) GLUCOSE POC 146(H) 60 - 100 mg/dL INTERFACE SYSTEM 12/29/2005 5:27 AM CDT Result Maikol Poe MD POINT OF CARE TESTING Final Result Performing Organization Address [facility] Phone Number INTERFACE SYSTEM Refer to clinic/hospital department * (ABNORMAL) POC GLUCOSE (12/28/2005 9:42 PM CDT) GLUCOSE POC 168(H) 60 - 100 mg/dL INTERFACE SYSTEM 12/28/2005 9:42 PM CDT Result Maikol Poe MD POINT OF CARE TESTING Final Result Performing Organization Address [facility] Phone Number INTERFACE SYSTEM Refer to clinic/hospital department * (ABNORMAL) POC GLUCOSE (12/28/2005 4:40 PM CDT) GLUCOSE POC 155(H) 60 - 100 mg/dL INTERFACE SYSTEM 12/28/2005 4:40 PM CDT Result Maikol Poe MD POINT OF CARE TESTING Final Result Performing Organization Address [facility] Phone Number INTERFACE SYSTEM Refer to clinic/hospital [...] INTERFACE SYSTEM Comment: As of 05 the [facility] has changed testing methods. The new reference range is 25-100 The old referance range was 38-126 AST 93(H) 8 - 33 U/L INTERFACE SYSTEM Comment: As of 05 the [facility] has changed testing methods. The new reference range is 8-33 The old referance range was Males 17-59 Females 14-36 ALT 69(H) 4 - 36 IU/L INTERFACE SYSTEM Comment: As of 05 the [facility] has changed testing methods. The new reference range is 4-36 The old referance range was Males 21-72 Females 9-52 BILIRUBIN TOTAL 1.2 0.3 - 1.2 mg/dL INTERFACE SYSTEM Comment: As of 05 the [facility] has changed testing methods. The new [...] HEMATOLOGY ORDERABLES Final Result Performing Organization Address City/[facility] de Phone Number INTERFACE SYSTEM Refer to clinic/hospital department * (ABNORMAL) POC GLUCOSE (12/27/2005 8:46 PM CDT) GLUCOSE POC 165(H) 60 - 100 mg/dL INTERFACE SYSTEM COMMENT POC Follow Protocol INTERFACE SYSTEM 12/27/2005 8:46 PM CDT Junior Poe MD POINT OF CARE TESTING Final Result Performing Organization Address [facility] de Phone Number INTERFACE SYSTEM Refer to clinic/hospital department * (ABNORMAL) POC GLUCOSE (12/27/2005 4:40 PM CDT) GLUCOSE POC 160(H) 60 - 100 mg/dL INTERFACE SYSTEM 12/27/2005 4:40 PM CDT Junior Poe MD POINT OF CARE TESTING Final Result Performing Organization Address [facility] Phone Number INTERFACE SYSTEM Refer to clinic/hospital department * (ABNORMAL) POC GLUCOSE (12/27/2005 11:25 AM CDT) GLUCOSE POC 148(H) 60 - 100 mg/dL INTERFACE SYSTEM 12/27/2005 11:2 5 AM CDT Junior Poe MD POINT OF CARE TESTING Final Result Performing Organization Address [facility] de Phone Number INTERFACE SYSTEM [...] INTERFACE SYSTEM Comment: As of 05 the [facility] has changed testing methods. The new reference range is 25-100 The old referance range was 38-126 AST 69(H) 8 - 33 U/L INTERFACE SYSTEM Comment: As of 05 the [facility] has changed testing methods. The new reference range is 8-33 The old referance range was Males 17-59 Females 14-36 ALT 44(H) 4 - 36 IU/L INTERFACE SYSTEM Comment: As of 05 the [facility] has changed testing methods. The new reference range is 4-36 The old referance range was Males 21-72 Females 9-52 BILIRUBIN TOTAL 1.2 0.3 - 1.2 mg/dL INTERFACE SYSTEM Comment: As of 05 the [facility] has changed testing methods. The new [...] HEMATOLOGY ORDERABLES Final Result Performing Organization Address City/[facility] Co de Phone Number INTERFACE SYSTEM Refer to clinic/hospital department * (ABNORMAL) POC GLUCOSE (12/27/2005 4:35 AM CDT) GLUCOSE POC 165(H) 60 - 100 mg/dL INTERFACE SYSTEM 12/27/2005 4:35 AM CDT us Junior Poe MD POINT OF CARE TESTING Final Result Performing Organization Address City/[facility] Co de Phone Number INTERFACE SYSTEM Refer to clinic/hospital department * (ABNORMAL) POC GLUCOSE (12/26/2005 9:44 PM CDT) GLUCOSE POC 148(H) 60 - 100 mg/dL INTERFACE SYSTEM COMMENT POC Follow Protocol INTERFACE SYSTEM 12/26/2005 9:44 PM CDT Result Maikol Poe MD POINT OF CARE TESTING Final Result Performing Organization Address City/State/[facility] Co de Phone Number INTERFACE SYSTEM Refer to clinic/hospital department * (ABNORMAL) POC GLUCOSE (12/26/2005 5:37 PM CDT) GLUCOSE POC 144(H) 60 - 100 mg/dL INTERFACE SYSTEM 12/26/2005 5:37 PM CDT Junior oPe MD POINT OF CARE TESTING Final Result Performing Organization Address [facility] Phone Number INTERFACE SYSTEM Refer to clinic/hospital [...] COM F inal Result Performing Organization Address [facility] Phone Number INTERFACE SYSTEM Refer to clinic/hospital [...] HEMATOLOGY ORDERABLES Final Result Performing Organization Address City/[facility] de Phone Number INTERFACE SYSTEM Refer to clinic/hospital department * (ABNORMAL) POC GLUCOSE (12/26/2005 12:32 PM CDT) Pathologist [facility] GLUCOSE POC 141(H) 60 - 100 mg/dL INTERFACE SYSTEM 12/26/2005 12:3 2 PM CDT us Junior Poe MD POINT OF CARE TESTING Final Result Performing Organization Address [facility] de Phone Number INTERFACE SYSTEM [...] COM F inal Result Performing Organization Address [facility] Phone Number INTERFACE SYSTEM Refer to clinic/hospital [...] HEMATOLOGY ORDERABLES Edite d Performing Organization Address [facility] Phone Number INTERFACE SYSTEM Refer to clinic/hospital [...] COM F inal Result Performing Organization Address City/[facility] de Phone Number INTERFACE SYSTEM Refer to clinic/hospital department * (ABNORMAL) POC GLUCOSE (12/26/2005 5:15 AM CDT) GLUCOSE POC 140(H) 60 - 100 mg/dL INTERFACE SYSTEM 12/26/2005 5:15 AM CDT us Junior Poe MD POINT OF CARE TESTING Final Result Performing Organization Address City/[facility] de Phone Number INTERFACE SYSTEM Refer to clinic/hospital department * PHOSPHORUS (12/26/2005 4:04 AM CDT) PHOSPHORUS 2.8 2.5 - 4.6 mg/dL INTERFACE SYSTEM 12/26/2005 4:04 AM CDT us Junior Poe MD CHEMISTRY ORDERABLES Final Result Performing Organization Address [facility] de Phone Number INTERFACE SYSTEM Refer to clinic/hospital department * MAGNESIUM LEVEL (12/26/2005 4:04 AM CDT) MAGNESIUM 1.9 1.7 - 2.4 mg/dL INTERFACE SYSTEM Comment: As of 05 the [facility] has changed testing methods. The new reference range is 1.7-2.4 The old referance range was 1.6-2.3 12/26/2005 4:04 AM CDT us Junior Poe MD CHEMISTRY ORDERABLES Final Result Performing Organization Address [facility] Phone Number INTERFACE SYSTEM Refer [...] CHEMISTRY ORDERABLES Final Result Performing Organization Address [facility] Phone Number INTERFACE SYSTEM Refer to clinic/hospital department * (ABNORMAL) HEMOGLOBIN AND HEMATOCRIT (12/26/2005 12:06 AM CDT) HEMOGLOBIN 5.4(L) 14.0 - 18.0 g/dL INTERFACE SYSTEM Comment:RESULTS CALLED TO RY AN 12/26/2005 00:21 HEMATOCRIT 15.8(L) 41.0 - 53.0 % INTERFACE SYSTEM 12/26/2005 12:0 6 AM CDT Result Maikol Poe MD HEMATOLOGY ORDERABLES Final Result Performing Organization Address [facility] Phone Number INTERFACE SYSTEM Refer to clinic/hospital department * (ABNORMAL) POC GLUCOSE (12/25/2005 9:23 PM CDT) GLUCOSE POC 152(H) 60 - 100 mg/dL INTERFACE SYSTEM 12/25/2005 9:23 PM CDT us Junior Poe MD POINT OF CARE TESTING Final Result Performing Organization Address [facility] Phone Number INTERFACE SYSTEM Refer to clinic/hospital department * (ABNORMAL) POC GLUCOSE (12/25/2005 6:07 PM CDT) GLUCOSE POC 119(H) 60 - 100 mg/dL INTERFACE SYSTEM 12/25/2005 6:07 PM CDT us Junior Poe MD POINT OF CARE TESTING Final Result Performing Organization Address [facility] Phone Number INTERFACE SYSTEM Refer to clinic/hospital department * (ABNORMAL) POC GLUCOSE (12/25/2005 11:49 AM CDT) GLUCOSE POC 214(H) 60 - 100 mg/dL INTERFACE SYSTEM 12/25/2005 11:4 9 AM CDT us Junior Poe MD POINT OF CARE TESTING Final Result Performing Organization Address [facility] Phone Number INTERFACE SYSTEM Refer [...] COM F inal Result Performing Organization Address [facility] Phone Number INTERFACE SYSTEM Refer to clinic/hospital department * (ABNORMAL) POC GLUCOSE (12/25/2005 5:14 AM CDT) GLUCOSE POC 174(H) 60 - 100 mg/dL INTERFACE SYSTEM 12/25/2005 5:14 AM CDT Junior Poe MD POINT OF CARE TESTING Final Result Performing Organization Address [facility] Phone Number INTERFACE SYSTEM Refer to clinic/hospital department * PHOSPHORUS (12/25/2005 4:02 AM CDT) PHOSPHORUS 3.0 2.5 - 4.6 mg/dL INTERFACE SYSTEM 12/25/2005 4:02 AM CDT us Junior Poe MD CHEMISTRY ORDERABLES Final Result Performing Organization Address [facility] Phone Number INTERFACE SYSTEM Refer to clinic/hospital [...] CARE TESTING Final Result Performing Organization Address [facility] Phone Number INTERFACE SYSTEM Refer to clinic/hospital department * (ABNORMAL) POC GLUCOSE (12/24/2005 5:50 PM CDT) GLUCOSE POC 161(H) 60 - 100 mg/dL INTERFACE SYSTEM 12/24/2005 5:50 PM CDT us Junior Poe MD POINT OF CARE TESTING Final Result Performing Organization Address [facility] Phone Number INTERFACE SYSTEM Refer to clinic/hospital department * (ABNORMAL) POC GLUCOSE (12/24/2005 12:50 PM CDT) GLUCOSE POC 139(H) 60 - 100 mg/dL INTERFACE SYSTEM 12/24/2005 12:5 0 PM CDT us Junior Poe MD POINT OF CARE TESTING Final Result Performing Organization Address [facility] Phone Number INTERFACE SYSTEM Refer to clinic/hospital [...] HEMATOLOGY ORDERABLES Final Result Performing Organization Address [facility] Phone Number INTERFACE SYSTEM Refer to clinic/hospital department * (ABNORMAL) PHOSPHORUS (12/24/2005 4:35 AM CDT) PHOSPHORUS 1.3(L) 2.5 - 4.6 mg/dL INTERFACE SYSTEM 12/24/2005 4:35 AM CDT Junior Poe MD CHEMISTRY ORDERABLES Final Result Performing Organization Address [facility] Phone Number INTERFACE SYSTEM Refer to clinic/hospital department * MAGNESIUM LEVEL (12/24/2005 4:35 AM CDT) MAGNESIUM 1.9 1.7 - 2.4 mg/dL INTERFACE SYSTEM Comment: As of 05 the [facility] has changed testing methods. The new reference range is 1.7-2.4 The old referance range was 1.6-2.3 12/24/2005 4:35 AM CDT Junior Poe MD CHEMISTRY ORDERABLES Final Result Performing Organization Address [facility] Phone Number INTERFACE SYSTEM Refer to clinic/hospital [...] CHEMISTRY ORDERABLES Final Result Performing Organization Address City/State/[facility] Co de Phone Number INTERFACE SYSTEM Refer [...] COM F inal Result Performing Organization Address City/State/[facility] de Phone Number INTERFACE SYSTEM [...] COM F inal Result Performing Organization Address City/[facility] Co de Phone Number INTERFACE SYSTEM Refer [...] COM F inal Result Performing Organization Address City/[facility] Co de Phone Number INTERFACE SYSTEM Refer [...] CHEMISTRY ORDERABLES Final Result Performing Organization Address [facility] de Phone Number INTERFACE SYSTEM [...] HEMATOLOGY ORDERABLES Final Result Performing Organization Address City/[facility] Co de Phone Number INTERFACE SYSTEM Refer [...] COM F inal Result Performing Organization Address City/[facility] de Phone Number INTERFACE SYSTEM Refer to clinic/hospital department * (ABNORMAL) PHOSPHORUS (12/22/2005 4:25 AM CDT) PHOSPHORUS 1.3(L) 2.5 - 4.6 mg/dL INTERFACE SYSTEM 12/22/2005 4:25 AM CDT us Junior Poe MD CHEMISTRY ORDERABLES Final Result Performing Organization Address City/[facility] Co de Phone Number INTERFACE SYSTEM Refer to clinic/hospital department * MAGNESIUM LEVEL (12/22/2005 4:25 AM CDT) MAGNESIUM 1.9 1.7 - 2.4 mg/dL INTERFACE SYSTEM Comment: As of 05 the [facility] has changed testing methods. The new reference range is 1.7-2.4 The old referance range was 1.6-2.3 12/22/2005 4:25 AM CDT Junior Poe MD CHEMISTRY ORDERABLES Final Result Performing Organization Address [facility] Phone Number INTERFACE SYSTEM Refer to clinic/hospital [...] CHEMISTRY ORDERABLES Final Result Performing Organization Address [facility] Phone Number INTERFACE SYSTEM Refer to clinic/hospital [...] HEMATOLOGY ORDERABLES Final Result Performing Organization Address [facility] de Phone Number INTERFACE SYSTEM [...] COM F inal Result Performing Organization Address [facility] Co de Phone Number INTERFACE SYSTEM Refer [...] Goal INR 3.0; range 2.5 - 3.5 POST-MN Goal INR 2.5; range 2.0 - 3.0 [...] HEMATOLOGY ORDERABLES Final Result Performing Organization Address [facility] de Phone Number INTERFACE SYSTEM [...] ORDERABLES Final Re sult Performing Organization Address [facility] Phone Number INTERFACE SYSTEM Refer to clinic/hospital [...] TESTING COM Final Result Performing Organization Address City/[facility] Co de Phone Number INTERFACE SYSTEM Refer to clinic/hospital department * PROTIME-INR (12/20/2005 5:32 PM CDT) Pathologist [facility] PROTIME 14.8 12.6 - 14.9 Secs INTERFACE SYSTEM Comment: As of 05 note change in normal range. INR 1.1 INTERFACE SYSTEM Comment: Expected Values for INR: DVT/PE Goal INR 2.5; range 2.0 - 3.0 Valve Replacement Tissue Goal INR 2.5; range 2.0 - 3.0 Mechanical Goal INR 3.0; range 2.5 - 3.5 POST-MN Goal INR 2.5; range 2.0 - 3.0 or Goal 3.0; range 2.5 - 3.5 Atrial Fibrillation Goal INR 2.5; range 2.0 - 3.0 Ischemic Stroke Goal INR 2.5; range 2.0 - 3.0 For additional information see Guidelines for Anticoagulation available from the pharmacy [facility] D. 12/20/2005 5:32 PM CDT Donovan Copeland MD HEMATOLOGY ORDERABLES Fin al Result Performing Organization Address City/[facility] Co de Phone Number INTERFACE SYSTEM Refer [...] ORDERABLES Fin al Result Performing Organization Address City/[facility] Co de Phone Number INTERFACE SYSTEM Refer [...]
--- OUTSIDE RECORDS SUMMARY | 2025-03-31 09:06 | XMS_ITS | Encounter Summary ---
Author Organization [facility] Address [address] [place] [address] Care Team Providers Care Hospital Unit Coordinator Name Role Phone Unavailable Primary Care Provider Unavailabl e Encounter Details Date Type Department Care Team (Late st Contact Info) Description 01/10/2006 Inpatient Historical HIS IN BED José Miguel Dickerson MD [address] [place] [address] Other Specified Rehabilitation Procedure (Primary Dx) Social History Tobacco Use Types Packs/Day Years Used Date Smoking Tobacco: Never Assessed Sex and Gender Information Value Date Recorded Sex Assigned at Not on file 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 Gender Identity Not on file Sexual Orientation [...] CHEMISTRY ORDERABLES Final Resu Performing Organization Address [facility] Phone Number INTERFACE SYSTEM Refer to clinic/hospital department * VANCOMYCIN LEVEL TROUGH (01/12/2006 10:50 PM CDT) Pathologist [facility] VANCOMYCIN, TROUGH 11.6 5.0 - 15.0 mcg/mL INTERFACE SYSTEM 01/12/2006 10:5 0 PM CDT José Miguel Dickerson MD CHEMISTRY ORDERABLES Final Resu Performing Organization Address [facility] Phone Number INTERFACE SYSTEM Refer to clinic/hospital department * (ABNORMAL) HEPATIC FUNCTION PANEL (01/12/2006 10:50 PM CDT) TOTAL PROTEIN 7.9 6.3 - 8.2 g/dL INTERFACE SYSTEM ALBUMIN 3.9 3.5 - 5.0 g/dL INTERFACE SYSTEM ALKALINE PHOSPHATASE 192(H) 25 - 100 U/L INTERFACE SYSTEM Comment: As of 05 the [facility] has changed testing methods. The new reference range is 25-100 The old referance range was 38-126 AST 47(H) 8 - 33 U/L INTERFACE SYSTEM Comment: As of 05 the [facility] has changed testing methods. The new reference range is 8-33 The old referance range was Males 17-59 Females 14-36 ALT 55(H) 4 - 36 IU/L INTERFACE SYSTEM Comment: As of 05 the [facility] has changed testing methods. The new reference range is 4-36 The old referance range was Males 21-72 Females 9-52 BILIRUBIN DIRECT 0.2 0.0 - 0.4 mg/dL INTERFACE SYSTEM BILIRUBIN TOTAL 0.6 0.3 - 1.2 mg/dL INTERFACE SYSTEM Comment: As of 05 the [facility] has changed testing methods. The new reference range is 0.3-1.2 The old referance range was 0.2-1.4 01/12/2006 10:5 0 PM CDT José Miguel Dickerson MD CHEMISTRY ORDERABLES Final Resu Performing Organization Address [facility] Phone Number INTERFACE SYSTEM Refer to [...] ORDERABLES Final Resu lt Performing Organization Address [facility] Phone Number INTERFACE SYSTEM Refer to clinic/hospital department * (ABNORMAL) HEPATIC FUNCTION PANEL (01/11/2006 11:51 PM CDT) TOTAL PROTEIN 7.9 6.3 - 8.2 g/dL INTERFACE SYSTEM ALBUMIN 3.8 3.5 - 5.0 g/dL INTERFACE SYSTEM ALKALINE PHOSPHATASE 185(H) 25 - 100 U/L INTERFACE SYSTEM Comment: As of 05 the [facility] has changed testing methods. The new reference range is 25-100 The old referance range was 38-126 AST 49(H) 8 - 33 U/L INTERFACE SYSTEM Comment: As of 05 the [facility] has changed testing methods. The new reference range is 8-33 The old referance range was Males 17-59 Females 14-36 ALT 57(H) 4 - 36 IU/L INTERFACE SYSTEM Comment: As of 05 the [facility] has changed testing methods. The new reference range is 4-36 The old referance range was Males 21-72 Females 9-52 BILIRUBIN DIRECT 0.2 0.0 - 0.4 mg/dL INTERFACE SYSTEM BILIRUBIN TOTAL 0.7 0.3 - 1.2 mg/dL INTERFACE SYSTEM Comment: As of 05 the [facility] has changed testing methods. The new [...] ORDERABLES Final Resu lt Performing Organization Address [facility] Phone Number INTERFACE SYSTEM Refer to [...] URINE ORDERABLES Final Result Performing Organization Address [place] [facility] Phone Number INTERFACE SYSTEM Refer to clinic/hospital [...] CHEMISTRY ORDERABLES Final Resu Performing Organization Address [facility] de Phone Number INTERFACE SYSTEM Refer to clinic/hospital department * TSH (01/11/2006 7:12 AM CDT) Pathologist [facility] TSH 2.073 0.350 - 5.500 uIU/ml INTERFACE SYSTEM Comment: As of 04 at 3:00 p.m. [facility] has changed the methodology for TSH, and with this change the reference range has changed from 0.49-4.67 to 0.35-5.5 uIU/ml. 01/11/2006 7:12 AM CDT José Miguel Dickerson MD CHEMISTRY ORDERABLES [facility] Performing Organization Address [facility] Phone Number INTERFACE SYSTEM Refer to clinic/hospital department * (ABNORMAL) COMPREHENSIVE METABOLIC PANEL (01/11/2006 7:12 AM CDT) Pathologist [facility] GLUCOSE 117(H) 70 - 110 mg/dL INTERFACE [...] INTERFACE SYSTEM Comment: As of 05 the [facility] has changed testing methods. The new reference range is 25-100 The old referance range was 38-126 AST 51(H) 8 - 33 U/L INTERFACE SYSTEM Comment: As of 05 the [facility] has changed testing methods. The new reference range is 8-33 The old referance range was Males 17-59 Females 14-36 ALT 62(H) 4 - 36 IU/L INTERFACE SYSTEM Comment: As of 05 the [facility] has changed testing methods. The new reference range is 4-36 The old referance range was Males 21-72 Females 9-52 BILIRUBIN TOTAL 0.6 0.3 - 1.2 mg/dL INTERFACE SYSTEM Comment: As of 05 the [facility] has changed testing methods. The [...]
--- OUTSIDE RECORDS SUMMARY | 2025-03-31 09:06 | XMS_ITS | Clinical Summary ---
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
--- NOTE | 2025-03-31 09:07 | W.ED.NEUROSD ---
HPI - Neuro Symptoms/Deficit General: Chief Complaint: Neuro Symptoms/Deficit Stated Complaint: AMS Time Seen by Provider: 03/31/25 08:44 History of Present Illness: 69-year-old male with a history of previous traumatic brain injury presents to the emergency room at 8:40 AM his last known well was around 8:00 last night. Patient is complaining of right hand weakness. It is improved since he initially noted he also had some slurring of his speech. He has some deficits from previous stroke and traumatic brain injury. He is not on any anticoagulation. He has some tremor in his right hand as a history of Parkinson's. Associated symptoms: Deny chest pain Related Data Home Medications ?Medication ?Instructions ?Recorded ?Confirmed sertraline 100 mg tablet 100 mg PO DAILY 04/10/24 03/31/25 acetaminophen 500 mg tablet 500 mg PO Q4H PRN pain/elevated 03/31/25 03/31/25 temp albuterol sulfate 2.5 mg/3 mL 2.5 mg continuous nebulization Q4H 03/31/25 03/31/25 (0.083 %) solution for nebulization PRN Shortness Of Breath pregabalin 25 mg capsule 25 mg PO BID 03/31/25 03/31/25 Previous Rx's ?Medication ?Instructions ?Recorded losartan 25 mg tablet 25 mg PO DAILY 30 days #30 tabs 09/20/24 atorvastatin 40 mg tablet (Lipitor) 40 mg PO DAILY #90 tabs 09/29/24 carbidopa 25 mg-levodopa 100 mg 1 tab PO TID 90 days #270 tabs 11/02/24 tablet (Sinemet) thiamine HCl (vitamin B1) 100 mg 100 mg PO BID 90 days #180 tabs 11/03/24 tablet ergocalciferol (vitamin D2) 1,250 50,000 unit PO .COMPLEX 3 months 11/08/24 mcg (50,000 unit) capsule #13 caps Allergies Allergy/AdvReac Type Severity Reaction Status Date / Time No Known Allergies Allergy Verified 03/20/25 07:15 Review of Systems Const: Denies: fever(s) or chills Card: Denies: chest pain Resp: Denies: dyspnea GI: Denies: abdominal pain : Denies: dysuria, urinary frequency or urinary urgency Musc: Denies: neck pain or back pain Skin/Breast: Denies: rash Neuro: Reports: weakness in extremities and other (Tremor) PFSH ED PFSH: Medical History Apraxia Social History Smoking and tobacco/nicotine status: former use of tobacco/nicotine Substance/Drug Use: never NIH stroke score NIHSS: Level Of Consciousness - 1a: 0 Level Of Consciousness Questions - 1b: Both Correct Level Of Consciousness Commands - 1c: Both Correct Best Gaze - 2: Normal Visual Wagner - 3: No Visual Loss Facial Palsy - 4: Normal Motor Arm Right - 5: Drift Motor Arm Left - 5: No Drift Motor Leg Right - 6: No Drift Motor Leg Left - 6: No Drift Limb Ataxia - 7: Present In Two Limbs Sensory - 8: Normal Best Language - 9: No Aphasia Dysarthia - 10: Mild/Moderate Dysarthia Extinction And Inattention - 11: 0 Score: Total Score: 4 Physical Exam Const: COMMON NORMALS: no acute distress GENERAL APPEARANCE: cooperative and comfortable ORIENTATION/CONSCIOUSNESS: Yes awake HENMT: COMMON NORMALS: normocephalic, atraumatic and hearing grossly normal bilaterally HEAD & SCALP: normocephalic and atraumatic Resp: COMMON NORMALS: normal respiratory effort, No retractions, No use of accessory muscles and clear to auscultation bilaterally AUSCULTATION: clear to auscultation bilaterally Cardio: COMMON NORMALS: regular rate, regular rhythm and No murmurs present (Cardio) RATE: regular rate RHYTHM: regular rhythm GI: COMMON NORMALS: Soft to palpation and No hepatosplenomegaly present AUSCULTATION: Yes normoactive bowel sounds PALPATION: Yes Soft to palpation, No Tenderness to palpation present (GI), No Guarding due to palpation present (GI) and Yes No hepatosplenomegaly present Extremity: COMMON NORMALS: capillary refill normal, no clubbing, cyanosis or edema, no calf tenderness and no pedal edema Skin: COMMON NORMALS: no rashes or lesions noted GENERAL SKIN EXAM: no rashes or lesions noted Course Vital Signs: Vital signs: Vital Signs Temperature 98.1 F 04/02/25 08:00 Pulse Rate 73 04/02/25 08:19 Respiratory Rate 16 04/02/25 08:19 Blood Pressure 112/61 04/02/25 08:00 Pulse Oximetry 91 04/02/25 08:19 Oxygen Delivery Me thod Room Air 04/02/25 08:19 MDM - Neuro Symptoms/Deficit Medical Decision Making Medical decision making Social determinants: Difficulty with history due to previous traumatic brain injury and previous stroke I reviewed the patient's medical record. I reviewed the patient's current home meds. Alternate historians: EMS, residential staff Differential diagnosis: Parkinson's traumatic brain injury acute CVA Lab Review: CBC unremarkable PT PTT normal chemistries unremarkable. UA is negative urine tox screen negative Imaging: CT head no acute findings. CTA head and neck. Shows 70% proximal left ICA stenosis which has progressed compared to previous imaging, it is still patent. To 50% right proximal RCA stenosis but still patent. There is some left subclavian stenosis. Discussed with radiology discussed with patient at risk for subclavian steal. Assessment of risk Level of risk: High Hospitalization considerations: Admit for acute CVA Reexamination: Improving less weakness in the left hand Assessment and plan: Acute CVA. He is improving he is outside the window for any anticoagulation he has a low stroke score some which is complicated by his previous CVA and TBI. He has no signs of embolism. He will need vascular evaluation at some point given the findings on the CTA head and neck. Discussed with hospitalist orders written will admit Lab Data 03/31/25 09:07 03/31/25 09:[address] 03/31/25 08:44 IMPRESSION: 1. No evidence of intracranial hemorrhage or mass effect. 2. Moderate small vessel changes with moderate parenchymal volume loss. 3. No acute intracranial findings. Notified Zay Ferro DO at 03/31/2025 8:59 AM. Head/Neck CTA 03/31/25 08:44 IMPRESSION: 1. Approximately 70% LEFT proximal ICA stenosis appears progressed compared to previous with eccentric atheromatous plaque. LEFT ICA remains patent to the skull base. 2. Approximately 50% RIGHT proximal ICA stenosis. RIGHT ICA remains patent to the skull base. 3. No proximal flow-limiting intracranial stenosis. 4. RIGHT dominant vertebral artery. Smaller but patent LEFT vertebral artery. 5. Approximately 70% LEFT proximal subclavian stenosis just distal to the origin extending over approximately 2.1 cm. Patient risk for subclavian steal. Directional flow better evaluated with ultrasound 6. No other acute findings Laboratory Results WBC 9.55 10^3/uL (3.29-11.43) 03/31/25 09:07 RBC 4.26 10^6/uL (3.85-5.65) 03/31/25 09:07 Hgb 12.60 g/dL (11.27-16.99) 03/31/25 09:07 Hct 39.8 % (37-53) 03/31/25 09:07 MCV 93.4 fl (82-101) 03/31/25 09:07 MCH 29.6 pg (27-33) 03/31/25 09:07 MCHC 31.7 g/dL (30-55) 03/31/25 09:07 RDW 13.0 % (12.1-15.1) 03/31/25 09:07 Plt Count 195 10^3/cmm (157-399) 03/31/25 09:07 MPV 10.1 fL (7.4-10.4) 03/31/25 09:07 Neut % (Auto) 75.4 % 03/31/25 09:07 Lymph % (Auto) 15.1 % 03/31/25 09:07 [place] % (Auto) 7.0 % 03/31/25 09:07 Eos % (Auto) 1.5 % 03/31/25 09:07 Baso % (Auto) 0.3 % 03/31/25 09:07 Neut # (Auto) 7.20 10^3/uL (1.8-7.7) 03/31/25 09:07 Lymph # (Auto) 1.4 10^3/uL (0.8-4.8) 03/31/25 09:07 [place] # (Auto) 0.7 10^3/uL (0.2-0.9) 03/31/25 09:07 Eos # (Auto) 0.1 10^3/uL (0.0-0.8) 03/31/25 09:07 Baso # (Auto) 0.0 10^3/uL (0.0-0.1) 03/31/25 09:07 Nucleated RBC % (auto) 0 % 03/31/25 09:07 Nucleated RBCs # 0.0 /100WBC 03/31/25 09:07 PT 14.50 SECONDS (12.1-14.9) 03/31/25 09:07 INR 1.06 (0.8-1.2) 03/31/25 09:07 APTT 34.7 SECONDS (23.9-36.7) 03/31/25 09:07 Sodium 137 mmol/L (136-145) 03/31/25 09:07 Potassium 4.4 mmol/L (3.5-5.1) 03/31/25 09:07 Chloride 105 mmol/L (98-107) 03/31/25 09:07 Carbon Dioxide 24 mmol/L (22-29) 03/31/25 09:07 Anion Gap 12.4 (5-19) 03/31/25 09:07 BUN 12 mg/dL (8-23) 03/31/25 09:07 Creatinine 0.9 mg/dL (0.7-1.2) 03/31/25 09:07 GFR Calculation Not Reportable 03/31/25 09:07 Glucose 100 mg/dL (65-115) 03/31/25 09:07 POC Glucose 103 mg/dL (70-110) 03/31/25 09:00 Calculated Osmolality 284 mOsm/kg (285-295) L 03/31/25 09:07 Calcium 8.2 mg/dL (8.5-10.5) L 03/31/25 09:07 Total Bilirubin 0.5 mg/dL (0.15-1.2) 03/31/25 09:07 AST 16 U/L (0-40) 03/31/25 09:07 ALT 22 U/L (0-41) 03/31/25 09:07 Alkaline Phosphatase 67 U/L (40-130) 03/31/25 09:07 Total Protein 5.8 g/dL (6.6-8.7) L 03/31/25 09:07 Albumin 2.9 g/dL (3.5-5.2) L 03/31/25 09:07 Globulin 2.9 g/dL (1.3-4.6) 03/31/25 09:07 Triglycerides 54 mg/dL (0-150) 03/31/25 09:07 Cholesterol 83 mg/dL (0-200) 03/31/25 09:07 LDL Cholesterol, Calc 48 mg/dL (50-129) L 03/31/25 09:07 HDL Cholesterol 24 mg/dL (60-100) L 03/31/25 09:07 LDL/HDL Ratio 2.00 RATIO (0.00-3.22) 03/31/25 09:07 Cholesterol/HDL Ratio 3.46 mg/dL (1.0-5.00) 03/31/25 09:07 TSH 2.04 uIU/mL (0.27-4.20) 03/31/25 09:07 Urine Color Yellow (Yellow) 03/31/25 09:36 Urine Appearance Clear (CLEAR) 03/31/25 09:36 Urine pH 7.0 (5-7) 03/31/25 09:36 Ur Specific Platinum 1.030 (1.005-1.030) 03/31/25 09:36 Urine Protein Negative (Negative) 03/31/25 09:36 Urine Glucose (UA) Negative (Normal) 03/31/25 09:36 Urine Ketones Negative (Negative) 03/31/25 09:36 Urine Blood Negative (Negative) 03/31/25 09:36 Urine Nitrate Negative (Negative) 03/31/25 09:36 Urine Bilirubin Negative (Negative) 03/31/25 09:36 Urine Urobilinogen 1.0 mg/dL (Negative) 03/31/25 09:36 Ur Leukocyte Esterase Negative (Negative) 03/31/25 09:36 Urine RBC 0-2 /hpf (0-2) 03/31/25 09:36 Urine WBC 0-5 /hpf (0-5) 03/31/25 09:36 Ur Squamous Epith Cells 0-5 /hpf (0-5) 03/31/25 09:36 Amorphous Sediment Not Reportable 03/31/25 09:36 Urine Bacteria None seen /hpf (NONE) 03/31/25 09:36 Hyaline Casts 0-4 /lpf H 03/31/25 09:36 Urine Opiates Screen Negative ng/mL (Negative) 03/31/25 09:36 Ur Barbiturates Screen Negative ng/mL (Negative) 03/31/25 09:36 Ur Phencyclidine Scrn Negative ng/mL (Negative) 03/31/25 09:36 Ur Amphetamines Screen Negative ng/mL (Negative) 03/31/25 09:36 U Benzodiazepines Scrn Negative ng/mL (Negative) 03/31/25 09:36 Urine Cocaine Screen Negative ng/mL (Negative) 03/31/25 09:36 U Marijuana (THC) Screen Negative ng/mL (Negative) 03/31/25 09:36 All radiology interpretation(s) finalized by discharge Discharge Plan Discharge Patient Disposition: Placed in Observation Admit Provider: Mikey Hernandez Clinical Impression: CVA (cerebral vascular accident), Traumatic brain injury with delayed recovery, Carotid stenosis Coding Level of Care Code ED Ground Control Approach Technician for Mayi Stern
[2025-03-31 09:15] LABS: Hematocrit 39.8 % (37-53); Hemoglobin 12.60 g/dL (11.27-16.99); Mean Corpuscular HGB Conc 31.7 g/dL (30-55); Mean Corpuscular Hemoglobin 29.6 pg (27-33); Mean Corpuscular Volume 93.4 fl (82-101); Nucleated Red Blood Cells % 0 %; Platelet Count 195 10^3/cmm (157-399); Red Blood Count 4.26 10^6/uL (3.85-5.65); White Blood Count 9.55 10^3/uL (3.29-11.43)
--- NOTE | 2025-03-31 09:29 | PC.PHAR ---
Pt is resident at [facility] [phone]
[2025-03-31 09:31] LABS: INR 1.06 (0.8-1.2); Prothrombin Time 14.50 SECONDS (12.1-14.9)
[2025-03-31 09:32] LABS: Partial Thromboplastin Time 34.7 SECONDS (23.9-36.7)
[2025-03-31 09:35] LABS: Alanine Aminotransferase 22 U/L (0-41); Albumin Level 2.9 g/dL (3.5-5.2); Alkaline Phosphatase 67 U/L (40-130); Anion Gap 12.4 (5-19); Aspartate Amino Transferase 16 U/L (0-40); Blood Urea Nitrogen 12 mg/dL (8-23); Calcium 8.2 mg/dL (8.5-10.5); Carbon Dioxide 24 mmol/L (22-29); Chloride 105 mmol/L (98-107); Globulin 2.9 g/dL (1.3-4.6); Glucose 100 mg/dL (65-115); Osmolality Calculated 284 mOsm/kg (285-295); Potassium 4.4 mmol/L (3.5-5.1); Sodium 137 mmol/L (136-145); Total Protein 5.8 g/dL (6.6-8.7)
[2025-03-31 09:50] LABS: Glucose Urine UA Negative (Normal); Nitrate Urine Negative (Negative); Specific Gravity, Urine 1.030 (1.005-1.030)
[2025-03-31 09:55] LABS: Add Urine Microscopic? YES
[2025-03-31 09:57] LABS: PCP Screen Urine Negative (Negative)
--- NOTE | 2025-03-31 12:43 | P.HP_ITS ---
<Statement entered by Mikey Hernandez MD - 03/31/25 15:04> Patient case discussed with ED provider and reviewed and discussed with CARLITOS including E&M. Providers/Chief Complaint 2 Admitting Physician: Mikey Hernandez Primary Care Provider: SUSAN Olvera Chief Complaint: AMS History of Present Illness Nirav Rosenberg is a 69 year old male w/ pmhx of traumatic brain injury(2006), carotid artery stenosis, HTN, HLD, hx of endocarditis, MDD, polyneuropathy, chronic generalized weakness [facility] the ED from [facility] today w/ c/o right arm/ leg weakness, and slurred speech-last known well 20:00 on 03/30. My evaluation is limited as patient is a poor historian. Patient states he was resting in his recliner overnight and began having right sided weakness. He states he attempted to get up and walk around, denies falling. Reports he took Tylenol for back pain overnight, denies at aspirating. Patient denies headache, fever, shortness of breath, cough, N/V/D/C, changes in bowel and bladder habits, and recent medication changes. Patient to be admitted to hospitalist services with teleneurology consultation service from [facility] for continued medical management and care of CVA. While in ED a CBC, CMP, PT/APTT/INR, UA was collected, reviewed, and results as follows: CBC unremarkable, PT/APTT/INR unremarkable, Osmo 284, calcium 8.2, total protein 5.8, albumin 2.9. UA unremarkable While in ED the following medications were administered: Aspirin 325 mg PO dly. Review of Systems 2 General: Reports: 10 or more systems reviewed and unremarkable except in HPI and below Medications/Allergies Home Medications ?Medication ?Instructions ?Recorded ?Confirmed ?Last Taken ?Type sertraline 100 mg tablet 100 mg PO DAILY 04/10/2403/31/25 History losartan 25 mg tablet 25 mg PO DAILY 30 days #30 t abs 09/20/24 03/31/25 03/31/25 Rx atorvastatin 40 mg tablet (Lipitor) 40 mg PO DAILY #90 tabs 09/29/24 03/31/25 03/31/25 Rx carbidopa 25 mg-levodopa 100 mg 1 tab PO TID 90 days # 270 tabs 11/02/24 03/31/25 03/31/25 Rx tablet (Sinemet) thiamine HCl (vitamin B1) 100 mg 100 mg PO BID 90 days #180 tabs 11/03/24 03/31/25 03/31/25 Rx tablet ergocalciferol (vitamin D2) 1,250 50,000 unit PO .COMP DESIRE 3 months 11/08/24 03/31/25 03/31/25 Rx mcg (50,000 unit) capsule #13 caps acetaminophen 500 mg tablet 500 mg PO Q4H PRN pain/hui vated 03/31/25 03/31/25 Unknown History temp albuterol sulfate 2.5 mg/3 mL 2.5 mg continuous nebuli zation Q4H 03/31/25 03/31/25 Unknown History (0.083 %) solution for nebulization PRN Shortness Of B reath pregabalin 25 mg capsule 25 mg PO BID 03/31/2503/31/25 History Allergies Allergy/AdvReac Type Severity Reaction Status Date / Time No Known Allergies Allergy Verified 03/20/25 07:15 PFSH Acute 2 PFSH: Medical History (Updated 03/31/25 @ 15:55 by Camryn Mckee NP) Apraxia Social History Smoking and tobacco/nicotine status: former use of tobacco/nicotine Substance/Drug Use: never Vitals/I&O/Wt Last Vital Signs Temp 98.7 F 03/31/25 08:45 Pulse 72 03/31/25 12:34 Resp 16 03/31/25 11:19 BP 123/71 03/31/25 12:34 Pulse Ox 94 03/31/25 12:34 O2 Del Method Room Air 03/31/25 11:19 Weight last 48 hrs Weight 78.018 kg Physical Exam 2 Narrative: General: A&Ox3, poor historian, no apparent distress. Right sided weakness HEENT: Normo-cephalic, atraumatic, grossly unremarkable exam Cardio: NSR, normal S1-S2 without any murmurs, rubs, or gallops and JVD normal Respiratory: Clear breathing on auscultation w/o any wheezes, stridor, rhonchi GI: Abd soft, non-tender, non-distended, normo-active bowel sounds present Neuro: Mild right-sided weakness, slurred speech. NIH scale 5. Behavior: Appropriate and cooperative Extremities: Adequate palpable pulses. No clubbing, cyanosis or edema. Data 03/31/25 09:07 03/31/25 09:07 Other Labs: 03/31: EKG 0844: NSR, no ST changes, QRS 91, QTc 462, HR 73 03/31: Head/Neck CTA: reviewed and results as follows: Approximately 70% LEFT proximal ICA stenosis appears progressed compared to previous with eccentric atheromatous plaque. LEFT ICA remains patent to the skull base. Approximately 50% RIGHT proximal ICA stenosis. RIGHT ICA remains patent to the skull base. No proximal flow-limiting intracranial stenosis. RIGHT dominant vertebral artery. Smaller but patent LEFT vertebral artery. Approximately 70% LEFT proximal subclavian stenosis just distal to the origin extending over approximately 2.1 cm. Patient risk for subclavian steal. Directional flow better evaluated with ultrasound. No other acute findings 03/31: Head CT: reviewed and results as follows: No evidence of intracranial hemorrhage or mass effect. Moderate small vessel changes with moderate parenchymal volume loss. No acute intracranial findings. A&P Assessment and plan 1. CVA (cerebral vascular accident): 2. Parkinsonism: 3. Carotid stenosis: 4. Traumatic brain injury with delayed recovery: 5. Generalized weakness: 6. Hypertension: 7. Hyperlipemia: Plan: CVA Hx TBI ? 03/31: Head/Neck CTA: Approximately 70% LEFT proximal ICA stenosis appears progressed compared to previous with eccentric atheromatous plaque. LEFT ICA remains patent to the skull base. Approximately 50% RIGHT proximal ICA stenosis. RIGHT ICA remains patent to the skull base. No proximal flow-limiting intracranial stenosis. RIGHT dominant vertebral artery. Smaller but patent LEFT vertebral artery. Approximately 70% LEFT proximal subclavian stenosis just distal to the origin extending over approximately 2.1 cm. Patient risk for subclavian steal. Directional flow better evaluated with ultrasound. No other acute findings ?03/31: Head CT: reviewed and results as follows: No evidence of intracranial hemorrhage or mass effect. Moderate small vessel changes with moderate parenchymal volume loss. No acute intracranial findings. ?03/31: Echo ordered, pending ? [place] neurology consulted , expertise and recommendations appreciated. ? NIH scale 5 ? Permissive HTN: Unless > 220/120 or cardiac concern. ? ABCD score: 5 points. Aspirin 162 mg PO currently. ? Continue home statin-atorvastatin 40 mg PO dly ? Antiemetics: Zofran 4mg IVP PRN ? VTE prophylaxis: Lovenox 40 mg SC dly ? Cardiac monitoring/telemetry ? Neurochecks q1 hrx4, then q2hrx8, then q4hr ? NIHSS score QID ? V/S q4hr ? Fall precautions ? Dysphagia screening, Maintain head of bed 30 degrees ? Physical therapy, Occupational Therapy, Speech therapy ? Lipid panel see results as per below, TSH ordered, 2.04. Carotid artery stenosis HLD ? Lipid panel reviewed: Cholesterol 83, triglycerides 54, LDL 48, HDL 24 ? Continue home medication atorvastatin 40 mg PO dly Parkinson's ? Continue home medication carbidopa-levodopa HTN ? Hold home antihypertensives, as per above MDD ? Continue home medication sertraline 100mg PO dly Polyneuropathy - Continue home medication pregabalin 25mg PO dly CODE STATUS: Full Code VTE prophylaxis: SCDs, Lovenox 40mg SC dly PDMP PDMP Reviewed: Not Reviewed Attestations 2 Medical Necessity Statement*: Admitted under inpatient status. Given complexity of patient's presentation, CVA, co-morbid conditions, and required intensity of treatment, a hospitalization exceeding two midnights is anticipated. and High Time for a total of 78 minutes, includes reviewing past or interval history, examining/interviewing patient, placing orders, counseling patient/family/other support, updating patient/family/other support, discussing plan of care with staff, communicating with other healthcare providers, documenting encounter and coordinating care Diagnoses CVA (cerebral vascular accident) I63.9 Parkinsonism G20.C Carotid stenosis I65.29 Traumatic brain injury with delayed recovery S06.9XAA Generalized weakness R53.1 Hypertension I10 Hyperlipemia E78.5
--- NOTE | 2025-03-31 13:45 | USCV_ITS ---
Nirav Rosenberg Age: 69 Gender: M : 1955 Exam Date: 03/31/2025 19:49 Ordering Phys: Camryn Mckee NP Technologist: KRYSTINA Exam Location: [facility] [place] Indication: CVA, History of HTN, HLD, endocarditis history, chronic weakness, SOB, prior DVA with RT hemiparesis residual BP: 104 / 68 HR: 66 Rhythm: Sinus Technical Quality: Adequate MEASUREMENTS (Male / Female) Normal Values 2D ECHO LV Diastolic Diameter PLAX 4.2 cm 4.2 - 5.9 / 3.9 - 5.3 cm IVS Diastolic Thickness 1.5 cm 0.6 - 1.0 / 0.6 - 0.9 cm IVS Systolic Thickness 1.4 cm LVPW Diastolic Thickness 1.3 cm 0.6 - 1.0 / 0.6 - 0.9 cm LVPW Systolic Thickness 1.5 cm LVOT Diameter 2.4 cm LV Ejection Fraction 2D Teich 69.4 % LV Ejection Fraction MOD 4C 54.6 % LV Ejection Fraction MOD 2C 54.3 % LV Ejection Fraction 2C AL 53.9 % LA Diameter 3.5 cm Aorta at Sinotubular Diameter 3.7 cm IVC Diameter 1.4 cm M-MODE LA Ao Ratio MM 1.1 AV Cusp Separation MM 2.1 cm DOPPLER AV Peak Velocity 86.0 cm/s LVOT Peak Velocity 70.0 cm/s AV Area Cont Eq vti 3.7 cm squared AV Area Cont Eq pk 3.6 cm squared MV Peak Velocity 89.0 cm/s MV Area PHT 4.1 cm squared Mitral E to A Ratio 1.1 TV Peak Velocity 243.5 cm/s TR Peak Velocity 258.0 cm/s TR Peak Gradient 26.6 mmHg TV Peak E Velocity 65.0 cm/s PV Peak Velocity 64.0 cm/s FINDINGS Left Ventricle Normal left ventricular size, systolic function and wall thickness, with no regional wall motion abnormalities. Left ventricular ejection fraction is estimated at 55 %. No intracardiac shunt wth bubble study was noted. Right Ventricle Right Atrium Left Atrium IA Septum Mitral Valve Aortic Valve Tricuspid Valve Pulmonic Valve Pericardium Aorta IVC CONCLUSIONS Limited echocardiogram Normal left ventricular size, systolic function and wall thickness, with no regional wall motion abnormalities. Left ventricular ejection fraction is estimated at 55 %. No intracardiac shunt wth bubble study was noted. No PFO or other intracardiac shunt was noted. Hugo Mazariegos MD (Electronically Signed) Final Date: 09 April 2025 23:44 S
[2025-03-31 13:55] LABS: Cholesterol 83 mg/dL (0-200); HDL Cholesterol 24 mg/dL (60-100); Triglycerides 54 mg/dL (0-150)
[2025-03-31] MEDS: carbidopa-levodopa 25-100mg Tablet 1 EACH PO ×2 (15:09→21:08)
[2025-03-31 15:12] LABS: Thyroid Stimulating Hormone 2.04 uIU/mL (0.27-4.20)
[2025-03-31] MEDS: guaiFENesin-dextromethorphan UDC 10 mL PO (21:08)
--- NOTE | 2025-03-31 21:09 | PM.TDS ---
Transfer Summary Providers Date of Admission: 03/31/25 11:47 Date of Discharge/Transfer: 03/31/25 Attending Provider at Admission: Mikey Hernandez Attending Provider at Transfer: Camryn Mckee NP Primary Care Provider: SUSAN Olvera Transfer Plans: Anticipated date of transfer: 03/31/25. Diagnoses at Discharge Discharge Diagnosis 1. CVA (cerebral vascular accident): 2. Parkinsonism: 3. Bilateral carotid artery stenosis: 4. Traumatic brain injury with delayed recovery: 5. Generalized weakness: 6. Hypertension: 7. Hyperlipemia: Reason for Visit Reason for Visit AMS Brief History: Admission: Nirav Rosenberg is a 69 year old male w/ pmhx of traumatic brain injury(2006), carotid artery stenosis, HTN, HLD, hx of endocarditis, MDD, polyneuropathy, chronic generalized weakness presents to the ED from SNF today w/ c/o right arm/ leg weakness, and slurred speech-last known well 20:00 on 03/30. My evaluation is limited as patient is a poor historian. Patient states he was resting in his recliner overnight and began having right sided weakness. He states he attempted to get up and walk around, denies falling. Reports he took Tylenol for back pain overnight, denies at aspirating. Patient denies headache, fever, shortness of breath, cough, N/V/D/C, changes in bowel and bladder habits, and recent medication changes. Patient to be admitted to hospitalist services with teleneurology consultation service from [facility] for continued medical management and care of CVA. While in ED a CBC, CMP, PT/APTT/INR, UA was collected, reviewed, and results as follows: CBC unremarkable, PT/APTT/INR unremarkable, Osmo 284, calcium 8.2, total protein 5.8, albumin 2.9. UA unremarkable While in ED the following medications were administered: Aspirin 325 mg PO dly. Hospital Course Hospital Course Plan: CVA Hx TBI ? 03/31: Head/Neck CTA: Approximately 70% LEFT proximal ICA stenosis appears progressed compared to previous with eccentric atheromatous plaque. LEFT ICA remains patent to the skull base. Approximately 50% RIGHT proximal ICA stenosis. RIGHT ICA remains patent to the skull base. No proximal flow-limiting intracranial stenosis. RIGHT dominant vertebral artery. Smaller but patent LEFT vertebral artery. Approximately 70% LEFT proximal subclavian stenosis just distal to the origin extending over approximately 2.1 cm. Patient risk for subclavian steal. Directional flow better evaluated with ultrasound. No other acute findings ?03/31: Head CT: reviewed and results as follows: No evidence of intracranial hemorrhage or mass effect. Moderate small vessel changes with moderate parenchymal volume loss. No acute intracranial findings. ?03/31: Echo ordered, pending ? [place] neurology consulted , expertise and recommendations appreciated. ? NIH scale 5 ? Permissive HTN: Unless > 220/120 or cardiac concern. ? ABCD score: 5 points. Aspirin 162 mg PO currently. ? Continue home statin-atorvastatin 40 mg PO dly ? Antiemetics: Zofran 4mg IVP PRN ? VTE prophylaxis: Lovenox 40 mg SC dly ? Cardiac monitoring/telemetry ? Neurochecks q1 hrx4, then q2hrx8, then q4hr ? NIHSS score QID ? V/S q4hr ? Fall precautions ? Dysphagia screening, Maintain head of bed 30 degrees ? Physical therapy, Occupational Therapy, Speech therapy ? Lipid panel see results as per below, TSH ordered, 2.04. Carotid artery stenosis HLD ? Lipid panel reviewed: Cholesterol 83, triglycerides 54, LDL 48, HDL 24 ? Continue home medication atorvastatin 40 mg PO dly Parkinson's ? Continue home medication carbidopa-levodopa HTN ? Hold home antihypertensives, as per above MDD ? Continue home medication sertraline 100mg PO dly Polyneuropathy - Continue home medication pregabalin 25mg PO dly Transfer Summary: Patient to be transferred to [facility] was accepted by Dr. Holliday-neurologist for consideration of vascular intervention for severe carotid stenosis. Discussed with patient and family, patient agrees to transfer for further medical management and care at [facility]. Physical Exam Narrative: General: A&Ox3, poor historian, no apparent distress. Right sided weakness HEENT: Normo-cephalic, atraumatic, grossly unremarkable exam Cardio: NSR, normal S1-S2 without any murmurs, rubs, or gallops and JVD normal Respiratory: Clear breathing on auscultation w/o any wheezes, stridor, rhonchi GI: Abd soft, non-tender, non-distended, normo-active bowel sounds present Neuro: Mild right-sided weakness, slurred speech. NIH scale 5. Behavior: Appropriate and cooperative Extremities: Adequate palpable pulses. No clubbing, cyanosis or edema. TS Data Studies Completed and Pending Pending at discharge Category Date Time Status CV. echo w/w bubble cont [id number] Routine Ultrasound 03/31/25 13:45 Taken Completed Studies During Hospitalization Category Date Time Status CT head thrombolytic [id number] Stat Cat Scan 03/31/25 08:44 Completed CTA head neck [CT angio headneck* [id number]] Stat Cat Scan 03/31/25 08:44 Completed Laboratory Last Values WBC 9.55 10^3/uL (3.29-11.43) 03/31/25 09:07 RBC 4.26 10^6/uL (3.85-5.65) 03/31/25 09:07 Hgb 12.60 g/dL (11.27-16.99) 03/31/25 09:07 Hct 39.8 % (37-53) 03/31/25 09:07 MCV 93.4 fl (82-101) 03/31/25 09:07 MCH 29.6 pg (27-33) 03/31/25 09:07 MCHC 31.7 g/dL (30-55) 03/31/25 09:07 RDW 13.0 % (12.1-15.1) 03/31/25 09:07 Plt Count 195 10^3/cmm (157-399) 03/31/25 09:07 MPV 10.1 fL (7.4-10.4) 03/31/25 09:07 Neut % (Auto) 75.4 % 03/31/25 09:07 Lymph % (Auto) 15.1 % 03/31/25 09:07 Irion % (Auto) 7.0 % 03/31/25 09:07 Eos % (Auto) 1.5 % 03/31/25 09:07 Baso % (Auto) 0.3 % 03/31/25 09:07 Neut # (Auto) 7.20 10^3/uL (1.8-7.7) 03/31/25 09:07 Lymph # (Auto) 1.4 10^3/uL (0.8-4.8) 03/31/25 09:07 Irion # (Auto) 0.7 10^3/uL (0.2-0.9) 03/31/25 09:07 Eos # (Auto) 0.1 10^3/uL (0.0-0.8) 03/31/25 09:07 Baso # (Auto) 0.0 10^3/uL (0.0-0.1) 03/31/25 09:07 Nucleated RBC % (auto) 0 % 03/31/25 09:07 Nucleated RBCs # 0.0 /100WBC 03/31/25 09:07 PT 14.50 SECONDS (12.1-14.9) 03/31/25 09:07 INR 1.06 (0.8-1.2) 03/31/25 09:07 APTT 34.7 SECONDS (23.9-36.7) 03/31/25 09:07 Sodium 137 mmol/L (136-145) 03/31/25 09:07 Potassium 4.4 mmol/L (3.5-5.1) 03/31/25 09:07 Chloride 105 mmol/L (98-107) 03/31/25 09:07 Carbon Dioxide 24 mmol/L (22-29) 03/31/25 09:07 Anion Gap 12.4 (5-19) 03/31/25 09:07 BUN 12 mg/dL (8-23) 03/31/25 09:07 Creatinine 0.9 mg/dL (0.7-1.2) 03/31/25 09:07 GFR Calculation Not Reportable 03/31/25 09:07 Glucose 100 mg/dL (65-115) 03/31/25 09:07 POC Glucose 103 mg/dL (70-110) 03/31/25 09:00 Calculated Osmolality 284 mOsm/kg (285-295) L 03/31/25 09:07 Calcium 8.2 mg/dL (8.5-10.5) L 03/31/25 09:07 Total Bilirubin 0.5 mg/dL (0.15-1.2) 03/31/25 09:07 AST 16 U/L (0-40) 03/31/25 09:07 ALT 22 U/L (0-41) 03/31/25 09:07 Alkaline Phosphatase 67 U/L (40-130) 03/31/25 09:07 Total Protein 5.8 g/dL (6.6-8.7) L 03/31/25 09:07 Albumin 2.9 g/dL (3.5-5.2) L 03/31/25 09:07 Globulin 2.9 g/dL (1.3-4.6) 03/31/25 09:07 Triglycerides 54 mg/dL (0-150) 03/31/25 09:07 Cholesterol 83 mg/dL (0-200) 03/31/25 09:07 LDL Cholesterol, Calc 48 mg/dL (50-129) L 03/31/25 09:07 HDL Cholesterol 24 mg/dL (60-100) L 03/31/25 09:07 LDL/HDL Ratio 2.00 RATIO (0.00-3.22) 03/31/25 09:07 Cholesterol/HDL Ratio 3.46 mg/dL (1.0-5.00) 03/31/25 09:07 TSH 2.04 uIU/mL (0.27-4.20) 03/31/25 09:07 Urine Color Yellow (Yellow) 03/31/25 09:36 Urine Appearance Clear (CLEAR) 03/31/25 09:36 Urine pH 7.0 (5-7) 03/31/25 09:36 Ur Specific [place] 1.030 (1.005-1.030) 03/31/25 09:36 Urine Protein Negative (Negative) 03/31/25 09:36 Urine Glucose (UA) Negative (Normal) 03/31/25 09:36 Urine Ketones Negative (Negative) 03/31/25 09:36 Urine Blood Negative (Negative) 03/31/25 09:36 Urine Nitrate Negative (Negative) 03/31/25 09:36 Urine Bilirubin Negative (Negative) 03/31/25 09:36 Urine Urobilinogen 1.0 mg/dL (Negative) 03/31/25 09:36 Ur Leukocyte Esterase Negative (Negative) 03/31/25 09:36 Urine RBC 0-2 /hpf (0-2) 03/31/25 09:36 Urine WBC 0-5 /hpf (0-5) 03/31/25 09:36 Ur Squamous Epith Cells 0-5 /hpf (0-5) 03/31/25 09:36 Amorphous Sediment Not Reportable 03/31/25 09:36 Urine Bacteria None seen /hpf (NONE) 03/31/25 09:36 Hyaline Casts 0-4 /lpf H 03/31/25 09:36 Urine Opiates Screen Negative ng/mL (Negative) 03/31/25 09:36 Ur Barbiturates Screen Negative ng/mL (Negative) 03/31/25 09:36 Ur Phencyclidine Scrn Negative ng/mL (Negative) 03/31/25 09:36 Ur Amphetamines Screen Negative ng/mL (Negative) 03/31/25 09:36 U Benzodiazepines Scrn Negative ng/mL (Negative) 03/31/25 09:36 Urine Cocaine Screen Negative ng/mL (Negative) 03/31/25 09:36 U Marijuana (THC) Screen Negative ng/mL (Negative) 03/31/25 09:[address] 03/31/25 08:44 IMPRESSION: 1. No evidence of intracranial hemorrhage or mass effect. 2. Moderate small vessel changes with moderate parenchymal volume loss. 3. No acute intracranial findings. Notified Zay Ferro DO at 03/31/2025 8:59 AM. Head/Neck CTA 03/31/25 08:44 IMPRESSION: 1. Approximately 70% LEFT proximal ICA stenosis appears progressed compared to previous with eccentric atheromatous plaque. LEFT ICA remains patent to the skull base. 2. Approximately 50% RIGHT proximal ICA stenosis. RIGHT ICA remains patent to the skull base. 3. No proximal flow-limiting intracranial stenosis. 4. RIGHT dominant vertebral artery. Smaller but patent LEFT vertebral artery. 5. Approximately 70% LEFT proximal subclavian stenosis just distal to the origin extending over approximately 2.1 cm. Patient risk for subclavian steal. Directional flow better evaluated with ultrasound 6. No other acute findings Recent Clincial Data Last Vital Signs Temp 98.5 F 03/31/25 20:00 Pulse 69 03/31/25 20:00 Resp 16 03/31/25 20:00 BP 87/55 03/31/25 20:00 Pulse Ox 89 L 03/31/25 20:00 O2 Del Method Room Air 03/31/25 15:59 Vital Signs Temp Pulse Resp BP Pulse Ox O2 Del Method 03/31/25 20:00 98.5 F 69 16 87/55 89 L 03/31/25 15:59 98.8 F 65 14 104/68 91 Room Air 03/31/25 12:42 Room Air 03/31/25 12:34 72 123/71 94 03/31/25 11:19 74 16 127/65 91 Room Air 03/31/25 10:01 85 96 Room Air 03/31/25 09:37 77 16 138/68 91 Room Air Intake & Output/Weight 03/29/25 03/30/25 03/31/25 04/01/25 06:59 06:59 06:59 06:59 Intake Total 240 / 240 Output Total 400 / 400 Balance -160 / -160 Weight 78.018 kg Vitals Last Vital Signs Temp 98.5 F 03/31/25 20:00 Pulse 69 03/31/25 20:00 Resp 16 03/31/25 20:00 BP 87/55 03/31/25 20:00 Pulse Ox 89 L 03/31/25 20:00 O2 Del Method Room Air 03/31/25 15:59 TS Medications Medications Albuterol Sulfate (Albuterol 2.5 Mg/3 Ml Neb) 2.5 mg NEBULIZER Q4H PRN PRN Reason: SHORTNESS OF BREATH Aspirin (Aspirin 81 Mg Ec Tablet) 162 mg PO DAILY [facility] Atorvastatin Calcium (Atorvastatin 40 Mg Tablet) 40 mg PO DAILY [facility] Carbidopa/Levodopa (Carbidopa-Levodopa 25-100mg Tablet) 1 each PO TID [facility] Last Admin: 03/31/25 21:08 Dose: 1 each Enoxaparin Sodium (Enoxaparin 40 Mg/0.4 Ml Syringe) 40 mg SUBCUT Q24H [facility] Last Admin: 03/31/25 13:11 Dose: 40 mg Guaifenesin/Dextromethorphan (Guaifenesin-Dextromethorphan Udc 10 Ml) 10 ml PO Q4H PRN PRN Reason: COUGH Last Admin: 03/31/25 21:08 Dose: 10 ml Sodium Chloride (Sodium Chloride 0.9%) 1,000 mls @ 100 mls/hr IV .Q10H [facility] Last Admin: 03/31/25 13:12 Dose: 100 mls/hr Sertraline HCl (Sertraline 100 Mg Tablet) 100 mg PO DAILY [facility] Thiamine Mononitrate (Thiamine 100 Mg Tablet) 100 mg PO BID [facility] Last Admin: 03/31/25 16:09 Dose: 100 mg Discontinued Medications Aspirin (Aspirin 325 Mg Tablet) 325 mg PO ONCE ONE Stop: 03/31/25 11:47 Last Admin: 12/18/25 13:12 Dose: 325 mg Carbidopa/Levodopa (Carbidopa-Levodopa 25-100mg Tablet) 1 each PO TID [facility] Iohexol (Iohexol 350 Mg/Ml 500 Ml Btl (Per Ml)) 0 ml IV ONCE ONE Stop: 03/31/25 09:01 Last Admin: 03/31/25 09:00 Dose: 100 ml Pregabalin (Pregabalin 25 Mg Capsule) 12.5 mg PO BID [facility] Allergies No Known Allergies Allergy (Verified 03/20/25 07:15) Home Medications sertraline 100 mg tablet 100 mg PO DAILY 04/10/24 [History Confirmed 03/31/25] losartan 25 mg tablet 25 mg PO DAILY 30 days #30 tabs 09/20/24 [Rx Confirmed 03/31/25] atorvastatin 40 mg tablet (Lipitor) 40 mg PO DAILY #90 tabs 09/29/24 [Rx Confirmed 03/31/25] carbidopa 25 mg-levodopa 100 mg tablet (Sinemet) 1 tab PO TID 90 days #270 tabs 11/02/24 [Rx Confirmed 03/31/25] thiamine HCl (vitamin B1) 100 mg tablet 100 mg PO BID 90 days #180 tabs 11/03/24 [Rx Confirmed 03/31/25] ergocalciferol (vitamin D2) 1,250 mcg (50,000 unit) capsule 50,000 unit PO .COMPLEX 3 months #13 caps 11/08/24 [Rx Confirmed 03/31/25] acetaminophen 500 mg tablet 500 mg PO Q4H PRN pain/elevated temp 03/31/25 [History Confirmed 03/31/25] albuterol sulfate 2.5 mg/3 mL (0.083 %) solution for nebulization 2.5 mg continuous nebulization Q4H PRN Shortness Of Breath 03/31/25 [History Confirmed 03/31/25] pregabalin 25 mg capsule 25 mg PO BID 03/31/25 [History Confirmed 03/31/25] Discharge Plan Discharge Patient Disposition: Xfer Short-Term Hosp Condition: Stable Prescriptions: No Action carbidopa-levodopa [Sinemet] 25-100 mg tablet 1 tab PO TID 90 Days Qty: 270 0RF losartan 25 mg tablet 25 mg PO DAILY 30 Days Qty: 30 5RF atorvastatin [Lipitor] 40 mg tablet 40 mg PO DAILY Qty: 90 3RF Rx Instructions: Repeat Lipid panel 2 months after starting this medication thiamine HCl (vitamin B1) 100 mg tablet 100 mg PO BID 90 Days Qty: 180 3RF ergocalciferol (vitamin D2) 1,250 mcg (50,000 unit) capsule 50,000 unit PO .COMPLEX 90 Days Qty: 13 3RF Rx Instructions: Give 1 capsule by mouth once weekly on . sertraline 100 mg Tablet 100 mg PO DAILY albuterol sulfate 2.5 mg /3 mL (0.083 %) solution for nebulization 2.5 mg continuous nebulization Q4H PRN (Reason: Shortness Of Breath) acetaminophen 500 mg Tablet 500 mg PO Q4H PRN (Reason: pain/elevated temp) pregabalin 25 mg capsule 25 mg PO BID Referrals: Lisseth Pink FNP [Primary Care Provider, Nurse Practitioner] Patient Instructions: Opioid Safety Transfer Attestations Time Spent in Transfer Care: greater than 30 min Quality Metrics Clinical Quality Measures [ Cerebrovascular Accident { Contraindication to Antithrombotic: None; antithrombotic prescribed; Contraindication to Anticoagulation: Overlap treatment not indicated; Contraindication to Statin: None; Statin prescribed (Patient presenting to already on home medication atorvastatin);}] Coding Level of Care Code 81465 Diagnoses CVA (cerebral vascular accident) I63.9 Parkinsonism G20.C Bilateral carotid artery stenosis I65.23 Laterality: bilateral Traumatic brain injury with delayed recovery S06.9XAA Generalized weakness R53.1 Hypertension I10 Hyperlipemia E78.5
[2025-04-01] VITALS (16 sets, daily range): BP systolic 89–136; BP diastolic 53–73; PULSE 60–99; RESP 14–22; TEMP 36.4–37.1; O2SAT 90–95; BMI 23.1
[2025-04-01] MEDS: guaiFENesin-dextromethorphan UDC 10 mL PO ×2 (00:49→04:30)
[2025-04-01] MEDS: carbidopa-levodopa 25-100mg Tablet 1 EACH PO ×3 (04:30→20:07)
--- NOTE | 2025-04-01 08:38 | PC.NURSE ---
0200 MD was notified that BPs being trending down, SBP<120. MD A litter of saline was given per order. 0330 Notified MD of repeated BPs (95/61 on left arm;136/65 on right arm) after the bolus. Pt denied any chest pain or any other discomfort. a litter of saline was administered per order. 0540 MD was notified for repeated BPs (96/60 on left arm;121/57 on right arm) after the bolus. No changes in pt's condition. No new order received.
--- OUTSIDE RECORDS SUMMARY | 2025-04-01 09:00 | XMS_ITS | Encounter Summary ---
Author Organization [employer] Address 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
--- OUTSIDE RECORDS SUMMARY | 2025-04-01 09:00 | XMS_ITS | Clinical Summary ---
Author Organization [employer] Address [address] 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
--- OUTSIDE RECORDS SUMMARY | 2025-04-01 09:00 | XMS_ITS | Clinical Summary ---
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
--- OUTSIDE RECORDS SUMMARY | 2025-04-01 09:00 | XMS_ITS | Encounter Summary ---
Author Organization [facility] Address [address] [place] [address] Care Team Providers Care Strap Folding Machine Operator Name Role Phone Unavailable Primary Care Provider Unavailabl e Encounter Details Date Type Department Care Team (Late st Contact Info) Description 01/10/2006 Inpatient Historical HIS IN BED José Miguel Dickerson MD [address] [place] [address] Other Specified Rehabilitation Procedure (Primary Dx) Social History Tobacco Use Types Packs/Day Years Used Date Smoking Tobacco: Never Assessed Sex and Gender Information Value Date Recorded Sex Assigned at Not on file 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 Gender Identity Not on file Sexual Orientation [...] CHEMISTRY ORDERABLES Final Resu Performing Organization Address [facility] Phone Number INTERFACE SYSTEM Refer to clinic/hospital department * VANCOMYCIN LEVEL TROUGH (01/12/2006 10:50 PM CDT) Pathologist [facility] VANCOMYCIN, TROUGH 11.6 5.0 - 15.0 mcg/mL INTERFACE SYSTEM 01/12/2006 10:5 0 PM CDT José Miguel Dickerson MD CHEMISTRY ORDERABLES Final Resu Performing Organization Address [facility] Phone Number INTERFACE SYSTEM Refer to clinic/hospital department * (ABNORMAL) HEPATIC FUNCTION PANEL (01/12/2006 10:50 PM CDT) TOTAL PROTEIN 7.9 6.3 - 8.2 g/dL INTERFACE SYSTEM ALBUMIN 3.9 3.5 - 5.0 g/dL INTERFACE SYSTEM ALKALINE PHOSPHATASE 192(H) 25 - 100 U/L INTERFACE SYSTEM Comment: As of 05 the [facility] has changed testing methods. The new reference range is 25-100 The old referance range was 38-126 AST 47(H) 8 - 33 U/L INTERFACE SYSTEM Comment: As of 05 the [facility] has changed testing methods. The new reference range is 8-33 The old referance range was Males 17-59 Females 14-36 ALT 55(H) 4 - 36 IU/L INTERFACE SYSTEM Comment: As of 05 the [facility] has changed testing methods. The new reference range is 4-36 The old referance range was Males 21-72 Females 9-52 BILIRUBIN DIRECT 0.2 0.0 - 0.4 mg/dL INTERFACE SYSTEM BILIRUBIN TOTAL 0.6 0.3 - 1.2 mg/dL INTERFACE SYSTEM Comment: As of 05 the [facility] has changed testing methods. The new reference range is 0.3-1.2 The old referance range was 0.2-1.4 01/12/2006 10:5 0 PM CDT José Miguel Dickerson MD CHEMISTRY ORDERABLES Final Resu Performing Organization Address [facility] Phone Number INTERFACE SYSTEM Refer to [...] ORDERABLES Final Resu lt Performing Organization Address [facility] Phone Number INTERFACE SYSTEM Refer to clinic/hospital department * (ABNORMAL) HEPATIC FUNCTION PANEL (01/11/2006 11:51 PM CDT) TOTAL PROTEIN 7.9 6.3 - 8.2 g/dL INTERFACE SYSTEM ALBUMIN 3.8 3.5 - 5.0 g/dL INTERFACE SYSTEM ALKALINE PHOSPHATASE 185(H) 25 - 100 U/L INTERFACE SYSTEM Comment: As of 05 the [facility] has changed testing methods. The new reference range is 25-100 The old referance range was 38-126 AST 49(H) 8 - 33 U/L INTERFACE SYSTEM Comment: As of 05 the [facility] has changed testing methods. The new reference range is 8-33 The old referance range was Males 17-59 Females 14-36 ALT 57(H) 4 - 36 IU/L INTERFACE SYSTEM Comment: As of 05 the [facility] has changed testing methods. The new reference range is 4-36 The old referance range was Males 21-72 Females 9-52 BILIRUBIN DIRECT 0.2 0.0 - 0.4 mg/dL INTERFACE SYSTEM BILIRUBIN TOTAL 0.7 0.3 - 1.2 mg/dL INTERFACE SYSTEM Comment: As of 05 the [facility] has changed testing methods. The [...] ORDERABLES Final Resu lt Performing Organization Address [facility] Phone Number INTERFACE SYSTEM Refer to [...] URINE ORDERABLES Final Result Performing Organization Address [facility] Phone Number INTERFACE SYSTEM Refer to clinic/hospital [...] CHEMISTRY ORDERABLES Final Resu Performing Organization Address [facility] de Phone Number INTERFACE SYSTEM Refer to clinic/hospital department * TSH (01/11/2006 7:12 AM CDT) Pathologist [facility] TSH 2.073 0.350 - 5.500 uIU/ml INTERFACE SYSTEM Comment: As of 04 at 3:[address] [facility] has changed the methodology for TSH, and with this change the reference range has changed from 0.49-4.67 to 0.35-5.5 uIU/ml. 01/11/2006 7:12 AM CDT José Miguel Dickerson MD CHEMISTRY ORDERABLES [facility] Performing Organization Address [facility] Phone Number INTERFACE SYSTEM Refer to clinic/hospital department * (ABNORMAL) COMPREHENSIVE METABOLIC PANEL (01/11/2006 7:12 AM CDT) Pathologist [facility] GLUCOSE 117(H) 70 - 110 mg/dL INTERFACE [...] INTERFACE SYSTEM Comment: As of 05 the [facility] has changed testing methods. The new reference range is 25-100 The old referance range was 38-126 AST 51(H) 8 - 33 U/L INTERFACE SYSTEM Comment: As of 05 the [facility] has changed testing methods. The new reference range is 8-33 The old referance range was Males 17-59 Females 14-36 ALT 62(H) 4 - 36 IU/L INTERFACE SYSTEM Comment: As of 05 the [facility] has changed testing methods. The new reference range is 4-36 The old referance range was Males 21-72 Females 9-52 BILIRUBIN TOTAL 0.6 0.3 - 1.2 mg/dL INTERFACE SYSTEM Comment: As of 05 the [facility] has changed testing methods. The [...]
--- OUTSIDE RECORDS SUMMARY | 2025-04-01 09:00 | XMS_ITS | Encounter Summary ---
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 Identity Not on file Sexual [...] CARE TESTING Final Result Performing Organization Address [facility] de Phone Number INTERFACE SYSTEM Refer to clinic/hospital department * POC GLUCOSE (01/10/2006 11:38 AM CDT) GLUCOSE POC 100 60 - 100 mg/dL INTERFACE SYSTEM 01/10/2006 11:3 8 AM CDT us Junior Poe MD POINT OF CARE TESTING Final Result Performing Organization Address City/[facility]/ZIP Co de Phone Number INTERFACE SYSTEM Refer to clinic/hospital department * (ABNORMAL) POC GLUCOSE (01/10/2006 8:17 AM CDT) GLUCOSE POC 130(H) 60 - 100 mg/dL INTERFACE SYSTEM 01/10/2006 8:17 AM CDT Result Maikol Poe MD POINT OF CARE TESTING Final Result Performing Organization Address City/[facility] Co de Phone Number INTERFACE SYSTEM Refer to clinic/hospital department * (ABNORMAL) POC GLUCOSE (01/09/2006 9:28 PM CDT) GLUCOSE POC 126(H) 60 - 100 mg/dL INTERFACE SYSTEM 01/09/2006 9:28 PM CDT Result Maikol Poe MD POINT OF CARE TESTING Final Result Performing Organization Address [facility] Phone Number INTERFACE SYSTEM Refer to clinic/hospital department * (ABNORMAL) POC GLUCOSE (01/09/2006 5:22 PM CDT) GLUCOSE POC 154(H) 60 - 100 mg/dL INTERFACE SYSTEM 01/09/2006 5:22 PM CDT Result Maikol Poe MD POINT OF CARE TESTING Final Result Performing Organization Address [facility] Phone Number INTERFACE SYSTEM Refer to clinic/hospital department * (ABNORMAL) POC GLUCOSE (01/09/2006 11:11 AM CDT) GLUCOSE POC 138(H) 60 - 100 mg/dL INTERFACE SYSTEM 01/09/2006 11:1 1 AM CDT Result Maikol Poe MD POINT OF CARE TESTING Final Result Performing Organization Address City/[facility] Co de Phone Number INTERFACE SYSTEM Refer [...] HEMATOLOGY ORDERABLES Final Result Performing Organization Address [facility] Phone Number INTERFACE SYSTEM Refer to clinic/hospital department * POC GLUCOSE (01/09/2006 5:35 AM CDT) GLUCOSE POC 98 60 - 100 mg/dL INTERFACE SYSTEM 01/09/2006 5:35 AM CDT Chadd Yanes Jr., MD POINT OF CARE TESTING F inal Result Performing Organization Address [facility] Phone Number INTERFACE SYSTEM Refer to clinic/hospital department * (ABNORMAL) POC GLUCOSE (01/08/2006 7:59 PM CDT) GLUCOSE POC 131(H) 60 - 100 mg/dL INTERFACE SYSTEM 01/08/2006 7:59 PM CDT Chadd Yanes Jr., MD POINT OF CARE TESTING F inal Result Performing Organization Address [facility] Phone Number INTERFACE SYSTEM Refer to clinic/hospital department * (ABNORMAL) POC GLUCOSE (01/08/2006 5:41 PM CDT) GLUCOSE POC 136(H) 60 - 100 mg/dL INTERFACE SYSTEM 01/08/2006 5:41 PM CDT Chadd Yanes Jr., MD POINT OF CARE TESTING F inal Result Performing Organization Address [facility] Phone Number INTERFACE SYSTEM Refer to clinic/hospital department * (ABNORMAL) POC GLUCOSE (01/08/2006 11:03 AM CDT) GLUCOSE POC 145(H) 60 - 100 mg/dL INTERFACE SYSTEM 01/08/2006 11:0 3 AM CDT us Chadd Yanes Jr., MD POINT OF CARE TESTING F inal Result Performing Organization Address City/[facility] de Phone Number INTERFACE SYSTEM Refer to clinic/hospital department * (ABNORMAL) POC GLUCOSE (01/08/2006 5:32 AM CDT) GLUCOSE POC 131(H) 60 - 100 mg/dL INTERFACE SYSTEM 01/08/2006 5:32 AM CDT Chadd Yanes Jr., MD POINT OF CARE TESTING F inal Result Performing Organization Address [facility] Phone Number INTERFACE SYSTEM Refer to clinic/hospital department * (ABNORMAL) POC GLUCOSE (01/07/2006 8:15 PM CDT) GLUCOSE POC 138(H) 60 - 100 mg/dL INTERFACE SYSTEM 01/07/2006 8:15 PM CDT Chadd Yanes Jr., MD POINT OF CARE TESTING F inal Result Performing Organization Address [facility] Phone Number INTERFACE SYSTEM Refer to clinic/hospital department * (ABNORMAL) POC GLUCOSE (01/07/2006 4:08 PM CDT) GLUCOSE POC 145(H) 60 - 100 mg/dL INTERFACE SYSTEM 01/07/2006 4:08 PM CDT Chadd Yanes Jr., MD POINT OF CARE TESTING F inal Result Performing Organization Address [facility] Phone Number INTERFACE SYSTEM Refer to clinic/hospital department * (ABNORMAL) POC GLUCOSE (01/07/2006 10:43 AM CDT) GLUCOSE POC 102(H) 60 - 100 mg/dL INTERFACE SYSTEM 01/07/2006 10:4 3 AM CDT us Chadd Yanes Jr., MD POINT OF CARE TESTING F inal Result Performing Organization Address City/[facility] de Phone Number INTERFACE SYSTEM Refer [...] TESTING F inal Result Performing Organization Address [facility] Phone Number INTERFACE SYSTEM Refer to clinic/hospital department * (ABNORMAL) POC GLUCOSE (01/06/2006 4:05 PM CDT) GLUCOSE POC 152(H) 60 - 100 mg/dL INTERFACE SYSTEM 01/06/2006 4:05 PM CDT us Chadd Yanes Jr., MD POINT OF CARE TESTING F inal Result Performing Organization Address [facility] Phone Number INTERFACE SYSTEM Refer to clinic/hospital department * (ABNORMAL) POC GLUCOSE (01/06/2006 11:23 AM CDT) GLUCOSE POC 134(H) 60 - 100 mg/dL INTERFACE SYSTEM 01/06/2006 11:2 3 AM CDT us Chadd Yanes Jr., MD POINT OF CARE TESTING F inal Result Performing Organization Address [facility] Phone Number INTERFACE SYSTEM Refer to clinic/hospital [...] COM F inal Result Performing Organization Address City/[facility] Co de Phone Number INTERFACE SYSTEM Refer to clinic/hospital department * (ABNORMAL) POC GLUCOSE (01/06/2006 5:08 AM CDT) GLUCOSE POC 176(H) 60 - 100 mg/dL INTERFACE SYSTEM 01/06/2006 5:08 AM CDT Junior Poe MD POINT OF CARE TESTING Final Result Performing Organization Address [facility] Co de Phone Number INTERFACE SYSTEM Refer [...] CARE TESTING Final Result Performing Organization Address City/[facility] Co de Phone Number INTERFACE SYSTEM Refer [...] COM F inal Result Performing Organization Address City/[facility]/ZIP Co de Phone Number INTERFACE SYSTEM Refer [...] CARE TESTING Final Result Performing Organization Address [facility] Co de Phone Number INTERFACE SYSTEM Refer [...] COM F inal Result Performing Organization Address City/[facility] de Phone Number INTERFACE SYSTEM Refer to clinic/hospital department * (ABNORMAL) POC GLUCOSE (01/05/2006 5:30 AM CDT) GLUCOSE POC 149(H) 60 - 100 mg/dL INTERFACE SYSTEM 01/05/2006 5:30 AM CDT Junior Poe MD POINT OF CARE TESTING Final Result Performing Organization Address [facility] Phone Number INTERFACE SYSTEM Refer to clinic/hospital [...] HEMATOLOGY ORDERABLES Final Result Performing Organization Address [facility] Phone Number INTERFACE SYSTEM Refer to clinic/hospital department * (ABNORMAL) POC GLUCOSE (01/04/2006 8:54 PM CDT) GLUCOSE POC 149(H) 60 - 100 mg/dL INTERFACE SYSTEM 01/04/2006 8:54 PM CDT Result Maikol Poe MD POINT OF CARE TESTING Final Result Performing Organization Address [facility] Phone Number INTERFACE SYSTEM Refer to clinic/hospital department * (ABNORMAL) POC GLUCOSE (01/04/2006 4:19 PM CDT) GLUCOSE POC 137(H) 60 - 100 mg/dL INTERFACE SYSTEM 01/04/2006 4:19 PM CDT Result Maikol Poe MD POINT OF CARE TESTING Final Result Performing Organization Address [facility] Phone Number INTERFACE SYSTEM Refer to clinic/hospital department * (ABNORMAL) POC GLUCOSE (01/04/2006 11:59 AM CDT) GLUCOSE POC 178(H) 60 - 100 mg/dL INTERFACE SYSTEM 01/04/2006 11:5 9 AM CDT Result Maikol Poe MD POINT OF CARE TESTING Final Result Performing Organization Address [facility] Phone Number INTERFACE SYSTEM Refer to clinic/hospital department * POC GLUCOSE (01/04/2006 5:00 AM CDT) Pathologist [facility] GLUCOSE POC 96 60 - 100 mg/dL INTERFACE SYSTEM 01/04/2006 5:00 AM CDT us Junior Poe MD POINT OF CARE TESTING Final Result Performing Organization Address [facility] Phone Number INTERFACE SYSTEM Refer to clinic/hospital [...] CHEMISTRY ORDERABLES Final Result Performing Organization Address [facility] Phone Number INTERFACE SYSTEM Refer to clinic/hospital [...] HEMATOLOGY ORDERABLES Final Result Performing Organization Address [facility] de Phone Number INTERFACE SYSTEM Refer to clinic/hospital department * (ABNORMAL) POC GLUCOSE (01/03/2006 9:27 PM CDT) GLUCOSE POC 148(H) 60 - 100 mg/dL INTERFACE SYSTEM 01/03/2006 9:27 PM CDT us Junior Poe MD POINT OF CARE TESTING Final Result Performing Organization Address City/[facility] de Phone Number INTERFACE SYSTEM Refer to clinic/hospital department * (ABNORMAL) POC GLUCOSE (01/03/2006 5:12 PM CDT) GLUCOSE POC 124(H) 60 - 100 mg/dL INTERFACE SYSTEM 01/03/2006 5:12 PM CDT Result Maikol Poe MD POINT OF CARE TESTING Final Result Performing Organization Address City/[facility] de Phone Number INTERFACE SYSTEM Refer [...] CARE TESTING Final Result Performing Organization Address [facility] Phone Number INTERFACE SYSTEM Refer to clinic/hospital department * PHOSPHORUS (01/03/2006 4:14 AM CDT) Pathologist [facility] PHOSPHORUS 3.0 2.5 - 4.6 mg/dL INTERFACE SYSTEM 01/03/2006 4:14 AM CDT us Junior Poe MD CHEMISTRY ORDERABLES Final Result Performing Organization Address [facility] Phone Number INTERFACE SYSTEM Refer to clinic/hospital department * MAGNESIUM LEVEL (01/03/2006 4:14 AM CDT) Pathologist [facility] MAGNESIUM 2.3 1.7 - 2.4 mg/dL INTERFACE SYSTEM Comment: As of 05 the [facility] has changed testing methods. The new reference range is 1.7-2.4 The old referance range was 1.6-2.3 01/03/2006 4:14 AM CDT us Junior Poe MD CHEMISTRY ORDERABLES Final Result Performing Organization Address [facility] Phone Number INTERFACE SYSTEM Refer to clinic/hospital [...] INTERFACE SYSTEM Comment: As of 05 the [facility] has changed testing methods. The new reference range is 25-100 The old referance range was 38-126 AST 115(H) 8 - 33 U/L INTERFACE SYSTEM Comment: As of 05 the [facility] has changed testing methods. The new reference range is 8-33 The old referance range was Males 17-59 Females 14-36 ALT 101(H) 4 - 36 IU/L INTERFACE SYSTEM Comment: As of 05 the [facility] has changed testing methods. The new reference range is 4-36 The old referance range was Males 21-72 Females 9-52 BILIRUBIN TOTAL 0.9 0.3 - 1.2 mg/dL INTERFACE SYSTEM Comment: As of 05 the [facility] has changed testing methods. The new [...] HEMATOLOGY ORDERABLES Final Result Performing Organization Address [facility] de Phone Number INTERFACE SYSTEM Refer to clinic/hospital department * VANCOMYCIN LEVEL PEAK (01/03/2006 2:09 AM CDT) VANCOMYCIN, PEAK 27.8 25.0 - 40.0 mcg/mL INTERFACE SYSTEM 01/03/2006 2:09 AM CDT Junior Poe MD CHEMISTRY ORDERABLES Final Result Performing Organization Address [facility] Co nd Phone Number INTERFACE SYSTEM Refer to clinic/hospital department * VANCOMYCIN LEVEL TROUGH (01/02/2006 11:14 PM CDT) VANCOMYCIN, TROUGH 9.2 5.0 - 15.0 mcg/mL INTERFACE SYSTEM 01/02/2006 11:1 4 PM CDT Result Maikol Poe MD CHEMISTRY ORDERABLES Final Result Performing Organization Address [facility] Phone Number INTERFACE SYSTEM Refer to clinic/hospital department * (ABNORMAL) POC GLUCOSE (01/02/2006 8:27 PM CDT) GLUCOSE POC 141(H) 60 - 100 mg/dL INTERFACE SYSTEM 01/02/2006 8:27 PM CDT Result Maikol Poe MD POINT OF CARE TESTING Final Result Performing Organization Address [facility] Phone Number INTERFACE SYSTEM Refer to clinic/hospital department * (ABNORMAL) POC GLUCOSE (01/02/2006 4:38 PM CDT) GLUCOSE POC 126(H) 60 - 100 mg/dL INTERFACE SYSTEM 01/02/2006 4:38 PM CDT Result Maikol Poe MD POINT OF CARE TESTING Final Result Performing Organization Address [facility] Phone Number INTERFACE SYSTEM Refer to clinic/hospital department * (ABNORMAL) POC GLUCOSE (01/02/2006 11:46 AM CDT) GLUCOSE POC 134(H) 60 - 100 mg/dL INTERFACE SYSTEM 01/02/2006 11:4 6 AM CDT us Junior Poe MD POINT OF CARE TESTING Final Result Performing Organization Address [facility] Phone Number INTERFACE SYSTEM Refer to clinic/hospital [...] CHEMISTRY ORDERABLES Final Result Performing Organization Address [facility] Phone Number INTERFACE SYSTEM Refer to clinic/hospital department * (ABNORMAL) POC GLUCOSE (01/01/2006 9:24 PM CDT) GLUCOSE POC 154(H) 60 - 100 mg/dL INTERFACE SYSTEM 01/01/2006 9:24 PM CDT us Junior Poe MD POINT OF CARE TESTING Final Result Performing Organization Address [facility] Phone Number INTERFACE SYSTEM Refer to clinic/hospital department * (ABNORMAL) POC GLUCOSE (01/01/2006 4:53 PM CDT) GLUCOSE POC 145(H) 60 - 100 mg/dL INTERFACE SYSTEM 01/01/2006 4:53 PM CDT us Junior Poe MD POINT OF CARE TESTING Final Result Performing Organization Address [facility] Phone Number INTERFACE SYSTEM Refer to clinic/hospital department * VANCOMYCIN LEVEL PEAK (01/01/2006 2:38 PM CDT) VANCOMYCIN, PEAK 26.8 25.0 - 40.0 mcg/mL INTERFACE SYSTEM 01/01/2006 2:38 PM CDT Rico Curiel DO CHEMISTRY ORDERABLES Final Res ult Performing Organization Address [facility] Phone Number INTERFACE SYSTEM Refer to clinic/hospital department * VANCOMYCIN LEVEL TROUGH (01/01/2006 11:51 AM CDT) VANCOMYCIN, TROUGH 10.1 5.0 - 15.0 mcg/mL INTERFACE SYSTEM 01/01/2006 11:5 1 AM CDT Rico Curiel DO CHEMISTRY ORDERABLES Final Res ult Performing Organization Address [facility] Phone Number INTERFACE SYSTEM Refer to clinic/hospital department * (ABNORMAL) POC GLUCOSE (01/01/2006 11:37 AM CDT) GLUCOSE POC 140(H) 60 - 100 mg/dL INTERFACE SYSTEM 01/01/2006 11:3 7 AM CDT Junior Poe MD POINT OF CARE TESTING Final Result Performing Organization Address [facility] Phone Number INTERFACE SYSTEM Refer to clinic/hospital department * (ABNORMAL) POC GLUCOSE (01/01/2006 5:41 AM CDT) GLUCOSE POC 159(H) 60 - 100 mg/dL INTERFACE SYSTEM COMMENT POC Follow Protocol INTERFACE SYSTEM 01/01/2006 5:41 AM CDT Junior Poe MD POINT OF CARE TESTING Final Result Performing Organization Address [facility] Phone Number INTERFACE SYSTEM Refer to clinic/hospital [...] ORDERABLES Final Resul t Performing Organization Address [facility] de Phone Number INTERFACE SYSTEM Refer [...] CHEMISTRY ORDERABLES Final Result Performing Organization Address [facility] Co de Phone Number INTERFACE SYSTEM Refer [...] ORDERABLES Final Resul t Performing Organization Address City/[facility] de Phone Number INTERFACE SYSTEM Refer [...] CARE TESTING Final Result Performing Organization Address City/State/[facility] Phone Number INTERFACE SYSTEM Refer to clinic/hospital department * (ABNORMAL) POC GLUCOSE (12/31/2005 5:28 AM CDT) GLUCOSE POC 149(H) 60 - 100 mg/dL INTERFACE SYSTEM 12/31/2005 5:28 AM CDT Junior Poe MD POINT OF CARE TESTING Final Result Performing Organization Address [facility] Phone Number INTERFACE SYSTEM Refer to clinic/hospital [...] ORDERABLES Final Resul t Performing Organization Address [facility] Phone Number INTERFACE SYSTEM Refer to clinic/hospital department * PHOSPHORUS (12/31/2005 4:38 AM CDT) PHOSPHORUS 2.9 2.5 - 4.6 mg/dL INTERFACE SYSTEM 12/31/2005 4:38 AM CDT Junior Poe MD CHEMISTRY ORDERABLES Final Result Performing Organization Address [facility] de Phone Number INTERFACE SYSTEM Refer to clinic/hospital department * MAGNESIUM LEVEL (12/31/2005 4:38 AM CDT) MAGNESIUM 2.4 1.7 - 2.4 mg/dL INTERFACE SYSTEM Comment: As of 05 the [facility] has changed testing methods. The new reference range is 1.7-2.4 The old referance range was 1.6-2.3 12/31/2005 4:38 AM CDT Junior Poe MD CHEMISTRY ORDERABLES Final Result Performing Organization Address [facility] Phone Number INTERFACE SYSTEM Refer [...] CHEMISTRY ORDERABLES Final Result Performing Organization Address [facility] Co de Phone Number INTERFACE SYSTEM Refer [...] HEMATOLOGY ORDERABLES Final Result Performing Organization Address City/[facility] Co de Phone Number INTERFACE SYSTEM Refer to clinic/hospital department * (ABNORMAL) POC GLUCOSE (12/30/2005 8:15 PM CDT) GLUCOSE POC 140(H) 60 - 100 mg/dL INTERFACE SYSTEM COMMENT POC Follow Protocol INTERFACE SYSTEM 12/30/2005 8:15 PM CDT us Junior Poe MD POINT OF CARE TESTING Final Result Performing Organization Address City/[facility] Co de Phone Number INTERFACE SYSTEM Refer to clinic/hospital department * (ABNORMAL) POC GLUCOSE (12/30/2005 4:38 PM CDT) GLUCOSE POC 137(H) 60 - 100 mg/dL INTERFACE SYSTEM 12/30/2005 4:38 PM CDT us Junior Poe MD POINT OF CARE TESTING Final Result Performing Organization Address [facility] Co de Phone Number INTERFACE SYSTEM Refer to clinic/hospital department * CLOSTRIDIUM DIFFICILE TOXIN (12/30/2005 3:31 PM CDT) C DIFFICILE TOXIN Negative Negative INTERFACE SYSTEM 12/30/2005 3:31 PM CDT us Junior Poe MD [facility]Y [facility] Final Result Performing Organization Address [facility] Phone Number INTERFACE SYSTEM Refer to clinic/hospital department * (ABNORMAL) POC GLUCOSE (12/30/2005 12:24 PM CDT) GLUCOSE POC 143(H) 60 - 100 mg/dL INTERFACE SYSTEM 12/30/2005 12:2 4 PM CDT us Junior Poe MD POINT OF CARE TESTING Final Result Performing Organization Address City/[facility] Co de Phone Number INTERFACE SYSTEM Refer [...] COM F inal Result Performing Organization Address [facility] Phone Number INTERFACE SYSTEM Refer to clinic/hospital department * PHOSPHORUS (12/30/2005 4:13 AM CDT) PHOSPHORUS 3.9 2.5 - 4.6 mg/dL INTERFACE SYSTEM 12/30/2005 4:13 AM CDT us Junior Poe MD CHEMISTRY ORDERABLES Final Result Performing Organization Address [facility] Phone Number INTERFACE SYSTEM Refer to clinic/hospital department * MAGNESIUM LEVEL (12/30/2005 4:13 AM CDT) MAGNESIUM 1.8 1.7 - 2.4 mg/dL INTERFACE SYSTEM Comment: As of 05 the [facility] has changed testing methods. The new reference range is 1.7-2.4 The old referance range was 1.6-2.3 12/30/2005 4:13 AM CDT us Junior Poe MD CHEMISTRY ORDERABLES Final Result Performing Organization Address [facility] Phone Number INTERFACE SYSTEM Refer to clinic/hospital [...] CHEMISTRY ORDERABLES Final Result Performing Organization Address City/[facility] Phone Number INTERFACE SYSTEM Refer to clinic/hospital [...] HEMATOLOGY ORDERABLES Final Result Performing Organization Address City/[facility] Phone Number INTERFACE SYSTEM Refer to clinic/hospital department * (ABNORMAL) POC GLUCOSE (12/29/2005 9:24 PM CDT) GLUCOSE POC 143(H) 60 - 100 mg/dL INTERFACE SYSTEM 12/29/2005 9:24 PM CDT us Junior Poe MD POINT OF CARE TESTING Final Result Performing Organization Address City/[facility] Phone Number INTERFACE SYSTEM Refer to clinic/hospital [...] CARE TESTING Final Result Performing Organization Address City/[facility] Co de Phone Number INTERFACE SYSTEM Refer [...] COM F inal Result Performing Organization Address [facility] Phone Number INTERFACE SYSTEM Refer to clinic/hospital department * (ABNORMAL) POC GLUCOSE (12/29/2005 5:27 AM CDT) GLUCOSE POC 146(H) 60 - 100 mg/dL INTERFACE SYSTEM 12/29/2005 5:27 AM CDT Result Maikol Poe MD POINT OF CARE TESTING Final Result Performing Organization Address [facility] Phone Number INTERFACE SYSTEM Refer to clinic/hospital department * (ABNORMAL) POC GLUCOSE (12/28/2005 9:42 PM CDT) GLUCOSE POC 168(H) 60 - 100 mg/dL INTERFACE SYSTEM 12/28/2005 9:42 PM CDT Result Maikol Poe MD POINT OF CARE TESTING Final Result Performing Organization Address [facility] Phone Number INTERFACE SYSTEM Refer to clinic/hospital department * (ABNORMAL) POC GLUCOSE (12/28/2005 4:40 PM CDT) GLUCOSE POC 155(H) 60 - 100 mg/dL INTERFACE SYSTEM 12/28/2005 4:40 PM CDT Result Maikol Poe MD POINT OF CARE TESTING Final Result Performing Organization Address [facility] Phone Number INTERFACE SYSTEM Refer to clinic/hospital [...] INTERFACE SYSTEM Comment: As of 05 the [facility] has changed testing methods. The new reference range is 25-100 The old referance range was 38-126 AST 93(H) 8 - 33 U/L INTERFACE SYSTEM Comment: As of 05 the [facility] has changed testing methods. The new reference range is 8-33 The old referance range was Males 17-59 Females 14-36 ALT 69(H) 4 - 36 IU/L INTERFACE SYSTEM Comment: As of 05 the [facility] has changed testing methods. The new reference range is 4-36 The old referance range was Males 21-72 Females 9-52 BILIRUBIN TOTAL 1.2 0.3 - 1.2 mg/dL INTERFACE SYSTEM Comment: As of 05 the [facility] has changed testing methods. The new [...] HEMATOLOGY ORDERABLES Final Result Performing Organization Address City/[facility] de Phone Number INTERFACE SYSTEM Refer to clinic/hospital department * (ABNORMAL) POC GLUCOSE (12/27/2005 8:46 PM CDT) GLUCOSE POC 165(H) 60 - 100 mg/dL INTERFACE SYSTEM COMMENT POC Follow Protocol INTERFACE SYSTEM 12/27/2005 8:46 PM CDT Junior Poe MD POINT OF CARE TESTING Final Result Performing Organization Address [facility] de Phone Number INTERFACE SYSTEM Refer to clinic/hospital department * (ABNORMAL) POC GLUCOSE (12/27/2005 4:40 PM CDT) GLUCOSE POC 160(H) 60 - 100 mg/dL INTERFACE SYSTEM 12/27/2005 4:40 PM CDT Junior Poe MD POINT OF CARE TESTING Final Result Performing Organization Address [facility] Phone Number INTERFACE SYSTEM Refer to clinic/hospital department * (ABNORMAL) POC GLUCOSE (12/27/2005 11:25 AM CDT) GLUCOSE POC 148(H) 60 - 100 mg/dL INTERFACE SYSTEM 12/27/2005 11:2 5 AM CDT Junior Poe MD POINT OF CARE TESTING Final Result Performing Organization Address [facility] de Phone Number INTERFACE SYSTEM Refer [...] INTERFACE SYSTEM Comment: As of 05 the [facility] has changed testing methods. The new reference range is 25-100 The old referance range was 38-126 AST 69(H) 8 - 33 U/L INTERFACE SYSTEM Comment: As of 05 the [facility] has changed testing methods. The new reference range is 8-33 The old referance range was Males 17-59 Females 14-36 ALT 44(H) 4 - 36 IU/L INTERFACE SYSTEM Comment: As of 05 the [facility] has changed testing methods. The new reference range is 4-36 The old referance range was Males 21-72 Females 9-52 BILIRUBIN TOTAL 1.2 0.3 - 1.2 mg/dL INTERFACE SYSTEM Comment: As of 05 the [facility] has changed testing methods. The new [...] HEMATOLOGY ORDERABLES Final Result Performing Organization Address City/[facility] Co de Phone Number INTERFACE SYSTEM Refer to clinic/hospital department * (ABNORMAL) POC GLUCOSE (12/27/2005 4:35 AM CDT) GLUCOSE POC 165(H) 60 - 100 mg/dL INTERFACE SYSTEM 12/27/2005 4:35 AM CDT us Junior Poe MD POINT OF CARE TESTING Final Result Performing Organization Address City/[facility] Co de Phone Number INTERFACE SYSTEM Refer to clinic/hospital department * (ABNORMAL) POC GLUCOSE (12/26/2005 9:44 PM CDT) GLUCOSE POC 148(H) 60 - 100 mg/dL INTERFACE SYSTEM COMMENT POC Follow Protocol INTERFACE SYSTEM 12/26/2005 9:44 PM CDT Result Maikol Poe MD POINT OF CARE TESTING Final Result Performing Organization Address City/State/[facility] Co de Phone Number INTERFACE SYSTEM Refer to clinic/hospital department * (ABNORMAL) POC GLUCOSE (12/26/2005 5:37 PM CDT) GLUCOSE POC 144(H) 60 - 100 mg/dL INTERFACE SYSTEM 12/26/2005 5:37 PM CDT Junior Poe MD POINT OF CARE TESTING Final Result Performing Organization Address [facility] Phone Number INTERFACE SYSTEM Refer to clinic/hospital [...] COM F inal Result Performing Organization Address [facility] Phone Number INTERFACE SYSTEM Refer to clinic/hospital [...] HEMATOLOGY ORDERABLES Final Result Performing Organization Address City/[facility] de Phone Number INTERFACE SYSTEM Refer to clinic/hospital department * (ABNORMAL) POC GLUCOSE (12/26/2005 12:32 PM CDT) Pathologist [facility] GLUCOSE POC 141(H) 60 - 100 mg/dL INTERFACE SYSTEM 12/26/2005 12:3 2 PM CDT us Junior Poe MD POINT OF CARE TESTING Final Result Performing Organization Address [facility] de Phone Number INTERFACE SYSTEM Refer [...] COM F inal Result Performing Organization Address [facility] Phone Number INTERFACE SYSTEM Refer to clinic/hospital [...] INTERFACE SYSTEM 12/26/2005 7:46 AM CDT Junior Peo MD HEMATOLOGY ORDERABLES Edite d Performing Organization Address [facility] Phone Number INTERFACE SYSTEM Refer to clinic/hospital [...] COM F inal Result Performing Organization Address City/[facility] de Phone Number INTERFACE SYSTEM Refer to clinic/hospital department * (ABNORMAL) POC GLUCOSE (12/26/2005 5:15 AM CDT) GLUCOSE POC 140(H) 60 - 100 mg/dL INTERFACE SYSTEM 12/26/2005 5:15 AM CDT us Junior Poe MD POINT OF CARE TESTING Final Result Performing Organization Address City/[facility] de Phone Number INTERFACE SYSTEM Refer to clinic/hospital department * PHOSPHORUS (12/26/2005 4:04 AM CDT) PHOSPHORUS 2.8 2.5 - 4.6 mg/dL INTERFACE SYSTEM 12/26/2005 4:04 AM CDT us Junior Poe MD CHEMISTRY ORDERABLES Final Result Performing Organization Address [facility] de Phone Number INTERFACE SYSTEM Refer to clinic/hospital department * MAGNESIUM LEVEL (12/26/2005 4:04 AM CDT) MAGNESIUM 1.9 1.7 - 2.4 mg/dL INTERFACE SYSTEM Comment: As of 05 the [facility] has changed testing methods. The new reference range is 1.7-2.4 The old referance range was 1.6-2.3 12/26/2005 4:04 AM CDT us Junior Poe MD CHEMISTRY ORDERABLES Final Result Performing Organization Address [facility] Phone Number INTERFACE SYSTEM Refer [...] CHEMISTRY ORDERABLES Final Result Performing Organization Address [facility] Phone Number INTERFACE SYSTEM Refer to clinic/hospital department * (ABNORMAL) HEMOGLOBIN AND HEMATOCRIT (12/26/2005 12:06 AM CDT) HEMOGLOBIN 5.4(L) 14.0 - 18.0 g/dL INTERFACE SYSTEM Comment:RESULTS CALLED TO RY AN 12/26/2005 00:21 HEMATOCRIT 15.8(L) 41.0 - 53.0 % INTERFACE SYSTEM 12/26/2005 12:0 6 AM CDT Result Maikol Poe MD HEMATOLOGY ORDERABLES Final Result Performing Organization Address [facility] Phone Number INTERFACE SYSTEM Refer to clinic/hospital department * (ABNORMAL) POC GLUCOSE (12/25/2005 9:23 PM CDT) GLUCOSE POC 152(H) 60 - 100 mg/dL INTERFACE SYSTEM 12/25/2005 9:23 PM CDT us Junior Poe MD POINT OF CARE TESTING Final Result Performing Organization Address [facility] Phone Number INTERFACE SYSTEM Refer to clinic/hospital department * (ABNORMAL) POC GLUCOSE (12/25/2005 6:07 PM CDT) GLUCOSE POC 119(H) 60 - 100 mg/dL INTERFACE SYSTEM 12/25/2005 6:07 PM CDT us Junior Poe MD POINT OF CARE TESTING Final Result Performing Organization Address [facility] Phone Number INTERFACE SYSTEM Refer to clinic/hospital department * (ABNORMAL) POC GLUCOSE (12/25/2005 11:49 AM CDT) GLUCOSE POC 214(H) 60 - 100 mg/dL INTERFACE SYSTEM 12/25/2005 11:4 9 AM CDT us Junior Poe MD POINT OF CARE TESTING Final Result Performing Organization Address [facility] Phone Number INTERFACE SYSTEM Refer [...] COM F inal Result Performing Organization Address [facility] Phone Number INTERFACE SYSTEM Refer to clinic/hospital department * (ABNORMAL) POC GLUCOSE (12/25/2005 5:14 AM CDT) GLUCOSE POC 174(H) 60 - 100 mg/dL INTERFACE SYSTEM 12/25/2005 5:14 AM CDT Junior Poe MD POINT OF CARE TESTING Final Result Performing Organization Address [facility] Phone Number INTERFACE SYSTEM Refer to clinic/hospital department * PHOSPHORUS (12/25/2005 4:02 AM CDT) PHOSPHORUS 3.0 2.5 - 4.6 mg/dL INTERFACE SYSTEM 12/25/2005 4:02 AM CDT us Junior Poe MD CHEMISTRY ORDERABLES Final Result Performing Organization Address [facility] Phone Number INTERFACE SYSTEM Refer to clinic/hospital [...] CARE TESTING Final Result Performing Organization Address [facility] Phone Number INTERFACE SYSTEM Refer to clinic/hospital department * (ABNORMAL) POC GLUCOSE (12/24/2005 5:50 PM CDT) GLUCOSE POC 161(H) 60 - 100 mg/dL INTERFACE SYSTEM 12/24/2005 5:50 PM CDT us Junior Poe MD POINT OF CARE TESTING Final Result Performing Organization Address [facility] Phone Number INTERFACE SYSTEM Refer to clinic/hospital department * (ABNORMAL) POC GLUCOSE (12/24/2005 12:50 PM CDT) GLUCOSE POC 139(H) 60 - 100 mg/dL INTERFACE SYSTEM 12/24/2005 12:5 0 PM CDT us Junior Poe MD POINT OF CARE TESTING Final Result Performing Organization Address [facility] Phone Number INTERFACE SYSTEM Refer to clinic/hospital [...] HEMATOLOGY ORDERABLES Final Result Performing Organization Address [facility] Phone Number INTERFACE SYSTEM Refer to clinic/hospital department * (ABNORMAL) PHOSPHORUS (12/24/2005 4:35 AM CDT) PHOSPHORUS 1.3(L) 2.5 - 4.6 mg/dL INTERFACE SYSTEM 12/24/2005 4:35 AM CDT Junior Poe MD CHEMISTRY ORDERABLES Final Result Performing Organization Address [facility] Phone Number INTERFACE SYSTEM Refer to clinic/hospital department * MAGNESIUM LEVEL (12/24/2005 4:35 AM CDT) MAGNESIUM 1.9 1.7 - 2.4 mg/dL INTERFACE SYSTEM Comment: As of 05 the [facility] has changed testing methods. The new reference range is 1.7-2.4 The old referance range was 1.6-2.3 12/24/2005 4:35 AM CDT Junior Poe MD CHEMISTRY ORDERABLES Final Result Performing Organization Address [facility] Phone Number INTERFACE SYSTEM Refer to clinic/hospital [...] CHEMISTRY ORDERABLES Final Result Performing Organization Address City/State/[facility] Co de Phone Number INTERFACE SYSTEM Refer [...] COM F inal Result Performing Organization Address City/State/[facility] de Phone Number INTERFACE SYSTEM Refer [...] COM F inal Result Performing Organization Address City/[facility] Co de Phone Number INTERFACE SYSTEM Refer [...] COM F inal Result Performing Organization Address City/[facility] Co de Phone Number INTERFACE SYSTEM Refer [...] CHEMISTRY ORDERABLES Final Result Performing Organization Address [facility] de Phone Number INTERFACE SYSTEM Refer [...] HEMATOLOGY ORDERABLES Final Result Performing Organization Address City/[facility] Co de Phone Number INTERFACE SYSTEM Refer [...] COM F inal Result Performing Organization Address City/[facility] de Phone Number INTERFACE SYSTEM Refer to clinic/hospital department * (ABNORMAL) PHOSPHORUS (12/22/2005 4:25 AM CDT) PHOSPHORUS 1.3(L) 2.5 - 4.6 mg/dL INTERFACE SYSTEM 12/22/2005 4:25 AM CDT us Junior Poe MD CHEMISTRY ORDERABLES Final Result Performing Organization Address City/[facility] Co de Phone Number INTERFACE SYSTEM Refer to clinic/hospital department * MAGNESIUM LEVEL (12/22/2005 4:25 AM CDT) MAGNESIUM 1.9 1.7 - 2.4 mg/dL INTERFACE SYSTEM Comment: As of 05 the [facility] has changed testing methods. The new reference range is 1.7-2.4 The old referance range was 1.6-2.3 12/22/2005 4:25 AM CDT Junior Poe MD CHEMISTRY ORDERABLES Final Result Performing Organization Address [facility] Phone Number INTERFACE SYSTEM Refer to clinic/hospital [...] CHEMISTRY ORDERABLES Final Result Performing Organization Address [facility] Phone Number INTERFACE SYSTEM Refer to clinic/hospital [...] HEMATOLOGY ORDERABLES Final Result Performing Organization Address [facility] de Phone Number INTERFACE SYSTEM Refer [...] COM F inal Result Performing Organization Address [facility] Co de Phone Number INTERFACE SYSTEM Refer [...] Goal INR 3.0; range 2.5 - 3.5 POST-LA Goal INR 2.5; range 2.0 - 3.0 [...] HEMATOLOGY ORDERABLES Final Result Performing Organization Address [facility] de Phone Number INTERFACE SYSTEM Refer [...] ORDERABLES Final Re sult Performing Organization Address [facility] Phone Number INTERFACE SYSTEM Refer to clinic/hospital [...] TESTING COM Final Result Performing Organization Address City/[facility] Co de Phone Number INTERFACE SYSTEM Refer [...] Goal INR 3.0; range 2.5 - 3.5 POST-LA Goal INR 2.5; range 2.0 - 3.0 or Goal 3.0; range 2.5 - 3.5 Atrial Fibrillation Goal INR 2.5; range 2.0 - 3.0 Ischemic Stroke Goal INR 2.5; range 2.0 - 3.0 For additional information see Guidelines for Anticoagulation available from the pharmacy Pat Mckeon Pharm D. 12/20/2005 5:32 PM CDT Donovan Copeland MD HEMATOLOGY ORDERABLES Fin al Result Performing Organization Address City/[facility] Co de Phone Number INTERFACE SYSTEM Refer [...] ORDERABLES Fin al Result Performing Organization Address City/[facility] Co de Phone Number INTERFACE SYSTEM Refer [...]
--- OUTSIDE RECORDS SUMMARY | 2025-04-01 09:00 | XMS_ITS | Encounter Summary ---
Author Organization [employer] [facility] Address [address] [place] [address] Care Team Providers Care Inspector Motor Vehicles Name Role Phone Unavailable Primary Care Provider Unavailabl e Encounter Details Date Type Department Care Team (Late st Contact Info) Description 04/28/2007 Outpatient Historical [facility] Neurology [address], [address] [place] [address] Grant Mari MD NO ADDRESS ON FILE Social History Tobacco Use Types Packs/Day Years Used Date Smoking Tobacco: Never Assessed Sex and Gender Information Value Date Recorded Sex Assigned at Not on file Legal Sex Male 4:48 AM [employer]SUM[employer] UNDER[employer] Gender Identity Not on file Sexual Orientation Not on file documented as of this encounter Plan of Treatment Not on file documented as of this encounter Visit Diagnoses Not on filedocumented in this encounter
--- NOTE | 2025-04-01 09:15 | PC.NURSE ---
This nurse gave an update to [facility] via phone at [phone]. Still awaiting a bed. Accepting doctor is Dr. Carvalho.
--- NOTE | 2025-04-01 18:14 | P.PN_ITS ---
Subjective 2 Subjective: Patient seen in the morning and doing well, no complaints or concerns voiced by the patient Vitals/I&O/Wt Last Vital Signs Temp 97.8 F 04/01/25 16:00 Pulse 76 04/01/25 16:00 Resp 16 04/01/25 16:00 BP 111/70 04/01/25 16:00 Pulse Ox 94 04/01/25 16:00 O2 Del Method Room Air 04/01/25 16:00 04/01/25 04/01/25 04/01/25 06:59 14:59 22:59 Intake Total 2300 / 3651.667 1360 / 1360 120 / 1480 Output Total 700 / 1300 1050 / 1050 225 / 1275 Balance 1600 / 2351.667 310 / 310 -105 / 205 Weight last 48 hrs Weight 77.2 kg Weight 78.018 kg Weight 78.018 kg Physical Exam 2 Narrative: General: Alert and oriented, lying comfortably without any distress HEENT: Normocephalic, atraumatic, grossly unremarkable exam Cardio: normal rate rhythm, normal S1-S2 without any murmurs, rubs, or gallops and JVD normal Respiratory: normal vascular breathing on auscultation without any wheezes, stridor, rhonchi GI: Abdomen soft, nontender, nondistended, normoactive bowel sounds present all 4 quadrants, Neuro: intact cranial nerves motor and sensory and cerebellar/coordination function without any focal neurological deficit Behavior: Appropriate and cooperative Extremities: Adequate palpable pulses, mild trace edema Data 03/31/25 09:07 03/31/25 09:07 A&P Assessment and plan 1. CVA (cerebral vascular accident): ? [facility] [place] [facility] consulted on 03/31/2025 by the admitting physician,,expertise and recommendations appreciated. Patient had NIH score of 5, ABCD score of 5 ? NIH scale 5 ? Continue aspirin and statin ? Telemetry monitoring and frequent neurochecks ? Fall precautions, dysphagia screen, OT PT therapy - Lipid panel reviewed, HbA1c to follow - Echo pending - Patient has severe carotid stenosis therefore he is transferred was initiated by the admitting physician, accepted in [facility] by Dr. Holliday/neurologist for likely further vascular intervention awaiting, bed assignment 2. Parkinsonism: Continue home dose carbidopa levodopa Frequent neurochecks 3. Bilateral carotid artery stenosis: Significant carotid stenosis, 70% left proximal ICA stenosis and progressed on CT angio. Patient accepted in [facility] by Dr. Holliday neurologist for likely further vascular intervention 4. Traumatic brain injury with delayed recovery: Stable continue to monitor 5. Generalized weakness: OT PT therapy 6. Hypertension: Blood pressure on the normal side, continue to monitor Hold antihypertensive at the moment 7. Hyperlipemia: Continue home dose statins PDMP PDMP Reviewed: Not Reviewed Attestations 2 Medical Necessity Statement*: Patient will stay awaiting bed assignment at [facility] for possible/likely vascular intervention due to severe carotid artery stenosis Time Spent in Patient Care: 16 - 35 minutes (>than 50% of time sp ent in counselling and/or direct pt care on unit) . Other Attestations: Patient condition has been discussed at length with the patient/family, I have independently reviewed the chart labs imaging/diagnostics/EKG. the goals of care and code status with the patient/family/NOK/legal business banking representative, and documented accordingly. I have reconciled the medications after confirmation/comorbidities/current clinical condition. The management has been done according to the current clinical condition with respect to patient goals of care and based on recommendations/guidelines. The patient/family has been informed about the current condition and further plan of care. Agreed with the plan of care and understood without any language barrier. Every effort was made to ensure accuracy of payroll coordinator. Any obvious errors or omissions should be clarified with the author of the document. Coding Level of Care Code Acute Code for Chg Fwd Diagnoses CVA (cerebral vascular accident) I63.9 Parkinsonism G20.C Bilateral carotid artery stenosis I65.23 Laterality: bilateral Traumatic brain injury with delayed recovery S06.9XAA Generalized weakness R53.1 Hypertension I10 Hyperlipemia E78.5
--- NOTE | 2025-04-01 18:39 | PC.NURSE ---
This nurse attempted to call report to Cristal at [phone], however, the nurse requested we call report at a later time.
[2025-04-02] VITALS: BP 92/54; PULSE 67; RESP 23; TEMP 36.6; O2SAT 90
[2025-04-02 04:00] VITALS: BP 131/82; PULSE 77; RESP 18; TEMP 36.9; O2SAT 92
[2025-04-02] MEDS: carbidopa-levodopa 25-100mg Tablet 1 EACH PO (04:30)
[2025-04-02] MEDS: guaiFENesin-dextromethorphan UDC 10 mL PO (04:36)
[2025-04-02 04:59] LABS: Estmated Average Glucose 111; Hemoglobin A1C 5.5 % (4.0-6.0)
[2025-04-02 05:48] VITALS: PULSE 70
[2025-04-02 08:00] VITALS: BP 112/61; PULSE 70; RESP 16; TEMP 36.7; O2SAT 91
[2025-04-02 08:19] VITALS: PULSE 73; RESP 16; O2SAT 91
[2025-04-02 11:30] VITALS: BP 112/61; PULSE 73; RESP 16; TEMP 36.7; O2SAT 91
--- NOTE | 2025-04-02 19:32 | PC.NURSE ---
Transport update unable to transport till AM due to another ALS transport of more critical patient needed
--- NOTE | 2025-04-02 19:32 | PC.NURSE ---
Report called to [facility] at [phone] to Amy Cardozo RN
== END 2025-04-02 09:15 | disposition short-term general hospital (02) | DRG 65 ==
LOC: ER 11:48 → MEDSURG 15:49
PROVIDERS: Admitting Provider Internal Medicine; Emergency Provider Family Medicine; PCP Nurse Practitioner Family; Visit Provider Student in an Organized Health Care Education/Training Program
DX: I63.9 Cerebral infarction, unspecified (principal); G81.91 Hemiplegia, unspecified affecting right dominant side; R47.81 Slurred speech; G20.A1 Parkinson's disease without dyskinesia, without mention of fluctuations; G62.9 Polyneuropathy, unspecified; R29.704 NIHSS score 4; F32.9 Major depressive disorder, single episode, unspecified; I65.23 Occlusion and stenosis of bilateral carotid arteries; I10 Essential (primary) hypertension; E78.5 Hyperlipidemia, unspecified; Z87.820 Personal history of traumatic brain injury; Z79.899 Other long term (current) drug therapy; Z87.891 Personal history of nicotine dependence; Z79.82 Long term (current) use of aspirin
CPT/HCPCS: 36415; 36416; 70450; 70496; 70498; 80053; 80061; 80306; 81001; 82962; 83036; 84443; 85025; 85610; 85730; 92523; 92610; 93005; 96372; 97110; 97167; C8929; J1650; J7030; J9999